=== PATIENT | male | born 1935 | race Caucasian/White ===

== ENCOUNTER 2017-03-15 20:06 | Emergency (ER) | payer BC, MEDICARE ==
[2017-03-15 20:17] VITALS: RESP 18
--- NOTE | 2017-03-15 21:07 | ED ---
General Adult HPI - General Chief complaint: Recheck/Abnormal Lab/Rx Stated complaint: High Blood Pressure Time Seen by Provider: 03/15/17 20:26 Source: patient, family, RN notes reviewed, old records reviewed Mode of arrival: wheelchair Limitations: no limitations - History of Present Illness Initial comments: Chief complaint history of present illness this is an 82-year-old male here with and son. Patient had a vasovagal episode while getting out of bed 3 days ago. 2 days ago he visited his family doctor. Suggested at that time his blood pressure was on the low side to use only half of his lisinopril which is normal at 10 mg. Today the patient reports he had a funny sensation felt dizzy his blood pressure was checked and was elevated at 190 systolic. The patient's blood pressure numbers are unavailable at this time for comparison but while in emergency room the patient's laying blood pressure was 208/102 with pulse 72 when he had up and was measured to be 163/80 with a pulse of 80 and then when he stood up and was 130/67 with a pulse of 88. No time did patient feel particularly dizzy. - Related Data Home Medications Medication Instructions Recorded Confirmed Lisinopril [Zestril] 10 mg PO DAILY 03/15/17 03/15/17 Allergies Allergy/AdvReac Type Severity Reaction Status Date / Time No Known Allergies Allergy Verified 03/15/17 20:17 Review of Systems ROS Statement: Those systems with pertinent positive or pertinent negative responses have been documented in the HPI. You have systems no headache or visual acuity changes he does have macular degeneration and is receiving shots for this. Denying chest pain palpitations shortness of breath no GI/ problems. Has not noticed any change in color of his stool or urine. All systems are reviewed. Past medical problems significant for high blood pressure. His surgeries include: Cancer surgery twice as well as splenectomy. Family history father had an WI at age 62. Patient denies ALLERGIES. He never smoked. Drink alcohol rarely socially. ROS Other: All systems not noted in ROS Statement are negative. Past Medical History Past Medical History: Hypertension History of Any Multi-Drug Resistant Organisms: None Reported Additional Past Surgical History / Comment(s): colon Past Psychological History: No Psychological Hx Reported Smoking Status: Never smoker Past Alcohol Use History: None Reported Past Drug Use History: None Reported General Exam - General Exam Comments Initial Comments: General: The patient is awake and alert, in no distress, and does not appear acutely ill. Blood pressure vital signs showed temperature 96.9 pulse 77 respiratory rate 18 pulse ox 90% room air blood pressure 174/82 Eye: Pupils are equal, round and reactive to light, extra-ocular movements are intact ; there is normal conjunctiva bilaterally. No signs of icterus. Ears, nose, mouth and throat: There are moist mucous membranes . Neck: The neck is supple, there is no tenderness . Cardiovascular: There is a regular rate and rhythm. No murmur, rub or gallop is appreciated. Respiratory: Lungs are clear to auscultation, respirations are non-labored, breath sounds are equal. No wheezes, stridor, rales, or rhonchi. Gastrointestinal: Soft, non-distended, non-tender abdomen without masses or organomegaly noted. There is no rebound or guarding present. No CVA tenderness. Bowel sounds are unremarkable. Back: There is no tenderness to palpation in the midline. There is no obvious deformity. No rashes noted. Musculoskeletal: Normal ROM, no tenderness, There is no pedal edema. There is no calf tenderness or swelling. Sensation intact. Pulses equal bilaterally 2+. Neurological: CN II-XII intact, There are no obvious motor or sensory deficits. Coordination appears grossly intact. Speech is normal. No focal or lateralizing findings. Skin: Skin is warm and dry and no rashes or lesions are noted. Limitations: no limitations Course Vital Signs 03/15/17 03/15/17 20:13 20:37 Temperature 96.9 F L Pulse Rate 77 Respiratory 18 Rate Blood Pressure 174/82 Blood Pressure 163/80 [Left Arm Sitting] Blood Pressure 138/67 [Left Arm Standing] Blood Pressure 208/102 [Left Arm Supine] O2 Sat by Pulse 98 Oximetry EKG Findings - EKG Comments: EKG Findings:: EKG was done at 2023 showing sinus rhythm first-degree AV block with left axis deviation and a right bundle branch block age undetermined inferior infarct. No acute ST elevation no ectopy no ischemic changes. Rate 73 , nose to 98 QRS 132 QT 398 QTc 4:30. Dr. Mendoza Medical Decision Making - Medical Decision Making Medical decision-making. The patient's EKG was found to be sinus rhythm first- degree AV block no acute changes. We did discuss his near syncopal episode 3 nights ago when he stood up to go to the washroom and middle the night his reports he just went down to the floor without losing consciousness. He states he felt dizzy and things went dark. No neuro deficits no seizure activity. He then managed to go to the washroom without difficulty. I did discuss at length vasovagal syncope and at times when he will be at most risk such as getting out of warm bed or going to the bathroom. He decided to stop his blood pressure pills because of one lower reading at the doctor's office and today his blood pressure was significantly elevated. The patient be given a 5 mg lisinopril this evening from his own medication container. Advised to have his blood pressure rechecked again with a blood pressure machine at home. And several times tomorrow when he stood should restart his lisinopril 10 mg. Advised to stay properly hydrated. Change positions slowly. Realizing when he feels the least bit dizzy when he stands up to sit down immediately to his fall and hurt himself. Patient and family voiced understanding with these cautions. Disposition Clinical Impression: Vasovagal near syncope Disposition: HOME SELF-CARE Condition: Fair Instructions: Syncope (ED) Additional Instructions: Change positions slowly, stay hydrated. Stand up against and by the side of the bed or the toilet before you step away to make sure you don't fall. Follow- up with family physician. Taking lisinopril in the morning. Referrals: Carlos Silva DO [Primary Care Provider] - 1-2 days Time of Disposition: 21:07
[2017-03-15 21:34] VITALS: BP 165/86; PULSE 69; TEMP 98.2
== END 2017-03-15 21:30 | disposition home or self-care (01) ==
LOC: EC 20:06
DX: R55 Syncope and collapse (principal); I10 Essential (primary) hypertension; Z79.899 Other long term (current) drug therapy
CPT/HCPCS: 93005; 99284

== ENCOUNTER → 2017-12-19 | Outpatient (CLI) | payer MEDICARE ==
--- NOTE | 2017-12-19 14:30 | US ---
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 GLAND SIZE: Right Lobe: 4.5 x 2.3 x 1.9 cm Overall Parenchyma: homogenous Left Lobe: 2.7 x 1.4 x 1.5 cm Overall Parenchyma: homogeneous Isthmus Thickness: 0.3 cm NODULES RIGHT: # of nodules measured on right: 3 1. 0.7 X 0.5 x 0.7 cm hypoechoic cystic nodule at the upper pole with well-defined margins; . This nodule is wider than tall and shows no intranodular vascularity. Prior size: 0.7 x 0.6 x 0.3 cm 2. 0.8 X 0.7 x 0.9 cm hypoechoic cystic nodule at the lower pole with well-defined margins; . This nodule is wider than tall and shows no intranodular vascularity. Prior size: 0.9 x 0.6 x 1.0 cm 3. 0.4 X 0.3 x 0.4 cm hypoechoic cystic nodule at the lower pole with well-defined margins; . This nodule is wider than tall and shows no intranodular vascularity. Prior size: 0.7 x 0.5 x 0.5 cm LEFT: # of nodules measured on left: 2 1. 0.6 X 0.5 x 0.7 cm hypoechoic cystic nodule at the upper pole with well-defined margins; . This nodule is wider than tall and shows no intranodular vascularity. Prior size: 0.5 x 0.5 x 0.4 cm 2. 1.2 X 0.7 x 0.9 cm hypoechoic solid nodule at the mid pole with well-defined margins; . This nod ule is wider than tall and shows intranodular vascularity. Prior size: 0.9 x 0.9 x 0.6 cm ISTHMUS: # of nodules measured in the isthmus: 0 Bilateral neck scanned, no evidence of lymphadenopathy. IMPRESSION: Nodules as described, not as many cysts seen right lobe as seen on prior.
== END | disposition home or self-care (01) ==
LOC: RADUSWWP 12:06
PROVIDERS: ATTEND Family Medicine
DX: E04.2 Nontoxic multinodular goiter (principal)
CPT/HCPCS: 76536

== ENCOUNTER 2018-01-13 11:48 | Day surgery (SDC) | payer MEDICARE ==
[2018-01-13 12:59] VITALS: RESP 16; TEMP 97.6
--- NOTE | 2018-01-13 13:17 | US ---
ULTRASOUND GUIDED FNA THYROID BIOPSY: CLINICAL HISTORY: Left thyroid nodule FINDINGS: The procedure was explained to the patient. The risks, complications, benefits and alternatives were discussed and any questions were answered. Informed consent was obtained. Patient was placed supin e on the ultrasound table and prepped and draped in the usual sterile fashion. Utilizing a 25 gauge needle, five passes were made into the requested left thyroid nodule. Patient was stable throughout the procedure. Pathology is pending. All elements of maximal barrier technique were utilized. IMPRESSION: 1. Successful ultrasound guided FNA thyroid biopsy.
[2018-01-13 14:17] VITALS: BP 158/73; PULSE 66
== END 2018-01-13 13:35 | disposition home or self-care (01) ==
LOC: RADPROMAIN 11:48
PROVIDERS: ATTEND Family Medicine
DX: E04.1 Nontoxic single thyroid nodule (principal)
CPT/HCPCS: 10022; 76942; 88173; 88305

== ENCOUNTER 2018-07-08 19:27 | Emergency (ER) | payer MEDICARE ==
[2018-07-08] MEDS ORDERED: SODIUM CHLORIDE 0.9% 1,000 ML IV STA ×2 (19:35)
--- NOTE | 2018-07-08 19:36 | ED ---
Weakness HPI - General Chief complaint: Weakness Stated complaint: Weakness Time Seen by Provider: 07/08/18 19:35 Source: patient, family, RN notes reviewed, old records reviewed Mode of arrival: ambulatory Limitations: no limitations - History of Present Illness Initial comments: This is an 83-year-old male the ER for eversion of weakness dehydration, not acting appropriately not feeling well family states she's had fevers and chills. Patient states he feels better upon arrival to ER. No known travel history no sick contacts. No recent medication changes. Patient denying any chest pain or shortness of breath MD Complaint: generalized weakness, lack of energy -: days(s) Location: generalized Severity: moderate Severity scale (1-10): 1 Consistency: other (Patient states he does feel better but he still feels weak) Improves with: rest Worsens with: movement Context: new medication (They do think he may be medication reaction) Associated Symptoms: denies other symptoms - Related Data Home Medications Medication Instructions Recorded Confirmed Vit C/E/Zn/Coppr/Lutein/Zeaxan 1 cap PO DAILY 01/01/18 07/08/18 [Preservision Areds 2 Softgel] Methimazole 10 mg PO AC-BID 07/08/18 07/08/18 Multivitamins, Thera [Multivitamin 1 tab PO DAILY 07/08/18 07/08/18 (formulary)] Propranolol LA [Inderal LA] 60 mg PO DAILY 07/08/18 07/08/18 Allergies Allergy/AdvReac Type Severity Reaction Status Date / Time No Known Allergies Allergy Verified 07/08/18 20:13 Review of Systems ROS Statement: Those systems with pertinent positive or pertinent negative responses have been documented in the HPI. ROS Other: All systems not noted in ROS Statement are negative. Past Medical History Past Medical History: Cancer, Hypertension Additional Past Medical History / Comment(s): macular degeneration, colon ca - bowel resection and chemo both times History of Any Multi-Drug Resistant Organisms: None Reported Additional Past Surgical History / Comment(s): colon resection - one at age 54, a second at age 69 Past Anesthesia/Blood Transfusion Reactions: No Reported Reaction Past Psychological History: No Psychological Hx Reported Smoking Status: Never smoker Past Alcohol Use History: None Reported Past Drug Use History: None Reported General Exam Limitations: no limitations General appearance: alert, in no apparent distress Head exam: Present: atraumatic, normocephalic, normal inspection Eye exam: Present: normal appearance, PERRL, EOMI. Absent: scleral icterus, conjunctival injection, periorbital swelling ENT exam: Present: normal exam, mucous membranes moist Neck exam: Present: normal inspection. Absent: tenderness, meningismus, lymphadenopathy Respiratory exam: Present: normal lung sounds bilaterally. Absent: respiratory distress, wheezes, rales, rhonchi, stridor Cardiovascular Exam: Present: regular rate, normal rhythm, normal heart sounds. Absent: systolic murmur, diastolic murmur, rubs, gallop, clicks GI/Abdominal exam: Present: soft, normal bowel sounds. Absent: distended, tenderness, guarding, rebound, rigid Extremities exam: Present: normal inspection, full ROM, normal capillary refill. Absent: tenderness, pedal edema, joint swelling, calf tenderness Back exam: Present: normal inspection Neurological exam: Present: alert, oriented X3, CN II-XII intact Psychiatric exam: Present: normal affect, normal mood Skin exam: Present: warm, dry, intact, normal color. Absent: rash Course Vital Signs 07/08/18 07/08/18 07/08/18 19:30 19:56 20:30 Temperature 101.4 F H Pulse Rate 78 77 82 Respiratory 18 34 H 18 Rate Blood Pressure 144/78 168/74 O2 Sat by Pulse 97 96 99 Oximetry 07/08/18 07/08/18 07/08/18 21:23 22:00 23:00 Temperature 99.0 F Pulse Rate 74 74 67 Respiratory 18 22 22 Rate Blood Pressure 158/74 152/77 142/74 O2 Sat by Pulse 98 96 96 Oximetry 07/09/18 00:10 Temperature 98.3 F Pulse Rate 82 Respiratory 18 Rate Blood Pressure 159/79 O2 Sat by Pulse 96 Oximetry - Reevaluation(s) Reevaluation #1: medical record is reviewed spoke with family patient is at baseline and ok for discharge home. EKG Findings - EKG Comments: EKG Findings:: EKG shows sinus rhythm rate of 77, SC 270, QRS 144, QTc 457 Medical Decision Making - Medical Decision Making 83 male brought in by family for weakness and fever at home. Patient given hydration here in ER fever control, no acute cause infection is found. Patient states he feels improved and will be discharged - Lab Data Result diagrams: 07/08/18 19:54 07/08/18 19:54 Lab Results 07/08/18 07/08/18 07/08/18 Range/Units 19:54 19:54 19:54 WBC 10.4 (3.8-10.6) k/uL RBC 3.72 L (4.30-5.90) m/uL Hgb 11.4 L (13.0-17.5) gm/dL Hct 34.6 L (39.0-53.0) % MCV 93.2 (80.0-100.0) fL MCH 30.7 (25.0-35.0) pg MCHC 33.0 (31.0-37.0) g/dL RDW 12.4 (11.5-15.5) % Plt Count 282 (150-450) k/uL Neutrophils % 80 % Lymphocytes % 11 % Monocytes % 6 % Eosinophils % 2 % Basophils % 0 % Neutrophils # 8.3 H (1.3-7.7) k/uL Lymphocytes # 1.2 (1.0-4.8) k/uL Monocytes # 0.6 (0-1.0) k/uL Eosinophils # 0.2 (0-0.7) k/uL Basophils # 0.0 (0-0.2) k/uL PT (9.0-12.0) sec INR (<1.2) APTT (22.0-30.0) sec Sodium 136 L (137-145) mmol/L Potassium 4.6 (3.5-5.1) mmol/L Chloride 101 (98-107) mmol/L Carbon Dioxide 25 (22-30) mmol/L Anion Gap 10 mmol/L BUN 19 (9-20) mg/dL Creatinine 1.52 H (0.66-1.25) mg/dL Est GFR (CKD-EPI)AfAm 48 (>60 ml/min/1.73 sqM) Est GFR (CKD-EPI)NonAf 42 (>60 ml/min/1.73 sqM) Glucose 138 H (74-99) mg/dL Plasma Lactic Acid Pedro (0.7-2.0) mmol/L Calcium 9.1 (8.4-10.2) mg/dL Phosphorus 3.3 (2.5-4.5) mg/dL Magnesium 1.7 (1.6-2.3) mg/dL Total Bilirubin 0.5 (0.2-1.3) mg/dL AST 36 (17-59) U/L ALT 23 (21-72) U/L Alkaline Phosphatase 87 (38-126) U/L Total Creatine Kinase 64 (55-170) U/L CK-MB (CK-2) 0.5 (0.0-2.4) ng/mL CK-MB (CK-2) Rel Index 0.8 Troponin I 0.041 H* (0.000-0.034) ng/mL Total Protein 6.6 (6.3-8.2) g/dL Albumin 3.7 (3.5-5.0) g/dL Urine Color Urine Appearance (Clear) Urine pH (5.0-8.0) Ur Specific [place] (1.001-1.035) Urine Protein (Negative) Urine Glucose (UA) (Negative) Urine Ketones (Negative) Urine Blood (Negative) Urine Nitrite (Negative) Urine Bilirubin (Negative) Urine Urobilinogen (<2.0) mg/dL Ur Leukocyte Esterase (Negative) Urine RBC (0-5) /hpf Urine WBC (0-5) /hpf Urine Mucus (None) /hpf Influenza Type A RNA (Not Detectd) Influenza Type B (PCR) (Not Detectd) 07/08/18 07/08/18 07/08/18 Range/Units 19:54 19:54 20:30 WBC (3.8-10.6) k/uL RBC (4.30-5.90) m/uL Hgb (13.0-17.5) gm/dL Hct (39.0-53.0) % MCV (80.0-100.0) fL MCH (25.0-35.0) pg MCHC (31.0-37.0) g/dL RDW (11.5-15.5) % Plt Count (150-450) k/uL Neutrophils % % Lymphocytes % % Monocytes % % Eosinophils % % Basophils % % Neutrophils # (1.3-7.7) k/uL Lymphocytes # (1.0-4.8) k/uL Monocytes # (0-1.0) k/uL Eosinophils # (0-0.7) k/uL Basophils # (0-0.2) k/uL PT 10.4 (9.0-12.0) sec INR 1.1 (<1.2) APTT 27.9 (22.0-30.0) sec Sodium (137-145) mmol/L Potassium (3.5-5.1) mmol/L Chloride (98-107) mmol/L Carbon Dioxide (22-30) mmol/L Anion Gap mmol/L BUN (9-20) mg/dL Creatinine (0.66-1.25) mg/dL Est GFR (CKD-EPI)AfAm (>60 ml/min/1.73 sqM) Est GFR (CKD-EPI)NonAf (>60 ml/min/1.73 sqM) Glucose (74-99) mg/dL Plasma Lactic Acid Pedro 1.3 (0.7-2.0) mmol/L Calcium (8.4-10.2) mg/dL Phosphorus (2.5-4.5) mg/dL Magnesium (1.6-2.3) mg/dL Total Bilirubin (0.2-1.3) mg/dL AST (17-59) U/L ALT (21-72) U/L Alkaline Phosphatase (38-126) U/L Total Creatine Kinase (55-170) U/L CK-MB (CK-2) (0.0-2.4) ng/mL CK-MB (CK-2) Rel Index Troponin I (0.000-0.034) ng/mL Total Protein (6.3-8.2) g/dL Albumin (3.5-5.0) g/dL Urine Color Urine Appearance (Clear) Urine pH (5.0-8.0) Ur Specific [place] (1.001-1.035) Urine Protein (Negative) Urine Glucose (UA) (Negative) Urine Ketones (Negative) Urine Blood (Negative) Urine Nitrite (Negative) Urine Bilirubin (Negative) Urine Urobilinogen (<2.0) mg/dL Ur Leukocyte Esterase (Negative) Urine RBC (0-5) /hpf Urine WBC (0-5) /hpf Urine Mucus (None) /hpf Influenza Type A RNA Not Detected (Not Detectd) Influenza Type B (PCR) Not Detected (Not Detectd) 07/08/18 Range/Units Unknown WBC (3.8-10.6) k/uL RBC (4.30-5.90) m/uL Hgb (13.0-17.5) gm/dL Hct (39.0-53.0) % MCV (80.0-100.0) fL MCH (25.0-35.0) pg MCHC (31.0-37.0) g/dL RDW (11.5-15.5) % Plt Count (150-450) k/uL Neutrophils % % Lymphocytes % % Monocytes % % Eosinophils % % Basophils % % Neutrophils # (1.3-7.7) k/uL Lymphocytes # (1.0-4.8) k/uL Monocytes # (0-1.0) k/uL Eosinophils # (0-0.7) k/uL Basophils # (0-0.2) k/uL PT (9.0-12.0) sec INR (<1.2) APTT (22.0-30.0) sec Sodium (137-145) mmol/L Potassium (3.5-5.1) mmol/L Chloride (98-107) mmol/L Carbon Dioxide (22-30) mmol/L Anion Gap mmol/L BUN (9-20) mg/dL Creatinine (0.66-1.25) mg/dL Est GFR (CKD-EPI)AfAm (>60 ml/min/1.73 sqM) Est GFR (CKD-EPI)NonAf (>60 ml/min/1.73 sqM) Glucose (74-99) mg/dL Plasma Lactic Acid Pedro (0.7-2.0) mmol/L Calcium (8.4-10.2) mg/dL Phosphorus (2.5-4.5) mg/dL Magnesium (1.6-2.3) mg/dL Total Bilirubin (0.2-1.3) mg/dL AST (17-59) U/L ALT (21-72) U/L Alkaline Phosphatase (38-126) U/L Total Creatine Kinase (55-170) U/L CK-MB (CK-2) (0.0-2.4) ng/mL CK-MB (CK-2) Rel Index Troponin I (0.000-0.034) ng/mL Total Protein (6.3-8.2) g/dL Albumin (3.5-5.0) g/dL Urine Color Yellow Urine Appearance Clear (Clear) Urine pH 7.0 (5.0-8.0) Ur Specific [place] 1.010 (1.001-1.035) Urine Protein Trace H (Negative) Urine Glucose (UA) Negative (Negative) Urine Ketones Negative (Negative) Urine Blood Trace H (Negative) Urine Nitrite Negative (Negative) Urine Bilirubin Negative (Negative) Urine Urobilinogen <2.0 (<2.0) mg/dL Ur Leukocyte Esterase Negative (Negative) Urine RBC 9 H (0-5) /hpf Urine WBC 1 (0-5) /hpf Urine Mucus Rare H (None) /hpf Influenza Type A RNA (Not Detectd) Influenza Type B (PCR) (Not Detectd) - Radiology Data Radiology results: report reviewed (Chest x-rays negative for acute disease), image reviewed Disposition Clinical Impression: Weakness, Fever Disposition: HOME SELF-CARE Condition: Good Instructions: Fever in Adults (ED), Weakness (ED) Is patient prescribed a controlled substance at d/c from ED?: No Referrals: Carlos Silva DO [Primary Care Provider] - 1-2 days
[2018-07-08] MEDS ORDERED: ACETAMINOPHEN TAB 500 MG TAB PO STA (19:38)
[2018-07-08] MEDS ORDERED: IBUPROFEN 800 MG TAB PO STA (19:38)
[2018-07-08 20:25] LABS: Basophils % (A) 0 %; Eosinophils # (A) 0.2 k/uL (0-0.7); Eosinophils % (A) 2 %; HCT 34.6 % (39.0-53.0); HGB 11.4 gm/dL (13.0-17.5); Lymphocytes # (A) 1.2 k/uL (1.0-4.8); Lymphocytes % (A) 11 %; MCH 30.7 pg (25.0-35.0); MCV 93.2 fL (80.0-100.0); Mean Platelet Volume 7.2; Monocytes # (A) 0.6 k/uL (0-1.0); Monocytes % (A) 6 %; Neutrophils # (A) 8.3 k/uL (1.3-7.7); Neutrophils % (A) 80 %; Platelet Count 282 k/uL (150-450); RBC 3.72 m/uL (4.30-5.90); RDW 12.4 % (11.5-15.5); WBC 10.4 k/uL (3.8-10.6)
[2018-07-08 20:34] LABS: Albumin 3.7 g/dL (3.5-5.0); Calcium 9.1 mg/dL (8.4-10.2); Magnesium 1.7 mg/dL (1.6-2.3); Phosphorus 3.3 mg/dL (2.5-4.5); Potassium 4.6 mmol/L (3.5-5.1); Total Bilirubin 0.5 mg/dL (0.2-1.3); Total Protein 6.6 g/dL (6.3-8.2)
[2018-07-08 20:41] LABS: INR 1.1 (<1.2); Partial Thromboplastin Time 27.9 sec (22.0-30.0); Prothrombin Time 10.4 sec (9.0-12.0)
[2018-07-08 20:52] LABS: Creatine Kinase MB 0.5 ng/mL (0.0-2.4)
[2018-07-08 21:00] LABS: Troponin I 0.041 ng/mL (0.000-0.034)
--- NOTE | 2018-07-08 21:12 | XR ---
EXAMINATION TYPE: XR chest 2V DATE OF EXAM: 07/08/2018 COMPARISON: NONE HISTORY: Weakness TECHNIQUE: Frontal and lateral views of the chest are obtained. FINDINGS: There is no heart failure nor confluent pneumonic infiltrate. Heart appears enlarged. Thor acic aorta is atheromatous. There is no sign of pleural effusion. There are chest leads. IMPRESSION: No active cardiopulmonary disease. Cardiomegaly.
[2018-07-08 23:33] LABS: Appearance,Urine Clear (Clear); Bilirubin,Urine Negative (Negative); Blood,Urine Trace (Negative); Color,Urine Yellow; Glucose,Urine (UA) Negative (Negative); Ketones,Urine Negative (Negative); Leukocyte Esterase,Urine Negative (Negative); Mucus,Urine Rare /hpf; Nitrite,Urine Negative (Negative); Protein,Urine Trace (Negative); RBC,Urine 9 /hpf (0-5); Urobilinogen,Urine <2.0 mg/dL (<2.0); WBC,Urine 1 /hpf (0-5)
[2018-07-09 00:34] VITALS: BP 159/79; PULSE 82; RESP 18; TEMP 98.3
== END 2018-07-09 00:10 | disposition home or self-care (01) ==
LOC: EC 19:27
DX: R53.1 Weakness (principal); R50.9 Fever, unspecified; I10 Essential (primary) hypertension; Z85.038 Personal history of other malignant neoplasm of large intestine; Z79.899 Other long term (current) drug therapy; Z90.49 Acquired absence of other specified parts of digestive tract
CPT/HCPCS: 36415; 71046; 80053; 81001; 82550; 82553; 83605; 83735; 84100; 84484; 85025; 85610; 85730; 87040; 87086; 87502; 93005; 96360; 96361; 99285

== ENCOUNTER 2020-08-07 02:10 | Inpatient (IN) | payer MEDICARE ==
[2020-08-07 02:35] LABS: Basophils % (A) 0 %; Eosinophils # (A) 0.1 k/uL (0-0.7); Eosinophils % (A) 1 %; HCT 32.6 % (39.0-53.0); HGB 10.9 gm/dL (13.0-17.5); Lymphocytes # (A) 1.4 k/uL (1.0-4.8); Lymphocytes % (A) 12 %; MCH 32.6 pg (25.0-35.0); MCHC 33.5 g/dL (31.0-37.0); MCV 97.3 fL (80.0-100.0); Mean Platelet Volume 7.3; Monocytes % (A) 8 %; Neutrophils # (A) 8.9 k/uL (1.3-7.7); Neutrophils % (A) 77 %; Platelet Count 204 k/uL (150-450); RBC 3.35 m/uL (4.30-5.90); RDW 12.8 % (11.5-15.5); WBC 11.6 k/uL (3.8-10.6)
--- NOTE | 2020-08-07 02:39 | ED ---
Chest Pain HPI - General Chief Complaint: Chest Pain Stated Complaint: Chest Pain Time Seen by Provider: 08/07/20 02:19 Source: patient, EMS Mode of arrival: EMS Limitations: no limitations - History of Present Illness Initial Comments: This patient is a 85-year-old man who presents to be evaluated for generalized weakness and for bilateral pleuritic chest pain. The patient states that he was in his usual state of health until about 3 days ago. On that day he was having generalized weakness and his gave him some Pedialyte which seemed to impr ove his energy level for couple of days. Starting in the morning today, patient was feeling generalized weakness and he noted some pain ACROSS his chest take a deep breath in. He denies other chest related symptoms, including no shortness of breath, orthopnea, cough. Denies change in urination or bowel movements. No leg pain or swelling. MD Complaint: chest pain Onset/Timin -: days(s) Onset: during rest Pain Location: substernal, left chest, right chest Pain Radiation: none Severity: mild Quality: dull Improves With: nothing Worsens With: inspiration Treatments Prior to Arrival: none - Related Data Home Medications Medication Instructions Recorded Confirmed Vit C/E/Zn/Coppr/Lutein/Zeaxan 1 cap PO DAILY 01/01/18 08/07/20 [Preservision Areds 2 Softgel] Multivitamins, Thera [Multivitamin 1 tab PO DAILY 07/08/18 08/07/20 (formulary)] Brimonidine Tartrate [Alphagan P 1 drop BOTH EYES BID 08/07/20 08/07/20 0.2% Ophth Soln] Levothyroxine Sodium [Synthroid] 25 mcg PO MOTUWETHFRSA 08/07/20 08/07/20 Tamsulosin [Flomax] 0.4 mg PO BID 08/07/20 08/07/20 Previous Rx's Medication Instructions Recorded Aspirin 81 mg PO DAILY #30 chew 08/10/20 Metoprolol Tartrate [Lopressor] 25 mg PO TID #90 tab 08/10/20 Allergies Allergy/AdvReac Type Severity Reaction Status Date / Time No Known Allergies Allergy Verified 08/07/20 06:29 Review of Systems ROS Statement: Those systems with pertinent positive or pertinent negative responses have been documented in the HPI. ROS Other: All systems not noted in ROS Statement are negative. Constitutional: Reports: weakness. Denies: fever, chills Respiratory: Denies: cough, dyspnea, wheezes Cardiovascular: Reports: as per HPI, chest pain. Denies: palpitations, orthopnea, edema, syncope Gastrointestinal: Denies: abdominal pain, nausea, vomiting, diarrhea, constipation, melena, hematochezia Genitourinary: Denies: dysuria, hematuria Musculoskeletal: Denies: back pain Skin: Denies: rash Neurological: Denies: headache, weakness, numbness, paresthesias EKG Findings - EKG Comments: EKG Findings:: Possible old inferior infarct. Short MI interval - EKG Results: EKG: interpreted by ERMD, sinus rhythm EKG shows: tachycardia (Rate 135 bpm) - Blocks, [place], Hypertrophy, ST Abn: AV and intraventricular conduction: right bundle branch block (fixed/intermittent, complete/incomplete), left anterior fascicular block Past Medical History Past Medical History: Cancer, Hypertension, Renal Disease Additional Past Medical History / Comment(s): macular degeneration, colon ca - bowel resection and chemo both times, stage 3 renal failure History of Any Multi-Drug Resistant Organisms: None Reported Additional Past Surgical History / Comment(s): colon resection - one at age 54, a second at age 69 Past Anesthesia/Blood Transfusion Reactions: No Reported Reaction Past Psychological History: No Psychological Hx Reported Smoking Status: Never smoker Past Alcohol Use History: Occasional Past Drug Use History: None Reported - Past Family History Father Family Medical History: Myocardial Infarction ([place]) Mother Family Medical History: CVA/TIA General Exam Limitations: no limitations General appearance: alert, in no apparent distress Head exam: Present: atraumatic, normocephalic Eye exam: Present: normal appearance. Absent: scleral icterus, conjunctival injection ENT exam: Present: mucous membranes dry Neck exam: Present: normal inspection Respiratory exam: Present: rales (Bilateral bases). Absent: respiratory distress, wheezes, rhonchi, stridor, chest wall tenderness, accessory muscle use, decreased breath sounds Cardiovascular Exam: Present: normal rhythm, tachycardia, normal heart sounds. Absent: systolic murmur, diastolic murmur, rubs, gallop GI/Abdominal exam: Present: soft. Absent: distended, tenderness, guarding, rebound, rigid, mass Extremities exam: Present: normal inspection, normal capillary refill. Absent: pedal edema, calf tenderness Back exam: Present: normal inspection. Absent: CVA tenderness (R), CVA tenderness (L) Neurological exam: Present: alert, oriented X3. Absent: motor sensory deficit Skin exam: Present: warm, dry, intact, normal color. Absent: rash Course Vital Signs 08/07/20 08/07/20 08/07/20 02:10 03:20 04:00 Temperature 98.7 F Pulse Rate 135 H 130 H 133 H Respiratory 20 18 18 Rate Blood Pressure 144/95 153/110 149/98 O2 Sat by Pulse 96 100 100 Oximetry 08/07/20 08/07/20 08/07/20 04:05 04:10 04:13 Temperature Pulse Rate 131 H 134 H 134 H Respiratory 18 18 18 Rate Blood Pressure 142/94 141/92 143/100 O2 Sat by Pulse 99 100 100 Oximetry 08/07/20 08/07/20 08/07/20 04:20 04:29 04:34 Temperature Pulse Rate 133 H 134 H 134 H Respiratory 16 18 18 Rate Blood Pressure 145/103 130/93 130/93 O2 Sat by Pulse 100 100 98 Oximetry 08/07/20 08/07/20 08/07/20 04:40 04:45 04:50 Temperature Pulse Rate 137 H 135 H 135 H Respiratory 18 18 18 Rate Blood Pressure 117/57 124/75 115/68 O2 Sat by Pulse 97 98 98 Oximetry 08/07/20 08/07/20 08/07/20 04:55 05:00 05:05 Temperature Pulse Rate 128 H 137 H 137 H Respiratory 18 18 18 Rate Blood Pressure 108/68 101/66 103/63 O2 Sat by Pulse 98 97 97 Oximetry 08/07/20 08/07/20 08/07/20 05:10 05:15 05:20 Temperature Pulse Rate 137 H 137 H 135 H Respiratory 18 18 18 Rate Blood Pressure 102/58 108/60 101/61 O2 Sat by Pulse 97 98 98 Oximetry 08/07/20 08/07/20 08/07/20 05:25 05:30 05:35 Temperature Pulse Rate 134 H 135 H 135 H Respiratory 18 18 18 Rate Blood Pressure 140/90 134/88 130/76 O2 Sat by Pulse 98 99 99 Oximetry 08/07/20 08/07/20 08/07/20 05:40 05:45 05:50 Temperature Pulse Rate 138 H 125 H 102 H Respiratory 18 18 20 Rate Blood Pressure 125/80 127/87 112/95 O2 Sat by Pulse 99 99 99 Oximetry 08/07/20 08/07/20 08/07/20 05:55 06:00 06:10 Temperature 98.8 F Pulse Rate 106 H 118 H 112 H Respiratory 20 16 18 Rate Blood Pressure 114/78 125/79 131/87 O2 Sat by Pulse 99 99 100 Oximetry 08/07/20 06:20 Temperature Pulse Rate 105 H Respiratory 18 Rate Blood Pressure 127/86 O2 Sat by Pulse 98 Oximetry Chest Pain [facility] Patient is a 5-year-old man presenting with weakness and some substernal chest pain. As there is suspicion from the ECG that he has atrial flutter which is being covered by the ST segments of his ECG due to the rate. I did give a small dose of oral beta kendra and it did appear to reveal underlying sawtooth pattern to the P waves when the rate was slowing. We will leave further rhythm control for cardiology. Disposition Clinical Impression: Chest pain, Atrial tachycardia Narrative: Suspect atrial flutter. Disposition: ADMITTED IP TO THIS HOSP Condition: Fair
[2020-08-07 02:49] LABS: Albumin 3.8 g/dL (3.5-5.0); Calcium 9.2 mg/dL (8.4-10.2); Potassium 4.2 mmol/L (3.5-5.1); Total Protein 6.5 g/dL (6.3-8.2)
--- NOTE | 2020-08-07 02:51 | CT ---
EXAM: CT Head Without Intravenous Contrast CLINICAL HISTORY: weakness TECHNIQUE: Axial computed tomography images of the head/brain without intravenous contrast. CTDI is 49.27 mGy and DLP is 1158.4 mGy-cm. This CT exam was performed using one or more of the following dose reduction techniques: automated exposure control, adjustment of the mA and/or kV according to patient size, and/or use of iterative reconstruction technique. COMPARISON: No relevant prior studies available. FINDINGS: Brain: Prominence of the cerebral sulci and sylvian fissures are noted. No acute intracranial hemorrhage or significant mass-effect. Extensive subcortical and periventricular deep white matter hypodense changes identified. No definite evidence for cortical infarct. Ventricles: Unremarkable. No ventriculomegaly. Bones/joints: Unremarkable. No acute fracture. Soft tissues: Unremarkable. Sinuses: Mucosal thickening involving the sphenoid sinus. The remaining paranasal sinuses are well-aerated without air-fluid levels. Mastoid air cells: Unremarkable as visualized. No mastoid effusion. IMPRESSION: No acute intracranial process identified. Incidental age-related changes, as noted above.
[2020-08-07 02:56] LABS: Partial Thromboplastin Time 26.1 sec (22.0-30.0); Prothrombin Time 10.4 sec (9.0-12.0)
--- NOTE | 2020-08-07 02:59 | XR ---
EXAM: XR Chest, 2 Views CLINICAL HISTORY: Weakness TECHNIQUE: Frontal and lateral views of the chest. COMPARISON: 07/08/2018 FINDINGS: Lungs: Chronic senescent interstitial changes remaining. The pleuritic vasculature demonstrates no radiographic evidence for florid CHF. No focal consolidation. Pleural space: Unremarkable. No pneumothorax. No large pleural effusion. Heart: The cardiac silhouette appears less prominent when compared to the previous examination. Mediastinum: Stable. The trachea is midline. Unfolding and tortuosity of the descending aorta without significant enlargement. Bones/joints: Unremarkable. IMPRESSION: No focal consolidation or acute cardiopulmonary process identified. The cardiac silhouette appears to be improved from the previous exam.
[2020-08-07] MEDS ORDERED: SODIUM CHLORIDE 0.9% 500 ML 500 ML IV STA (03:15)
[2020-08-07] MEDS ORDERED: NITROGLYCERIN-D5W PMX 50 MG in DEXTROSE/WATER 1 250ML.BAG IV ONE (03:28)
[2020-08-07 03:40] LABS: Appearance,Urine Clear (Clear); Bilirubin,Urine Negative (Negative); Blood,Urine Negative (Negative); Color,Urine Dark Yellow; Glucose,Urine (UA) Negative (Negative); Ketones,Urine Negative (Negative); Leukocyte Esterase,Urine Negative (Negative); Nitrite,Urine Negative (Negative); Protein,Urine Negative (Negative); Specific Gravity,Urine 1.007 (1.001-1.035); Urobilinogen,Urine <2.0 mg/dL (<2.0)
[2020-08-07] MEDS ORDERED: METOPROLOL TARTRATE 12.5 MG TAB PO ONE (05:00)
[2020-08-07] MEDS: FUROSEMIDE 10 MG/ML 4 ML VIAL IV SCH ×2 (05:50→17:07)
[2020-08-07] MEDS ORDERED: ENOXAPARIN 80 MG/0.8 ML SYRINGE SQ STA (05:53)
[2020-08-07 10:46] VITALS: BMI 24.4
[2020-08-07] MEDS: LEVOTHYROXINE 25 MCG TAB PO SCH (12:05)
[2020-08-07] MEDS ORDERED: HEPARIN SODIUM,PORCINE 5,000 UNIT/ML 1 ML VIAL IV ONE (12:14)
[2020-08-07] MEDS ORDERED: HEPARIN SODIUM,PORCINE 5,000 UNIT/ML 1 ML VIAL IV PRN (12:14)
--- NOTE | 2020-08-07 12:29 | P.CRDCN ---
History of Present Illness Consult date: 08/07/20 Chief complaint: Chest pain History of present illness: This is a pleasant 85-year-old gentleman who was admitted to the hospital with generalized weakness and a chest pain. The patient somewhat is a poor historian. He described chest discomfort in the mid of the chest worse with deep breath.It his symptoms of sweating or dizziness or lightheadedness or syncope. Also he described generalized weakness and fatigue. The EKG showed what it seems to be atrial fibrillation/atrial flutter which is known to the patient. The patient does not have any history of coronary artery disease or congestive heart failure or cardiac arrhythmia. Also the d-dimer came in to be abnormal. No computed tomography scan or VQ scan ordered. When the patient was seen and examined this morning he is tachycardic. At this point I'm going to start the patient on Cardizem drip as well as heparin drip. I am going to obtain a CTA of the chest to rule out PE. Also an echocardiogram is in process to be done. Past Medical History Past Medical History: Cancer, Hypertension, Renal Disease Additional Past Medical History / Comment(s): macular degeneration, colon ca - bowel resection and chemo both times, stage 3 renal failure History of Any Multi-Drug Resistant Organisms: None Reported Additional Past Surgical History / Comment(s): colon resection - one at age 54, a second at age 69 Past Anesthesia/Blood Transfusion Reactions: No Reported Reaction Past Psychological History: No Psychological Hx Reported Smoking Status: Never smoker Past Alcohol Use History: Occasional Past Drug Use History: None Reported - Past Family History Father Family Medical History: Myocardial Infarction ([place]) Mother Family Medical History: CVA/TIA Medications and Allergies Home Medications Medication Instructions Recorded Confirmed Type Vit C/E/Zn/Coppr/Lutein/Zeaxan 1 cap PO DAILY 01/01/18 08/07/20 History [Preservision Areds 2 Softgel] Multivitamins, Thera [Multivitamin 1 tab PO DAILY 07/08/18 08/07/20 History (formulary)] Brimonidine Tartrate [Alphagan P 1 drop BOTH EYES BID 08/07/20 08/07/20 History 0.2% Ophth Soln] Levothyroxine Sodium [Synthroid] 25 mcg PO MOTUWETHFRSA 12/28/20 12/28/20 History Tamsulosin [Flomax] 0.4 mg PO BID 08/07/20 08/07/20 History Allergies Allergy/AdvReac Type Severity Reaction Status Date / Time No Known Allergies Allergy Verified 08/07/20 06:29 Physical Exam Vitals: Vital Signs Temp Pulse Pulse Resp BP BP Pulse Ox 08/07/20 11:54 98.5 F 91 18 151/81 96 08/07/20 08:39 98.2 F 109 H 18 114/73 98 08/07/20 08:00 109 H 18 08/07/20 07:08 101 H 18 149/92 94 L 08/07/20 06:20 105 H 18 127/86 98 08/07/20 06:10 112 H 18 131/87 100 08/07/20 06:00 98.8 F 118 H 16 125/79 99 08/07/20 05:55 106 H 20 114/78 99 08/07/20 05:50 102 H 20 112/95 99 08/07/20 05:45 125 H 18 127/87 99 08/07/20 05:40 138 H 18 125/80 99 08/07/20 05:35 135 H 18 130/76 99 08/07/20 05:30 135 H 18 134/88 99 08/07/20 05:25 134 H 18 140/90 98 08/07/20 05:20 135 H 18 101/61 98 08/07/20 05:15 137 H 18 108/60 98 08/07/20 05:10 137 H 18 102/58 97 08/07/20 05:05 137 H 18 103/63 97 08/07/20 05:00 137 H 18 101/66 97 08/07/20 04:55 128 H 18 108/68 98 08/07/20 04:50 135 H 18 115/68 98 08/07/20 04:45 135 H 18 124/75 98 08/07/20 04:40 137 H 18 117/57 97 08/07/20 04:34 134 H 18 130/93 98 08/07/20 04:29 134 H 18 130/93 100 08/07/20 04:20 133 H 16 145/103 100 08/07/20 04:13 134 H 18 143/100 100 08/07/20 04:10 134 H 18 141/92 100 08/07/20 04:05 131 H 18 142/94 99 08/07/20 04:00 133 H 18 149/98 100 08/07/20 03:20 130 H 18 153/110 100 08/07/20 02:10 98.7 F 135 H 20 144/95 96 Intake and Output 08/06/20 08/07/20 08/07/20 22:59 06:59 14:59 Intake Total 10.10 180 Balance 10.10 180 Intake: Intake, IV Titration 10.10 Amount Nitroglycerin-D5w Pmx 50 10.10 mg In Dextrose/Water 1 250ml.bag @ 10 MCG/MIN 3 mls/hr IV .Q24H ONE Rx#: [id number] Oral 180 Other: Voiding Method Toilet # Voids 2 Weight 79.379 kg 79.379 kg - Constitutional General appearance: no acute distress - Respiratory Respiratory: bilateral: diminished - Cardiovascular Rhythm: regular Heart sounds: normal: S1, S2 Results 08/07/20 02:25 08/07/20 02:25 Cardiac Enzymes 08/07/20 08/07/20 08/07/20 Range/Units 02:25 02:25 05:38 AST 34 (17-59) U/L Troponin I 0.018 0.019 (0.000-0.034) ng/mL 08/07/20 Range/Units 08:32 AST (17-59) U/L Troponin I 0.027 (0.000-0.034) ng/mL Coagulation 08/07/20 Range/Units 02:25 PT 10.4 (9.0-12.0) sec APTT 26.1 (22.0-30.0) sec CBC 08/07/20 Range/Units 02:25 WBC 11.6 H (3.8-10.6) k/uL RBC 3.35 L (4.30-5.90) m/uL Hgb 10.9 L (13.0-17.5) gm/dL Hct 32.6 L (39.0-53.0) % Plt Count 204 (150-450) k/uL Comprehensive Metabolic Panel 08/07/20 Range/Units 02:25 Sodium 139 (137-145) mmol/L Potassium 4.2 (3.5-5.1) mmol/L Chloride 109 H (98-107) mmol/L Carbon Dioxide 23 (22-30) mmol/L BUN 22 H (9-20) mg/dL Creatinine 1.22 (0.66-1.25) mg/dL Glucose 137 H (74-99) mg/dL Calcium 9.2 (8.4-10.2) mg/dL AST 34 (17-59) U/L ALT 11 (4-49) U/L Alkaline Phosphatase 81 (38-126) U/L Total Protein 6.5 (6.3-8.2) g/dL Albumin 3.8 (3.5-5.0) g/dL Current Medications Generic Name Dose Route Start Last Admin Trade Name Freq PRN Reason Stop Dose Admin Brimonidine Tartrate 1 drops 08/07/20 21:00 Brimonidine Tartrate 0.2% Drops 5 Ml Btl BOTH EYES BID [facility] Diltiazem HCl 5 mg 08/07/20 12:30 Diltiazem Drip Bolus From Bag 1 Mg Soln IV 08/07/20 12:31 ONCE ONE Furosemide 40 mg 08/07/20 05:15 08/07/20 05:50 Furosemide 10 Mg/Ml 4 Ml Vial IV 40 mg Q12H ZAFAR Administration Heparin Sodium (Porcine) 0 unit 08/07/20 12:14 Heparin Sodium,Porcine 5,000 Unit/Ml 1 Ml Vial IV PER PROTOCOL PRN Low PTT Protocol Diltiazem HCl 125 mg/ Sodium 125 mls @ 5 mls/hr 08/07/20 12:30 Chloride IV .Q24H ZAFAR 5 MG/HR Heparin Sodium/Sodium Chloride 250 mls @ 9.525 mls/hr 08/07/20 12:15 25,000 unit/ Sodium Chloride IV .Q24H ZAFAR Protocol 12 UNITS/KG/HR Levothyroxine Sodium 25 mcg 08/07/20 10:30 08/07/20 12:05 Levothyroxine 25 Mcg Tab PO 25 mcg [id number] [facility] Administration Multivitamins 1 each 08/08/20 09:00 Multivitamins, Thera 1 Each Tab PO DAILY [facility] Multivitamins/Minerals 1 each 08/08/20 09:00 Vit A,C & C-[id number] 1 Each Tab PO DAILY [facility] Sodium Chloride 10 ml 08/07/20 09:00 08/07/20 12:06 Sodium Chloride 0.9% Flush 10 Ml Syringe IV 10 ml BID ZAFAR Administration Tamsulosin HCl 0.4 mg 08/07/20 21:00 Tamsulosin 0.4 Mg Cap.Er.24h PO BID ZAFAR Intake and Output 08/06/20 08/07/20 08/07/20 22:59 06:59 14:59 Intake Total 10.10 180 Balance 10.10 180 Intake: Intake, IV Titration 10.10 Amount Nitroglycerin-D5w Pmx 50 10.10 mg In Dextrose/Water 1 250ml.bag @ 10 MCG/MIN 3 mls/hr IV .Q24H ONE Rx#: [id number] Oral 180 Other: Voiding Method Toilet # Voids 2 Weight 79.379 kg 79.379 kg Patient Weight 08/08/20 06:59 Weight 79.379 kg 08/07/20 02:25 08/07/20 02:25 Assessment and Plan Assessment: Assessment #1 atypical/pleuritic chest pain #2 atrial fibrillation/atrial flutter, paroxysmal, new to the patient #3 multiple comorbid conditions Plan #1 continue the current medical regimen #2 start the patient heparin IV #3 start the patient on Cardizem IV #4 obtain an echocardiogram #5 obtain a CTA to rule out PE #6 follow-up with the patient
[2020-08-07] MEDS ORDERED: DILTIAZEM DRIP BOLUS FROM BAG 1 MG SOLN IV ONE (12:30)
[2020-08-07] MEDS: HEPARIN SOD,PORK IN 0.45% NACL 25,000 UNIT in 0.45% NACL 1 250ML.BAG IV SCH (12:34)
[2020-08-07 12:48] LABS: Basophils # (A) 0.1 k/uL (0-0.2); Basophils % (A) 0 %; Eosinophils % (A) 0 %; HCT 31.5 % (39.0-53.0); HGB 10.8 gm/dL (13.0-17.5); Lymphocytes % (A) 16 %; MCH 33.5 pg (25.0-35.0); MCHC 34.5 g/dL (31.0-37.0); MCV 97.3 fL (80.0-100.0); Mean Platelet Volume 7.6; Monocytes % (A) 8 %; Neutrophils % (A) 73 %; Platelet Count 182 k/uL (150-450); RBC 3.23 m/uL (4.30-5.90); RDW 12.4 % (11.5-15.5); WBC 12.3 k/uL (3.8-10.6)
[2020-08-07 12:56] LABS: INR 1.1 (<1.2); Partial Thromboplastin Time 37.9 sec (22.0-30.0)
[2020-08-07] MEDS: DILTIAZEM 125 MG in SODIUM CHLORIDE 0.9% 100 ML IV SCH (13:21)
--- NOTE | 2020-08-07 13:56 | CT ---
EXAMINATION TYPE: CT angio chest DATE OF EXAM: 08/07/2020 COMPARISON: HISTORY: difficulty breathing CT DLP: 309 mGycm Automated exposure control for dose reduction was used. CONTRAST: CTA scan of the thorax is performed with IV Contrast, patient injected with 100 mL of Isovue 370, pul monary embolism protocol. MIP images are created and reviewed. 3D reconstructed images are created on an independent workstation and reviewed. FINDINGS: LUNGS: The lungs are remarkable for basilar atelectatic changes, intimal pleural effusions, there is no concerning parenchymal mass or nodule identified. There is no pneumothorax seen. The tracheobro nchial tree is patent. AORTA: Root of aorta measures 4 cm MEDIASTINUM: There is satisfactory enhancement of the pulmonary artery and its branches, there is no CT evidence for pulmonary embolism. Retrocaval pretracheal node is enlarged, there are nodes in the a orticopulmonary window No pericardial effusion is seen. OTHER: Retrocrural node is present, axial image 1:15 which is enlarged. Hypodensity within the right lobe liver on axial image 113 measures 1 cm and is indeterminate. There is thoracic spondylosis. IMPRESSION: MEDIASTINAL ADENOPATHY. NO EVIDENT PULMONARY EMBOLISM. AORTIC ANEURYSM. SMALL PLEURAL EFFUSIONS. BASI LAR ATELECTASIS.
--- NOTE | 2020-08-07 19:08 | P.HPIM ---
History of Present Illness H&P Date: 08/07/20 Chief Complaint: Generalized weakness and pleuritic chest pain This is a 85-year-old male who admitted from the emergency department with symptoms of ongoing pleuritic chest pain and shortness of breath, he also has generalized weakness, symptoms started about 3 days ago, due to persistent weakness and pain across the chest came into the hospital for further evaluation, denies any cough or sputum production denies any swelling in the legs, patient has significant history of the hypothyroidism, also history of hypertension and hypertensive cardiovascular disease macular region degeneration, patient had a history of colon cancer status post resection followed by chemotherapy chronic kidney disease stage III, he is a nonsmoker, on arrival he was noted to be tachypneic slightly hypertensive with the tachycardia heart rate ranging from 1:30 to 140, ECG positive for atrial flutter, patient has been admitted into the hospital with cardiology on consultation, he has mi ldly elevated troponin level, his covert 19 testing is negative, CT of the head no acute changes identified chest x-ray is unremarkable and computed tomography scan of the chest revealed mediastinal adenopathy no pulmonary embolism, small aortic aneurysm and small bilateral pleural effusion along with atelectasis noted Review of Systems All systems: negative Past Medical History Past Medical History: Cancer, Hypertension, Renal Disease Additional Past Medical History / Comment(s): macular degeneration, colon ca - bowel resection and chemo both times, stage 3 renal failure History of Any Multi-Drug Resistant Organisms: None Reported Additional Past Surgical History / Comment(s): colon resection - one at age 54, a second at age 69 Past Anesthesia/Blood Transfusion Reactions: No Reported Reaction Past Psychological History: No Psychological Hx Reported Smoking Status: Never smoker Past Alcohol Use History: Occasional Past Drug Use History: None Reported - Past Family History Father Family Medical History: Myocardial Infarction ([place]) Mother Family Medical History: CVA/TIA Medications and Allergies Home Medications Medication Instructions Recorded Confirmed Type Vit C/E/Zn/Coppr/Lutein/Zeaxan 1 cap PO DAILY 01/01/18 08/07/20 History [Preservision Areds 2 Softgel] Multivitamins, Thera [Multivitamin 1 tab PO DAILY 07/08/18 08/07/20 History (formulary)] Brimonidine Tartrate [Alphagan P 1 drop BOTH EYES BID 12/28/20 12/28/20 History 0.2% Ophth Soln] Levothyroxine Sodium [Synthroid] 25 mcg PO [id number] 08/07/20 08/07/20 History Tamsulosin [Flomax] 0.4 mg PO BID 08/07/20 08/07/20 History Allergies Allergy/AdvReac Type Severity Reaction Status Date / Time No Known Allergies Allergy Verified 08/07/20 06:29 Physical Exam Vitals: Vital Signs Temp Pulse Pulse Resp BP BP Pulse Ox 08/07/20 15:38 97.6 F 109 H 18 140/68 97 08/07/20 14:00 91 18 08/07/20 11:54 98.5 F 91 18 151/81 96 08/07/20 08:39 98.2 F 109 H 18 114/73 98 08/07/20 08:00 109 H 18 08/07/20 07:08 101 H 18 149/92 94 L 08/07/20 06:20 105 H 18 127/86 98 08/07/20 06:10 112 H 18 131/87 100 08/07/20 06:00 98.8 F 118 H 16 125/79 99 08/07/20 05:55 106 H 20 114/78 99 08/07/20 05:50 102 H 20 112/95 99 08/07/20 05:45 125 H 18 127/87 99 08/07/20 05:40 138 H 18 125/80 99 08/07/20 05:35 135 H 18 130/76 99 08/07/20 05:30 135 H 18 134/88 99 08/07/20 05:25 134 H 18 140/90 98 08/07/20 05:20 135 H 18 101/61 98 08/07/20 05:15 137 H 18 108/60 98 08/07/20 05:10 137 H 18 102/58 97 08/07/20 05:05 137 H 18 103/63 97 08/07/20 05:00 137 H 18 101/66 97 08/07/20 04:55 128 H 18 108/68 98 08/07/20 04:50 135 H 18 115/68 98 08/07/20 04:45 135 H 18 124/75 98 08/07/20 04:40 137 H 18 117/57 97 08/07/20 04:34 134 H 18 130/93 98 08/07/20 04:29 134 H 18 130/93 100 08/07/20 04:20 133 H 16 145/103 100 08/07/20 04:13 134 H 18 143/100 100 08/07/20 04:10 134 H 18 141/92 100 08/07/20 04:05 131 H 18 142/94 99 08/07/20 04:00 133 H 18 149/98 100 08/07/20 03:20 130 H 18 153/110 100 08/07/20 02:10 98.7 F 135 H 20 144/95 96 Intake and Output 08/07/20 08/07/20 08/07/20 06:59 14:59 22:59 Intake Total 10.10 180 Balance 10.10 180 Intake: Intake, IV Titration 10.10 Amount Nitroglycerin-D5w Pmx 50 10.10 mg In Dextrose/Water 1 250ml.bag @ 10 MCG/MIN 3 mls/hr IV .Q24H [facility] Rx#: [id number] Oral 180 Other: Voiding Method Toilet # Voids 4 Weight 79.379 kg 79.379 kg - Constitutional General appearance: average body habitus, cooperative, disheveled - EENT Eyes: EOMI, PERRLA Ears: bilateral: normal - Neck Neck: normal ROM Carotids: bilateral: upstroke normal Thyroid: bilateral: normal size - Respiratory Respiratory: bilateral: CTA - Cardiovascular Rhythm: regular Heart sounds: normal: S1, S2 - Integumentary Integumentary: normal - Neurologic Neurologic: CNII-XII intact - Musculoskeletal Musculoskeletal: gait normal, generalized weakness, strength equal bilaterally - Psychiatric Psychiatric: A&O x's 3, appropriate affect, intact judgment & insight Results CBC & Chem 7: 08/07/20 12:29 08/07/20 02:25 Labs: Abnormal Lab Results - Last 24 Hours (Table) 08/07/20 08/07/20 08/07/20 Range/Units 02:25 02:25 02:25 WBC 11.6 H (3.8-10.6) k/uL RBC 3.35 L (4.30-5.90) m/uL Hgb 10.9 L (13.0-17.5) gm/dL Hct 32.6 L (39.0-53.0) % Neutrophils # 8.9 H (1.3-7.7) k/uL APTT (22.0-30.0) sec D-Dimer 0.88 H (<0.60) mg/L FEU Chloride 109 H (98-107) mmol/L BUN 22 H (9-20) mg/dL Glucose 137 H (74-99) mg/dL Troponin I (0.000-0.034) ng/mL 08/07/20 08/07/20 08/07/20 Range/Units 12:29 12:29 15:04 WBC 12.3 H (3.8-10.6) k/uL RBC 3.23 L (4.30-5.90) m/uL Hgb 10.8 L (13.0-17.5) gm/dL Hct 31.5 L (39.0-53.0) % Neutrophils # 9.0 H (1.3-7.7) k/uL APTT 37.9 H (22.0-30.0) sec D-Dimer (<0.60) mg/L FEU Chloride (98-107) mmol/L BUN (9-20) mg/dL Glucose (74-99) mg/dL Troponin I 0.039 H* (0.000-0.034) ng/mL Chest x-ray: report reviewed, image reviewed Thrombosis Risk Factor Assmnt - Choose All That Apply Any of the Below Risk Factors Present?: No Other Risk Factors: No Other congenital or acquired thrombophilia - If yes, enter type in comment: No Thrombosis Risk Factor Assessment Level: Very Low Risk Assessment and Plan Assessment: Atypical chest pain Atrial tachycardia/atrial flutter Mediastinal lymphadenopathy Generalized weakness Mildly elevated tropes Plan: patient is being treated with IV heparin, cardiovascular services have evaluated patient, echocardiogram is pending, will continue current plan of care further recommendations pending
[2020-08-07] MEDS: BRIMONIDINE TARTRATE 0.2% DROPS 5 ML BTL BOTH EYES SCH (21:03)
[2020-08-07] MEDS: TAMSULOSIN 0.4 MG CAP.ER.24H PO SCH (21:03)
[2020-08-08 03:31] LABS: Basophils % (A) 0 %; Eosinophils # (A) 0.1 k/uL (0-0.7); Eosinophils % (A) 1 %; HCT 30.5 % (39.0-53.0); HGB 10.4 gm/dL (13.0-17.5); Lymphocytes # (A) 2.1 k/uL (1.0-4.8); Lymphocytes % (A) 21 %; MCH 33.7 pg (25.0-35.0); MCHC 34.2 g/dL (31.0-37.0); MCV 98.7 fL (80.0-100.0); Mean Platelet Volume 7.9; Monocytes # (A) 0.8 k/uL (0-1.0); Monocytes % (A) 8 %; Neutrophils # (A) 6.9 k/uL (1.3-7.7); Neutrophils % (A) 67 %; Platelet Count 170 k/uL (150-450); RDW 12.4 % (11.5-15.5); WBC 10.2 k/uL (3.8-10.6)
[2020-08-08] MEDS: LEVOTHYROXINE 25 MCG TAB PO SCH (06:53)
[2020-08-08] MEDS: FUROSEMIDE 10 MG/ML 4 ML VIAL IV SCH ×2 (06:53→16:18)
[2020-08-08] MEDS: BRIMONIDINE TARTRATE 0.2% DROPS 5 ML BTL BOTH EYES SCH ×2 (07:59→20:03)
[2020-08-08] MEDS: VIT A,C & E-LUTEIN-MINERALS 1 EACH TAB PO SCH (08:00)
[2020-08-08] MEDS: TAMSULOSIN 0.4 MG CAP.ER.24H PO SCH ×2 (08:00→20:03)
[2020-08-08] MEDS: MULTIVITAMINS, THERA 1 EACH TAB PO SCH (08:00)
--- NOTE | 2020-08-08 09:39 | P.PN ---
Subjective Progress Note Date: 08/08/20 Principal diagnosis: Atrial flutter This is a pleasant 85-year-old gentleman who was admitted to the hospital with generalized weakness and a chest pain. The patient somewhat is a poor historian. He described chest discomfort in the mid of the chest worse with deep breath.It his symptoms of sweating or dizziness or lightheadedness or syncope. Also he described generalized weakness and fatigue. The EKG showed what it seems to be atrial fibrillation/atrial flutter which is known to the patient. The patient does not have any history of coronary artery disease or congestive heart failure or cardiac arrhythmia. Also the d-dimer came in to be abnormal. The patient was seen this morning. He states that he is feeling overall better. He continues to be on Cardizem drip and the heart rate seems to be improved. He continues to be on heparin IV as well. He underwent a computed tomography scan of the chest and that came in to be unremarkable for PE. The echo still pending. Objective - Vital Signs Vital signs: Vital Signs Temp 97.6 F 08/08/20 07:58 Pulse 131 H 08/08/20 08:00 Resp 18 08/08/20 08:00 BP 124/63 08/08/20 07:58 Pulse Ox 98 08/08/20 07:58 Intake & Output 08/07/20 08/08/20 08/08/20 18:59 06:59 18:59 Intake Total 180 70.802 125 Output Total 1140 Balance 180 -1069.198 125 Weight 79.379 kg 81.5 kg Intake: Intake, IV Titration 70.802 Amount Heparin Sod,Pork in 0.45% 70.802 NaCl 25,000 unit In 0.45 % NaCl 1 250ml.bag @ 12 UNITS/KG/HR 9.525 mls/hr IV .Q24H [facility] Rx#: [id number] Oral 180 125 Output: Urine 1140 Other: Voiding Method Toilet Urinal Urinal # Voids 4 1 - Constitutional General appearance: Present: no acute distress - Respiratory Respiratory: bilateral: diminished - Cardiovascular Rhythm: irregularly irregular Heart sounds: normal: S1, S2 - Labs CBC & Chem 7: 08/08/20 02:37 08/07/20 02:25 Labs: Abnormal Lab Results - Last 24 Hours (Table) 08/07/20 08/07/2020 Range/Units 12: 12:29 15:04 WBC 12.3 H (3.8-10.6) k/uL RBC 3.23 L (4.30-5.90) m/uL Hgb 10.8 L (13.0-17.5) gm/dL Hct 31.5 L (39.0-53.0) % Neutrophils # 9.0 H (1.3-7.7) k/uL APTT 37.9 H (22.0-30.0) sec Troponin I 0.039 H* (0.000-0.034) ng/mL 08/07/20 08/07/20 08/08/20 Range/Units 18:43 18:43 02:37 WBC (3.8-10.6) k/uL RBC 3.10 L (4.30-5.90) m/uL Hgb 10.4 L (13.0-17.5) gm/dL Hct 30.5 L (39.0-53.0) % Neutrophils # (1.3-7.7) k/uL APTT 117.7 H* (22.0-30.0) sec Troponin I 0.046 H* (0.000-0.034) ng/mL 08/08/20 Range/Units 02:37 WBC (3.8-10.6) k/uL RBC (4.30-5.90) m/uL Hgb (13.0-17.5) gm/dL Hct (39.0-53.0) % Neutrophils # (1.3-7.7) k/uL APTT 60.4 H (22.0-30.0) sec Troponin I (0.000-0.034) ng/mL Microbiology - Last 24 Hours (Table) 08/07/20 02:30 Blood Culture - Preliminary Blood No Growth after 24 hours Assessment and Plan Assessment: Assessment #1 atypical/pleuritic chest pain #2 atrial fibrillation/atrial flutter, paroxysmal, new to the patient #3 multiple comorbid conditions Plan #1 continue heparin IV and consider oral anticoagulation down the line #2 continue Cardizem IV and consider oral AV karen kendra agents #3 follow-up on the echocardiogram
--- NOTE | 2020-08-08 10:06 | ECHOF ---
Referral Reason:Heart Failure MEASUREMENTS -------- HEIGHT: 180.3 cm WEIGHT: 79.4 kg BP: 149/92 RVIDd: 3.4 cm (< 3.3) IVSd: 1.4 cm (0.6 - 1.1) LVIDd: 4.6 cm (3.9 - 5.3) LVPWd: 1.5 cm (0.6 - 1.1) IVSs: 1.9 cm LVIDs: 3.5 cm LVPWs: 2.1 cm LA Diam: 3.7 cm (2.7 - 3.8) LAESV Index (A-L): 24.90 ml/m Ao Diam: 3.9 cm (2.0 - 3.7) AV Cusp: 2.5 cm (1.5 - 2.6) MV EXCURSION: 17.701 mm (> 18.000) MV EF SLOPE: 77 mm/s (70 - 150) EPSS: 1.0 cm RAP: 5.00 mmHg RVSP: 34.51 mmHg FINDINGS -------- Atrial fibrillation. This was a technically difficult study with suboptimal views. The left ventricular size is normal. There is moderate concentric left ventricular hypertrophy. O verall left ventricular systolic function is mildly impaired with, an EF between 45 - 50 %. The right ventricle is mildly enlarged. Normal LA size by volume 22+/-6 ml/m2. The right atrium is normal in size. There is mild aortic valve sclerosis. There is mild aortic regurgitation. The mitral valve leaflets are mildly thickened. Mild mitral annular calcification present. There is trace to mild mitral regurgitation. Mild tricuspid regurgitation present. There is mild pulmonary hypertension. The right ventricular systolic pressure, as measured by Doppler, is 34.51mmHg. Trace/mild (physiologic) pulmonic regurgitation. The aortic root is dilated measuring 3.9cm. IVC Not well visulized. There is no pericardial effusion. CONCLUSIONS -------- 1. The left ventricular size is normal. 2. There is moderate concentric left ventricular hypertrophy. 3. Overall left ventricular systolic function is mildly impaired with, an EF between 45 - 50 %. 4. The right ventricle is mildly enlarged. 5. There is mild aortic valve sclerosis. 6. There is mild aortic regurgitation. 7. The mitral valve leaflets are mildly thickened. 8. Mild mitral annular calcification present. 9. There is trace to mild mitral regurgitation. 10. Mild tricuspid regurgitation present. 11. There is mild pulmonary hypertension. 12. The right ventricular systolic pressure, as measured by Doppler, is 34.51mmHg. 13. Trace/mild (physiologic) pulmonic regurgitation. 14. The aortic root is dilated measuring 3.9cm. 15. There is no pericardial effusion. RFID STRATEGIST: Veronika Viveros RDCS
[2020-08-08] MEDS: METOPROLOL TARTRATE 25 MG TAB PO SCH ×2 (10:12→20:02)
--- NOTE | 2020-08-08 14:01 | P.PN ---
Subjective Progress Note Date: 08/08/20 Principal diagnosis: Atypical chest pain Atrial tachycardia/atrial flutter Mediastinal lymphadenopathy Generalized weakness Mildly elevated tropes 08/08/2020, patient sitting upright in the chair eating supper shortness of breath continued to improve, denies any chest pain cardiovascular services evaluated the patient and recommendation noted, This is a 85-year-old male who admitted from the emergency department with symptoms of ongoing pleuritic chest pain and shortness of breath, he also has generalized weakness, symptoms started about 3 days ago, due to persistent weakness and pain across the chest came into the hospital for further evaluation, denies any cough or sputum production denies any swelling in the legs, patient has significant history of the hypothyroidism, also history of hypertension and hypertensive cardiovascular disease macular region degener ation, patient had a history of colon cancer status post resection followed by chemotherapy chronic kidney disease stage III, he is a nonsmoker, on arrival he was noted to be tachypneic slightly hypertensive with the tachycardia heart rate ranging from 1:30 to 140, ECG positive for atrial flutter, patient has been admitted into the hospital with cardiology on consultation, he has mildly elevated troponin level, his covert 19 testing is negative, CT of the head no acute changes identified chest x-ray is unremarkable and computed tomography scan of the chest revealed mediastinal adenopathy no pulmonary embolism, small aortic aneurysm and small bilateral pleural effusion along with atelectasis noted Objective - Vital Signs Vital signs: Vital Signs Temp 97.6 F 08/08/20 12:00 Pulse 72 08/08/20 13:26 Resp 18 08/08/20 13:26 BP 116/77 08/08/20 12:00 Pulse Ox 99 08/08/20 12:00 Intake & Output 08/07/20 08/08/20 08/08/20 18:59 06:59 18:59 Intake Total 180 70.802 125 Output Total 1140 Balance 180 -1069.198 125 Weight 79.379 kg 81.5 kg Intake: Intake, IV Titration 70.802 Amount Heparin Sod,Pork in 0.45% 70.802 NaCl 25,000 unit In 0.45 % NaCl 1 250ml.bag @ 12 UNITS/KG/HR 9.525 mls/hr IV .Q24H [facility] Rx#: [id number] Oral 180 125 Output: Urine 1140 Other: Voiding Method Toilet Urinal Urinal # Voids 4 1 1 - Exam - Constitutional General appearance: average body habitus, cooperative, disheveled - EENT Eyes: EOMI, PERRLA Ears: bilateral: normal - Neck Neck: normal ROM Carotids: bilateral: upstroke normal Thyroid: bilateral: normal size - Respiratory Respiratory: bilateral: CTA - Cardiovascular Rhythm: regular Heart sounds: normal: S1, S2 - Integumentary Integumentary: normal - Neurologic Neurologic: CNII-XII intact - Musculoskeletal Musculoskeletal: gait normal, generalized weakness, strength equal bilaterally - Psychiatric Psychiatric: A&O x's 3, appropriate affect, intact judgment & insight - Labs CBC & Chem 7: 08/08/20 02:37 08/07/20 02:25 Labs: Abnormal Lab Results - Last 24 Hours (Table) 08/07/20 08/07/20 08/07/20 Range/Units 15:04 18:43 18:43 RBC (4.30-5.90) m/uL Hgb (13.0-17.5) gm/dL Hct (39.0-53.0) % APTT 117.7 H* (22.0-30.0) sec Troponin I 0.039 H* 0.046 H* (0.000-0.034) ng/mL 08/08/20 08/08/20 Range/Units 02:37 02:37 RBC 3.10 L (4.30-5.90) m/uL Hgb 10.4 L (13.0-17.5) gm/dL Hct 30.5 L (39.0-53.0) % APTT 60.4 H (22.0-30.0) sec Troponin I (0.000-0.034) ng/mL Microbiology - Last 24 Hours (Table) 08/07/20 02:30 Blood Culture - Preliminary Blood No Growth after 24 hours Assessment and Plan Assessment: Atypical chest pain Atrial tachycardia/atrial flutter Mediastinal lymphadenopathy Generalized weakness Mildly elevated tropes Plan: patient is being treated with IV heparin, cardiovascular services have evaluated patient, echocardiogram is pending, will continue current plan of care further recommendations pending Time with Patient: Greater than 30
[2020-08-08] MEDS: HEPARIN SOD,PORK IN 0.45% NACL 25,000 UNIT in 0.45% NACL 1 250ML.BAG IV SCH (14:55)
[2020-08-08] MEDS: DILTIAZEM 125 MG in SODIUM CHLORIDE 0.9% 100 ML IV SCH (14:56)
[2020-08-09] MEDS: FUROSEMIDE 10 MG/ML 4 ML VIAL IV SCH ×2 (05:41→15:34)
[2020-08-09] MEDS: LEVOTHYROXINE 25 MCG TAB PO SCH (05:41)
[2020-08-09 07:43] LABS: Basophils % (A) 0 %; Eosinophils # (A) 0.1 k/uL (0-0.7); Eosinophils % (A) 1 %; HCT 31.8 % (39.0-53.0); HGB 10.9 gm/dL (13.0-17.5); Lymphocytes # (A) 1.9 k/uL (1.0-4.8); Lymphocytes % (A) 15 %; MCH 33.3 pg (25.0-35.0); MCHC 34.2 g/dL (31.0-37.0); MCV 97.4 fL (80.0-100.0); Mean Platelet Volume 8.3; Monocytes # (A) 0.7 k/uL (0-1.0); Monocytes % (A) 6 %; Neutrophils # (A) 10.1 k/uL (1.3-7.7); Neutrophils % (A) 77 %; Platelet Count 194 k/uL (150-450); RBC 3.27 m/uL (4.30-5.90); RDW 12.3 % (11.5-15.5); WBC 13.2 k/uL (3.8-10.6)
[2020-08-09] MEDS: MULTIVITAMINS, THERA 1 EACH TAB PO SCH (08:34)
[2020-08-09] MEDS: METOPROLOL TARTRATE 25 MG TAB PO SCH ×3 (08:34→22:22)
[2020-08-09] MEDS: TAMSULOSIN 0.4 MG CAP.ER.24H PO SCH ×2 (08:34→22:22)
[2020-08-09] MEDS: VIT A,C & E-LUTEIN-MINERALS 1 EACH TAB PO SCH (08:36)
--- NOTE | 2020-08-09 10:05 | P.PN ---
Subjective Progress Note Date: 08/09/20 Principal diagnosis: Atrial flutter This is a pleasant 85-year-old gentleman who was admitted to the hospital with generalized weakness and a chest pain. The patient somewhat is a poor historian. He described chest discomfort in the mid of the chest worse with deep breath.It his symptoms of sweating or dizziness or lightheadedness or syncope. Also he described generalized weakness and fatigue. The EKG showed what it seems to be atrial fibrillation/atrial flutter which is known to the patient. The patient does not have any history of coronary artery disease or congestive heart failure or cardiac arrhythmia. Also the d-dimer came in to be abnormal. The patient was seen this morning. He states that he is feeling overall better. He continues to be on Cardizem drip which I'm going to stop and increase the dose of metoprolol to 25 mg by mouth 3 times a day. The patient is not a candidate for oral anticoagulation because of risk of falling and bleeding. Objective - Vital Signs Vital signs: Vital Signs Temp 97.3 F L 08/09/20 08:00 Pulse 55 L 08/09/20 09:56 Resp 17 08/09/20 08:00 BP 85/41 08/09/20 09:56 Pulse Ox 97 08/09/20 08:00 Intake & Output 08/08/20 08/09/20 08/09/20 18:59 06:59 18:59 Intake Total 859.403 Output Total 900 300 Balance 859.403 -900 -300 Weight 75.1 kg Intake: Intake, IV Titration 262.403 Amount Diltiazem 125 mg In 125 Sodium Chloride 0.9% 100 ml @ 5 MG/HR 5 mls/hr IV .Q24H [facility] Rx#:[id number] Heparin Sod,Pork in 0.45% 137.403 NaCl 25,000 unit In 0.45 % NaCl 1 250ml.bag @ 12 UNITS/KG/HR 9.525 mls/hr IV .Q24H [facility] Rx#: [id number] Oral 597 Output: Urine 900 300 Other: Voiding Method Urinal Urinal # Voids 1 - Constitutional General appearance: Present: no acute distress - Respiratory Respiratory: bilateral: CTA - Cardiovascular Rhythm: irregularly irregular Heart sounds: normal: S1, S2 - Labs CBC & Chem 7: 08/09/20 07:01 08/07/20 02:25 Labs: Abnormal Lab Results - Last 24 Hours (Table) 08/08/20 08/08/20 08/09/20 Range/Units 15:16 21:31 07:01 WBC 13.2 H (3.8-10.6) k/uL RBC 3.27 L (4.30-5.90) m/uL Hgb 10.9 L (13.0-17.5) gm/dL Hct 31.8 L (39.0-53.0) % Neutrophils # 10.1 H (1.3-7.7) k/uL APTT 41.5 H 46.9 H (22.0-30.0) sec 08/09/20 Range/Units 07:01 WBC (3.8-10.6) k/uL RBC (4.30-5.90) m/uL Hgb (13.0-17.5) gm/dL Hct (39.0-53.0) % Neutrophils # (1.3-7.7) k/uL APTT 44.7 H (22.0-30.0) sec Microbiology - Last 24 Hours (Table) 08/07/20 02:30 Blood Culture - Preliminary Blood No Growth after 48 hours Assessment and Plan Assessment: Assessment #1 atypical/pleuritic chest pain #2 atrial fibrillation/atrial flutter, paroxysmal, new to the patient #3 multiple comorbid conditions Plan #1 DC heparin #2 increase the dose of metoprolol #3 monitor the patient for additional 24 hours
[2020-08-09] MEDS: BRIMONIDINE TARTRATE 0.2% DROPS 5 ML BTL BOTH EYES SCH ×2 (11:04→22:23)
--- NOTE | 2020-08-09 14:03 | CDI ---
Documentation Clarification Form Date: 08/09/2020 01:54:57 PM From: Charlotte Chaudhry CCS, CCDS Admit Date: 08/07/2020 05:17:00 AM Patient Name: Manuel Duron Visit Number: [id number] Discharge Date: ATTENTION: The Clinical Documentation Specialists (CDI) and [facility] Coding Staff appreciate your assistance in clarifying documentation. Please respond to the clarification below the line at the bottom and electronically sign. The CDI & [facility] Coding staff will review the response and follow-up if needed. Please note: Queries are made part of the Legal Health Record. If you have any questions, please contact the author of this message via ITS. Dr. Rojas Mary: Atrial Fibrillation is documented in the 08/07 Cardiology Consult: "Atrial fibrillation/atrial flutter, paroxysmal, new to the patient." and also in the 08/08 subsequent Progress Note. History/Risk Factors: Hypertension and Hypertensive Cardiovascular Disease, Macular Degeneration, Colon Cancer status post resection & chemotherapy, CKD III, Non smoker. Clinical Indicators: Presented to the ED on 08/07 via EMS with pleuritic chest pain and generalized weakness. EKG 08/07 #1: R 135 Sinus tachycardia w/short [place] with PVCs or fusion complexes, RBBB, Left anterior fascicular block, Bifascicular block, Inferior infarct age undetermined. EKG 08/07 #2: R 138 Wide QRS tachycardia, RBBB, Left anterior fascicular block, Bifascicular block & inferior infarct age undetermined. EKG 08/07 #3: R 96 Atrial fibrillation with PVCs, RBBB, Left anterior fascicular block, Bifascicular block and inferior infarct, age undetermined. Treatment: IV Nitro, po Lopressor, IV Lasix, Lovenox sq, IV Heparin, IV Cardizem, IV Cardizem Drip Bolus In your professional opinion, can you please clarify the type of Atrial Fibrillation, if known? Chronic/Permanent Paroxysmal Persistent Other, please specify Unable to determine (Last Revision: November 2017) MTDD
--- NOTE | 2020-08-09 14:09 | CDI ---
Documentation Clarification Form Date: 08/09/2020 02:03:00 PM From: Charlotte Chaudhry CCS, CCDS Admit Date: 08/07/2020 05:17:00 AM Patient Name: Manuel Duron Visit Number: [id number] Discharge Date: ATTENTION: The Clinical Documentation Specialists (CDI) and [facility] Coding Staff appreciate your assistance in clarifying documentation. Please respond to the clarification below the line at the bottom and electronically sign. The CDI & [facility] Coding staff will review the response and follow-up if needed. Please note: Queries are made part of the Legal Health Record. If you have any questions, please contact the author of this message via ITS. Dr. Rojas Mary: Atrial Flutter is documented in the following documents without further specificity: 08/07 ED Note: "Suspect atrial flutter." 08/07 Cardiology Consult: "Atrial fibrillation/Atrial flutter, paroxysmal, new to the patient." and also in the subsequent 08/08 Progress Note. 08/07 History & Physical: "ECG positive for atrial flutter" "Atrial tachycardia/atrial flutter." History/Risk factors: Hypertension & Hypertensive cardiovascular disease, Macular Degeneration, Colon Cancer status post resection & Chemotherapy, CKD III and non smoker. Clinical Indicators: Presented to the ED via EMS on 08/07 with generalized weakness & pleuritic chest pain. EKG 08/07 #1: R 135 Sinus tachycardia w/short [place] with PVCs or fusion complexes, RBBB, Left anterior fascicular block, Bifascicular block, Inferior infarct age undetermined. EKG 08/07 #2: R 138 Wide QRS tachycardia, RBBB, Left anterior fascicular block, Bifascicular block & inferior infarct age undetermined. EKG 08/07 #3: R 96 Atrial fibrillation with PVCs, RBBB, Left anterior fascicular block, Bifascicular block and inferior infarct, age undetermined. Treatment: IV Nitro, po Lopressor, IV Lasix, Lovenox sq, IV Heparin, IV Cardizem, IV Cardizem Drip Bolus In your professional opinion, in order to capture the severity of condition; can you please clarify the type of Atrial Flutter if known? Typical/Type I Atypical/Type II Other, please specify Unable to determine (Last Revision: November 2017) No response from physician: CDS, SEPIDEH NASCIMENTO
--- NOTE | 2020-08-09 15:14 | P.PN ---
Subjective Progress Note Date: 08/09/20 Principal diagnosis: Atypical chest pain Atrial tachycardia/atrial flutter Mediastinal lymphadenopathy Generalized weakness Mildly elevated tropes 08/09/2020, patient is awake and alert or awake sitting upright on the chair, patient has problem associated with the orthostatic hypotension. This morning, just has been taken off of heparin and Cardizem drip, 08/08/2020, patient sitting upright in the chair eating supper shortness of breath continued to improve, denies any chest pain cardiovascular services evaluated the patient and recommendation noted, This is a 85-year-old male who admitted from the emergency department with symptoms of ongoing pleuritic chest pain and shortness of breath, he also has generalized weakness, symptoms started about 3 days ago, due to persistent weakness and pain across the chest came into the hospital for further evaluation, denies any cough or sputum production denies any swelling in the legs, patient has significant history of the hypothyroidism, also history of hypertension and hypertensive cardiovascular disease macular region degeneration, patient had a history of colon cancer status post resection followed by chemotherapy chronic kidney disease stage III, he is a nonsmoker, on arrival he was noted to be tachypneic slightly hypertensive with the tachycardia heart rate ranging from 1:30 to 140, ECG positive for atrial flutter, patient has been admitted into the hospital with cardiology on consultation, he has mildly elevated troponin level, his covert 19 testing is negative, CT of the head no acute changes identified chest x-ray is unremarkable and computed tomography scan of the chest revealed mediastinal adenopathy no pulmonary embolism, small aortic aneurysm and small bilateral pleural effusion along with atelectasis noted Objective - Vital Signs Vital signs: Vital Signs Temp 96.9 F L 08/09/20 11:00 Pulse 78 08/09/20 11:00 Resp 16 08/09/20 11:00 BP 128/73 08/09/20 11:00 Pulse Ox 97 08/09/20 08:00 Intake & Output 08/08/20 08/09/20 08/09/20 18:59 06:59 18:59 Intake Total 859.403 Output Total 900 950 Balance 859.403 -900 -950 Weight 75.1 kg Intake: Intake, IV Titration 262.403 Amount Diltiazem 125 mg In 125 Sodium Chloride 0.9% 100 ml @ 5 MG/HR 5 mls/hr IV .Q24H [facility] Rx#:[id number] Heparin Sod,Pork in 0.45% 137.403 NaCl 25,000 unit In 0.45 % NaCl 1 250ml.bag @ 12 UNITS/KG/HR 9.525 mls/hr IV .Q24H [facility] Rx#: [id number] Oral 597 Output: Urine 900 950 Other: Voiding Method Urinal Urinal # Voids 1 - Exam - Constitutional General appearance: average body habitus, cooperative, disheveled - EENT Eyes: EOMI, PERRLA Ears: bilateral: normal - Neck Neck: normal ROM Carotids: bilateral: upstroke normal Thyroid: bilateral: normal size - Respiratory Respiratory: bilateral: CTA - Cardiovascular Rhythm: regular Heart sounds: normal: S1, S2 - Integumentary Integumentary: normal - Neurologic Neurologic: CNII-XII intact - Musculoskeletal Musculoskeletal: gait normal, generalized weakness, strength equal bilaterally - Psychiatric Psychiatric: A&O x's 3, appropriate affect, intact judgment & insight - Labs CBC & Chem 7: 08/09/20 07:01 08/07/20 02:25 Labs: Abnormal Lab Results - Last 24 Hours (Table) 08/08/20 08/08/20 08/09/20 Range/Units 15:16 21:31 07:01 WBC 13.2 H (3.8-10.6) k/uL RBC 3.27 L (4.30-5.90) m/uL Hgb 10.9 L (13.0-17.5) gm/dL Hct 31.8 L (39.0-53.0) % Neutrophils # 10.1 H (1.3-7.7) k/uL APTT 41.5 H 46.9 H (22.0-30.0) sec 08/09/20 Range/Units 07:01 WBC (3.8-10.6) k/uL RBC (4.30-5.90) m/uL Hgb (13.0-17.5) gm/dL Hct (39.0-53.0) % Neutrophils # (1.3-7.7) k/uL APTT 44.7 H (22.0-30.0) sec Microbiology - Last 24 Hours (Table) 08/07/20 02:30 Blood Culture - Preliminary Blood No Growth after 48 hours Assessment and Plan Assessment: Atypical chest pain Orthostatic hypotension Atrial tachycardia/atrial flutter Mediastinal lymphadenopathy Generalized weakness Mildly elevated tropes Plan: Continue supportive care Continue gentle diuresis Fall he cautions and off of heparin and Cardizem drip Time with Patient: Greater than 30
[2020-08-09 20:00] VITALS: RESP 18
[2020-08-09 20:31] LABS: Calcium 8.8 mg/dL (8.4-10.2); Potassium 3.5 mmol/L (3.5-5.1)
[2020-08-09] MEDS ORDERED: Potassium Replacement Protocol 1 EACH MISC MISCELLANE PRN (21:39)
[2020-08-09] MEDS: POTASSIUM CHLORIDE ER 20 MEQ TAB.ER PO SCH (22:22)
[2020-08-10] MEDS: POTASSIUM CHLORIDE ER 20 MEQ TAB.ER PO SCH (00:02)
[2020-08-10] MEDS: LEVOTHYROXINE 25 MCG TAB PO SCH (05:43)
[2020-08-10] MEDS: FUROSEMIDE 10 MG/ML 4 ML VIAL IV SCH (05:43)
[2020-08-10] MEDS: VIT A,C & E-LUTEIN-MINERALS 1 EACH TAB PO SCH (07:58)
[2020-08-10] MEDS: METOPROLOL TARTRATE 25 MG TAB PO SCH ×2 (07:58→16:07)
[2020-08-10] MEDS: MULTIVITAMINS, THERA 1 EACH TAB PO SCH (07:58)
[2020-08-10] MEDS: TAMSULOSIN 0.4 MG CAP.ER.24H PO SCH (07:59)
[2020-08-10] MEDS: BRIMONIDINE TARTRATE 0.2% DROPS 5 ML BTL BOTH EYES SCH (07:59)
[2020-08-10 08:02] LABS: Basophils % (A) 0 %; Eosinophils # (A) 0.2 k/uL (0-0.7); Eosinophils % (A) 3 %; HCT 32.8 % (39.0-53.0); Lymphocytes # (A) 1.8 k/uL (1.0-4.8); Lymphocytes % (A) 20 %; MCH 32.6 pg (25.0-35.0); MCHC 33.6 g/dL (31.0-37.0); Mean Platelet Volume 8.2; Monocytes # (A) 0.7 k/uL (0-1.0); Monocytes % (A) 8 %; Neutrophils % (A) 68 %; Platelet Count 221 k/uL (150-450); RBC 3.38 m/uL (4.30-5.90); WBC 8.9 k/uL (3.8-10.6)
[2020-08-10 08:18] LABS: Potassium 4.2 mmol/L (3.5-5.1)
[2020-08-10] MEDS ORDERED: ASPIRIN 81 MG PO SCH (09:00)
--- NOTE | 2020-08-10 09:47 | P.PN ---
Subjective Progress Note Date: 08/10/20 Principal diagnosis: Atrial flutter This is a pleasant 85-year-old gentleman who was admitted to the hospital with generalized weakness and a chest pain. The patient somewhat is a poor historian. He described chest discomfort in the mid of the chest worse with deep breath.It his symptoms of sweating or dizziness or lightheadedness or syncope. Also he described generalized weakness and fatigue. The EKG showed what it seems to be atrial fibrillation/atrial flutter which is known to the patient. The patient does not have any history of coronary artery disease or congestive heart failure or cardiac arrhythmia. Also the d-dimer came in to be abnormal. The patient was seen today August [id number]. Clinically he is stable. From the cardiac vascular standpoint of view, the patient can be discharged home. Objective - Vital Signs Vital signs: Vital Signs Temp 98.1 F 08/10/20 07:56 Pulse 89 08/10/20 08:00 Resp 18 08/10/20 07:56 BP 109/79 08/10/20 07:56 Pulse Ox 97 08/10/20 07:56 Intake & Output 08/09/20 08/10/20 08/10/20 18:59 06:59 18:59 Intake Total 60 200 Output Total 1750 635 Balance -1690 -635 200 Weight 74.7 kg Intake: IV 60 0.9 60 Oral 200 Output: Urine 1750 635 Other: Voiding Method Urinal # Voids 2 - Constitutional General appearance: Present: no acute distress - Respiratory Respiratory: bilateral: diminished - Cardiovascular Heart sounds: normal: S1, S2 - Labs CBC & Chem 7: 08/10/20 07:11 08/10/20 07:11 Labs: Abnormal Lab Results - Last 24 Hours (Table) 08/09/20 08/10/20 08/10/20 Range/Units 07:01 07:11 07:11 RBC 3.38 L (4.30-5.90) m/uL Hgb 11.0 L (13.0-17.5) gm/dL Hct 32.8 L (39.0-53.0) % BUN 35 H 39 H (9-20) mg/dL Creatinine 1.73 H 1.85 H (0.66-1.25) mg/dL Glucose 117 H 113 H (74-99) mg/dL Microbiology - Last 24 Hours (Table) 08/07/20 02:30 Blood Culture - Preliminary Blood No Growth after 72 hours Assessment and Plan Assessment: Assessment #1 atypical/pleuritic chest pain #2 atrial fibrillation/atrial flutter, paroxysmal, new to the patient #3 multiple comorbid conditions Plan #1 Continue the current medical regimen #2 the patient can be discharged home
[2020-08-10 12:20] VITALS: BP 113/62; PULSE 82; TEMP 98
--- NOTE | 2020-08-10 15:16 | P.DS ---
Providers Date of admission: 08/07/20 05:17 Expected date of discharge: 08/10/20 Attending physician: Yann Sainz Consults: 08/07/20 05:14 Consult Physician Routine Consulting Provider: Rojas Mary Consult Reason/Comments: CHF exacerbation Do you want consulting provider notified?: Yes Primary care physician: [facility] Course: 08/10/2020, patient is sitting upright on the chair breathing comfortably no obvious distress present patient the doing well denies any chest pain no more orthostasis has been seen, cardiovascular have recommended to discharge patient to follow-up as outpatient 08/09/2020, patient is awake and alert or awake sitting upright on the chair, patient has problem associated with the orthostatic hypotension. This morning, just has been taken off of heparin and Cardizem drip, 08/08/2020, patient sitting upright in the chair eating supper shortness of breath continued to improve, denies any chest pain cardiovascular services evaluated the patient and recommendation noted, This is a 85-year-old male who admitted from the emergency department with symptoms of ongoing pleuritic chest pain and shortness of breath, he also has generalized weakness, symptoms started about 3 days ago, due to persistent weakness and pain across the chest came into the hospital for further evaluation, denies any cough or sputum production denies any swelling in the legs, patient has significant history of the hypothyroidism, also history of hypertension and hypertensive cardiovascular disease macular region degeneration, patient had a history of colon cancer status post resection followed by chemotherapy chronic kidney disease stage III, he is a nonsmoker, on arrival he was noted to be tachypneic slightly hypertensive with the tachycardia heart rate ranging from 1:30 to 140, ECG positive for atrial flutter, patient has been admitted into the hospital with cardiology on consultation, he has mildly elevated troponin level, his covert 19 testing is negative, CT of the head no acute changes identified chest x-ray is unremarkable and computed tomography scan of the chest revealed mediastinal adenopathy no pulmonary embolism, small aortic aneurysm and small bilateral pleural effusion along with atelectasis noted Assessment: Atypical chest pain Orthostatic hypotension Atrial tachycardia/atrial flutter Mediastinal lymphadenopathy Generalized weakness Mildly elevated tropes Patient Condition at Discharge: Fair Plan - Discharge Summary Discharge Rx Participant: No New Discharge Prescriptions: New Aspirin 81 mg PO DAILY #30 chew Metoprolol Tartrate [Lopressor] 25 mg PO TID #90 tab Continue Vit C/E/Zn/Coppr/Lutein/Zeaxan [Preservision Areds 2 Softgel] 1 cap PO DAILY Multivitamins, Thera [Multivitamin (formulary)] 1 tab PO DAILY Brimonidine Tartrate [Alphagan P 0.2% Ophth Soln] 1 drop BOTH EYES BID Tamsulosin [Flomax] 0.4 mg PO BID Levothyroxine Sodium [Synthroid] 25 mcg PO MOTUWETHFRSA Discharge Medication List Vit C/E/Zn/Coppr/Lutein/Zeaxan [Preservision Areds 2 Softgel] 1 cap PO DAILY 01/01/18 [History] Multivitamins, Thera [Multivitamin (formulary)] 1 tab PO DAILY 07/08/18 [History] Brimonidine Tartrate [Alphagan P 0.2% Ophth Soln] 1 drop BOTH EYES BID 08/07/20 [History] Levothyroxine Sodium [Synthroid] 25 mcg PO MOTUWETHFRSA 08/07/20 [History] Tamsulosin [Flomax] 0.4 mg PO BID 08/07/20 [History] Aspirin 81 mg PO DAILY #30 chew 08/10/20 [Rx] Metoprolol Tartrate [Lopressor] 25 mg PO TID #90 tab 08/10/20 [Rx] Follow up Appointment(s)/Referral(s): Carlos Silva DO [Primary Care Provider] - 1-2 days Discharge Disposition: HOME SELF-CARE
== END 2020-08-10 16:52 | disposition home or self-care (01) | DRG 313 ==
LOC: EC 02:10 → 3SCARD 05:17
PROVIDERS: ADMIT Internal Medicine Sleep Medicine; ATTEND Internal Medicine Sleep Medicine
DX: R07.89 Other chest pain (principal); I48.92 Unspecified atrial flutter; I95.1 Orthostatic hypotension; N18.30 Chronic kidney disease, stage 3 unspecified; R59.0 Localized enlarged lymph nodes; Z20.828 Contact with and (suspected) exposure to other viral communicable diseases; I48.0 Paroxysmal atrial fibrillation; I12.9 Hypertensive chronic kidney disease with stage 1 through stage 4 chronic kidney disease, or unspecified chronic kidney disease; Z79.890 Hormone replacement therapy; Z79.899 Other long term (current) drug therapy; Z85.038 Personal history of other malignant neoplasm of large intestine; Z90.49 Acquired absence of other specified parts of digestive tract; Z79.82 Long term (current) use of aspirin; Z98.890 Other specified postprocedural states; Z82.49 Family history of ischemic heart disease and other diseases of the circulatory system; Z82.3 Family history of stroke
CPT/HCPCS: 36415; 70450; 71046; 71275; 80048; 80053; 81003; 82272; 83605; 83735; 83880; 84443; 84484; 85025; 85379; 85610; 85730; 87040; 87635; 93005; 93306; 96365; 96366; 96372; 99285

== ENCOUNTER 2020-08-29 07:53 | Emergency (ER) | payer MEDICARE ==
[2020-08-29 08:01] VITALS: TEMP 98.3
--- NOTE | 2020-08-29 08:12 | ED ---
General Adult HPI - General Chief complaint: Urogenital Stated complaint: AFib & trouble urinating Time Seen by Provider: 08/29/20 07:57 Source: patient, family Mode of arrival: wheelchair Limitations: no limitations - History of Present Illness Initial comments: Dictation was produced using [employer] dictation software. please excuse any grammatical, word or spelling errors. This patient was cared for during a federal and state declared state of emergency secondary to Covid 19 Chief Complaint: 85-year-old male with past medical history of prostate disease and hypertension presents with urinary retention History of Present Illness: 85-year-old male. He states he last urinated yesterday at around 11 PM. Patient states that he woke up around 3 AM to try and use the restroom to have a urinary movement. He states he was unable to. Site of the emergency department today. She has history of prostate disease. He has seen a urologist in the past. Patient reports some dysuria and urinary retention symptoms for the last 2-3 days. Patient states he has suprapubic discomfort and fullness along with lower back pain that started around the same time as his urinary symptoms. Patient made multiple attempts to try to urinate however with no success. The ROS documented in this emergency department record has been reviewed and confirmed by me. Those systems with pertinent positive or negative responses have been documented in the HPI. All other systems are other negative and/or noncontributory. PHYSICAL EXAM: General Impression: Alert and oriented x3, not in acute distress HEENT: Normocephalic atraumatic, extra-ocular movements intact, pupils equal and reactive to light bilaterally, mucous membranes moist. Cardiovascular: Heart regular rate and rhythm Chest: Able to complete full sentences, no retractions, no tachypnea Abdomen: abdomen soft, suprapubic fullness with slight discomfort with palpation, non-distended, no organomegaly Musculoskeletal: Pulses present and equal in all extremities, no peripheral devi ma Motor: no focal deficits noted Neurological: CN II-XII grossly intact, no focal motor or sensory deficits noted Skin: Intact with no visualized rashes Psych: Normal affect and mood : No urethral discharge, no tenderness to palpation of the penile shaft, no rashes, bilateral testicles are nontender to palpation ED course: 85 yo male presents with urinary retention. Vital signs upon arrival are within acceptable limits. Bladder scan shows greater than 999 mL. a Fuentes catheter was placed. Approximately 1 L of urine was drained. Laboratory evaluation obtained. CBC is unremarkable. Creatinine is stable. Renal markers are unremarkable. Urinalysis is negative. Patient reevaluated at bedside at 9:20 AM in stable medical condition. He feels much improved with Fuentes catheter insertion. She will be discharged with instructions to follow-up with his urologist Dr. Weiner. - Related Data Home Medications Medication Instructions Recorded Confirmed Vit C/E/Zn/Coppr/Lutein/Zeaxan 1 cap PO DAILY 01/01/18 08/29/20 [Preservision Areds 2 Softgel] Multivitamins, Thera [Multivitamin 1 tab PO DAILY 07/08/18 08/29/20 (formulary)] Brimonidine Tartrate [Alphagan P 1 drop BOTH EYES BID 08/07/20 08/29/20 0.2% Ophth Soln] Levothyroxine Sodium [Synthroid] 25 mcg PO MOTUWETHFRSA 08/07/20 08/29/20 Tamsulosin [Flomax] 0.4 mg PO BID 08/07/20 08/29/20 Previous Rx's Medication Instructions Recorded Aspirin 81 mg PO DAILY #30 chew 08/10/20 Metoprolol Tartrate [Lopressor] 25 mg PO TID #90 tab 08/10/20 Allergies Allergy/AdvReac Type Severity Reaction Status Date / Time No Known Allergies Allergy Verified 08/29/20 08:37 Review of Systems ROS Statement: Those systems with pertinent positive or pertinent negative responses have been documented in the HPI. ROS Other: All systems not noted in ROS Statement are negative. Past Medical History Past Medical History: Atrial Fibrillation, Cancer, Hypertension, Renal Disease Additional Past Medical History / Comment(s): macular degeneration, colon ca - bowel resection and chemo both times, stage 3 renal failure History of Any Multi-Drug Resistant Organisms: None Reported Additional Past Surgical History / Comment(s): colon resection - one at age 54, a second at age 69 Past Anesthesia/Blood Transfusion Reactions: No Reported Reaction Past Psychological History: No Psychological Hx Reported Smoking Status: Never smoker Past Alcohol Use History: Occasional Past Drug Use History: None Reported - Past Family History Father Family Medical History: Myocardial Infarction ([place]) Mother Family Medical History: CVA/TIA General Exam Limitations: no limitations Course Vital Signs 08/29/20 08/29/20 07:55 09:11 Temperature 98.3 F Pulse Rate 68 71 Respiratory 18 16 Rate Blood Pressure 129/77 137/86 O2 Sat by Pulse 97 99 Oximetry Medical Decision Making - Lab Data Result diagrams: 08/29/20 08:21 08/29/20 08:21 Lab Results 08/29/20 08/29/20 08/29/20 Range/Units 08:21 08:21 08:21 WBC 9.9 (3.8-10.6) k/uL RBC 3.51 L (4.30-5.90) m/uL Hgb 11.7 L (13.0-17.5) gm/dL Hct 33.9 L (39.0-53.0) % MCV 96.5 (80.0-100.0) fL MCH 33.4 (25.0-35.0) pg MCHC 34.6 (31.0-37.0) g/dL RDW 12.3 (11.5-15.5) % Plt Count 210 (150-450) k/uL MPV 7.6 Neutrophils % 69 % Lymphocytes % 20 % Monocytes % 5 % Eosinophils % 3 % Basophils % 1 % Neutrophils # 6.9 (1.3-7.7) k/uL Lymphocytes # 2.0 (1.0-4.8) k/uL Monocytes # 0.5 (0-1.0) k/uL Eosinophils # 0.3 (0-0.7) k/uL Basophils # 0.1 (0-0.2) k/uL Sodium 136 L (137-145) mmol/L Potassium 4.8 (3.5-5.1) mmol/L Chloride 107 (98-107) mmol/L Carbon Dioxide 22 (22-30) mmol/L Anion Gap 7 mmol/L BUN 29 H (9-20) mg/dL Creatinine 1.35 H (0.66-1.25) mg/dL Est GFR (CKD-EPI)AfAm 55 (>60 ml/min/1.73 sqM) Est GFR (CKD-EPI)NonAf 47 (>60 ml/min/1.73 sqM) Glucose 123 H (74-99) mg/dL Calcium 9.0 (8.4-10.2) mg/dL Urine Color Light Yellow Urine Appearance Clear (Clear) Urine pH 6.5 (5.0-8.0) Ur Specific [place] 1.008 (1.001-1.035) Urine Protein Negative (Negative) Urine Glucose (UA) Negative (Negative) Urine Ketones Negative (Negative) Urine Blood Negative (Negative) Urine Nitrite Negative (Negative) Urine Bilirubin Negative (Negative) Urine Urobilinogen <2.0 (<2.0) mg/dL Ur Leukocyte Esterase Negative (Negative) Disposition Clinical Impression: Urinary retention Disposition: HOME SELF-CARE Condition: Good Instructions (If sedation given, give patient instructions): Urinary Retention in Men (ED) Is patient prescribed a controlled substance at d/c from ED?: No Referrals: Emeka Soliz MD [STAFF PHYSICIAN] - 1-2 days Time of Disposition: 09:21
[2020-08-29 08:43] LABS: Basophils # (A) 0.1 k/uL (0-0.2); Basophils % (A) 1 %; Eosinophils # (A) 0.3 k/uL (0-0.7); Eosinophils % (A) 3 %; HCT 33.9 % (39.0-53.0); HGB 11.7 gm/dL (13.0-17.5); Lymphocytes % (A) 20 %; MCH 33.4 pg (25.0-35.0); MCHC 34.6 g/dL (31.0-37.0); MCV 96.5 fL (80.0-100.0); Mean Platelet Volume 7.6; Monocytes # (A) 0.5 k/uL (0-1.0); Monocytes % (A) 5 %; Neutrophils # (A) 6.9 k/uL (1.3-7.7); Neutrophils % (A) 69 %; Platelet Count 210 k/uL (150-450); RBC 3.51 m/uL (4.30-5.90); RDW 12.3 % (11.5-15.5); WBC 9.9 k/uL (3.8-10.6)
[2020-08-29 08:44] LABS: Appearance,Urine Clear (Clear); Bilirubin,Urine Negative (Negative); Blood,Urine Negative (Negative); Color,Urine Light Yellow; Glucose,Urine (UA) Negative (Negative); Ketones,Urine Negative (Negative); Leukocyte Esterase,Urine Negative (Negative); Nitrite,Urine Negative (Negative); PH, Urine 6.5 (5.0-8.0); Protein,Urine Negative (Negative); Specific Gravity,Urine 1.008 (1.001-1.035); Urobilinogen,Urine <2.0 mg/dL (<2.0)
[2020-08-29 09:02] LABS: Potassium 4.8 mmol/L (3.5-5.1)
[2020-08-29 09:11] VITALS: RESP 16
[2020-08-29 09:36] VITALS: BP 136/79; PULSE 68
== END 2020-08-29 09:34 | disposition home or self-care (01) ==
LOC: EC 07:53
DX: R33.9 Retention of urine, unspecified (principal); R30.0 Dysuria; Z85.038 Personal history of other malignant neoplasm of large intestine; Z92.21 Personal history of antineoplastic chemotherapy
CPT/HCPCS: 36415; 51702; 51798; 80048; 81003; 85025; 99284

== ENCOUNTER → 2021-01-11 | Outpatient (CLI) | payer MEDICARE ==
[2021-01-11 14:55] LABS: T4, Free (Free Thyroxine) 1.18 ng/dL (0.78-2.19)
--- NOTE | 2021-01-11 16:46 | US ---
EXAMINATION TYPE: US thyroid st tissue head/neck DATE OF EXAM: 01/11/2021 COMPARISON: 01/13/2018 CLINICAL HISTORY: E04.2 Nontoxic multinodular goiterElderly patient who cannot lay flat and extend ne ck has h/o FNA in 2018 (unknown pathology), f/u exam from 2018, has been on thyroid meds, no issues p er patient. GLAND SIZE: Right Lobe: 3.5 x 0.9 x 1.6 cm Overall Parenchyma: heterogenous Left Lobe: not tissue seen Isthmus Thickness: no tissue seen NODULES RIGHT: # of nodules measured on right: 1 1. 0.9 X 0.6 x 0.6 cm, mid, cystic or almost completely cystic, anechoic nodule, which is wider janice n tall, with smooth margins, without echogenic foci. Prior size: 0.9 x 0.6 x 0.8 cm LEFT: Unable to discern any thyroid tissue on the left, patient denies surgery ISTHMUS: Unable to discern any isthmus tissue, patient denies surgery Bilateral neck scanned, no evidence of lymphadenopathy. IMPRESSION: 1. Cystic nodule in the right lobe of the thyroid gland measuring 9 mm is stable in size. 2. The left thyroid gland and isthmus are not visualized as the patient denies surgery. Clinical gabrielle elation is recommended.
== END | disposition home or self-care (01) ==
LOC: RADUSWWP 13:28
PROVIDERS: ATTEND Family Medicine
DX: E04.2 Nontoxic multinodular goiter (principal); E55.9 Vitamin D deficiency, unspecified
CPT/HCPCS: 76536; 82306; 84439; 84443

== ENCOUNTER 2021-02-22 15:09 | Inpatient (IN) | payer MEDICARE ==
[2021-02-22] MEDS ORDERED: SODIUM CHLORIDE 0.9% 1,000 ML IV ONE ×2 (16:19→19:33)
--- NOTE | 2021-02-22 16:26 | ED ---
General Adult HPI - General Chief complaint: Fall Stated complaint: Weakness Time Seen by Provider: 02/22/21 16:00 Source: patient, EMS, RN notes reviewed, old records reviewed Mode of arrival: EMS Limitations: physical limitation - History of Present Illness Initial comments: Patient is an 86-year-old male with past medical history remarkable for hyper tension, renal disease, A. fib, cancer presents emergency department after being brought in by family members for concern for generalized weakness as well as following. The weakness has been progressively worsening more so over the last week or so. Patient does do most of his daily activities of living on his own. He has been denying any chest pain or shortness breath but does feel fatigued. Patient is straight cath dependent and states he does not miss any catheterizations. Denies any dysuria. Denies any fevers or chills. He did fall yesterday and has an abrasion over his elbow. He is up-to-date on his tetanus vaccine. He denies any headaches, weakness, numbness. Family members are concerned that he has been slightly altered and may have passed out while sitting the other day. He endorses no acute complaints at this time. No fevers or chills or sick contacts. Patient presents for altered mental status as well as fatigue. - Related Data Home Medications Medication Instructions Recorded Confirmed Vit C/E/Zn/Coppr/Lutein/Zeaxan 1 cap PO DAILY 01/01/18 02/22/21 [Preservision Areds 2 Softgel] Brimonidine Tartrate [Alphagan P 1 drop BOTH EYES BID 08/07/20 02/22/21 0.2% Ophth Soln] Tamsulosin [Flomax] 0.4 mg PO HS 08/07/20 02/22/21 Metoprolol Tartrate [Lopressor] 25 mg PO BID 02/22/21 02/22/21 Previous Rx's Medication Instructions Recorded Aspirin 81 mg PO DAILY #30 chew 08/10/20 Allergies Allergy/AdvReac Type Severity Reaction Status Date / Time No Known Allergies Allergy Verified 02/22/21 16:40 Review of Systems ROS Statement: Those systems with pertinent positive or pertinent negative responses have been documented in the HPI. Review of Systems: CONST: Endorses fatigue EYES: Denies blurry vision ENT: Denies nasal congestion C/V: Denies Chest pain RESP: Denies shortness of breath GI: Denies abdominal pain : Denies dysuria SKIN: Denies rash. MSK: Denies joint pain. NEURO: Denies headache ROS Other: All systems not noted in ROS Statement are negative. Past Medical History Past Medical History: Atrial Fibrillation, Cancer, Hypertension, Renal Disease Additional Past Medical History / Comment(s): macular degeneration, colon ca - bowel resection and chemo both times, stage 3 renal failure History of Any Multi-Drug Resistant Organisms: None Reported Additional Past Surgical History / Comment(s): colon resection - one at age 54, a second at age 69 Past Anesthesia/Blood Transfusion Reactions: No Reported Reaction Past Psychological History: No Psychological Hx Reported Smoking Status: Never smoker Past Alcohol Use History: Occasional Past Drug Use History: None Reported - Past Family History Father Family Medical History: Myocardial Infarction ([place]) Mother Family Medical History: CVA/TIA General Exam - General Exam Comments Initial Comments: General: Patient is an elderly gentleman sitting in bed without any difficulty. HEAD: Normal with no signs of head trauma. EYES: PERRLA, EOMI, conjunctiva normal, no discharge. Pupils are 3 mm and reactive bilaterally. ENT: Hearing grossly intact, normal oropharynx. RESPIRATORY: Clear breath sounds bilaterally. No wheezes, rales, or rhonchi. C/V: Regular rate and rhythm. S1 and S2 auscultated, no edema, peripheral pulses 2+ and intact throughout ABD: Abd is soft, nontender, nondistended EXT: Normal range of motion, no obvious deformity SKIN: Has an abrasion located over his left elbow. NEURO: Alert and oriented x 4. Cranial nerves II-XII intact. No focal sensory or strength deficits. Cerebellar function is intact has evidently normal finger-nose testing. Limitations: physical limitation Course Vital Signs 02/22/21 02/22/21 15:31 17:40 Temperature 97.9 F Pulse Rate 75 107 H Respiratory 20 20 Rate Blood Pressure 142/82 147/96 O2 Sat by Pulse 98 98 Oximetry Medical Decision Making - Medical Decision Making Based on the patient's presentation and physical exam, we will obtain altered mental status labs including blood cultures, electrolytes, troponin, EKG, chest x-ray. We will obtain a CT head as well as well as a urinalysis. He'll be connected to continuous cardiac monitoring. He will be given 1 L fluid bolus. Patient and his family members were in agreement with this plan. Patient's EKG shows no acute changes, as he is in A. fib which is known, not in RVR. PVCs are present. Chest x-ray shows no acute cardiopulmonary process. CT head revealed no acute intracranial abnormality. 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 Patient has multiple electrolyte abnormalities including hypokalemia at 2.9, hypocalcemia at 4.9, as well as hypomagnesemia at 1.1, all of which were replenished. Repeats were ordered for the morning. Patient's troponin is negative. Urinalysis is consistent with a urinary tract infection. Patient therefore started on Rocephin. He received an additional fluid bolus and heart rate has improved. I did explain findings with family as well as the patient was admitted with the treatment until hospital with his lichenoid abnormalities as well as for his UTI. They went agreement this plan. I spoke with the admitting physician, Dr. Baca, who accepted the patient. Patient was therefore admitted to a monitored bed in serious condition. - Lab Data Result diagrams: 02/22/21 16:06 02/22/21 16:06 Lab Results 02/22/21 02/22/21 02/22/21 Range/Units 16:06 16:06 16:06 WBC 9.7 (3.8-10.6) k/uL RBC 3.37 L (4.30-5.90) m/uL Hgb 10.7 L (13.0-17.5) gm/dL Hct 32.1 L (39.0-53.0) % MCV 95.2 (80.0-100.0) fL MCH 31.6 (25.0-35.0) pg MCHC 33.2 (31.0-37.0) g/dL RDW 13.6 (11.5-15.5) % Plt Count 156 (150-450) k/uL MPV 8.2 Neutrophils % 77 % Lymphocytes % 13 % Monocytes % 6 % Eosinophils % 3 % Basophils % 0 % Neutrophils # 7.5 (1.3-7.7) k/uL Lymphocytes # 1.2 (1.0-4.8) k/uL Monocytes # 0.5 (0-1.0) k/uL Eosinophils # 0.3 (0-0.7) k/uL Basophils # 0.0 (0-0.2) k/uL PT 11.6 (9.0-12.0) sec INR 1.1 (<1.2) APTT 25.3 (22.0-30.0) sec Sodium (137-145) mmol/L Potassium (3.5-5.1) mmol/L Chloride (98-107) mmol/L Carbon Dioxide (22-30) mmol/L Anion Gap mmol/L BUN (9-20) mg/dL Creatinine (0.66-1.25) mg/dL Est GFR (CKD-EPI)AfAm (>60 ml/min/1.73 sqM) Est GFR (CKD-EPI)NonAf (>60 ml/min/1.73 sqM) Glucose (74-99) mg/dL Calcium (8.4-10.2) mg/dL Magnesium (1.6-2.3) mg/dL Total Bilirubin (0.2-1.3) mg/dL AST (17-59) U/L ALT (4-49) U/L Alkaline Phosphatase (38-126) U/L Creatine Kinase (55-170) U/L Troponin I (0.000-0.034) ng/mL Total Protein (6.3-8.2) g/dL Albumin (3.5-5.0) g/dL Urine Color Yellow Urine Appearance Cloudy (Clear) Urine pH 6.0 (5.0-8.0) Ur Specific [place] 1.012 (1.001-1.035) Urine Protein Trace H (Negative) Urine Glucose (UA) Negative (Negative) Urine Ketones Negative (Negative) Urine Blood Small H (Negative) Urine Nitrite Positive (Negative) Urine Bilirubin Negative (Negative) Urine Urobilinogen <2.0 (<2.0) mg/dL Ur Leukocyte Esterase Large H (Negative) Urine RBC 6 H (0-5) /hpf Urine WBC 61 H (0-5) /hpf Urine WBC Clumps Many H (None) /hpf Ur Squamous Epith Cells <1 (0-4) /hpf Urine Bacteria Many H (None) /hpf Urine Mucus Rare H (None) /hpf Urine Yeast (Budding) Few H (None) /hpf 02/22/21 02/22/21 Range/Units 16:06 16:06 WBC (3.8-10.6) k/uL RBC (4.30-5.90) m/uL Hgb (13.0-17.5) gm/dL Hct (39.0-53.0) % MCV (80.0-100.0) fL MCH (25.0-35.0) pg MCHC (31.0-37.0) g/dL RDW (11.5-15.5) % Plt Count (150-450) k/uL MPV Neutrophils % % Lymphocytes % % Monocytes % % Eosinophils % % Basophils % % Neutrophils # (1.3-7.7) k/uL Lymphocytes # (1.0-4.8) k/uL Monocytes # (0-1.0) k/uL Eosinophils # (0-0.7) k/uL Basophils # (0-0.2) k/uL PT (9.0-12.0) sec INR (<1.2) APTT (22.0-30.0) sec Sodium 144 (137-145) mmol/L Potassium 2.9 L (3.5-5.1) mmol/L Chloride 125 H (98-107) mmol/L Carbon Dioxide 14 L (22-30) mmol/L Anion Gap 5 mmol/L BUN 15 (9-20) mg/dL Creatinine 0.67 (0.66-1.25) mg/dL Est GFR (CKD-EPI)AfAm >90 (>60 ml/min/1.73 sqM) Est GFR (CKD-EPI)NonAf 87 (>60 ml/min/1.73 sqM) Glucose 86 (74-99) mg/dL Calcium 4.9 L* (8.4-10.2) mg/dL Magnesium 1.1 L (1.6-2.3) mg/dL Total Bilirubin 0.4 (0.2-1.3) mg/dL AST 25 (17-59) U/L ALT <6 (4-49) U/L Alkaline Phosphatase 43 (38-126) U/L Creatine Kinase 27 L (55-170) U/L Troponin I <0.012 (0.000-0.034) ng/mL Total Protein 3.5 L (6.3-8.2) g/dL Albumin 1.6 L (3.5-5.0) g/dL Urine Color Urine Appearance (Clear) Urine pH (5.0-8.0) Ur Specific [place] (1.001-1.035) Urine Protein (Negative) Urine Glucose (UA) (Negative) Urine Ketones (Negative) Urine Blood (Negative) Urine Nitrite (Negative) Urine Bilirubin (Negative) Urine Urobilinogen (<2.0) mg/dL Ur Leukocyte Esterase (Negative) Urine RBC (0-5) /hpf Urine WBC (0-5) /hpf Urine WBC Clumps (None) /hpf Ur Squamous Epith Cells (0-4) /hpf Urine Bacteria (None) /hpf Urine Mucus (None) /hpf Urine Yeast (Budding) (None) /hpf - EKG Data -: EKG Interpreted by Me EKG Comments: 12-lead Electrocardiogram Interpretation Note EKG was reviewed and interpreted by myself. 12-lead ECG performed at 1525 is interpreted by me as revealing a A. fib at a rate of 109 beats per minute. Left axis deviation. QRS duration is 152 ms, QTC is 530 ms.. There were no ST or T wave abnormalities to suggest myocardial ischemia or injury. R-wave progression across precordium is delayed. By my interpretation this EKG is non- diagnostic for acute ischemia. Patient does have frequent PVCs. When compared to prior EKGs, this is consistent with history of A. fib. He is not in RVR. PVCs are seen frequently in prior EKGs. Patient also has a right bundle block. Disposition Clinical Impression: Atrial fibrillation, Hypocalcemia, Hypokalemia, Hypomagnesemia, UTI (urinary tract infection), History of urinary retention Disposition: ADMITTED IP TO THIS HOSP Condition: Stable
[2021-02-22 16:33] LABS: Basophils % (A) 0 %; Eosinophils # (A) 0.3 k/uL (0-0.7); Eosinophils % (A) 3 %; HCT 32.1 % (39.0-53.0); HGB 10.7 gm/dL (13.0-17.5); Lymphocytes # (A) 1.2 k/uL (1.0-4.8); Lymphocytes % (A) 13 %; MCH 31.6 pg (25.0-35.0); MCHC 33.2 g/dL (31.0-37.0); MCV 95.2 fL (80.0-100.0); Mean Platelet Volume 8.2; Monocytes # (A) 0.5 k/uL (0-1.0); Monocytes % (A) 6 %; Neutrophils # (A) 7.5 k/uL (1.3-7.7); Neutrophils % (A) 77 %; Platelet Count 156 k/uL (150-450); RBC 3.37 m/uL (4.30-5.90); RDW 13.6 % (11.5-15.5); WBC 9.7 k/uL (3.8-10.6)
[2021-02-22 16:42] LABS: INR 1.1 (<1.2); Partial Thromboplastin Time 25.3 sec (22.0-30.0); Prothrombin Time 11.6 sec (9.0-12.0)
--- NOTE | 2021-02-22 16:42 | XR ---
EXAMINATION TYPE: XR chest 1V portable DATE OF EXAM: 02/22/2021 COMPARISON: 08/07/2020 INDICATION: Weakness TECHNIQUE: Single frontal view of the chest is obtained. FINDINGS: The heart size is mildly prominent. The pulmonary vasculature is normal. The lungs are clear. IMPRESSION: 1. No acute pulmonary process. 2. There may be some borderline cardiomegaly
[2021-02-22 16:49] LABS: ALT <6 U/L (4-49); AST 25 U/L (17-59); African American GFR (CKD) >90 (>60 ml/min/1.73 sqM); Albumin 1.6 g/dL (3.5-5.0); Alkaline Phosphatase 43 U/L (38-126); Anion Gap 5 mmol/L; Blood Urea Nitrogen 15 mg/dL (9-20); Carbon Dioxide 14 mmol/L (22-30); Chloride 125 mmol/L (98-107); Creatine Kinase 27 U/L (55-170); Glucose 86 mg/dL (74-99); Magnesium 1.1 mg/dL (1.6-2.3); Non-African American GFR(CKD) 87 (>60 ml/min/1.73 sqM); Sodium 144 mmol/L (137-145); Total Bilirubin 0.4 mg/dL (0.2-1.3); Total Protein 3.5 g/dL (6.3-8.2)
[2021-02-22 17:00] LABS: Calcium 4.9 mg/dL (8.4-10.2)
[2021-02-22 17:01] LABS: Potassium 2.9 mmol/L (3.5-5.1)
[2021-02-22] MEDS ORDERED: CALCIUM GLUCONATE 1 GM in SODIUM CHLORIDE 0.9% 100 ML IVPB ONE (17:24)
[2021-02-22] MEDS ORDERED: POTASSIUM BICARBONATE/CIT AC 20 MEQ TABLET.EFF PO ONE (17:25)
--- NOTE | 2021-02-22 17:26 | CT ---
EXAMINATION TYPE: CT brain wo con DATE OF EXAM: 02/22/2021 COMPARISON: 08/07/2020 HISTORY: Fall, altered mental status. CT DLP: 1115.4 mGycm Automated exposure control for dose reduction was used. There is diffuse cerebral atrophy. There is hypodensity in the periventricular white matter. There is no mass effect nor midline shift. There is no sign of intracranial hemorrhage. Calvarium is intact. Skull base is intact. IMPRESSION: Cerebral atrophy and chronic small vessel ischemia. No acute intracranial abnormality. No change.
[2021-02-22] MEDS: MAGNESIUM SULFATE-D5W PMX 1 GM in DEXTROSE/WATER 1 100ML.BAG IVPB SCH ×2 (17:39→22:22)
[2021-02-22 18:22] LABS: Appearance,Urine Cloudy (Clear); Bacteria,Urine Many /hpf; Bilirubin,Urine Negative (Negative); Blood,Urine Small (Negative); Budding Yeast,Urine Few /hpf; Color,Urine Yellow; Glucose,Urine (UA) Negative (Negative); Ketones,Urine Negative (Negative); Leukocyte Esterase,Urine Large (Negative); Mucus,Urine Rare /hpf; Nitrite,Urine Positive (Negative); Protein,Urine Trace (Negative); RBC,Urine 6 /hpf (0-5); Specific Gravity,Urine 1.012 (1.001-1.035); Squamous Epithelial Cell,Urine <1 /hpf (0-4); Urobilinogen,Urine <2.0 mg/dL (<2.0); WBC,Urine 61 /hpf (0-5)
[2021-02-22] MEDS ORDERED: ACETAMINOPHEN TAB 325 MG TAB PO PRN (19:33)
[2021-02-22] MEDS ORDERED: LACTULOSE 20 GM/30 ML CUP PO PRN (21:15)
[2021-02-22] MEDS ORDERED: ALPRAZolam 0.25 MG TAB PO PRN (21:15)
[2021-02-22] MEDS ORDERED: CALCIUM CARBONATE 500 MG CHEWABLE PO PRN (21:15)
[2021-02-22] MEDS ORDERED: MAG HYDROX/AL HYDROX/SIMETH 30 ML CUP PO PRN (21:15)
[2021-02-22] MEDS ORDERED: ONDANSETRON 4 MG/2 ML VIAL IVP PRN (21:15)
[2021-02-22] MEDS ORDERED: NALOXONE 0.4 MG/ML 1 ML VIAL IV PRN (21:15)
[2021-02-22] MEDS ORDERED: MAGNESIUM HYDROXIDE 2,400 MG/10 ML CUP PO PRN (21:15)
[2021-02-22] MEDS ORDERED: MELATONIN 3 MG TABLET PO PRN (21:15)
[2021-02-22] MEDS: METOPROLOL TARTRATE 25 MG TAB PO SCH (22:23)
[2021-02-22] MEDS: BRIMONIDINE TARTRATE 0.2% DROPS 5 ML BTL BOTH EYES SCH (22:23)
[2021-02-22] MEDS: TAMSULOSIN 0.4 MG CAP.ER.24H PO SCH (22:23)
[2021-02-23] MEDS: METOPROLOL TARTRATE 25 MG TAB PO SCH ×2 (08:48→20:13)
[2021-02-23] MEDS: ASPIRIN 81 MG PO SCH (08:48)
[2021-02-23] MEDS: BRIMONIDINE TARTRATE 0.2% DROPS 5 ML BTL BOTH EYES SCH ×2 (08:50→20:13)
[2021-02-23 11:25] LABS: Basophils # (A) 0.06 X 10*3/uL (0.00-0.10); Basophils % (A) 0.5 %; Eosinophils # (A) 0.34 X 10*3/uL (0.04-0.35); HCT 34.8 % (39.6-50.0); HGB 11.2 g/dL (13.0-17.0); Lymphocytes % (A) 16.8 %; MCH 31.4 pg (27.0-32.0); MCHC 32.2 g/dL (32.0-37.0); MCV 97.5 fL (80.0-97.0); Mean Platelet Volume 12.2 fL (9.5-12.2); Monocytes # (A) 0.84 X 10*3/uL (0.20-1.00); Monocytes % (A) 7.4 %; Neutrophils # (A) 8.14 X 10*3/uL (1.80-7.70); Neutrophils % (A) 71.9 %; Platelet Count 176 X 10*3/uL (140-440); RBC 3.57 X 10*6/uL (4.40-5.60); RDW 13.9 % (11.5-14.5); WBC 11.32 X 10*3/uL (4.50-10.00)
[2021-02-23] MEDS ORDERED: POTASSIUM CHLORIDE ER 20 MEQ TAB.ER PO STA (12:28)
[2021-02-23] MEDS: MAGNESIUM OXIDE 400 MG TAB PO SCH ×3 (13:03→20:13)
[2021-02-23 14:06] LABS: African American GFR (CKD) 62.6 (60.0-200.0); Albumin 3.7 g/dL (3.80-4.90); Albumin/Globulin Ratio 1.54 (1.60-3.17); Anion Gap 15.5 mmol/L (4.00-12.00); BUN/Creat Ratio 18.33 Ratio (12.00-20.00); Calcium 8.8 mg/dL (8.7-10.3); Carbon Dioxide 20.5 mmol/L (21.6-31.8); Globulin 2.4 g/dL (1.6-3.3); Magnesium 2.1 mg/dL (1.5-2.4); Phosphorus 3.1 mg/dL (2.4-5.1); Potassium 4.4 mmol/L (3.5-5.5); Total Bilirubin 0.9 mg/dL (0.2-1.2); Total Protein 6.1 g/dL (6.2-8.2)
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
[2021-02-23] MEDS: TAMSULOSIN 0.4 MG CAP.ER.24H PO SCH (20:13)
--- NOTE | 2021-02-23 20:59 | P.HPIM ---
History of Present Illness H&P Date: 02/23/21 Chief Complaint: Progressively weaker History of presenting complaint: This is a pleasant 86-year-old patient who follows with Dr. Silva. Patient is accompanied by his . Chronic stable medical conditions include atrial fibrillation, hypertension, history of colon cancer with bowel resection and chemotherapy, chronic kidney disease. Patient presents with small digital symptoms. For last 3 years patient has been becoming progressively weaker. Does use a cane. Patient had been hypothyroid getting levothyroxine. Had been following with cafe attendant. Not too long ago patient was taken off his levothyroxine by his cafe attendant Dr. Valentino. Patient does notice that sometimes after talking for some time his speech because of bit slurred. Some type after eating also he may have discomfort in his jaws. Patient appetite has been okay. No change in bowel pattern. Denies any obvious loss of weight. Does feel generalized weakness. No fever no chills. Upon presentation patient did have a low potassium of 2.9 and low magnesium. This was replaced. Also found to have infected urine. Patient does straight catheterization twice daily. Review of systems: GEN.: Tired EYES: None HEENT: None NECK: None RESPIRATORY: None CARDIOVASCULAR: None GASTROINTESTINAL: None GENITOURINARY: [As above MUSCULOSKELETAL: Muscle achiness and joint pains LYMPHATICS: None HEMATOLOGICAL: None PSYCHIATRY: Slightly forgetful NEUROLOGICAL: [Does use a cane Past medical history to include: Atrial fibrillation, hypertension, chronic kidney disease, colon cancer with over afford remove it and given chemotherapy, macular degeneration Social history: . Nonsmoker. Alcohol occasionally. Retired. Family history: Myocardial infarction Physical examination: VITAL SIGNS: 97.9, 103, 16, 156.94, 99% room air. GENERAL: BMI 23.7, sitting up in a chair, tired. EYES: Pupils equal. Conjunctiva normal. HEENT: External appearance of nose and ears normal, oral cavity grossly normal. NECK: JVD not raised; masses not palpable. HEART: First and second heart sounds are normal; no edema. LUNGS: Respiratory rate normal; clear to auscultation. ABDOMEN: Soft, nontender, liver spleen not palpable, no masses palpable. PSYCH: Alert and oriented x3; mood and affect normal. MUSCULOSKELETAL: Evidence of OA NEUROLOGICAL: Cranial nerves grossly intact; no facial asymmetry, power and sensation grossly intact. LYMPHATICS: No lymph nodes palpable in the axilla and neck INVESTIGATIONS, reviewed in the clinical context: WBC 11.3 hemoglobin 11.2 platelets 176 potassium 4.4 bicarb 20 BUN 22 creatinine 1.2 Admission labs: Potassium 2.9 by, 14 magnesia 1.1 UA positive for leukoesterase, WBC EKG tracing personally reviewed by me-atrial flutter fibrillation with a right bundle-branch block pattern. Rate of 109 Chest x-ray film personally reviewed by me-mari cummings. No obvious infiltrates Computed tomography scan of the brain without contrast: Cerebral atrophy. Chronic small vessel ischemia. Assessment plan: -Acute myelopathy due to electrolyte abnormalities including hypokalemia and hypomagnesemia. -Acute UTI with cystitis secondary to self-catheterization Urine culture pending. IV ceftriaxone -Patient has been progressively getting weak for last 3 years. Does use a cane sometimes. After eating his jaw may hurt a bit. And speech becomes off or talking. Sometimes slurring. Muscle weakness. Patient may have underlying myasthenia gravis. Neurology consulted. -Persistent atrial flutter fibrillation. Rate controlled Lopressor. -BPH, with bladder outflow obstruction Patient does straight catheterization twice daily. Flomax -Hypokalemia Replace -Hypomagnesemia Replace Home medications resumed. IV ceftriaxone. Consultation to neurology. Relevant lites were supplemented. Repeat labs in the morning. Care was discussed with the patient and at the bedside. Questions were answered. Given patient's comorbidities, UTI. Await cultures. Given the complexity and severity of patient's condition expect the patient to be in the hospital at least for 2 overnights Past Medical History Past Medical History: Atrial Fibrillation, Cancer, Hypertension, Renal Disease Additional Past Medical History / Comment(s): macular degeneration, colon ca - bowel resection and chemo both times, stage 3 renal failure History of Any Multi-Drug Resistant Organisms: None Reported Additional Past Surgical History / Comment(s): colon resection - one at age 54, a second at age 69 Past Anesthesia/Blood Transfusion Reactions: No Reported Reaction Past Psychological History: No Psychological Hx Reported Smoking Status: Never smoker Past Alcohol Use History: Occasional Past Drug Use History: None Reported - Past Family History Father Family Medical History: Myocardial Infarction ([place]) Mother Family Medical History: CVA/TIA Medications and Allergies Home Medications Medication Instructions Recorded Confirmed Type Vit C/E/Zn/Coppr/Lutein/Zeaxan 1 cap PO DAILY 01/01/18 02/22/21 History [Preservision Areds 2 Softgel] Brimonidine Tartrate [Alphagan P 1 drop BOTH EYES BID 08/07/20 02/22/21 History 0.2% Ophth Soln] Tamsulosin [Flomax] 0.4 mg PO HS 08/07/20 02/22/21 History Aspirin 81 mg PO DAILY #30 chew 08/10/20 02/22/21 Rx Metoprolol Tartrate [Lopressor] 25 mg PO BID 02/22/21 02/22/21 History Allergies Allergy/AdvReac Type Severity Reaction Status Date / Time No Known Allergies Allergy Verified 02/22/21 16:40 Physical Exam Vitals: Vital Signs Temp Pulse Pulse Resp BP BP Pulse Ox 02/23/21 08:00 97.9 F 103 H 16 156/94 99 02/23/21 02:19 97.8 F 88 18 137/80 95 02/22/21 21:30 98.2 F 110 H 16 151/92 96 02/22/21 17:40 107 H 20 147/96 98 02/22/21 15:31 97.9 F 75 20 142/82 98 Intake and Output 02/22/21 02/23/21 02/23/21 22:59 06:59 14:59 Intake Total 1000 Output Total 175 Balance 825 Intake: Intake, IV Titration 1000 Amount Magnesium Sulfate-D5w Pmx 100 1 gm In Dextrose/Water 1 100ml.bag @ 100 mls/hr IVPB Q1H ZAFAR Rx#: [id number] Sodium Chloride 0.9% 1, 900 000 ml @ 100 mls/hr IV . Q10H ONE Rx#:[id number] Output: Urine 175 Other: # Voids 2 Weight 77.111 kg Results CBC & Chem 7: 02/23/21 07:11 02/23/21 07:11 Labs: Abnormal Lab Results - Last 24 Hours (Table) 02/22/21 02/22/21 02/22/21 Range/Units 16:06 16:06 16:06 RBC 3.37 L (4.30-5.90) m/uL Hgb 10.7 L (13.0-17.5) gm/dL Hct 32.1 L (39.0-53.0) % Potassium 2.9 L (3.5-5.1) mmol/L Chloride 125 H (98-107) mmol/L Carbon Dioxide 14 L (22-30) mmol/L Calcium 4.9 L* (8.4-10.2) mg/dL Magnesium 1.1 L (1.6-2.3) mg/dL Creatine Kinase 27 L (55-170) U/L Total Protein 3.5 L (6.3-8.2) g/dL Albumin 1.6 L (3.5-5.0) g/dL Urine Protein Trace H (Negative) Urine Blood Small H (Negative) Ur Leukocyte Esterase Large H (Negative) Urine RBC 6 H (0-5) /hpf Urine WBC 61 H (0-5) /hpf Urine WBC Clumps Many H (None) /hpf Urine Bacteria Many H (None) /hpf Urine Mucus Rare H (None) /hpf Urine Yeast (Budding) Few H (None) /hpf Microbiology - Last 24 Hours (Table) 02/22/21 17:22 Blood Culture - Final Blood 02/22/21 16:06 Urine Culture - Preliminary Urine,Clean Catch Thrombosis Risk Factor Assmnt - Choose All That Apply Any of the Below Risk Factors Present?: No Other Risk Factors: No Other congenital or acquired thrombophilia - If yes, enter type in comment: No Thrombosis Risk Factor Assessment Level: Very Low Risk
[2021-02-24] MEDS: BRIMONIDINE TARTRATE 0.2% DROPS 5 ML BTL BOTH EYES SCH ×2 (07:50→21:16)
[2021-02-24] MEDS: MAGNESIUM OXIDE 400 MG TAB PO SCH (07:50)
[2021-02-24] MEDS: ASPIRIN 81 MG PO SCH (07:50)
[2021-02-24] MEDS: METOPROLOL TARTRATE 25 MG TAB PO SCH ×2 (07:50→21:16)
[2021-02-24 08:05] LABS: African American GFR (CKD) 66 (>60 ml/min/1.73 sqM); Anion Gap 6 mmol/L; Blood Urea Nitrogen 21 mg/dL (9-20); Calcium 9.1 mg/dL (8.4-10.2); Carbon Dioxide 25 mmol/L (22-30); Chloride 109 mmol/L (98-107); Glucose 99 mg/dL (74-99); Non-African American GFR(CKD) 57 (>60 ml/min/1.73 sqM); Potassium 4.8 mmol/L (3.5-5.1); Sodium 140 mmol/L (137-145)
[2021-02-24 11:43] LABS: Folate, Serum 19.4 ng/mL
--- NOTE | 2021-02-24 15:30 | P.PN ---
Progress Note - Text Progress Note Date: 02/24/21 Chief Complaint: Progressively weaker History of presenting complaint: This is a pleasant 86-year-old patient who follows with Dr. Silva. Patient is accompanied by his . Chronic stable medical conditions include atrial fibrillation, hypertension, history of colon cancer with bowel resection and chemotherapy, chronic kidney disease. Patient presents with small digital symptoms. For last 3 years patient has been becoming progressively weaker. Does use a cane. Patient had been hypothyroid getting levothyroxine. Had been following with separator operator [employer]. Not too long ago patient was taken off his levothyroxine by his separator operator [employer] Dr. Valentino. Patient does notice that sometimes after talking for some time his speech because of bit slurred. Some type after eating also he may have discomfort in his jaws. Patient appetite has been okay. No change in bowel pattern. Denies any obvious loss of weight. Does feel generalized weakness. No fever no chills. Upon presentation patient did have a low potassium of 2.9 and low magnesium. This was replaced. Also found to have infected urine. Patient does straight catheterization twice daily. Admitted with myelopathy felt to be from hypokalemia and hypomagnesemia. Corrected. Also UTI secondary to self-catheterization. On IV ceftriaxone. Patient also being seen by neurology for chronic neurological disorder. Differential includes multiple system atrophy, myasthenia gravis. For further workup as an outpatient. Blood cultures coming back positive for gram-positive cocci. February 24: Oral intake fair. Tired. Electrolytes corrected. On IV ceftriaxone. ID consulted for positive blood culture. Computed tomography scan of the abdomen pelvis order to look for a source. Review of systems: Was done for constitutional, cardiovascular, GI, pulmonary. relevant finding as above Active Medications Acetaminophen (Acetaminophen Tab 325 Mg Tab) 650 mg PO Q6HR PRN PRN Reason: Mild Pain or Fever > 100.5 Al Hydroxide/Mg Hydroxide (Mag Hydrox/Al Hydrox/Simeth 30 Ml Cup) 15 ml PO Q6HR PRN PRN Reason: Indigestion Alprazolam (Alprazolam 0.25 Mg Tab) 0.25 mg PO Q6HR PRN PRN Reason: Anxiety Aspirin (Aspirin 81 Mg) 81 mg PO DAILY ZAFAR Last Admin: 02/24/21 07:50 Dose: 81 mg Documented by: Brimonidine Tartrate (Brimonidine Tartrate 0.2% Drops 5 Ml Btl) 1 drops BOTH EYES BID [facility] Last Admin: 02/24/21 07:50 Dose: 1 drops Documented by: Calcium Carbonate/Glycine (Calcium Carbonate 500 Mg Chewable) 1,000 mg PO Q4HR PRN PRN Reason: Dyspepsia Ceftriaxone Sodium 1 gm/ (Sodium Chloride) 50 mls @ 100 mls/hr IVPB DAILY [facility] Last Admin: 02/24/21 07:50 Dose: 100 mls/hr Documented by: Iopamidol (Iopamidol Contrast (Oral Use) Vial) 30 ml PO Q60M PRN PRN Reason: CT Scan Stop: 02/25/21 15:22 Lactulose (Lactulose 20 Gm/30 Ml Cup) 20 gm PO DAILY PRN PRN Reason: Constipation Magnesium Hydroxide (Magnesium Hydroxide 2,400 Mg/10 Ml Cup) 2,400 mg PO DAILY PRN PRN Reason: Constipation Magnesium Oxide (Magnesium Oxide 400 Mg Tab) 400 mg PO DAILY [facility] Last Admin: 02/24/21 07:50 Dose: 400 mg Documented by: Melatonin (Melatonin 3 Mg Tablet) 3 mg PO HS PRN PRN Reason: Insomnia Metoprolol Tartrate (Metoprolol Tartrate 25 Mg Tab) 25 mg PO BID [facility] Last Admin: 02/24/21 07:50 Dose: 25 mg Documented by: Naloxone HCl (Naloxone 0.4 Mg/Ml 1 Ml Vial) 0.2 mg IV Q2M PRN PRN Reason: Opioid Reversal Ondansetron HCl (Ondansetron 4 Mg/2 Ml Vial) 4 mg IVP Q8HR PRN PRN Reason: Nausea And Vomiting Tamsulosin HCl (Tamsulosin 0.4 Mg Cap.Er.24h) 0.4 mg PO HS [facility] Last Admin: 02/23/21 20:13 Dose: 0.4 mg Documented by: Past medical history to include: Atrial fibrillation, hypertension, chronic kidney disease, colon cancer with about 1 foot removed, and given chemotherapy, macular degeneration Social history: . Nonsmoker. Alcohol occasionally. Retired. Family history: Myocardial infarction Physical examination: VITAL SIGNS: 98.2, 68, 17, 122/79, 99% room air GENERAL: BMI 23.7, sitting up in a chair, tired. EYES: Pupils equal. Conjunctiva normal. HEENT: External appearance of nose and ears normal, oral cavity grossly normal. NECK: JVD not raised; masses not palpable. HEART: First and second heart sounds are normal; no edema. LUNGS: Respiratory rate normal; clear to auscultation. ABDOMEN: Soft, nontender, liver spleen not palpable, no masses palpable. PSYCH: Alert and oriented x3; mood and affect normal. MUSCULOSKELETAL: Evidence of OA . Muscle weakness NEUROLOGICAL: Cranial nerves grossly intact; no facial asymmetry, power and sensation grossly intact. INVESTIGATIONS, reviewed in the clinical context: February 24: Potassium 4.8 creatinine 1.16 Blood cultures positive for micrococcus. Gram-positive cocci Y vitamin B12 361. Folate 19 WBC 11.3 hemoglobin 11.2 platelets 176 potassium 4.4 bicarb 20 BUN 22 creatinine 1.2 Admission labs: Potassium 2.9 by, 14 magnesia 1.1 UA positive for leukoesterase, WBC EKG tracing personally reviewed by me-atrial flutter fibrillation with a right bundle-branch block pattern. Rate of 109 Chest x-ray film personally reviewed by pa-mari cummings. No obvious infiltrates Computed tomography scan of the brain without contrast: Cerebral atrophy. Chronic small vessel ischemia. Assessment plan: -Acute myelopathy due to electrolyte abnormalities including hypokalemia and hypomagnesemia. -Acute UTI with cystitis secondary to self-catheterization. Gram-negative b acilli Urine culture pending. IV ceftriaxone -Blood cultures positive for gram-positive cocci/micrococcus Computed tomography scan of the abdomen and pelvis to look for source. Consult ID -Patient has been progressively getting weak for last 3 years. Does use a cane sometimes. After eating his jaw may hurt a bit. And speech becomes off or talking. Sometimes slurring. Muscle weakness. Patient may have underlying myasthenia gravis./Multisystem atrophy per neurology patient to follow with neurology as outpatient -Persistent atrial flutter fibrillation. Rate controlled Lopressor. -BPH, with bladder outflow obstruction Patient does straight catheterization twice daily. Flomax -Hypokalemia Replace -Hypomagnesemia Replace Continue IV ceftriaxone. Consult ID. Computed tomography scan of the abdomen and pelvis to look for source of positive blood cultures. Repeat labs.
[2021-02-24] MEDS: IOPAMIDOL CONTRAST (ORAL USE) VIAL PO PRN ×2 (16:30→16:59)
--- NOTE | 2021-02-24 18:16 | CT ---
EXAMINATION TYPE: CT abdomen pelvis w con DATE OF EXAM: 02/24/2021 COMPARISON: None HISTORY: INFECTION CT DLP: 860.2 mGycm Automated exposure control for dose reduction was used. CONTRAST: Performed with IV Contrast, patient injected with 100 mL of Isovue 300. Images obtained from the diaphragm to the floor the pelvis with oral and IV contrast. There are small bilateral pleural effusions. Heart is enlarged. There is no pericardial effusion. The re is some infiltrate and atelectasis at the lung bases. There is 1 cm hypodensity in the lateral right lobe of the liver. The spleen is absent. There is no e vidence of pancreatic mass. There is no adrenal mass. Kidneys show satisfactory contrast opacification. There is no hydronephrosi s. Ureters do not appear dilated. There are left renal cortical cysts that measure up to 4.5 cm. There is no retroperitoneal adenopathy. There is Fuentes catheter in the urinary bladder. Bladder is em pty. There is no inguinal hernia. There is no free fluid in the pelvis. There is minimal perirectal f at stranding. There is mild wall thickening of the sigmoid colon. There are some dilated fluid-filled small bowel loops in the mid abdomen. Ileum measures up to 4 cm in diameter. There is gas and fecal material down to the rectum. There are spondylotic changes in the lumbar spine. There is no compression fracture. There is degener ative spurring. The bony pelvis is intact. The hip joints are intact. There is no hip dysplasia. IMPRESSION: Dilated small bowel suggestive of ileus or partial mechanical small bowel obstruction. Sigmoid colon wall thickening consistent with a nonspecific colitis. No free air. Cardiomegaly with pleural effusions suggestive of congestive heart failure.
[2021-02-24] MEDS: TAMSULOSIN 0.4 MG CAP.ER.24H PO SCH (21:16)
--- NOTE | 2021-02-25 00:38 | P.CONS ---
History of Present Illness - Reason for Consult Consult date: 02/24/21 Positive blood culture Requesting physician: Reagan Baca - Chief Complaint Generalized weakness times few days - History of Present Illness Patient is 86-year-old male who has been brought into the ER at [facility] 2 days ago after the patient was brought into the hospital by family member with concern for generalized weakness as well as falls patient has been progressively getting worse over the last week or so and the patient not been able to do her activities of daily living patient did have a urine retention and has been doing straight cath. Patient did fall the day before presentation hospital did have abrasion over his left elbow with July the patient was evaluated by ER physician on arrival to the ER patient was afebrile and no fever has been recorded subsequently did have mild tachycardia admission white count was normal subsequent white count was 11.32 yesterday not repeated on today patient had a normal creatinine potassium was low repeat is normal liver enzymes are normal patient did have positive UA with large cystitis trace 61 WBC patient urine is showing gram-negative blood cultures came back positive with gram-positive for which infection he was consulted for further management patient did have a chest x-ray which was negative for acute pulmonary process patient currently denies having any chest pain no shortness of breath no cough no nausea no vomiting no abdominal pain or diarrhea most information has been obtained from review the chart as the patient himself is not a very good historian Review of Systems Positive point has been mentioned in the HPI rest of the systems are negative Past Medical History Past Medical History: Atrial Fibrillation, Cancer, Hypertension, Renal Disease Additional Past Medical History / Comment(s): macular degeneration, colon ca - bowel resection and chemo both times, stage 3 renal failure History of Any Multi-Drug Resistant Organisms: None Reported Additional Past Surgical History / Comment(s): colon resection - one at age 54, a second at age 69 Past Anesthesia/Blood Transfusion Reactions: No Reported Reaction Past Psychological History: No Psychological Hx Reported Smoking Status: Never smoker Past Alcohol Use History: Occasional Past Drug Use History: None Reported - Past Family History Father Family Medical History: Myocardial Infarction ([place]) Mother Family Medical History: CVA/TIA Medications and Allergies Home Medications Medication Instructions Recorded Confirmed Type Vit C/E/Zn/Coppr/Lutein/Zeaxan 1 cap PO DAILY 01/01/18 02/22/21 History [Preservision Areds 2 Softgel] Brimonidine Tartrate [Alphagan P 1 drop BOTH EYES BID 08/07/20 02/22/21 History 0.2% Ophth Soln] Tamsulosin [Flomax] 0.4 mg PO HS 08/07/20 02/22/21 History Aspirin 81 mg PO DAILY #30 chew 08/10/20 02/22/21 Rx Metoprolol Tartrate [Lopressor] 25 mg PO BID 02/22/21 02/22/21 History Allergies Allergy/AdvReac Type Severity Reaction Status Date / Time No Known Allergies Allergy Verified 02/22/21 16:40 Physical Exam Vitals: Vital Signs Temp Pulse Pulse Pulse Resp BP BP 02/24/21 14:00 98.0 F 68 17 02/24/21 07:32 97.6 F 81 02/24/21 02:05 98.2 F 68 18 02/23/21 20:00 100 105 H 98 16 02/23/21 19:30 98.1 F 100 105 H 98 16 138/74 126/64 BP Pulse Ox 02/24/21 14:00 123/79 99 02/24/21 07:32 137/79 96 02/24/21 02:05 149/81 96 02/23/21 20:00 02/23/21 19:30 153/82 96 Intake and Output 02/24/21 02/24/21 02/24/21 06:59 14:59 22:59 Intake Total 240 Output Total 697 Balance -457 Intake: Oral 240 Output: Urine 697 Straight 697 Other: # Voids 3 GENERAL DESCRIPTION: Elderly male lying in bed, no distress. No tachypnea or accessory muscle of respiration use. HEENT: Shows Pallor , no scleral icterus. Oral mucous membrane is dry. No pharyngeal erythema or thrush NECK: Trachea central, no thyromegaly. LUNGS: Unlabored breathing. Decreased present at the base. No wheeze or crackle. HEART: S1, S2, regular rate and rhythm. No loud murmur ABDOMEN: Soft, no tenderness , guarding or rigidity, no organomegaly EXTREMITIES: No edema of feet. SKIN: No rash, no masses palpable. NEUROLOGICAL: The patient is awake, alert, oriented x3, mood and affect normal. Results CBC & Chem 7: 02/23/21 07:11 02/24/21 06:36 Labs: Abnormal Lab Results - Last 24 Hours (Table) 02/24/21 Range/Units 06:36 Chloride 109 H (98-107) mmol/L BUN 21 H (9-20) mg/dL Microbiology - Last 24 Hours (Table) 02/22/21 17:22 Blood Culture Gram Stain - Final Blood Blood Culture - Final Micrococcus species 02/22/21 16:06 Urine Culture - Preliminary Urine,Clean Catch Gram Neg Bacilli Assessment and Plan Assessment: 1-patient did have positive blood cultures in this patient presented to the hospital has been weakness and falls and concern for urinary tract infection however urine is showing a gram-negative patient chest x-ray reported negative and with evidence of any cellulitis question of possible skin contamination [id number] urinary tract infection risk factor being urinary retention and self-catheterization (1) Gram-positive bacteremia Current Visit: Yes Status: Acute Code(s): R78.81 - BACTEREMIA SNOMED Code(s): 199528392828 (2) UTI (urinary tract infection) Current Visit: Yes Status: Acute Code(s): N39.0 - URINARY TRACT INFECTION, SITE NOT SPECIFIED SNOMED Code(s): 79482538 Plan: 1-blood cultures will be repeated to document clearance of bacteremia 2-no need for vancomycin as possible skin contamination. 3-Rocephin 1 g daily We will follow on clinical condition and cultures to further adjust medication if needed Thank you for this consultation we will follow the patient along with you Time with Patient: Greater than 30
[2021-02-25 05:05] LABS: Basophils % (A) 0 %; Eosinophils # (A) 0.7 k/uL (0-0.7); Eosinophils % (A) 7 %; HCT 33.5 % (39.0-53.0); HGB 11.3 gm/dL (13.0-17.5); Lymphocytes # (A) 2.2 k/uL (1.0-4.8); Lymphocytes % (A) 23 %; MCH 32.2 pg (25.0-35.0); MCHC 33.6 g/dL (31.0-37.0); MCV 95.7 fL (80.0-100.0); Mean Platelet Volume 8.4; Monocytes # (A) 0.6 k/uL (0-1.0); Monocytes % (A) 6 %; Neutrophils # (A) 5.8 k/uL (1.3-7.7); Neutrophils % (A) 62 %; Platelet Count 156 k/uL (150-450); RDW 13.8 % (11.5-15.5); WBC 9.4 k/uL (3.8-10.6)
[2021-02-25 05:15] LABS: ALT 10 U/L (4-49); AST 33 U/L (17-59); African American GFR (CKD) 67 (>60 ml/min/1.73 sqM); Albumin 3.2 g/dL (3.5-5.0); Albumin/Globulin Ratio 1.2; Alkaline Phosphatase 89 U/L (38-126); Anion Gap 5 mmol/L; Blood Urea Nitrogen 20 mg/dL (9-20); Calcium 8.7 mg/dL (8.4-10.2); Carbon Dioxide 22 mmol/L (22-30); Chloride 111 mmol/L (98-107); Globulin 2.6 g/dL; Glucose 105 mg/dL (74-99); Non-African American GFR(CKD) 58 (>60 ml/min/1.73 sqM); Potassium 4.5 mmol/L (3.5-5.1); Sodium 138 mmol/L (137-145); Total Bilirubin 0.4 mg/dL (0.2-1.3); Total Protein 5.8 g/dL (6.3-8.2)
[2021-02-25] MEDS: ASPIRIN 81 MG PO SCH (08:39)
[2021-02-25] MEDS: MAGNESIUM OXIDE 400 MG TAB PO SCH (08:40)
[2021-02-25] MEDS: METOPROLOL TARTRATE 25 MG TAB PO SCH ×2 (08:40→20:31)
[2021-02-25] MEDS: BRIMONIDINE TARTRATE 0.2% DROPS 5 ML BTL BOTH EYES SCH ×2 (08:45→20:31)
--- NOTE | 2021-02-25 09:48 | P.CRDCN ---
History of Present Illness Consult date: 02/25/21 Chief complaint: Generalized weakness History of present illness: This is a very pleasant 86-year-old gentleman who requested to see here on the fourth floor for further evaluation of cardiac arrhythmia. The patient does have underlying history of permanent atrial fibrillation as well as hypertension and dyslipidemia and chronic kidney disease. He was admitted to the hospital with generalized weakness and fatigue and he was diagnosed with acute UTI with cystitis. The reason we involved in the care of the patient for further evaluation of cardiac arrhythmia and nonsustained ventricular tachycardia. Inside the chart there is no [facility]t documentation of nonsustained ventricular tachycardia but there is a documentation off irregular wide-complex rhythm seems to be the patient's underlying atrial fibrillation with his mildly widened QRS. More importantly the patient was completely asymptomatic without any feeling of heart racing or fluttering and without any dizziness or lightheadedness and without any presyncope or syncope. No symptoms of chest pain or chest discomfort. When he was admitted to the hospital he did have electrolytes imbalance and that was corrected. Currently the patient is on metoprolol for the atrial fibrillation. Past Medical History Past Medical History: Atrial Fibrillation, Cancer, Hypertension, Renal Disease Additional Past Medical History / Comment(s): macular degeneration, colon ca - bowel resection and chemo both times, stage 3 renal failure History of Any Multi-Drug Resistant Organisms: None Reported Additional Past Surgical History / Comment(s): colon resection - one at age 54, a second at age 69 Past Anesthesia/Blood Transfusion Reactions: No Reported Reaction Past Psychological History: No Psychological Hx Reported Smoking Status: Never smoker Past Alcohol Use History: Occasional Past Drug Use History: None Reported - Past Family History Father Family Medical History: Myocardial Infarction ([place]) Mother Family Medical History: CVA/TIA Medications and Allergies Home Medications Medication Instructions Recorded Confirmed Type Vit C/E/Zn/Coppr/Lutein/Zeaxan 1 cap PO DAILY 01/01/18 02/22/21 History [Preservision Areds 2 Softgel] Brimonidine Tartrate [Alphagan P 1 drop BOTH EYES BID 08/07/20 02/22/21 History 0.2% Ophth Soln] Tamsulosin [Flomax] 0.4 mg PO HS 08/07/20 02/22/21 History Aspirin 81 mg PO DAILY #30 chew 12/31/20 07/15/21 Rx Metoprolol Tartrate [Lopressor] 25 mg PO BID 02/22/21 02/22/21 History Allergies Allergy/AdvReac Type Severity Reaction Status Date / Time No Known Allergies Allergy Verified 02/22/21 16:40 Physical Exam Vitals: Vital Signs Temp Pulse Pulse Resp BP BP BP 02/25/21 07:08 97.7 F 87 17 145/82 02/25/21 02:03 97.9 F 67 16 128/73 02/24/21 20:11 98.3 F 105 H 105 H 17 136/88 155/92 02/24/21 14:00 98.0 F 68 17 123/79 Pulse Ox 02/25/21 07:08 96 02/25/21 02:03 97 02/24/21 20:11 97 02/24/21 14:00 99 Intake and Output 02/24/21 02/25/21 02/25/21 22:59 06:59 14:59 Output Total 680 400 Balance -680 -400 Output: Urine 680 400 Other: Voiding Method Indwelling Catheter - Constitutional General appearance: no acute distress - Respiratory Respiratory: bilateral: diminished - Cardiovascular Rhythm: irregularly irregular Heart sounds: normal: S1, S2 Results 02/25/21 04:44 02/25/21 04:44 Cardiac Enzymes 02/25/21 Range/Units 04:44 AST 33 (17-59) U/L CBC 02/25/21 Range/Units 04:44 WBC 9.4 (3.8-10.6) k/uL RBC 3.50 L (4.30-5.90) m/uL Hgb 11.3 L (13.0-17.5) gm/dL Hct 33.5 L (39.0-53.0) % Plt Count 156 (150-450) k/uL Comprehensive Metabolic Panel 02/25/21 Range/Units 04:44 Sodium 138 (137-145) mmol/L Potassium 4.5 (3.5-5.1) mmol/L Chloride 111 H (98-107) mmol/L Carbon Dioxide 22 (22-30) mmol/L BUN 20 (9-20) mg/dL Creatinine 1.14 (0.66-1.25) mg/dL Glucose 105 H (74-99) mg/dL Calcium 8.7 (8.4-10.2) mg/dL AST 33 (17-59) U/L ALT 10 (4-49) U/L Alkaline Phosphatase 89 (38-126) U/L Total Protein 5.8 L (6.3-8.2) g/dL Albumin 3.2 L (3.5-5.0) g/dL Current Medications Generic Name Dose Route Start Last Admin Trade Name Freq PRN Reason Stop Dose Admin Acetaminophen 650 mg 02/22/21 19:33 Acetaminophen Tab 325 Mg Tab PO Q6HR PRN Mild Pain or Fever > 100.5 Al Hydroxide/Mg Hydroxide 15 ml 02/22/21 21:15 Mag Hydrox/Al Hydrox/Simeth 30 Ml Cup PO Q6HR PRN Indigestion Alprazolam 0.25 mg 02/22/21 21:15 Alprazolam 0.25 Mg Tab PO Q6HR PRN Anxiety Aspirin 81 mg 02/23/21 09:00 02/25/21 08:39 Aspirin 81 Mg PO 81 mg DAILY ZAFAR Administration Brimonidine Tartrate 1 drops 02/22/21 21:15 02/25/21 08:45 Brimonidine Tartrate 0.2% Drops 5 Ml Btl BOTH EYES 1 drops BID ZAFAR Administration Calcium Carbonate/Glycine 1,000 mg 02/22/21 21:15 Calcium Carbonate 500 Mg Chewable PO Q4HR PRN Dyspepsia Ceftriaxone Sodium 1 gm/ 50 mls @ 100 mls/hr 02/23/21 09:00 02/25/21 08:40 Sodium Chloride IVPB 100 mls/hr DAILY ZAFAR Administration Lactulose 20 gm 02/22/21 21:15 Lactulose 20 Gm/30 Ml Cup PO DAILY PRN Constipation Magnesium Hydroxide 2,400 mg 02/22/21 21:15 Magnesium Hydroxide 2,400 Mg/10 Ml Cup PO DAILY PRN Constipation Magnesium Oxide 400 mg 02/24/21 09:00 02/25/21 08:40 Magnesium Oxide 400 Mg Tab PO 400 mg DAILY ZAFAR Administration Melatonin 3 mg 02/22/21 21:15 Melatonin 3 Mg Tablet PO HS PRN Insomnia Metoprolol Tartrate 25 mg 02/22/21 21:15 02/25/21 08:40 Metoprolol Tartrate 25 Mg Tab PO 25 mg BID ZAFAR Administration Naloxone HCl 0.2 mg 02/22/21 21:15 Naloxone 0.4 Mg/Ml 1 Ml Vial IV Q2M PRN Opioid Reversal Ondansetron HCl 4 mg 02/22/21 21:15 Ondansetron 4 Mg/2 Ml Vial IVP Q8HR PRN Nausea And Vomiting Tamsulosin HCl 0.4 mg 02/22/21 21:15 02/24/21 21:16 Tamsulosin 0.4 Mg Cap.Er.24h PO 0.4 mg HS ZAFAR Administration Intake and Output 02/24/21 02/25/21 02/25/21 22:59 06:59 14:59 Output Total 680 400 Balance -680 -400 Output: Urine 680 400 Other: Voiding Method Indwelling Catheter 02/25/21 04:44 02/25/21 04:44 Assessment and Plan Assessment: Assessment #1 generalized weakness and fatigue #2 permanent atrial fibrillation was controlled heart rate #3 multiple comorbid conditions Plan #1 I would advise continue the current medical regimen #2 no need for any further cardiac workup at this point #3 we'll follow-up with the patient on when necessary case
--- NOTE | 2021-02-25 16:57 | PN ---
PROGRESS NOTE DATE OF SERVICE: 02/25/2021 REASON FOR FOLLOWUP: 1. UTI. 2. Positive blood culture. INTERVAL HISTORY: Patient is afebrile. The patient is more awake, alert. He is breathing comfortably. Denies having any chest pain, shortness of breath. No abdominal pain or diarrhea. PHYSICAL EXAMINATION: Blood pressure 119/77, pulse 81, temperature is 97.6. He is 97% on room air. GENERAL DESCRIPTION: Is elderly male lying in bed in no distress. RESPIRATORY SYSTEM: Unlabored breathing, clear to auscultation anteriorly. HEART: S1, S2. Regular rate and rhythm. ABDOMEN: Soft, nontender. EXTREMITIES: No edema of the feet. LABS: Hemoglobin 11.9, white count 9.4, BUN of 10, creatinine is 1.146. Blood culture with micrococcus species. Urine showing Klebsiella. DIAGNOSTIC IMPRESSION AND PLAN: 1. Patient with Klebsiella urinary tract infection. Continue Rocephin. Finish therapy with oral antibiotics. 2. Patient with a positive culture micrococcus, likely contaminant. Repeat blood culture has been ordered, those will be followed and monitor clinical course closely. MMODL / IJN: [id number] /
--- NOTE | 2021-02-25 18:37 | P.PN ---
Progress Note - Text Progress Note Date: 02/25/21 Chief Complaint: Progressively weaker History of presenting complaint: This is a pleasant 86-year-old patient who follows with Dr. Silva. Patient is accompanied by his . Chronic stable medical conditions include atrial fibrillation, hypertension, history of colon cancer with bowel resection and chemotherapy, chronic kidney disease. Patient presents with small digital symptoms. For last 3 years patient has been becoming progressively weaker. Does use a cane. Patient had been hypothyroid getting levothyroxine. Had been following with transformer inspector. Not too long ago patient was taken off his levothyroxine by his transformer inspector Dr. Valentino. Patient does notice that sometimes after talking for some time his speech because of bit slurred. Some type after eating also he may have discomfort in his jaws. Patient appetite has been okay. No change in bowel pattern. Denies any obvious loss of weight. Does feel generalized weakness. No fever no chills. Upon presentation patient did have a low potassium of 2.9 and low magnesium. This was replaced. Also found to have infected urine. Patient does straight catheterization twice daily. Admitted with myelopathy felt to be from hypokalemia and hypomagnesemia. Corrected. Also UTI secondary to self-catheterization. On IV ceftriaxone. Patient also being seen by neurology for chronic neurological disorder. Differential includes multiple system atrophy, myasthenia gravis. For further workup as an outpatient. Blood cultures coming back positive for gram-positive cocci. February 24: Oral intake fair. Tired. Electrolytes corrected. On IV ceftriaxone. ID consulted for positive blood culture. Computed tomography scan of the abdomen pelvis order to look for a source. February 25: Feeling better. Oral intake better. Son and [id number] visiting. On IV ceftriaxone. Computed tomography scan of the abdomen nonspecific. No GI symptoms. Review of systems: Was done for constitutional, cardiovascular, GI, pulmonary. relevant finding as above Active Medications Acetaminophen (Acetaminophen Tab 325 Mg Tab) 650 mg PO Q6HR PRN PRN Reason: Mild Pain or Fever > 100.5 Al Hydroxide/Mg Hydroxide (Mag Hydrox/Al Hydrox/Simeth 30 Ml Cup) 15 ml PO Q6HR PRN PRN Reason: Indigestion Alprazolam (Alprazolam 0.25 Mg Tab) 0.25 mg PO Q6HR PRN PRN Reason: Anxiety Aspirin (Aspirin 81 Mg) 81 mg PO DAILY ZAFAR Last Admin: 02/25/21 08:39 Dose: 81 mg Documented by: Brimonidine Tartrate (Brimonidine Tartrate 0.2% Drops 5 Ml Btl) 1 drops BOTH EYES BID [facility] Last Admin: 02/25/21 08:45 Dose: 1 drops Documented by: Calcium Carbonate/Glycine (Calcium Carbonate 500 Mg Chewable) 1,000 mg PO Q4HR PRN PRN Reason: Dyspepsia Ceftriaxone Sodium 1 gm/ (Sodium Chloride) 50 mls @ 100 mls/hr IVPB DAILY [facility] Last Admin: 02/25/21 08:40 Dose: 100 mls/hr Documented by: Lactulose (Lactulose 20 Gm/30 Ml Cup) 20 gm PO DAILY PRN PRN Reason: Constipation Magnesium Hydroxide (Magnesium Hydroxide 2,400 Mg/10 Ml Cup) 2,400 mg PO DAILY PRN PRN Reason: Constipation Magnesium Oxide (Magnesium Oxide 400 Mg Tab) 400 mg PO DAILY [facility] Last Admin: 02/25/21 08:40 Dose: 400 mg Documented by: Melatonin (Melatonin 3 Mg Tablet) 3 mg PO HS PRN PRN Reason: Insomnia Metoprolol Tartrate (Metoprolol Tartrate 25 Mg Tab) 25 mg PO BID [facility] Last Admin: 02/25/21 08:40 Dose: 25 mg Documented by: Naloxone HCl (Naloxone 0.4 Mg/Ml 1 Ml Vial) 0.2 mg IV Q2M PRN PRN Reason: Opioid Reversal Ondansetron HCl (Ondansetron 4 Mg/2 Ml Vial) 4 mg IVP Q8HR PRN PRN Reason: Nausea And Vomiting Tamsulosin HCl (Tamsulosin 0.4 Mg Cap.Er.24h) 0.4 mg PO HS [facility] Last Admin: 02/24/21 21:16 Dose: 0.4 mg Documented by: Past medical history to include: Atrial fibrillation, hypertension, chronic kidney disease, colon cancer with about 1 foot removed, and given chemotherapy, macular degeneration Social history: . Nonsmoker. Alcohol occasionally. Retired. Family history: Myocardial infarction Physical examination: VITAL SIGNS: 97.6, 81, 17, 119.77, 97% room air GENERAL: Declining in bed, comfortable EYES: Pupils equal. Conjunctiva normal. HEENT: External appearance of nose and ears normal, oral cavity grossly normal. NECK: JVD not raised; masses not palpable. HEART: First and second heart sounds are normal; no edema. LUNGS: Respiratory rate normal; clear to auscultation. ABDOMEN: Soft, nontender, liver spleen not palpable, no masses palpable. PSYCH: Alert and oriented x3; mood and affect normal. MUSCULOSKELETAL: Evidence of OA . Muscle weakness INVESTIGATIONS, reviewed in the clinical context: February 25: WBC 9.4 hemoglobin 11.3 potassium 4.5 creatinine 1.14 Pro-calcitonin 0.08 Computed tomography scan of the abdomen pelvis with contrast: Nonspecific findings. February 24: Potassium 4.8 creatinine 1.16 Blood cultures positive for micrococcus. Gram-positive cocci Y vitamin B12 361. Folate 19 WBC 11.3 hemoglobin 11.2 platelets 176 potassium 4.4 bicarb 20 BUN 22 creatinine 1.2 Admission labs: Potassium 2.9 by, 14 magnesia 1.1 UA positive for leukoesterase, WBC EKG tracing personally reviewed by me-atrial flutter fibrillation with a right bundle-branch block pattern. Rate of 109 Chest x-ray film personally reviewed by wy-mari cummings. No obvious infiltrates Computed tomography scan of the brain without contrast: Cerebral atrophy. Chronic small vessel ischemia. Assessment plan: -Acute myelopathy due to electrolyte abnormalities including hypokalemia and hypomagnesemia.: Improved Electrolytes replaced -Acute UTI with cystitis secondary to self-catheterization. From Klebsiella oxytoca IV ceftriaxone -Blood cultures positive for gram-positive cocci/micrococcus. Computed tomography scan of the abdomen and pelvis nonspecific. Consult ID. Repeat cultures pending -Patient has been progressively getting weak for last 3 years. Does use a cane sometimes. After eating his jaw may hurt a bit. And speech becomes off or talking. Sometimes slurring. Muscle weakness. Patient may have underlying myasthenia gravis./Multisystem atrophy per neurology patient to follow with neurology as outpatient -Persistent atrial flutter fibrillation. Rate controlled Lopressor. -BPH, with bladder outflow obstruction Patient does straight catheterization twice daily. Flomax -Hypokalemia Replace -Hypomagnesemia Replace Continue IV ceftriaxone. Pending repeat culture results. Clinically patient doing much better. Other medications to continue
[2021-02-25] MEDS: TAMSULOSIN 0.4 MG CAP.ER.24H PO SCH (20:31)
--- NOTE | 2021-02-26 00:27 | P.PN ---
Subjective Progress Note Date: 02/25/21 Patient was seen for a follow-up by tele-neurology, today on 02/25/2021. Patient's , and son were also present today. The family states that patient's balance has been getting worse for quite a while. He gets dizzy spells when he is tense up. The family also informed that vision has been having shuffling gait for the last 2-3 years. He is bradykinetic. His speech slurred, particularly during the later part of the day. Patient denies diplopia, no ptosis. Patient's mentions that he has occasional spells of acting out at night. It mainly occurs when he has watched certain movies with violence. Objective - Vital Signs Vital signs: Vital Signs Temp 97.7 F 02/25/21 07:08 Pulse 87 02/25/21 07:08 Resp 17 02/25/21 07:08 BP 145/82 02/25/21 07:08 Pulse Ox 96 02/25/21 07:08 Intake & Output 02/24/21 02/25/21 02/25/21 18:59 06:59 18:59 Intake Total 240 Output Total 697 1080 Balance -457 -1080 Intake: Oral 240 Output: Urine 697 1080 Straight 697 Other: Voiding Method Indwelling Catheter - Exam Patient is laying comfortably in the bed. Detailed testing was deferred. Patient's gait was checked. Patient stands up, with one assist. He was able to walk with a walker, with shuffling gait. No parkinsonian tremors noted. - Labs CBC & Chem 7: 02/25/21 04:44 02/25/21 04:44 Labs: Abnormal Lab Results - Last 24 Hours (Table) 02/25/21 02/25/21 Range/Units 04:44 04:44 RBC 3.50 L (4.30-5.90) m/uL Hgb 11.3 L (13.0-17.5) gm/dL Hct 33.5 L (39.0-53.0) % Chloride 111 H (98-107) mmol/L Glucose 105 H (74-99) mg/dL Total Protein 5.8 L (6.3-8.2) g/dL Albumin 3.2 L (3.5-5.0) g/dL Microbiology - Last 24 Hours (Table) 02/22/21 16:06 Urine Culture - Final Urine,Clean Catch Klebsiella oxytoca 02/22/21 17:22 Blood Culture Gram Stain - Final Blood Blood Culture - Final Micrococcus species Assessment and Plan Assessment: * 86-year-old male with 2-3 year history of gait change, gait imbalance, developed micrographia and tendency to fall. He has some parkinsonian features, but does not appear to have idiopathic Parkinson's disease. Examination revealed bradykinesia and increased tone, hoarse voice. Patient also has developed possible nocturnal ? REM sleep behavior disorder. 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 No definitive evidence of myasthenia gravis. * UTI, with positive blood cultures. Plan: * Patient has been started on Rocephin for positive blood cultures and UTI. 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 I would suggest patient follow-up with a neurologist as an outpatient. Patient probably would need JIMMIE scan as an outpatient. At this point he does not have significant parkinsonian features, therefore would not place on Sinemet. * Patient's B12 361, folate 19.4, await acetylcholine receptor antibodies. * Recommend patient follow up with neurologist as an outpatient for further testing like JIMMIE scan. * Neurology will sign off. Please reconsult neurology if any concerns.
[2021-02-26] MEDS: MAGNESIUM OXIDE 400 MG TAB PO SCH (09:43)
[2021-02-26] MEDS: ASPIRIN 81 MG PO SCH (09:43)
[2021-02-26] MEDS: METOPROLOL TARTRATE 25 MG TAB PO SCH ×2 (09:43→20:28)
[2021-02-26] MEDS: BRIMONIDINE TARTRATE 0.2% DROPS 5 ML BTL BOTH EYES SCH ×2 (09:44→20:29)
--- NOTE | 2021-02-26 13:37 | PN ---
PROGRESS NOTE DATE OF SERVICE: 02/26/2021. REASON FOR FOLLOW UP: Urinary tract infection and positive blood cultures. INTERVAL HISTORY: The patient is afebrile. The patient is feeling better, breathing comfortably. The patient denies having any chest pain, shortness of breath, cough. No abdominal pain. No diarrhea. EXAMINATION: Blood pressure is 153/99, pulse of 79. Temperature 98.1. He is 97% on room air. General description is an elderly male up in the chair, in no distress. Respiratory system: Unlabored breathing, clear to auscultation anteriorly. Heart: S1, S2. Regular rate and rhythm. Abdomen soft, no tenderness. LABS: Hemoglobin 11.0, white count 9.4, BUN of 29, creatinine blood culture repeat has been negative so far. DIAGNOSTIC IMPRESSION AND PLAN: Patient with Klebsiella oxytoca urinary tract infection, sensitive pathogen on Rocephin to finish therapy with either oral Cipro or culture with micrococcus species likely contamination. Repeat blood culture negative. [QAMARKER . MMODL / IJN: [id number] /
--- NOTE | 2021-02-26 14:13 | P.PN ---
Progress Note - Text Progress Note Date: 02/26/21 Chief Complaint: Progressively weaker History of presenting complaint: This is a pleasant 86-year-old patient who follows with Dr. Silva. Patient is accompanied by his . Chronic stable medical conditions include atrial fibrillation, hypertension, history of colon cancer with bowel resection and chemotherapy, chronic kidney disease. Patient presents with small digital symptoms. For last 3 years patient has been becoming progressively weaker. Does use a cane. Patient had been hypothyroid getting levothyroxine. Had been following with photo tech. Not too long ago patient was taken off his levothyroxine by his photo tech Dr. Valentino. Patient does notice that sometimes after talking for some time his speech because of bit slurred. Some type after eating also he may have discomfort in his jaws. Patient appetite has been okay. No change in bowel pattern. Denies any obvious loss of weight. Does feel generalized weakness. No fever no chills. Upon presentation patient did have a low potassium of 2.9 and low magnesium. This was replaced. Also found to have infected urine. Patient does straight catheterization twice daily. Admitted with myelopathy felt to be from hypokalemia and hypomagnesemia. Corrected. Also UTI secondary to self-catheterization. On IV ceftriaxone. Patient also being seen by neurology for chronic neurological disorder. Differential includes multiple system atrophy, myasthenia gravis. For further workup as an outpatient. Blood cultures coming back positive for gram-positive cocci. February 24: Oral intake fair. Tired. Electrolytes corrected. On IV ceftriaxone. ID consulted for positive blood culture. Computed tomography scan of the abdomen pelvis order to look for a source. February 25: Feeling better. Oral intake better. Son and [id number] visiting. On IV ceftriaxone. Computed tomography scan of the abdomen nonspecific. No GI symptoms. February 26: Sitting up in a chair. Oral intake fair. Repeat blood cultures are pending. Otherwise stable. Feeling better. Review of systems: Was done for constitutional, cardiovascular, GI, pulmonary. relevant finding as above Active Medications Acetaminophen (Acetaminophen Tab 325 Mg Tab) 650 mg PO Q6HR PRN PRN Reason: Mild Pain or Fever > 100.5 Al Hydroxide/Mg Hydroxide (Mag Hydrox/Al Hydrox/Simeth 30 Ml Cup) 15 ml PO Q6HR PRN PRN Reason: Indigestion Alprazolam (Alprazolam 0.25 Mg Tab) 0.25 mg PO Q6HR PRN PRN Reason: Anxiety Aspirin (Aspirin 81 Mg) 81 mg PO DAILY [facility] Last Admin: 02/26/21 09:43 Dose: 81 mg Documented by: Brimonidine Tartrate (Brimonidine Tartrate 0.2% Drops 5 Ml Btl) 1 drops BOTH EYES BID [facility] Last Admin: 02/26/21 09:44 Dose: 1 drops Documented by: Calcium Carbonate/Glycine (Calcium Carbonate 500 Mg Chewable) 1,000 mg PO Q4HR PRN PRN Reason: Dyspepsia Ceftriaxone Sodium 1 gm/ (Sodium Chloride) 50 mls @ 100 mls/hr IVPB DAILY [facility] Last Admin: 02/26/21 09:44 Dose: 100 mls/hr Documented by: Lactulose (Lactulose 20 Gm/30 Ml Cup) 20 gm PO DAILY PRN PRN Reason: Constipation Magnesium Hydroxide (Magnesium Hydroxide 2,400 Mg/10 Ml Cup) 2,400 mg PO DAILY PRN PRN Reason: Constipation Magnesium Oxide (Magnesium Oxide 400 Mg Tab) 400 mg PO DAILY [facility] Last Admin: 02/26/21 09:43 Dose: 400 mg Documented by: Melatonin (Melatonin 3 Mg Tablet) 3 mg PO HS PRN PRN Reason: Insomnia Metoprolol Tartrate (Metoprolol Tartrate 25 Mg Tab) 25 mg PO BID [facility] Last Admin: 02/26/21 09:43 Dose: 25 mg Documented by: Naloxone HCl (Naloxone 0.4 Mg/Ml 1 Ml Vial) 0.2 mg IV Q2M PRN PRN Reason: Opioid Reversal Ondansetron HCl (Ondansetron 4 Mg/2 Ml Vial) 4 mg IVP Q8HR PRN PRN Reason: Nausea And Vomiting Tamsulosin HCl (Tamsulosin 0.4 Mg Cap.Er.24h) 0.4 mg PO HS [facility] Last Admin: 02/25/21 20:31 Dose: 0.4 mg Documented by: Past medical history to include: Atrial fibrillation, hypertension, chronic kidney disease, colon cancer with about 1 foot removed, and given chemotherapy, macular degeneration Social history: . Nonsmoker. Alcohol occasionally. Retired. Family history: Myocardial infarction Physical examination: VITAL SIGNS: 98.1, 79, 16, 153 bun 99, 97% room air GENERAL: Sitting up in a chair, comfortable EYES: Pupils equal. Conjunctiva normal. HEENT: External appearance of nose and ears normal, oral cavity grossly normal. NECK: JVD not raised; masses not palpable. HEART: First and second heart sounds are normal; no edema. LUNGS: Respiratory rate normal; clear to auscultation. ABDOMEN: Soft, nontender, liver spleen not palpable, no masses palpable. PSYCH: Alert and oriented x3; mood and affect normal. MUSCULOSKELETAL: Evidence of OA . Muscle weakness INVESTIGATIONS, reviewed in the clinical context: Repeat blood cultures from February 24, February 25: Pending February 25: WBC 9.4 hemoglobin 11.3 potassium 4.5 creatinine 1.14 Pro-calcitonin 0.08 Computed tomography scan of the abdomen pelvis with contrast: Nonspecific findings. February 24: Potassium 4.8 creatinine 1.16 Blood cultures positive for micrococcus. Gram-positive cocci Y vitamin B12 361. Folate 19 WBC 11.3 hemoglobin 11.2 platelets 176 potassium 4.4 bicarb 20 BUN 22 creatinine 1.2 Admission labs: Potassium 2.9 by, 14 magnesia 1.1 UA positive for leukoesterase, WBC EKG tracing personally reviewed by me-atrial flutter fibrillation with a right bundle-branch block pattern. Rate of 109 Chest x-ray film personally reviewed by ga-mari cummings. No obvious infil trates Computed tomography scan of the brain without contrast: Cerebral atrophy. Chronic small vessel ischemia. Assessment plan: -Acute myelopathy due to electrolyte abnormalities including hypokalemia and hypomagnesemia.: Improved Electrolytes replaced -Acute UTI with cystitis secondary to self-catheterization. From Klebsiella oxytoca IV ceftriaxone -Blood cultures positive for gram-positive cocci/micrococcus. Computed tomography scan of the abdomen and pelvis nonspecific. Consult ID. Repeat cultures pending -Patient has been progressively getting weak for last 3 years. Does use a cane sometimes. After eating his jaw may hurt a bit. And speech becomes off or talking. Sometimes slurring. Muscle weakness. Patient may have underlying myasthenia gravis./Multisystem atrophy per neurology patient to follow with neurology as outpatient -Persistent atrial flutter fibrillation. Rate controlled Lopressor. -BPH, with bladder outflow obstruction Patient does straight catheterization twice daily. Flomax -Hypokalemia Replace -Hypomagnesemia Replace Continue IV ceftriaxone. Pending repeat culture results. Discussed with the patient. Hopefully home tomorrow.
[2021-02-26] MEDS: TAMSULOSIN 0.4 MG CAP.ER.24H PO SCH (20:29)
[2021-02-27 07:52] LABS: Methylmalonic Acid 0.26 umol/L (<0.40)
[2021-02-27 08:25] VITALS: BP 142/91; PULSE 92; RESP 24; TEMP 98.4
[2021-02-27] MEDS: MAGNESIUM OXIDE 400 MG TAB PO SCH (09:30)
[2021-02-27] MEDS: ASPIRIN 81 MG PO SCH (09:30)
[2021-02-27] MEDS: BRIMONIDINE TARTRATE 0.2% DROPS 5 ML BTL BOTH EYES SCH (09:31)
[2021-02-27] MEDS: METOPROLOL TARTRATE 25 MG TAB PO SCH (09:31)
--- NOTE | 2021-02-27 11:19 | PN ---
PROGRESS NOTE DATE OF SERVICE: 03/01/2021 REASON FOR FOLLOWUP: 1. Klebsiella urinary tract infection. 2. Positive blood culture with micrococcus, likely contamination. INTERVAL HISTORY: Patient is afebrile. The patient is breathing comfortably. Patient denies having any chest pain, shortness of breath or cough. No nausea, vomiting. No abdominal pain, no diarrhea. PHYSICAL EXAMINATION: Blood pressure 140/91, pulse of 90, temperature 98.4. He is 97% on room air. GENERAL DESCRIPTION: The patient is an elderly male lying in bed in no distress. RESPIRATORY SYSTEM: Unlabored breathing, clear to auscultation anteriorly. HEART: S1, S2. Regular rate and rhythm. LABS: Hemoglobin is 11.4, white count 9.4, BUN of 20, creatinine 1.14. Blood culture repeat has been negative. DIAGNOSTIC IMPRESSION AND PLAN: 1. Patient with Klebsiella urinary tract infection, overall improvement. Plan is to finish a short course of oral Cipro. Prescription sent to pharmacy. 2. Positive blood culture with micrococcus, likely contaminant, no need for any systemic antibiotic therapy for the same thing. MMODL / IJN: [id number] /
--- NOTE | 2021-02-27 23:42 | P.DS ---
Providers Date of admission: 02/22/21 19:33 Expected date of discharge: 02/27/21 Attending physician: Reagan Baca Consults: 02/23/21 12:36 Consult Physician Routine Consulting Provider: Asmita Monson Consult Reason/Comments: poss MG Do you want consulting provider notified?: Yes 02/24/21 15:24 Consult Physician Routine Consulting Provider: Ronal Wayne Consult Reason/Comments: Positive blood cultures Do you want consulting provider notified?: Yes 02/25/21 09:03 Consult Physician Routine Consulting Provider: Rojas Mary Consult Reason/Comments: run of vtach lastnight - patient on telemetry Do you want consulting provider notified?: Yes Primary care physician: [facility] Hospital Course: Chief Complaint: Progressively weaker History of presenting complaint: This is a pleasant 86-year-old patient who follows with Dr. Silva. Patient is accompanied by his . Chronic stable medical conditions include atrial fibrillation, hypertension, history of colon cancer with bowel resection and chemotherapy, chronic kidney disease. Patient presents with small digital symptoms. For last 3 years patient has been becoming progressively weaker. Does use a cane. Patient had been hypothyroid getting levothyroxine. Had been following with global process owner. Not too long ago patient was taken off his levothyroxine by his global process owner Dr. Valentino. Patient does notice that sometimes after talking for some time his speech because of bit slurred. Some type after eating also he may have discomfort in his jaws. Patient appetite has been okay. No change in bowel pattern. Denies any obvious loss of weight. Does feel generalized weakness. No fever no chills. Upon presentation patient did have a low potassium of 2.9 and low magnesium. This was replaced. Also found to have infected urine. Patient does straight catheterization twice daily. Admitted with myelopathy felt to be from hypokalemia and hypomagnesemia. Correc lamine. Also UTI secondary to self-catheterization. On IV ceftriaxone. Patient also being seen by neurology for chronic neurological disorder. Differential includes multiple system atrophy, myasthenia gravis. For further workup as an outpatient. Blood cultures coming back positive for gram-positive cocci. February 24: Oral intake fair. Tired. Electrolytes corrected. On IV ceftriaxone. ID consulted for positive blood culture. Computed tomography scan of the abdomen pelvis order to look for a source. February 25: Feeling better. Oral intake better. Son and [id number] visiting. On IV ceftriaxone. Computed tomography scan of the abdomen nonspecific. No GI symptoms. February 26: Sitting up in a chair. Oral intake fair. Repeat blood cultures are pending. Otherwise stable. Feeling better. February 27: Repeat blood cultures negative. Discussed with the patient. He'll follow up with neurology as outpatient. Ciprofloxacin 5 mg every 12 for 7 days. Consultation: Dr. Wayne from [facility] Past medical history to include: Atrial fibrillation, hypertension, chronic kidney disease, colon cancer with about 1 foot removed, and given chemotherapy, macular degeneration Social history: . Nonsmoker. Alcohol occasionally. Retired. Family history: Myocardial infarction Physical examination: VITAL SIGNS: 98.4, 92, 24, 142/91, 97% room air GENERAL: Sitting up in a chair, comfortable EYES: Pupils equal. Conjunctiva normal. HEENT: External appearance of nose and ears normal, oral cavity grossly normal. NECK: JVD not raised; masses not palpable. HEART: First and second heart sounds are normal; no edema. LUNGS: Respiratory rate normal; clear to auscultation. ABDOMEN: Soft, nontender, liver spleen not palpable, no masses palpable. PSYCH: Alert and oriented x3; mood and affect normal. MUSCULOSKELETAL: Evidence of OA . Muscle weakness INVESTIGATIONS, reviewed in the clinical context: Repeat blood cultures from February 24, February 25: Negative February 25: WBC 9.4 hemoglobin 11.3 potassium 4.5 creatinine 1.14 Pro-calcitonin 0.08 Computed tomography scan of the abdomen pelvis with contrast: Nonspecific findings. February 24: Potassium 4.8 creatinine 1.16 Blood cultures positive for micrococcus. Gram-positive cocci Y vitamin B12 361. Folate 19 WBC 11.3 hemoglobin 11.2 platelets 176 potassium 4.4 bicarb 20 BUN 22 creatinine 1.2 Admission labs: Potassium 2.9 by, 14 magnesia 1.1 UA positive for leukoesterase, WBC EKG tracing personally reviewed by me-atrial flutter fibrillation with a right bundle-branch block pattern. Rate of 109 Chest x-ray film personally reviewed by me-mari cummings. No obvious infiltrates Computed tomography scan of the brain without contrast: Cerebral atrophy. Chronic small vessel ischemia. Assessment plan: -Acute myelopathy due to electrolyte abnormalities including hypokalemia and hypomagnesemia.: Improved Electrolytes replaced -Acute UTI with cystitis secondary to self-catheterization. From Klebsiella oxytoca IV ceftriaxone. Complete 7 more days of ciprofloxacin -Blood cultures positive for gram-positive cocci/micrococcus. Computed tomography scan of the abdomen and pelvis nonspecific. Consult ID. Repeat cultures negative -Patient has been progressively getting weak for last 3 years. Does use a cane sometimes. After eating his jaw may hurt a bit. And speech becomes off or talking. Sometimes slurring. Muscle weakness. Patient may have underlying myasthenia gravis./Multisystem atrophy per neurology patient to follow with neurology as outpatient -Persistent atrial flutter fibrillation. Rate controlled Lopressor. -BPH, with bladder outflow obstruction Patient does straight catheterization twice daily. Flomax -Hypokalemia Replace -Hypomagnesemia Replace Disposition: Home Follow up with neurology as outpatient Patient Condition at Discharge: Stable Plan - Discharge Summary Discharge Rx Participant: Yes New Discharge Prescriptions: New Ciprofloxacin HCl [Cipro] 500 mg PO Q12H 7 Days #14 tab Continue Vit C/E/Zn/Coppr/Lutein/Zeaxan [Preservision Areds 2 Softgel] 1 cap PO DAILY Brimonidine Tartrate [Alphagan P 0.2% Ophth Soln] 1 drop BOTH EYES BID Tamsulosin [Flomax] 0.4 mg PO HS Aspirin 81 mg PO DAILY #30 chew Metoprolol Tartrate [Lopressor] 25 mg PO BID Discharge Medication List Vit C/E/Zn/Coppr/Lutein/Zeaxan [Preservision Areds 2 Softgel] 1 cap PO DAILY 01/01/18 [History] Brimonidine Tartrate [Alphagan P 0.2% Ophth Soln] 1 drop BOTH EYES BID 08/07/20 [History] Tamsulosin [Flomax] 0.4 mg PO HS 08/07/20 [History] Aspirin 81 mg PO DAILY #30 chew 08/10/20 [Rx] Metoprolol Tartrate [Lopressor] 25 mg PO BID 02/22/21 [History] Ciprofloxacin HCl [Cipro] 500 mg PO Q12H 7 Days #14 tab 02/27/21 [Rx] Follow up Appointment(s)/Referral(s): Carlos Silva DO [Primary Care Provider] - 1-2 days (Office will call patient with an appointment time) Emeka Soliz MD [STAFF PHYSICIAN] - 1 Week (office will call with appointment time and date ) [facility] Visiting Nurse, [NON-STAFF] - 1-2 Days Activity/Diet/Wound Care/Special Instructions: Keep Fuentes catheter in until follow up with urology. Activity and diet as tolerated. Discharge Disposition: HOME WITH HOME HEALTH SERVICES
== END 2021-02-27 14:14 | disposition home health service (06) | DRG 690 ==
LOC: EC 15:09 → 5NMEDONC 19:33 → 4SSUR 20:12
PROVIDERS: ADMIT Hospitalist; ATTEND Hospitalist
DX: N39.0 Urinary tract infection, site not specified (principal); G95.9 Disease of spinal cord, unspecified; I48.21 Permanent atrial fibrillation; I47.2 Ventricular tachycardia; R78.81 Bacteremia; E87.6 Hypokalemia; E83.42 Hypomagnesemia; Z79.82 Long term (current) use of aspirin; H35.30 Unspecified macular degeneration; I12.9 Hypertensive chronic kidney disease with stage 1 through stage 4 chronic kidney disease, or unspecified chronic kidney disease; N18.30 Chronic kidney disease, stage 3 unspecified; Z82.49 Family history of ischemic heart disease and other diseases of the circulatory system; E83.51 Hypocalcemia; R33.9 Retention of urine, unspecified; E03.9 Hypothyroidism, unspecified; Z92.21 Personal history of antineoplastic chemotherapy; Z85.038 Personal history of other malignant neoplasm of large intestine; B96.1 Klebsiella pneumoniae [K. pneumoniae] as the cause of diseases classified elsewhere; E78.5 Hyperlipidemia, unspecified; Z79.899 Other long term (current) drug therapy; I49.3 Ventricular premature depolarization; D64.9 Anemia, unspecified; G47.52 REM sleep behavior disorder; S50.312A Abrasion of left elbow, initial encounter; W19.XXXA Unspecified fall, initial encounter
CPT/HCPCS: 36415; 70450; 71045; 74177; 80048; 80053; 81001; 82550; 82607; 82746; 83519; 83735; 83921; 84100; 84145; 84207; 84484; 85025; 85610; 85730; 87040; 87077; 87086; 87186; 93005; 96361; 96365; 96375; 99285

== ENCOUNTER 2022-05-02 08:46 | Observation (INO) | payer MEDICARE ==
[2022-05-02] MEDS ORDERED: SODIUM CHLORIDE 0.9% 500 ML 500 ML IV ONE (09:11)
[2022-05-02 09:49] LABS: Basophils # (A) 0.1 k/uL (0-0.2); Basophils % (A) 1 %; Eosinophils # (A) 0.1 k/uL (0-0.7); Eosinophils % (A) 1 %; HCT 33.8 % (39.0-53.0); Lymphocytes # (A) 1.6 k/uL (1.0-4.8); Lymphocytes % (A) 15 %; MCH 32.6 pg (25.0-35.0); MCHC 32.7 g/dL (31.0-37.0); MCV 99.8 fL (80.0-100.0); Mean Platelet Volume 8.1; Monocytes # (A) 0.7 k/uL (0-1.0); Monocytes % (A) 7 %; Neutrophils # (A) 7.7 k/uL (1.3-7.7); Neutrophils % (A) 74 %; Platelet Count 188 k/uL (150-450); RBC 3.38 m/uL (4.30-5.90); WBC 10.4 k/uL (3.8-10.6)
--- NOTE | 2022-05-02 09:58 | ED ---
URI HPI - General Chief Complaint: Upper Respiratory Infection Stated Complaint: Congested, Weakness Time Seen by Provider: 05/02/22 09:03 Source: patient, family, RN notes reviewed Mode of arrival: wheelchair Limitations: no limitations - History of Present Illness Initial Comments: This is an 87-year-old male presents emergency Department with chief complaint of cough congestion weakness. Patient states he taken sick last couple days. Patient states he has a wet sounding cough states he feels very fatigued from this. Patient does not report any fevers chills no chest pain. Patient states she has to self cath daily states she was unable to because of his weakness. Patient denies any back pain, current headache or dizziness no reported fevers contacts. - Related Data Home Medications Medication Instructions Recorded Confirmed Vit C/E/Zn/Coppr/Lutein/Zeaxan 1 cap PO PC-LUNCH 01/01/18 05/02/22 [Preservision Areds 2 Softgel] Brimonidine Tartrate [Alphagan P 1 drop BOTH EYES BID 08/07/20 05/02/22 0.2% Ophth Soln] Tamsulosin [Flomax] 0.4 mg PO HS 08/07/20 05/02/22 Metoprolol Tartrate [Lopressor] 12.5 mg PO BID 02/22/21 05/02/22 Aspirin 81 mg PO PC-LUNCH 05/02/22 05/02/22 Allergies Allergy/AdvReac Type Severity Reaction Status Date / Time No Known Allergies Allergy Verified 05/02/22 10:58 Review of Systems ROS Statement: Those systems with pertinent positive or pertinent negative responses have been documented in the HPI. ROS Other: All systems not noted in ROS Statement are negative. Past Medical History Past Medical History: Atrial Fibrillation, Cancer, Renal Disease Additional Past Medical History / Comment(s): macular degeneration, colon ca - bowel resection and chemo both times, stage 3 renal failure History of Any Multi-Drug Resistant Organisms: None Reported Additional Past Surgical History / Comment(s): colon resection - one at age 54, a second at age 69 Past Anesthesia/Blood Transfusion Reactions: No Reported Reaction Past Psychological History: No Psychological Hx Reported Smoking Status: Never smoker Past Alcohol Use History: Occasional Past Drug Use History: None Reported - Past Family History Father Family Medical History: Myocardial Infarction ([place]) Mother Family Medical History: CVA/TIA General Exam Limitations: no limitations General appearance: alert, in no apparent distress Head exam: Present: atraumatic, normocephalic, normal inspection ENT exam: Present: normal exam, mucous membranes moist Neck exam: Present: normal inspection, full ROM. Absent: tenderness, meningism us, lymphadenopathy Respiratory exam: Present: rhonchi. Absent: normal lung sounds bilaterally, respiratory distress, wheezes, rales, stridor Cardiovascular Exam: Present: regular rate, normal rhythm, normal heart sounds. Absent: systolic murmur, diastolic murmur, rubs, gallop, clicks GI/Abdominal exam: Present: soft, normal bowel sounds. Absent: distended, tenderness, guarding, rebound, rigid Neurological exam: Present: alert Skin exam: Present: warm, dry, intact, normal color. Absent: rash Course Vital Signs 05/02/22 05/02/22 05/02/22 08:56 09:00 11:00 Temperature 98.2 F Pulse Rate 73 99 Respiratory 18 20 20 Rate Blood Pressure 98/59 145/100 O2 Sat by Pulse 98 98 Oximetry 05/02/22 05/02/22 12:34 14:13 Temperature Pulse Rate 106 H 81 Respiratory 18 18 Rate Blood Pressure 132/91 145/75 O2 Sat by Pulse 98 97 Oximetry Medical Decision Making - Medical Decision Making 87-year-old presented for abdominal discomfort off condition. Patient has a wet sounding cough. Patient's found to have urinary tract infection, patient is too weak to care for himself. Patient x-ray does not show any significant pulmonary edema though patient has elevated BMP concerns for CHF. Patient is chronically in A. fib on no current anticoagulants. Patient will be admitted for further treatment and workup. - Lab Data Result diagrams: 05/02/22 09:34 05/02/22 09:34 Lab Results 05/02/22 05/02/22 05/02/22 Range/Units 09:34 09:34 09:34 WBC 10.4 (3.8-10.6) k/uL RBC 3.38 L (4.30-5.90) m/uL Hgb 11.0 L (13.0-17.5) gm/dL Hct 33.8 L (39.0-53.0) % MCV 99.8 (80.0-100.0) fL MCH 32.6 (25.0-35.0) pg MCHC 32.7 (31.0-37.0) g/dL RDW 13.0 (11.5-15.5) % Plt Count 188 (150-450) k/uL MPV 8.1 Neutrophils % 74 % Lymphocytes % 15 % Monocytes % 7 % Eosinophils % 1 % Basophils % 1 % Neutrophils # 7.7 (1.3-7.7) k/uL Lymphocytes # 1.6 (1.0-4.8) k/uL Monocytes # 0.7 (0-1.0) k/uL Eosinophils # 0.1 (0-0.7) k/uL Basophils # 0.1 (0-0.2) k/uL Sodium 138 (137-145) mmol/L Potassium 4.5 (3.5-5.1) mmol/L Chloride 104 (98-107) mmol/L Carbon Dioxide 25 (22-30) mmol/L Anion Gap 9 mmol/L BUN 23 H (9-20) mg/dL Creatinine 1.51 H (0.66-1.25) mg/dL Est GFR (CKD-EPI)AfAm 47 (>60 ml/min/1.73 sqM) Est GFR (CKD-EPI)NonAf 41 (>60 ml/min/1.73 sqM) Glucose 115 H (74-99) mg/dL Plasma Lactic Acid Pedro 1.3 (0.7-2.0) mmol/L Calcium 9.1 (8.4-10.2) mg/dL Magnesium 1.8 (1.6-2.3) mg/dL Total Bilirubin 1.3 (0.2-1.3) mg/dL AST 33 (17-59) U/L ALT 10 (4-49) U/L Alkaline Phosphatase 87 (38-126) U/L Troponin I (0.000-0.034) ng/mL NT-Pro-B Natriuret Pep pg/mL Total Protein 6.5 (6.3-8.2) g/dL Albumin 3.9 (3.5-5.0) g/dL Urine Color Urine Appearance (Clear) Urine pH (5.0-8.0) Ur Specific [place] (1.001-1.035) Urine Protein (Negative) Urine Glucose (UA) (Negative) Urine Ketones (Negative) Urine Blood (Negative) Urine Nitrite (Negative) Urine Bilirubin (Negative) Urine Urobilinogen (<2.0) mg/dL Ur Leukocyte Esterase (Negative) Urine RBC (0-5) /hpf Urine WBC (0-5) /hpf Urine WBC Clumps (None) /hpf Ur Squamous Epith Cells (0-4) /hpf Urine Bacteria (None) /hpf Urine Yeast (Budding) (None) /hpf Coronavirus (PCR) (Not Detectd) 05/02/22 05/02/22 05/02/22 Range/Units 09:34 09:34 09:38 WBC (3.8-10.6) k/uL RBC (4.30-5.90) m/uL Hgb (13.0-17.5) gm/dL Hct (39.0-53.0) % MCV (80.0-100.0) fL MCH (25.0-35.0) pg MCHC (31.0-37.0) g/dL RDW (11.5-15.5) % Plt Count (150-450) k/uL MPV Neutrophils % % Lymphocytes % % Monocytes % % Eosinophils % % Basophils % % Neutrophils # (1.3-7.7) k/uL Lymphocytes # (1.0-4.8) k/uL Monocytes # (0-1.0) k/uL Eosinophils # (0-0.7) k/uL Basophils # (0-0.2) k/uL Sodium (137-145) mmol/L Potassium (3.5-5.1) mmol/L Chloride (98-107) mmol/L Carbon Dioxide (22-30) mmol/L Anion Gap mmol/L BUN (9-20) mg/dL Creatinine (0.66-1.25) mg/dL Est GFR (CKD-EPI)AfAm (>60 ml/min/1.73 sqM) Est GFR (CKD-EPI)NonAf (>60 ml/min/1.73 sqM) Glucose (74-99) mg/dL Plasma Lactic Acid Pedro (0.7-2.0) mmol/L Calcium (8.4-10.2) mg/dL Magnesium (1.6-2.3) mg/dL Total Bilirubin (0.2-1.3) mg/dL AST (17-59) U/L ALT (4-49) U/L Alkaline Phosphatase (38-126) U/L Troponin I 0.028 (0.000-0.034) ng/mL NT-Pro-B Natriuret Pep 9920 pg/mL Total Protein (6.3-8.2) g/dL Albumin (3.5-5.0) g/dL Urine Color Urine Appearance (Clear) Urine pH (5.0-8.0) Ur Specific [place] (1.001-1.035) Urine Protein (Negative) Urine Glucose (UA) (Negative) Urine Ketones (Negative) Urine Blood (Negative) Urine Nitrite (Negative) Urine Bilirubin (Negative) Urine Urobilinogen (<2.0) mg/dL Ur Leukocyte Esterase (Negative) Urine RBC (0-5) /hpf Urine WBC (0-5) /hpf Urine WBC Clumps (None) /hpf Ur Squamous Epith Cells (0-4) /hpf Urine Bacteria (None) /hpf Urine Yeast (Budding) (None) /hpf Coronavirus (PCR) Not Detected (Not Detectd) 05/02/22 05/02/22 Range/Units 11:05 11:12 WBC (3.8-10.6) k/uL RBC (4.30-5.90) m/uL Hgb (13.0-17.5) gm/dL Hct (39.0-53.0) % MCV (80.0-100.0) fL MCH (25.0-35.0) pg MCHC (31.0-37.0) g/dL RDW (11.5-15.5) % Plt Count (150-450) k/uL MPV Neutrophils % % Lymphocytes % % Monocytes % % Eosinophils % % Basophils % % Neutrophils # (1.3-7.7) k/uL Lymphocytes # (1.0-4.8) k/uL Monocytes # (0-1.0) k/uL Eosinophils # (0-0.7) k/uL Basophils # (0-0.2) k/uL Sodium (137-145) mmol/L Potassium (3.5-5.1) mmol/L Chloride (98-107) mmol/L Carbon Dioxide (22-30) mmol/L Anion Gap mmol/L BUN (9-20) mg/dL Creatinine (0.66-1.25) mg/dL Est GFR (CKD-EPI)AfAm (>60 ml/min/1.73 sqM) Est GFR (CKD-EPI)NonAf (>60 ml/min/1.73 sqM) Glucose (74-99) mg/dL Plasma Lactic Acid Pedro (0.7-2.0) mmol/L Calcium (8.4-10.2) mg/dL Magnesium (1.6-2.3) mg/dL Total Bilirubin (0.2-1.3) mg/dL AST (17-59) U/L ALT (4-49) U/L Alkaline Phosphatase (38-126) U/L Troponin I (0.000-0.034) ng/mL NT-Pro-B Natriuret Pep pg/mL Total Protein (6.3-8.2) g/dL Albumin (3.5-5.0) g/dL Urine Color Yellow Yellow Urine Appearance Cloudy Cloudy (Clear) Urine pH 7.0 7.0 (5.0-8.0) Ur Specific [place] 1.013 1.012 (1.001-1.035) Urine Protein Trace H Trace H (Negative) Urine Glucose (UA) Negative Negative (Negative) Urine Ketones Negative Negative (Negative) Urine Blood Small H Small H (Negative) Urine Nitrite Positive Positive (Negative) Urine Bilirubin Negative Negative (Negative) Urine Urobilinogen <2.0 <2.0 (<2.0) mg/dL Ur Leukocyte Esterase Large H Large H (Negative) Urine RBC 3 8 H (0-5) /hpf Urine WBC >182 H 181 H (0-5) /hpf Urine WBC Clumps Many H Moderate H (None) /hpf Ur Squamous Epith Cells 1 (0-4) /hpf Urine Bacteria Few H Occasional H (None) /hpf Urine Yeast (Budding) Many H (None) /hpf Coronavirus (PCR) (Not Detectd) Disposition Clinical Impression: UTI (urinary tract infection), Atrial fibrillation, Weakness, CHF (congestive heart failure), Dyspnea Disposition: ADMITTED IP TO THIS HOSP Condition: Fair
[2022-05-02 10:01] LABS: Albumin 3.9 g/dL (3.5-5.0); Calcium 9.1 mg/dL (8.4-10.2); Magnesium 1.8 mg/dL (1.6-2.3); Potassium 4.5 mmol/L (3.5-5.1); Total Bilirubin 1.3 mg/dL (0.2-1.3); Total Protein 6.5 g/dL (6.3-8.2)
--- NOTE | 2022-05-02 10:28 | XR ---
EXAMINATION TYPE: XR chest 2V DATE OF EXAM: 05/02/2022 10:08 AM COMPARISON: Chest radiographs from 02/22/2021 TECHNIQUE: XR chest 2V Frontal and lateral views of the chest. CLINICAL INDICATION:Male, 87 years old with history of cough; FINDINGS: Lungs/Pleura: There is flattening of the diaphragm with increased lucency of the lungs. No evidence o f pneumothorax, pleural effusion or focal consolidation. Pulmonary vascularity: Unremarkable. Heart/mediastinum: Cardiomediastinal silhouette is enlarged and stable. Musculoskeletal: No acute osseous pathology. IMPRESSION: 1. No acute cardiopulmonary disease process. 2. COPD changes.
[2022-05-02 11:19] LABS: Appearance,Urine Cloudy (Clear); Bacteria,Urine Few /hpf; Bilirubin,Urine Negative (Negative); Blood,Urine Small (Negative); Color,Urine Yellow; Glucose,Urine (UA) Negative (Negative); Ketones,Urine Negative (Negative); Leukocyte Esterase,Urine Large (Negative); Nitrite,Urine Positive (Negative); Protein,Urine Trace (Negative); RBC,Urine 3 /hpf (0-5); Specific Gravity,Urine 1.013 (1.001-1.035); Squamous Epithelial Cell,Urine 1 /hpf (0-4); Urobilinogen,Urine <2.0 mg/dL (<2.0); WBC,Urine >182 /hpf (0-5)
[2022-05-02] MEDS ORDERED: NALOXONE 0.4 MG/ML 1 ML VIAL IV PRN (13:00)
[2022-05-02] MEDS ORDERED: ACETAMINOPHEN TAB 325 MG TAB PO PRN (13:00)
[2022-05-02 13:03] LABS: Appearance,Urine Cloudy (Clear); Bacteria,Urine Occasional /hpf; Bilirubin,Urine Negative (Negative); Blood,Urine Small (Negative); Budding Yeast,Urine Many /hpf; Color,Urine Yellow; Glucose,Urine (UA) Negative (Negative); Ketones,Urine Negative (Negative); Leukocyte Esterase,Urine Large (Negative); Nitrite,Urine Positive (Negative); Protein,Urine Trace (Negative); RBC,Urine 8 /hpf (0-5); Specific Gravity,Urine 1.012 (1.001-1.035); Urobilinogen,Urine <2.0 mg/dL (<2.0); WBC,Urine 181 /hpf (0-5)
--- NOTE | 2022-05-02 14:09 | P.HPIM ---
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 He presented to the emergency department with the chief complaint of weakness, cough, nasal congestion, watery eyes, and progressively worsening over the past couple days. Patient denies experiencing any fevers, chills, diaphoresis, chest pain, palpit ations, shortness of breath, exertional dyspnea, abdominal pain, nausea, vomiting, decreases in her changes in his appetite, or experiencing any numbness/tingling/weakness/swelling in his extremities. He reports he lives at home alone with his and ambulates with a cane. Patient underwent full evaluation in the emergency department. CBC revealed normocytic normochromic anemia with stable hemoglobin of 11.0 at baseline levels, and BUN 23, creatinine 1.51, and GFR 41 consistent with stage III chronic kidney disease. Troponin was 0.028 and BNP was 9920. ProBNP also chronically elevated. Urinalysis positive for infection. EKG completed revealing atrial fibrillation with a controlled ve ntricular rate of 88 bpm. Chest x-ray revealing COPD changes but negative for acute cardiopulmonary process showing no evidence for congestive heart failure or concerns for underlying pneumonia. Covid PCR negative. Patient has been admitted under our services at this time. Review of systems: Pertinent positives and negatives as discussed in HPI, a complete review of systems was performed and all other systems are negative. Physical exam: Vital signs reviewed and stable. General: Nontoxic, no distress and appears stated age. Patient tall and thin. Derm: Skin warm and dry, normal coloration for ethnicity. Head: Atraumatic, normocephalic and symmetric. Nasal congestion with rhinorrhea clear in color. Eyes: EOMs intact, eyes bilateral tearing, clear drainage Mouth: no lip lesions, mucus membranes moist Cardiovascular: Irregularly irregular with normal S1S2, systolic murmur, posi tive posterior tibial pulses bilaterally, and cap refill < 2 seconds. Lungs: Respirations even, regular, and unlabored on room air. Lungs CTA bilaterally, no rhonchi, no rales, no wheezing, and no accessory muscle usage. Abdominal: soft, nontender to palpation, no guarding, no appreciable organom egaly Ext: ROM intact. No gross muscle atrophy, no edema, no contractures Neuro: Speech clear, face symmetrical and CN II-XII grossly intact with no noted focal neuro deficits Psych: Alert and oriented to person, place, time, and situation. Appropriate and pleasant affect. Assessment and Plan of Care: Urinary tract infection Weakness -IV antibiotics: Rocephin -Follow up on urine cultures. -PT/OT consulted Upper respiratory tract infection -Symptomatic care. -Encourage oral fluid intake. -Covid PCR negative. Patient afebrile. Hypertension -Monitor vital signs and continue daily medication regimen with metoprolol. Persistent Atrial fibrillation -Patient not on anticoagulant. -Heparin per DVT prophylaxis. BPH with urinary complications -Continue with self catheterizations twice daily, nursing to provide assistance as needed. -Bladder management with bladder scans as needed. Stage III CKD -Stable The patient is admitted with a less than 2 midnight stay for evaluation of UTI and weakness CODE STATUS: Full code DVT prophylaxis: heparin Discussed with: patient and RN Anticipated discharge date: 1-[address]: home possibly with home care A total of 45 minutes was spent on the care of this complex patient more than 50% of the time was spent in counseling and care coordination. Past Medical History Past Medical History: Atrial Fibrillation, Cancer, Renal Disease Additional Past Medical History / Comment(s): macular degeneration, colon ca - bowel resection and chemo both times, stage 3 renal failure History of Any Multi-Drug Resistant Organisms: None Reported Additional Past Surgical History / Comment(s): colon resection - one at age 54, a second at age 69 Past Anesthesia/Blood Transfusion Reactions: No Reported Reaction Past Psychological History: No Psychological Hx Reported Smoking Status: Never smoker Past Alcohol Use History: Occasional Past Drug Use History: None Reported - Past Family History Father Family Medical History: Myocardial Infarction ([place]) Mother Family Medical History: CVA/TIA Medications and Allergies Home Medications Medication Instructions Recorded Confirmed Type Vit C/E/Zn/Coppr/Lutein/Zeaxan 1 cap PO PC-LUNCH 01/01/18 05/02/22 History [Preservision Areds 2 Softgel] Brimonidine Tartrate [Alphagan P 1 drop BOTH EYES BID 08/07/20 05/02/22 History 0.2% Ophth Soln] Tamsulosin [Flomax] 0.4 mg PO HS 08/07/20 05/02/22 History Metoprolol Tartrate [Lopressor] 12.5 mg PO BID 02/22/21 05/02/22 History Aspirin 81 mg PO PC-LUNCH 05/02/22 05/02/22 History Allergies Allergy/AdvReac Type Severity Reaction Status Date / Time No Known Allergies Allergy Verified 05/02/22 10:58 Physical Exam Vitals: Vital Signs Temp Pulse Resp BP Pulse Ox 05/02/22 12:34 106 H 18 132/91 98 05/02/22 11:00 99 20 145/100 98 05/02/22 09:00 20 05/02/22 08:56 98.2 F 73 18 98/59 98 Intake and Output 05/01/22 05/02/22 05/02/22 22:59 06:59 14:59 Output Total 900 Balance -900 Output: Urine 900 Straight 900 Other: Weight 73.936 kg Results CBC & Chem 7: 05/02/22 09:34 05/02/22 09:34 Labs: Abnormal Lab Results - Last 24 Hours (Table) 05/02/22 05/02/22 05/02/22 Range/Units 09:34 09:34 11:05 RBC 3.38 L (4.30-5.90) m/uL Hgb 11.0 L (13.0-17.5) gm/dL Hct 33.8 L (39.0-53.0) % BUN 23 H (9-20) mg/dL Creatinine 1.51 H (0.66-1.25) mg/dL Glucose 115 H (74-99) mg/dL Urine Protein Trace H (Negative) Urine Blood Small H (Negative) Ur Leukocyte Esterase Large H (Negative) Urine RBC (0-5) /hpf Urine WBC >182 H (0-5) /hpf Urine WBC Clumps Many H (None) /hpf Urine Bacteria Few H (None) /hpf Urine Yeast (Budding) (None) /hpf 05/02/22 Range/Units 11:12 RBC (4.30-5.90) m/uL Hgb (13.0-17.5) gm/dL Hct (39.0-53.0) % BUN (9-20) mg/dL Creatinine (0.66-1.25) mg/dL Glucose (74-99) mg/dL Urine Protein Trace H (Negative) Urine Blood Small H (Negative) Ur Leukocyte Esterase Large H (Negative) Urine RBC 8 H (0-5) /hpf Urine WBC 181 H (0-5) /hpf Urine WBC Clumps Moderate H (None) /hpf Urine Bacteria Occasional H (None) /hpf Urine Yeast (Budding) Many H (None) /hpf
[2022-05-02] MEDS: ASPIRIN 81 MG PO SCH (14:12)
[2022-05-02] MEDS: AZITHROMYCIN 500 MG TAB PO SCH (18:28)
[2022-05-02] MEDS: METOPROLOL TARTRATE 12.5 MG TAB PO SCH (20:37)
[2022-05-02] MEDS: HEPARIN SODIUM,PORCINE/PF 5,000 UNIT/0.5 ML SYRINGE SQ SCH (20:37)
[2022-05-02] MEDS: TAMSULOSIN 0.4 MG CAP.ER.24H PO SCH (20:37)
[2022-05-02] MEDS: BRIMONIDINE TARTRATE 0.2% DROPS 5 ML BTL BOTH EYES SCH (20:37)
[2022-05-03] MEDS: METOPROLOL TARTRATE 12.5 MG TAB PO SCH ×2 (09:02→20:40)
[2022-05-03] MEDS: BRIMONIDINE TARTRATE 0.2% DROPS 5 ML BTL BOTH EYES SCH ×2 (09:02→20:40)
[2022-05-03] MEDS: HEPARIN SODIUM,PORCINE/PF 5,000 UNIT/0.5 ML SYRINGE SQ SCH ×3 (09:03→23:17)
[2022-05-03 10:54] LABS: HCT 31.1 % (39.6-50.0); HGB 10.4 g/dL (13.0-17.0); MCH 33.1 pg (27.0-32.0); MCHC 33.4 g/dL (32.0-37.0); Mean Platelet Volume 11.6 fL (9.5-12.2); NRBC Per 100 WBC 0 /100 WBCS (0.0-0.0); Platelet Count 178 X 10*3/uL (140-440); RBC 3.14 X 10*6/uL (4.40-5.60); RDW 13.5 % (11.5-14.5); WBC 12.23 X 10*3/uL (4.50-10.00)
[2022-05-03 11:09] LABS: African American GFR (CKD) 51.6 (60.0-200.0); Albumin 3.9 g/dL (3.8-4.9); Albumin/Globulin Ratio 1.56 (1.60-3.17); Anion Gap 14.1 mmol/L (10.00-18.00); BUN/Creat Ratio 15.79 Ratio (12.00-20.00); Blood Urea Nitrogen 22.1 mg/dL (9.0-27.0); Calcium 9.1 mg/dL (8.7-10.3); Carbon Dioxide 22.9 mmol/L (20.0-27.5); Globulin 2.5 g/dL (1.6-3.3); Non-African American GFR(CKD) 44.5 (60.0-200.0); Potassium 4.4 mmol/L (3.5-5.5); Total Bilirubin 0.7 mg/dL (0.30-1.20); Total Protein 6.4 g/dL (6.2-8.2)
[2022-05-03] MEDS: ASPIRIN 81 MG PO SCH (17:13)
[2022-05-03] MEDS: AZITHROMYCIN 500 MG TAB PO SCH (17:14)
--- NOTE | 2022-05-03 17:27 | P.PN ---
Subjective Progress Note Date: 05/03/22 Hospital course: Patient is a very pleasant 87-year-old male the past medical history of hypertension, atrial fibrillation not on anticoagulant, BPH with urinary deficits requiring self-catheterization twice daily, colon cancer status post bowel resection and chemotherapy, and stage III chronic kidney disease. He presented to the emergency department with the chief complaint of weakness, cough, nasal congestion, watery eyes, and progressively worsening over the past couple days. Patient denies experiencing any fevers, chills, diaphoresis, chest pain, palpitations, shortness of breath, exertional dyspnea, abdominal pain, nausea, vomiting, decreases in her changes in his appetite, or experiencing any numbness/tingling/weakness/swelling in his extremities. He reports he lives at home alone with his and ambulates with a cane. Patient underwent full evaluation in the emergency department. CBC revealed normocytic normochromic anemia with stable hemoglobin of 11.0 at baseline levels, and BUN 23, creatinine 1.51, and GFR 41 consistent with stage III chronic kidney disease. Troponin was 0.028 and BNP was 9920. ProBNP also chronically elevated. Urinalysis positive for infection. EKG completed revealing atrial fibrillation with a controlled ventricular rate of 88 bpm. Chest x-ray revealing COPD changes but negative for acute cardiopulmonary process showing no evidence for congestive heart failure or concerns for underlying pneumonia. Covid PCR negative. Patient has been admitted under our services at this time. Troponins trended overnight and flat at 0.028, 0.033, and 0.025. Physical exam: Patient seen and fully evaluated at bedside this morning. Patient reports feeling much better today. Patient states previously reported congestion and rhinorrhea have completely resolved and he is feeling much stronger. Awaiting evaluation by physical therapy as patient will likely need to go home with home care secondary to his general weakness and impaired balance. He does walk primarily with a walker at home and at bedside reports she cares for him 24-7 but is also agreeable to home care and/or physical therapy in the home if needed.. Urine culture positive for gram-negative bacilli. Patient to remain on Rocephin pending final culture and sensitivity report. at bedside reports patient was recently treated less than 2 weeks ago for a UTI, therefore possible concerns of resistant bacteria as patient does self catheterize twice daily. Morning labs reviewed revealing mild leukocytosis with WBC count of 12.23. Mild anemia with hemoglobin of 10.4 otherwise showing no significant abnormalities. Vital signs reviewed and stable. General: Nontoxic, no distress and appears stated age. Patient tall and thin. Derm: Skin warm and dry, normal coloration for ethnicity. Head: Atraumatic, normocephalic and symmetric. Eyes: EOMs intact, eyes bilateral tearing, clear drainage Mouth: no lip lesions, mucus membranes moist Cardiovascular: Irregularly irregular with normal S1S2, systolic murmur, positive posterior tibial pulses bilaterally, and cap refill < 2 seconds. Lungs: Respirations even, regular, and unlabored on room air. Lungs CTA bilaterally, no rhonchi, no rales, no wheezing, and no accessory muscle usage. Abdominal: soft, nontender to palpation, no guarding, no appreciable organomegaly Ext: ROM intact. No gross muscle atrophy, no edema, no contractures Neuro: Speech clear, face symmetrical and CN II-XII grossly intact with no noted focal neuro deficits Psych: Alert and oriented to person, place, time, and situation. Appropriate and pleasant affect. Assessment and Plan of Care: Urinary tract infection Generalized Weakness -IV antibiotics: Rocephin -Follow up on urine cultures. -PT/OT consulted Upper respiratory tract infection -Symptomatic care. -Encourage oral fluid intake. -Covid PCR negative. Patient afebrile. Hypertension -Monitor vital signs and continue daily medication regimen with metoprolol. Persistent Atrial fibrillation -Patient not on anticoagulant. -Heparin per DVT prophylaxis. BPH with urinary complications -Continue with self catheterizations twice daily, nursing to provide assistance as needed. -Bladder management with bladder scans as needed. Stage III CKD -Stable The patient is admitted with a less than 2 midnight stay for evaluation of UTI and weakness CODE STATUS: Full code DVT prophylaxis: heparin Discussed with: patient, patient's and RN Anticipated discharge date: Tomorrow morning Anticipated discharge place: Home with home care A total of 35 minutes was spent on the care of this complex patient more than 50% of the time was spent in counseling and care coordination. Objective - Vital Signs Vital signs: Vital Signs Temp 99.0 F 05/03/22 07:48 Pulse 67 05/03/22 07:48 Resp 16 05/03/22 07:48 BP 129/74 05/03/22 07:48 Pulse Ox 99 05/03/22 07:48 FiO2 Intake & Output 05/02/22 05/03/22 05/03/22 18:59 06:59 18:59 Output Total 900 200 Balance -900 -200 Weight 73.936 kg Output: Urine 900 200 Straight 900 Other: Voiding Method Self-Catheterization # Voids 1 - Labs CBC & Chem 7: 05/03/22 06:12 05/03/22 06:12 Labs: Abnormal Lab Results - Last 24 Hours (Table) 05/02/22 05/02/22 05/02/22 Range/Units 09:34 09:34 11:05 RBC 3.38 L (4.30-5.90) m/uL Hgb 11.0 L (13.0-17.5) gm/dL Hct 33.8 L (39.0-53.0) % BUN 23 H (9-20) mg/dL Creatinine 1.51 H (0.66-1.25) mg/dL Glucose 115 H (74-99) mg/dL Urine Protein Trace H (Negative) Urine Blood Small H (Negative) Ur Leukocyte Esterase Large H (Negative) Urine RBC (0-5) /hpf Urine WBC >182 H (0-5) /hpf Urine WBC Clumps Many H (None) /hpf Urine Bacteria Few H (None) /hpf Urine Yeast (Budding) (None) /hpf 05/02/22 Range/Units 11:12 RBC (4.30-5.90) m/uL Hgb (13.0-17.5) gm/dL Hct (39.0-53.0) % BUN (9-20) mg/dL Creatinine (0.66-1.25) mg/dL Glucose (74-99) mg/dL Urine Protein Trace H (Negative) Urine Blood Small H (Negative) Ur Leukocyte Esterase Large H (Negative) Urine RBC 8 H (0-5) /hpf Urine WBC 181 H (0-5) /hpf Urine WBC Clumps Moderate H (None) /hpf Urine Bacteria Occasional H (None) /hpf Urine Yeast (Budding) Many H (None) /hpf Microbiology - Last 24 Hours (Table) 05/02/22 11:05 Urine Culture - Preliminary Urine,Clean Catch
[2022-05-03] MEDS: TAMSULOSIN 0.4 MG CAP.ER.24H PO SCH (20:40)
[2022-05-04] MEDS: HEPARIN SODIUM,PORCINE/PF 5,000 UNIT/0.5 ML SYRINGE SQ SCH ×2 (09:36→17:20)
[2022-05-04] MEDS: ASPIRIN 81 MG PO SCH (09:36)
[2022-05-04] MEDS: METOPROLOL TARTRATE 12.5 MG TAB PO SCH ×2 (09:36→21:07)
[2022-05-04] MEDS: BRIMONIDINE TARTRATE 0.2% DROPS 5 ML BTL BOTH EYES SCH ×2 (09:37→21:07)
--- NOTE | 2022-05-04 16:35 | P.PN ---
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 He presented to the emergency department with the chief complaint of weakness, cough, nasal congestion, watery eyes, and progressively worsening over the past couple days. Patient denies experiencing any fevers, chills, diaphoresis, chest pain, palpitations, shortness of breath, exertional dyspnea, abdominal pain, nausea, vomiting, decreases in her changes in his appetite, or experiencing any numbness/tingling/weakness/swelling in his extremities. He reports he lives at home alone with his and ambulates with a cane. Patient underwent full evaluation in the emergency department. CBC revealed normocytic normochromic anemia with stable hemoglobin of 11.0 at baseline levels, and BUN 23, creatinine 1.51, and GFR 41 consistent with stage III chronic kidney disease. Troponin was 0.028 and BNP was 9920. ProBNP also chronically elevated. Urinalysis positive for infection. EKG completed revealing atrial fibrillation with a controlled ventricular rate of 88 bpm. Chest x-ray revealing COPD changes but negative for acute cardiopulmonary process showing no evidence for congestive heart failure or concerns for underlying pneumonia. Covid PCR negative. Patient has been admitted under our services at this time. Troponins trended overnight and flat at 0.028, 0.033, and 0.025. Physical exam: Patient seen and fully evaluated at bedside this morning. Patient was sitting up in wheelchair and nursing staff reports patient requiring increased assistance with standing and ambulating today compared to yesterday. awaiting patient's to come to bedside to discuss his concerns patient may need additional assistance. Physical therapy following. Preliminary urine culture showing gram negative bacilli, awaiting final culture results and sensitivity report.morning labs revealed mild leukocytosis with WBC count of Vital signs reviewed and stable. General: Nontoxic, no distress and appears stated age. Patient tall and thin. Derm: Skin warm and dry, normal coloration for ethnicity. Head: Atraumatic, normocephalic and symmetric. Eyes: EOMs intact, eyes bilateral tearing, clear drainage Mouth: no lip lesions, mucus membranes moist Cardiovascular: Irregularly irregular with normal S1S2, systolic murmur, positive posterior tibial pulses bilaterally, and cap refill < 2 seconds. Lungs: Respirations even, regular, and unlabored on room air. Lungs CTA bilaterally, no rhonchi, no rales, no wheezing, and no accessory muscle usage. Abdominal: soft, nontender to palpation, no guarding, no appreciable organomegaly Ext: ROM intact. No gross muscle atrophy, no edema, no contractures Neuro: Speech clear, face symmetrical and CN II-XII grossly intact with no noted focal neuro deficits Psych: Alert and oriented to person, place, time, and situation. Appropriate and pleasant affect. Assessment and Plan of Care: Urinary tract infection Generalized Weakness -IV antibiotics: Rocephin -Follow up on urine cultures. -PT/OT consulted Upper respiratory tract infection -Symptomatic care. -Encourage oral fluid intake. -Covid PCR negative. Patient afebrile. Hypertension -Monitor vital signs and continue daily medication regimen with metoprolol. Persistent Atrial fibrillation -Patient not on anticoagulant. -Heparin per DVT prophylaxis. BPH with urinary complications -Continue with self catheterizations twice daily, nursing to provide assistance as needed. -Bladder management with bladder scans as needed. Stage III CKD -Stable CODE STATUS: Full code DVT prophylaxis: heparin Discussed with: patient and RN Anticipated discharge date: Tomorrow morning Anticipated discharge place: Home with home care A total of 33 minutes was spent on the care of this complex patient more than 50% of the time was spent in counseling and care coordination. Objective - Vital Signs Vital signs: Vital Signs Temp 98.1 F 05/04/22 14:18 Pulse 95 05/04/22 14:18 Resp 17 05/04/22 14:18 BP 95/60 05/04/22 14:18 Pulse Ox 99 05/04/22 14:18 FiO2 Intake & Output 05/03/22 05/04/22 05/04/22 18:59 06:59 18:59 Output Total 150 Balance -150 Output: Urine 150 Other: Voiding Method Self-Catheterization # Voids 1 2 - Labs CBC & Chem 7: 05/03/22 06:12 05/03/22 06:12 Labs: Microbiology - Last 24 Hours (Table) 05/02/22 12:16 Blood Culture - Preliminary Blood No Growth after 48 hours 05/02/22 12:32 Blood Culture - Preliminary Blood No Growth after 48 hours 05/02/22 11:05 Urine Culture - Preliminary Urine,Clean Catch Gram Neg Bacilli
[2022-05-04] MEDS: AZITHROMYCIN 500 MG TAB PO SCH (17:21)
[2022-05-04] MEDS: TAMSULOSIN 0.4 MG CAP.ER.24H PO SCH (21:07)
[2022-05-05] MEDS: HEPARIN SODIUM,PORCINE/PF 5,000 UNIT/0.5 ML SYRINGE SQ SCH ×3 (00:21→14:56)
[2022-05-05 08:05] VITALS: RESP 18
[2022-05-05] MEDS: BRIMONIDINE TARTRATE 0.2% DROPS 5 ML BTL BOTH EYES SCH (08:46)
[2022-05-05] MEDS: METOPROLOL TARTRATE 12.5 MG TAB PO SCH (08:46)
[2022-05-05] MEDS: ASPIRIN 81 MG PO SCH (08:46)
[2022-05-05 10:21] LABS: HCT 31.5 % (39.6-50.0); HGB 10.5 g/dL (13.0-17.0); MCH 32.5 pg (27.0-32.0); MCHC 33.3 g/dL (32.0-37.0); MCV 97.5 fL (80.0-97.0); Mean Platelet Volume 10.9 fL (9.5-12.2); NRBC Per 100 WBC 0 /100 WBCS (0.0-0.0); Platelet Count 207 X 10*3/uL (140-440); RBC 3.23 X 10*6/uL (4.40-5.60); RDW 13.1 % (11.5-14.5); WBC 11.14 X 10*3/uL (4.50-10.00)
[2022-05-05 11:25] LABS: Albumin 3.5 g/dL (3.8-4.9); Albumin/Globulin Ratio 1.35 (1.60-3.17); Anion Gap 14.4 mmol/L (10.00-18.00); BUN/Creat Ratio 17.71 Ratio (12.00-20.00); Blood Urea Nitrogen 29.4 mg/dL (9.0-27.0); Calcium 8.8 mg/dL (8.7-10.3); Globulin 2.6 g/dL (1.6-3.3); Non-African American GFR(CKD) 36.3 (60.0-200.0); Potassium 4.5 mmol/L (3.5-5.5); Total Bilirubin 0.4 mg/dL (0.30-1.20); Total Protein 6.1 g/dL (6.2-8.2)
[2022-05-05 14:18] VITALS: BP 151/86; PULSE 91; TEMP 97.7
--- NOTE | 2022-05-05 17:28 | P.DS ---
Providers Date of admission: 05/02/22 13:00 Expected date of discharge: 05/05/22 Attending physician: Sole Daley MD Primary care physician: [facility] Course: Discharge Diagnosis: Klebsiella oxytoca urinary tract infection associated with daily self catheterization. Patient received 3 day course of Rocephin and being discharged home on Keflex 500 mg 3 times daily for 5 additional days. Patient instructed he will need to follow up outpatient with PCP as well as urologist. Generalized Weakness, improved. Recommended home with home care and PT or SNF, patient and declined at this time. Patient being discharged home after patient's was educated that he needs assistance with all standing and ambulation. Upper respiratory tract infection, symptoms resolved. Covid PCR was negative and Chest x-ray revealing COPD changes but negative for acute cardiopulmonary process showing no evidence for congestive heart failure or concerns for underlying pneumonia. Patient did receive 3 day course of azithromycin. Hypertension. Monitor vital signs and continue daily medication regimen with metoprolol. Persistent Atrial fibrillation, patient not on anticoagulation. Continue to follow up outpatient with manager eligibility. BPH with urinary complications. Continue with self catheterizations twice daily, and as stated above complete treatment for Klebsiella oxytoca urinary tract infection associated with daily self-catheterization. Recommend following up outpatient with your urologist secondary to recurrent UTIs associated with self- catheterization. Stage III CKD, Stable Hospital Course: Patient is a very pleasant 87-year-old male the past medical history of hypertension, atrial fibrillation not on anticoagulant, BPH with urinary deficits requiring self-catheterization twice daily, colon cancer status post bowel resection and chemotherapy, anemia of chronic disease, and stage III chronic kidney disease. He presented to the emergency department on 05/02/22 with the chief complaint of weakness, cough, nasal congestion, watery eyes, and progressively worsening over the past couple days. Patient denies experiencing any fevers, chills, diaphoresis, chest pain, palpitations, shortness of breath, exertional dyspnea, abdominal pain, nausea, vomiting, decreases in her changes in his appetite, or experiencing any numbness/tingling/weakness/swelling in his extremities. He reported living at home alone with his and ambulates with a cane or walker. Patient underwent full evaluation in the emergency department. CBC revealed normocytic normochromic anemia with stable hemoglobin of 11.0 at baseline levels, and BUN 23, creatinine 1.51, and GFR 41 consistent with stage III chronic kidney disease. Troponin was 0.028 and BNP was 9920. ProBNP also chronically elevated. Urinalysis positive for infection. EKG completed revealing atrial fibrillation with a controlled ventricular rate of 88 bpm. Chest x-ray revealing COPD changes but negative for acute cardiopulmonary process showing no evidence for congestive heart failure or concerns for underlying pneumonia. Covid PCR negative. Patient has been admitted under our services at this time. Troponins trended overnight and flat at 0.028, 0.033, and 0.025. Patient received 3 day course of azithromycin and Rocephin. Urine culture positive for Klebsiella oxytoca. Patient has had resolution of previously reported cough and nasal congestion. He has demonstrated increased strength but continues to require one-person assist for standing and ambulating with walker. It was recommended for residential facility versus home with home care, patient and his declined at this time. Patient's states they have done homecare in the past and she does not feel that it is beneficial to her and that she will continue to care for him, work with him, and assist him with all ambulation and activities of daily living. Patient is medically stable at this time he is being discharged home on Keflex 500 mg 3 times daily and it was recommended that patient follow-up with PCP in 1-2 days and with urologist in 1 week secondary to recurrent urinary tract infections likely secondary to continued self-catheterization. Physical exam: Vital signs reviewed and stable. General: Nontoxic, no distress and appears stated age. Patient tall and thin. Derm: Skin warm and dry, normal coloration for ethnicity. Head: Atraumatic, normocephalic and symmetric. Eyes: EOMs intact, eyes bilateral tearing, clear drainage Mouth: no lip lesions, mucus membranes moist Cardiovascular: Irregularly irregular with normal S1S2, systolic murmur, positive posterior tibial pulses bilaterally, and cap refill < 2 seconds. Lungs: Respirations even, regular, and unlabored on room air. Lungs CTA bilaterally, no rhonchi, no rales, no wheezing, and no accessory muscle usage. Abdominal: soft, nontender to palpation, no guarding, no appreciable organomegaly Ext: ROM intact. No gross muscle atrophy, no edema, no contractures Neuro: Speech clear, face symmetrical and CN II-XII grossly intact with no noted focal neuro deficits Psych: Alert and oriented to person, place, time, and situation. Appropriate and pleasant affect. A total of 35 minutes of time were spent preparing this complex discharge summary. Pt was discharged on 02/02/22 11:46 AM. Patient Condition at Discharge: Stable Plan - Discharge Summary New Discharge Prescriptions: New Cephalexin [Keflex] 500 mg PO Q8HR 4 Days #12 cap Continue Vit C/E/Zn/Coppr/Lutein/Zeaxan [Preservision Areds 2 Softgel] 1 cap PO PC-DEMOND CH Brimonidine Tartrate [Alphagan P 0.2% Ophth Soln] 1 drop BOTH EYES BID Tamsulosin [Flomax] 0.4 mg PO HS Metoprolol Tartrate [Lopressor] 12.5 mg PO BID Aspirin 81 mg PO PC-LUNCH Discharge Medication List Vit C/E/Zn/Coppr/Lutein/Zeaxan [Preservision Areds 2 Softgel] 1 cap PO PC-LUNCH 01/01/18 [History] Brimonidine Tartrate [Alphagan P 0.2% Ophth Soln] 1 drop BOTH EYES BID 08/07/20 [History] Tamsulosin [Flomax] 0.4 mg PO HS 08/07/20 [History] Metoprolol Tartrate [Lopressor] 12.5 mg PO BID 02/22/21 [History] Aspirin 81 mg PO PC-LUNCH 05/02/22 [History] Cephalexin [Keflex] 500 mg PO Q8HR 4 Days #12 cap 05/05/22 [Rx] Follow up Appointment(s)/Referral(s): Carlos Silva DO [Primary Care Provider] - 1-2 days Adán Curran MD [STAFF PHYSICIAN] - 1 Week Patient Instructions/Handouts: Urinary Tract Infection in Men (DC) Activity/Diet/Wound Care/Special Instructions: Activity: As tolerated. Take breaks as needed. Needs assistance with standing any ambulation. Diet: Heart healthy and carb consistent diet. Avoid salts, or foods with hidden salts such as canned or boxed foods and frozen dinners. Extra salt makes your heart work harder and traps the fluid in your body for longer. Special Instructions: Take all of your medications as directed and remember to keep all of your doctor's appointments and follow-up as needed. Thank you for allowing us to participate in your care, it was truly a pleasure having you for our patient!!! Discharge Disposition: HOME SELF-CARE
== END 2022-05-05 15:21 | disposition home or self-care (01) ==
LOC: EC 08:46 → 4SSUR 13:00
PROVIDERS: ADMIT Internal Medicine; ATTEND Internal Medicine
DX: N39.0 Urinary tract infection, site not specified (principal); J06.9 Acute upper respiratory infection, unspecified; I48.19 Other persistent atrial fibrillation; I13.0 Hypertensive heart and chronic kidney disease with heart failure and stage 1 through stage 4 chronic kidney disease, or unspecified chronic kidney disease; N18.30 Chronic kidney disease, stage 3 unspecified; I50.9 Heart failure, unspecified; R53.1 Weakness; N40.1 Benign prostatic hyperplasia with lower urinary tract symptoms; D63.1 Anemia in chronic kidney disease; Z85.038 Personal history of other malignant neoplasm of large intestine; Z92.21 Personal history of antineoplastic chemotherapy; Z20.822 Contact with and (suspected) exposure to COVID-19; Z79.82 Long term (current) use of aspirin; Z79.899 Other long term (current) drug therapy; Z82.49 Family history of ischemic heart disease and other diseases of the circulatory system; Z82.3 Family history of stroke
CPT/HCPCS: 96366 ×2; 96372 ×4; 96365; 99285; 36415; 93005; 97162; 97166; 83880 ×2; 80053 ×3; 83605; 83735 ×2; 84484; 85025; 85027 ×2; 81001; 87040; 87086; 87077; 87186; 87635; 71046; G0378 ×4; J0696 ×4; J1644 ×4

== ENCOUNTER 2022-08-19 09:11 | Emergency (ER) | payer MEDICARE ==
[2022-08-19 09:42] VITALS: RESP 18; TEMP 98
--- NOTE | 2022-08-19 09:44 | ED ---
Fall HPI - General Source: patient, RN notes reviewed Mode of arrival: ambulatory Limitations: no limitations <Zac Bledsoe - Last Filed: 08/19/22 09:43> <Fortunato Reilly - Last Filed: 08/19/22 12:30> - General Chief Complaint: Fall Stated Complaint: fall, rib pain Time Seen by Provider: 08/19/22 09:38 - History of Present Illness Initial Comments: 87-year-old male presents emergency department for left-sided rib pain. Patient states that he a fall from standing fall onto his left wrist. Patient states she has pain with deep inspiration, movement. There is no head injury, there is no hip trauma, no upper extremity injury. Patient denies any tenderness no loss conscious. (Zac Bledsoe) Dictation was produced using [employer] dictation software. please excuse any grammatical, word or spelling errors. Chief Complaint: 87-year-old male presents with left-sided rib pain after fall 2 days ago History of Present Illness: She is 79-year-old male he was walking around at night to go to the bathroom. Patient states that he caught his foot on something causing to fall backwards. Patient states he fell backwards and his lateral chest landed on a hard object. Patient states it is sharp pain to the left chest. States it is pain is worse with deep inspiration palpation to the area. Denies any head trauma. No loss of consciousness. Denies any neck pain. No other symptoms at this time. The ROS documented in this emergency department record has been reviewed and confirmed by me. Those systems with pertinent positive or negative responses have been documented in the HPI. All other systems are other negative and/or noncontributory. PHYSICAL EXAM: General Impression: Alert and oriented x3, not in acute distress HEENT: Normocephalic atraumatic, extra-ocular movements intact, pupils equal and reactive to light bilaterally, mucous membranes moist. Cardiovascular: Heart regular rate and rhythm Chest: Able to complete full sentences, no retractions, no tachypnea, palpatory tenderness to the left lateral chest Abdomen: abdomen soft, non-tender, non-distended, no organomegaly Musculoskeletal: Pulses present and equal in all extremities, no peripheral edema Motor: no focal deficits noted Neurological: CN II-XII grossly intact, no focal motor or sensory deficits noted Skin: Intact with no visualized rashes Psych: Normal affect and mood ED course: 87-year-old male presents to the ER for fall and lateral chest pain. Vital Signs upon arrival are within acceptable limits. Nursing notes and chart review was performed Laboratory evaluation unremarkable. Computed tomography scan of the head and C- spine and chest shows no acute traumatic injuries. Patient given Ativan patch. Patient reevaluated bedside 12:30 PM 107. Clinical presentation consistent with thoracic contusion. EKG shows A. fib. Patient has a history of A. fib. He is not on any anticoagulation medications. Was pt. sent in by a medical professional or institution (, [facility], MEMBERSHIP MANAGER, urgent care, hospital, or retirement...) When possible be specific @ -No Did you speak to anyone other than the patient for history (EMS, parent, family, police, friend...)? What history was obtained from this source @ -Family at the bedside Did you review nursing and triage notes (agree or disagree)? Why? @ -I reviewed and agree with nursing and triage notes Were old charts reviewed (outside hosp., previous admission, EMS record, old EKG, old radiological studies, urgent care reports/EKG's, retirement records)? Report findings @ -No old charts were reviewed Differential Diagnosis (chest pain, altered mental status, abdominal pain women, abdominal pain men, vaginal bleeding, weakness, fever, dyspnea, syncope, headache, dizziness, GI bleed, back pain, seizure, CVA, palpatations, mental health)? @ -not applicable EKG interpreted by me (3pts min.). @ -As above X-rays interpreted by me (1pt min.). @ -None done CT interpreted by me (1pt min.). @ -See above U/S interpreted by me (1pt. min.). @ -None done What testing was considered but not performed or refused? (CT, X-rays, U/S, labs)? Why? @ -None What meds were considered but not given or refused? Why? @ -None Did you discuss the management of the patient with other professionals (professionals i.e. [facility] Lofton, MEMBERSHIP MANAGER, lab, RT, psych nurse, bilingual social worker, etcher electrolytic, teacher, zoology technical officer, assistant case manager)? Give summary @ -No Was smoking cessation discussed for >3mins.? @ -No Was critical care preformed (if so, how long)? @ -No Were there social determinants of health that impacted care today? How? (Homelessness, low income, unemployed, alcoholism, drug addiction, tr ansportation, low edu. Level, literacy, decrease access to med. care, fci, rehab)? @ -No Was there de-escalation of care discussed even if they declined (Discuss DNR or withdrawal of care, Hospice)? DNR status @ -No What co-morbidities impacted this encounter? (DM, HTN, Smoking, COPD, CAD, Cancer, CVA, ARF, Chemo, Hep., AIDS, mental health diagnosis, sleep apnea, morbid obesity)? @ -None Was patient admitted / discharged? Hospital course, mention meds given and route, prescriptions, significant lab abnormalities, going to OR and other pertinent info. @ -See above Undiagnosed new problem with uncertain prognosis? @ -No Drug Therapy requiring intensive monitoring for toxicity (Heparin, Nitro, Insulin, Cardizem)? @ -No Were any procedures done? @ -No Diagnosis/symptom? @ -Thoracic contusion Acute, or Chronic, or Acute on Chronic? @ -Acute Uncomplicated (without systemic symptoms) or Complicated (systemic symptoms)? @ -Uncomplicated Side effects of treatment? @ -No Exacerbation, Progression, or Severe Exacerbation? @ -No Poses a threat to life or bodily function? How? (Chest pain, [place], PA, pneumonia, PE, COPD, DKA, ARF, appy, cholecystitis, CVA, Diverticulitis, Homicidal, Suicidal, threat to staff... and all critical care pts) @ -No (Fortunato Reilly) - Related Data Home Medications Medication Instructions Recorded Confirmed Vit C/E/Zn/Coppr/Lutein/Zeaxan 1 cap PO PC-LUNCH 01/01/18 05/02/22 [Preservision Areds 2 Softgel] Brimonidine Tartrate [Alphagan P 1 drop BOTH EYES BID 08/07/20 05/02/22 0.2% Ophth Soln] Tamsulosin [Flomax] 0.4 mg PO HS 08/07/20 05/02/22 Metoprolol Tartrate [Lopressor] 12.5 mg PO BID 02/22/21 05/02/22 Aspirin 81 mg PO PC-LUNCH 05/02/22 05/02/22 Previous Rx's Medication Instructions Recorded Cephalexin [Keflex] 500 mg PO Q8HR 4 Days #12 cap 05/05/22 Allergies Allergy/AdvReac Type Severity Reaction Status Date / Time No Known Allergies Allergy Verified 08/19/22 09:42 Review of Systems ROS Other: All systems not noted in ROS Statement are negative. <Zac Bledsoe - Last Filed: 08/19/22 09:43> ROS Other: All systems not noted in ROS Statement are negative. <Fortunato Reilly - Last Filed: 08/19/22 12:30> ROS Statement: Those systems with pertinent positive or pertinent negative responses have been documented in the HPI. Past Medical History Past Medical History: Atrial Fibrillation, Cancer, Renal Disease Additional Past Medical History / Comment(s): macular degeneration, colon ca - bowel resection and chemo both times, stage 3 renal failure History of Any Multi-Drug Resistant Organisms: None Reported Additional Past Surgical History / Comment(s): colon resection - one at age 54, a second at age 69 Past Anesthesia/Blood Transfusion Reactions: No Reported Reaction Past Psychological History: No Psychological Hx Reported Smoking Status: Never smoker Past Alcohol Use History: Occasional Past Drug Use History: None Reported - Past Family History Father Family Medical History: Myocardial Infarction ([place]) Mother Family Medical History: CVA/TIA <Zac Bledsoe - Last Filed: 08/19/22 09:43> General Exam Limitations: no limitations <Zac Bledsoe - Last Filed: 08/19/22 09:43> Course Vital Signs 08/19/22 09:38 Temperature 98 F Pulse Rate 51 L Respiratory 18 Rate Blood Pressure 107/65 O2 Sat by Pulse 98 Oximetry Medical Decision Making - Lab Data Result diagrams: 08/19/22 10:36 08/19/22 10:36 <Fortunato Reilly - Last Filed: 08/19/22 12:30> - Lab Data Lab Results 08/19/22 08/19/22 08/19/22 Range/Units 10:36 10:36 10:36 WBC 10.5 (3.8-10.6) k/uL RBC 3.46 L (4.30-5.90) m/uL Hgb 11.6 L (13.0-17.5) gm/dL Hct 34.0 L (39.0-53.0) % MCV 98.2 (80.0-100.0) fL MCH 33.5 (25.0-35.0) pg MCHC 34.1 (31.0-37.0) g/dL RDW 12.6 (11.5-15.5) % Plt Count 177 (150-450) k/uL MPV 9.3 Neutrophils % 77 % Lymphocytes % 13 % Monocytes % 6 % Eosinophils % 1 % Basophils % 1 % Neutrophils # 8.1 H (1.3-7.7) k/uL Lymphocytes # 1.4 (1.0-4.8) k/uL Monocytes # 0.7 (0-1.0) k/uL Eosinophils # 0.1 (0-0.7) k/uL Basophils # 0.1 (0-0.2) k/uL PT 11.2 (9.0-12.0) sec INR 1.1 (<1.2) APTT 26.7 (22.0-30.0) sec Sodium 141 (137-145) mmol/L Potassium 4.5 (3.5-5.1) mmol/L Chloride 107 (98-107) mmol/L Carbon Dioxide 27 (22-30) mmol/L Anion Gap 7 mmol/L BUN 30 H (9-20) mg/dL Creatinine 1.42 H (0.66-1.25) mg/dL Est GFR (CKD-EPI)AfAm 51 (>60 ml/min/1.73 sqM) Est GFR (CKD-EPI)NonAf 44 (>60 ml/min/1.73 sqM) Glucose 112 H (74-99) mg/dL Calcium 9.4 (8.4-10.2) mg/dL Total Bilirubin 0.6 (0.2-1.3) mg/dL AST 34 (17-59) U/L ALT 13 (4-49) U/L Alkaline Phosphatase 82 (38-126) U/L Total Protein 6.8 (6.3-8.2) g/dL Albumin 4.0 (3.5-5.0) g/dL Disposition <Zac Bledsoe - Last Filed: 08/19/22 09:43> Is patient prescribed a controlled substance at d/c from ED?: No Time of Disposition: 12:30 <Fortunato Reilly - Last Filed: 08/19/22 12:30> Clinical Impression: Fall, Chest wall contusion Disposition: HOME SELF-CARE Condition: Good Instructions (If sedation given, give patient instructions): Fall Prevention for Older Adults (ED) Referrals: Carlos Silva DO [Primary Care Provider] - 1-2 days
--- NOTE | 2022-08-19 10:57 | CT ---
EXAMINATION TYPE: CT chest wo con CT DLP: 1626.8 mGycm, Automated exposure control for dose reduction was used. DATE OF EXAM: 08/19/2022 10:42 AM COMPARISON: 08/07/2020 CLINICAL INDICATION:Male, 87 years old with history of fall; right side pain TECHNIQUE: Multiple axial images were obtained through the chest. Sagittal and coronal reformats were created for review. Contrast used: none. Oral contrast used: none. FINDINGS: LUNGS/ PLEURA: No focal consolidation, pneumothorax or pleural effusion. AIRWAY: Patent and unremarkable. HEART: The heart is enlarged for size. Coronary artery atherosclerosis is present. MEDIASTINUM: No gross evidence of adenopathy. VASCULATURE: No aortic aneurysm. MUSCULOSKELETAL: Diffuse osseous demineralization. Multilevel disc degeneration changes with osteophy te formation and Schmorl's nodes and disc space narrowing throughout the visualized spine. No evidenc e for displaced rib fracture. SOFT TISSUES/LYMPH NODES: Unremarkable. LOWER NECK: No significant findings. UPPER ABDOMEN: No significant findings. IMPRESSION: 1. No evidence for displaced rib fracture. No acute thoracic process. 2. Cardiomegaly. 3. Moderate disc degeneration changes.
--- NOTE | 2022-08-19 11:02 | CT ---
EXAMINATION TYPE: CT brain cspine wo con CT DLP: 1626.8 mGycm, Automated exposure control for dose reduction was used. DATE OF EXAM: 08/19/2022 10:42 AM COMPARISON: 02/22/2021 CLINICAL INDICATION:Male, 87 years old with history of fall; weakness TECHNIQUE: Brain: Multiple axial CT images of the brain were obtained without IV contrast. Cspine: Axial CT images from the skull base to the inferior aspect of T2 we obtained without intraven ous contrast. Coronal and sagittal reformatted images were also reviewed. FINDINGS: Brain: Extra-axial spaces: No abnormal extra-axial fluid collections. Ventricular system: Dilatation in proportion to cerebral atrophy. Cerebral parenchyma: Cerebral atrophy. No acute intraparenchymal hemorrhage or mass effect. The keller -white junction is well differentiated. Scattered hypoattenuating areas are seen within the white mat ter. Cerebellum: Cerebellar atrophy Mass effect: No evidence of midline shift. Intracranial vasculature: Atherosclerotic calcifications of the intracranial vessels. Soft tissues: Normal. Calvarium/osseous structures: No depressed skull fracture. Paranasal sinuses and mastoid air cells: Clear. Visualized orbits: The lenses are surgically removed from the globes. Cervical spine: Fracture: None. Osseous structures: Multilevel degenerative disc disease changes with endplate spurring and disc oste ophyte complex's. Vertebral alignment: Straightening of alignment Spinal canal/Neural Foramina: Disc osteophyte complexes at C5-C6 and C6-C7 with at least mild spinal canal stenosis. No evidence for significant neural foraminal stenosis. Neck soft tissues: Prevertebral soft tissues are within normal limits. Other: The airway is patent. The lung apices are clear. IMPRESSION: 1. No acute intracranial process. 2. Nonspecific white matter changes, likely secondary to chronic small vessel ischemic disease. 3. No evidence of cervical spine fracture. 4. Moderate multilevel degenerative disc disease.
[2022-08-19] MEDS ORDERED: LIDOCAINE 5% PATCH TOPICAL STA (11:22)
[2022-08-19 11:27] LABS: Basophils # (A) 0.1 k/uL (0-0.2); Basophils % (A) 1 %; Eosinophils # (A) 0.1 k/uL (0-0.7); Eosinophils % (A) 1 %; HGB 11.6 gm/dL (13.0-17.5); Lymphocytes # (A) 1.4 k/uL (1.0-4.8); Lymphocytes % (A) 13 %; MCH 33.5 pg (25.0-35.0); MCHC 34.1 g/dL (31.0-37.0); MCV 98.2 fL (80.0-100.0); Mean Platelet Volume 9.3; Monocytes # (A) 0.7 k/uL (0-1.0); Monocytes % (A) 6 %; Neutrophils # (A) 8.1 k/uL (1.3-7.7); Neutrophils % (A) 77 %; Platelet Count 177 k/uL (150-450); RBC 3.46 m/uL (4.30-5.90); RDW 12.6 % (11.5-15.5); WBC 10.5 k/uL (3.8-10.6)
[2022-08-19 11:35] LABS: Calcium 9.4 mg/dL (8.4-10.2); Potassium 4.5 mmol/L (3.5-5.1); Total Bilirubin 0.6 mg/dL (0.2-1.3); Total Protein 6.8 g/dL (6.3-8.2)
[2022-08-19 11:54] LABS: INR 1.1 (<1.2); Partial Thromboplastin Time 26.7 sec (22.0-30.0); Prothrombin Time 11.2 sec (9.0-12.0)
[2022-08-19 12:48] VITALS: BP 158/94; PULSE 91
== END 2022-08-19 13:15 | disposition home or self-care (01) ==
LOC: EC 09:11
DX: S20.212A Contusion of left front wall of thorax, initial encounter (principal); I48.91 Unspecified atrial fibrillation; N18.30 Chronic kidney disease, stage 3 unspecified; Z79.899 Other long term (current) drug therapy; Z79.82 Long term (current) use of aspirin; W01.0XXA Fall on same level from slipping, tripping and stumbling without subsequent striking against object, initial encounter; Y92.009 Unspecified place in unspecified non-institutional (private) residence as the place of occurrence of the external cause
CPT/HCPCS: 36415; 70450; 71250; 72125; 80053; 85025; 85610; 85730; 93005; 99284

== ENCOUNTER 2023-02-02 21:16 | Emergency (ER) | payer MEDICARE ==
[2023-02-02 21:40] VITALS: RESP 16; TEMP 98
--- NOTE | 2023-02-02 21:57 | XR ---
EXAMINATION TYPE: XR chest 2V DATE OF EXAM: 02/02/2023 9:53 PM COMPARISON: Chest radiographs from 05/02/2022 TECHNIQUE: XR chest 2V Frontal and lateral views of the chest. CLINICAL INDICATION:Male, 87 years old with history of CP; FINDINGS: Lungs/Pleura: There is no evidence of pleural effusion, focal consolidation, or pneumothorax. Pulmonary vascularity: Unremarkable. Heart/mediastinum: Cardiomediastinal silhouette is enlarged and stable. Musculoskeletal: No acute osseous pathology. IMPRESSION: No acute cardiopulmonary disease/process.
[2023-02-02] MEDS ORDERED: SODIUM CHLORIDE 0.9% 1,000 ML IV ONE (22:22)
[2023-02-02 22:34] LABS: Basophils % (A) 0 %; Eosinophils # (A) 0.1 k/uL (0-0.7); Eosinophils % (A) 2 %; HCT 30.3 % (39.0-53.0); HGB 10.2 gm/dL (13.0-17.5); Lymphocytes # (A) 1.6 k/uL (1.0-4.8); Lymphocytes % (A) 20 %; MCH 33.2 pg (25.0-35.0); MCHC 33.7 g/dL (31.0-37.0); MCV 98.7 fL (80.0-100.0); Mean Platelet Volume 8.8; Monocytes # (A) 0.5 k/uL (0-1.0); Monocytes % (A) 6 %; Neutrophils % (A) 71 %; Platelet Count 141 k/uL (150-450); RBC 3.07 m/uL (4.30-5.90); RDW 12.7 % (11.5-15.5); WBC 8.4 k/uL (3.8-10.6)
[2023-02-02 22:44] LABS: INR 1.1 (<1.2); Partial Thromboplastin Time 23.5 sec (22.0-30.0); Prothrombin Time 11.1 sec (9.0-12.0)
[2023-02-02 23:08] LABS: ALT 13 U/L (4-49); AST 30 U/L (17-59); African American GFR (CKD) 44 (>60 ml/min/1.73 sqM); Albumin 3.4 g/dL (3.5-5.0); Alkaline Phosphatase 87 U/L (38-126); Anion Gap 6 mmol/L; Blood Urea Nitrogen 34 mg/dL (9-20); Calcium 8.9 mg/dL (8.4-10.2); Carbon Dioxide 26 mmol/L (22-30); Chloride 105 mmol/L (98-107); Glucose 119 mg/dL (74-99); Magnesium 2.5 mg/dL (1.6-2.3); Non-African American GFR(CKD) 38 (>60 ml/min/1.73 sqM); Potassium 4.3 mmol/L (3.5-5.1); Sodium 137 mmol/L (137-145); Total Bilirubin 0.5 mg/dL (0.2-1.3); Total Protein 6.1 g/dL (6.3-8.2)
--- NOTE | 2023-02-03 01:15 | ED ---
General Adult HPI - General Chief complaint: Syncope Stated complaint: Syncope Time Seen by Provider: 02/02/23 21:39 Source: patient, family Mode of arrival: EMS Limitations: no limitations - History of Present Illness Initial comments: This is a 87-year-old male with a past medical history including atrial fibrillation presents emergency department for a possible syncopal episode. The patient stated that he was feeling well however the patient's family was at the bedside and did state that he was in the bathroom and was attempting to straight cathed himself when he started to feel lightheaded and was noted to be some to over on the toilet. The patient did not his head and was minimally responsive on arrival of the patient's family did state that the patient did come back to baseline but EMS was called as the patient had this initial episode. On arrival, the patient denied any acute pain at this time. The patient's family did state that he appeared to be more weak but was acting normal. There is no other complaints at this time and the patient was resting in bed comfortably. - Related Data Home Medications Medication Instructions Recorded Confirmed Vit C/E/Zn/Coppr/Lutein/Zeaxan 1 cap PO PC-LUNCH 01/01/18 05/02/22 [Preservision Areds 2 Softgel] Brimonidine Tartrate [Alphagan P 1 drop BOTH EYES BID 08/07/20 05/02/22 0.2% Ophth Soln] Tamsulosin [Flomax] 0.4 mg PO HS 08/07/20 05/02/22 Metoprolol Tartrate [Lopressor] 12.5 mg PO BID 02/22/21 05/02/22 Aspirin 81 mg PO PC-LUNCH 05/02/22 05/02/22 Previous Rx's Medication Instructions Recorded Cephalexin [Keflex] 500 mg PO Q8HR 4 Days #12 cap 05/05/22 Sulfamethox-Tmp 800-160Mg [Bactrim 1 each PO Q12HR #14 tab 09/24/22 Ds] Ciprofloxacin 500 mg PO BID #20 ml 02/03/23 Allergies Allergy/AdvReac Type Severity Reaction Status Date / Time No Known Allergies Allergy Verified 02/02/23 21:32 Review of Systems ROS Statement: Those systems with pertinent positive or pertinent negative responses have been documented in the HPI. ROS Other: All systems not noted in ROS Statement are negative. Past Medical History Past Medical History: Atrial Fibrillation, Cancer, Renal Disease Additional Past Medical History / Comment(s): macular degeneration, colon ca - bowel resection and chemo both times, stage 3 renal failure History of Any Multi-Drug Resistant Organisms: None Reported Additional Past Surgical History / Comment(s): colon resection - one at age 54, a second at age 69, prostate surgery june 2022. Past Anesthesia/Blood Transfusion Reactions: No Reported Reaction Past Psychological History: Depression Smoking Status: Never smoker Past Alcohol Use History: Occasional Past Drug Use History: None Reported - Past Family History Father Family Medical History: Myocardial Infarction ([place]) Mother Family Medical History: CVA/TIA General Exam Limitations: no limitations General appearance: alert, in no apparent distress Head exam: Present: atraumatic, normocephalic, normal inspection Eye exam: Present: normal appearance, PERRL Pupils: Present: normal accommodation ENT exam: Present: normal exam, normal oropharynx, mucous membranes moist Neck exam: Present: normal inspection, full ROM Respiratory exam: Present: normal lung sounds bilaterally Cardiovascular Exam: Present: regular rate, normal rhythm, normal heart sounds GI/Abdominal exam: Present: soft, normal bowel sounds Extremities exam: Present: normal inspection, full ROM Back exam: Present: normal inspection, full ROM Neurological exam: Present: alert, oriented X3, CN II-XII intact Psychiatric exam: Present: normal affect, normal mood Skin exam: Present: warm, dry Course Vital Signs 02/02/23 21:33 Temperature 98.0 F Pulse Rate 54 L Respiratory 16 Rate Blood Pressure 121/78 O2 Sat by Pulse 96 Oximetry EKG Findings - EKG Comments: EKG Findings:: An EKG was obtained and was interpreted by myself showing a rate of 51, QRS duration of 166, QTC of 453. This EKG showed an atrial fibrillation with slow ventricular response and a right bundle branch block consistent with her previous EKGs and previous history of A. fib. There was no ST segment elev ation or depression noted. Medical Decision Making - Medical Decision Making Was pt. sent in by a medical professional or institution (, PA, DRYER OPERATOR, urgent care, hospital, or retirement...) When possible be specific @ -No Did you speak to anyone other than the patient for history (EMS, parent, family, police, friend...)? What history was obtained from this source @ -Yes, patient's family was at the bedside and did state that they found the patient slumped over on the toilet but stated that he did not hit his head and has had a syncopal episode in the past. Did you review nursing and triage notes (agree or disagree)? Why? @ -I reviewed and agree with nursing and triage notes Were old charts reviewed (outside hosp., previous admission, EMS record, old EKG, old radiological studies, urgent care reports/EKG's, retirement records)? Report findings @ -No old charts were reviewed Differential Diagnosis (chest pain, altered mental status, abdominal pain women, abdominal pain men, vaginal bleeding, weakness, fever, dyspnea, syncope, headache, dizziness, GI bleed, back pain, seizure, CVA, palpatations, mental health)? @ -Vasovagal syncope, dehydration, ACS EKG interpreted by me (3pts min.). @ -As above X-rays interpreted by me (1pt min.). @ -Chest x-ray was obtained and was interpreted by myself showing no acute process. CT interpreted by me (1pt min.). @ -None done U/S interpreted by me (1pt. min.). @ -None done What testing was considered but not performed or refused? (CT, X-rays, U/S, labs)? Why? @ -None What meds were considered but not given or refused? Why? @ -None Did you discuss the management of the patient with other professionals (professionals i.e. , PA, DRYER OPERATOR, lab, RT, psych nurse, administrator social welfare, spooler, teacher, marketing officer, employment evaluator/case manager)? Give summary @ -No Was smoking cessation discussed for >3mins.? @ -No Was critical care preformed (if so, how long)? @ -No Were there social determinants of health that impacted care today? How? (Homelessness, low income, unemployed, alcoholism, drug addiction, transportation, low edu. Level, literacy, decrease access to med. care, detention, rehab)? @ -No Was there de-escalation of care discussed even if they declined (Discuss DNR or withdrawal of care, Hospice)? DNR status @ -No What co-morbidities impacted this encounter? (DM, HTN, Smoking, COPD, CAD, Cancer, CVA, ARF, Chemo, Hep., AIDS, mental health diagnosis, sleep apnea, morbid obesity)? @ -A fib Was patient admitted / discharged? Hospital course, mention meds given and route, prescriptions, significant lab abnormalities, going to OR and other per tinent info. @ -The patient was seen and evaluated emergency department. Physical exam, the patient was resting in bed without any acute distress. Vital signs admission were stable. Due to the nature the patient's complaints, laboratory workup was obtained as was a chest x-ray and EKG. Laboratory workup was within normal limits. Urinalysis was obtained after the patient had to be catheterized. Chest x-ray was negative. Urinalysis did show positive UTI and the patient was given a dose of ciprofloxacin the emergency department. On reevaluation, the patient was resting in bed comfortably and the family was told these results. The family did report that they would like to take the patient home as they were comfortable with treating him at home. The patient did continue to remain stable and did agree with this plan. The patient was given a prescription for Cipro Floxin to be taken at home and when the patient as well as her family were advised report back to the emergency department if his pain worsened with became acutely worse. The patient was agreeable to this as was the family and the patient was discharged home with his family in stable condition. Undiagnosed new problem with uncertain prognosis? @ -No Drug Therapy requiring intensive monitoring for toxicity (Heparin, Nitro, Insulin, Cardizem)? @ -No Were any procedures done? @ -No Diagnosis/symptom? @ -UTI, vasovagal syncope Acute, or Chronic, or Acute on Chronic? @ -Acute on chronic Uncomplicated (without systemic symptoms) or Complicated (systemic symptoms)? @ -Uncomplicated Side effects of treatment? @ -No Exacerbation, Progression, or Severe Exacerbation? @ -No Poses a threat to life or bodily function? How? (Chest pain, [place], [place], pneumonia, PE, COPD, DKA, ARF, appy, cholecystitis, CVA, Diverticulitis, Homicidal, Suicidal, threat to staff... and all critical care pts) @ -No - Lab Data Result diagrams: 02/02/23 22:10 02/02/23 22:10 Lab Results 02/02/23 02/02/23 02/02/23 Range/Units 22:10 22:10 22:10 WBC 8.4 (3.8-10.6) k/uL RBC 3.07 L (4.30-5.90) m/uL Hgb 10.2 L (13.0-17.5) gm/dL Hct 30.3 L (39.0-53.0) % MCV 98.7 (80.0-100.0) fL MCH 33.2 (25.0-35.0) pg MCHC 33.7 (31.0-37.0) g/dL RDW 12.7 (11.5-15.5) % Plt Count 141 L (150-450) k/uL MPV 8.8 Neutrophils % 71 % Lymphocytes % 20 % Monocytes % 6 % Eosinophils % 2 % Basophils % 0 % Neutrophils # 6.0 (1.3-7.7) k/uL Lymphocytes # 1.6 (1.0-4.8) k/uL Monocytes # 0.5 (0-1.0) k/uL Eosinophils # 0.1 (0-0.7) k/uL Basophils # 0.0 (0-0.2) k/uL PT 11.1 (9.0-12.0) sec INR 1.1 (<1.2) APTT 23.5 (22.0-30.0) sec Sodium 137 (137-145) mmol/L Potassium 4.3 (3.5-5.1) mmol/L Chloride 105 (98-107) mmol/L Carbon Dioxide 26 (22-30) mmol/L Anion Gap 6 mmol/L BUN 34 H (9-20) mg/dL Creatinine 1.60 H (0.66-1.25) mg/dL Est GFR (CKD-EPI)AfAm 44 (>60 ml/min/1.73 sqM) Est GFR (CKD-EPI)NonAf 38 (>60 ml/min/1.73 sqM) Glucose 119 H (74-99) mg/dL Calcium 8.9 (8.4-10.2) mg/dL Magnesium 2.5 H (1.6-2.3) mg/dL Total Bilirubin 0.5 (0.2-1.3) mg/dL AST 30 (17-59) U/L ALT 13 (4-49) U/L Alkaline Phosphatase 87 (38-126) U/L Troponin I (0.000-0.034) ng/mL NT-Pro-B Natriuret Pep pg/mL Total Protein 6.1 L (6.3-8.2) g/dL Albumin 3.4 L (3.5-5.0) g/dL Urine Color Urine Appearance (Clear) Urine pH (5.0-8.0) Ur Specific [place] (1.001-1.035) Urine Protein (Negative) Urine Glucose (UA) (Negative) Urine Ketones (Negative) Urine Blood (Negative) Urine Nitrite (Negative) Urine Bilirubin (Negative) Urine Urobilinogen (<2.0) mg/dL Ur Leukocyte Esterase (Negative) Urine RBC (0-5) /hpf Urine WBC (0-5) /hpf Urine Bacteria (None) /hpf Urine Mucus (None) /hpf 02/02/23 02/02/23 02/03/23 Range/Units 22:10 22:10 00:45 WBC (3.8-10.6) k/uL RBC (4.30-5.90) m/uL Hgb (13.0-17.5) gm/dL Hct (39.0-53.0) % MCV (80.0-100.0) fL MCH (25.0-35.0) pg MCHC (31.0-37.0) g/dL RDW (11.5-15.5) % Plt Count (150-450) k/uL MPV Neutrophils % % Lymphocytes % % Monocytes % % Eosinophils % % Basophils % % Neutrophils # (1.3-7.7) k/uL Lymphocytes # (1.0-4.8) k/uL Monocytes # (0-1.0) k/uL Eosinophils # (0-0.7) k/uL Basophils # (0-0.2) k/uL PT (9.0-12.0) sec INR (<1.2) APTT (22.0-30.0) sec Sodium (137-145) mmol/L Potassium (3.5-5.1) mmol/L Chloride (98-107) mmol/L Carbon Dioxide (22-30) mmol/L Anion Gap mmol/L BUN (9-20) mg/dL Creatinine (0.66-1.25) mg/dL Est GFR (CKD-EPI)AfAm (>60 ml/min/1.73 sqM) Est GFR (CKD-EPI)NonAf (>60 ml/min/1.73 sqM) Glucose (74-99) mg/dL Calcium (8.4-10.2) mg/dL Magnesium (1.6-2.3) mg/dL Total Bilirubin (0.2-1.3) mg/dL AST (17-59) U/L ALT (4-49) U/L Alkaline Phosphatase (38-126) U/L Troponin I 0.013 (0.000-0.034) ng/mL NT-Pro-B Natriuret Pep 9090 pg/mL Total Protein (6.3-8.2) g/dL Albumin (3.5-5.0) g/dL Urine Color Yellow Urine Appearance Clear (Clear) Urine pH 6.5 (5.0-8.0) Ur Specific [place] 1.014 (1.001-1.035) Urine Protein Trace H (Negative) Urine Glucose (UA) Negative (Negative) Urine Ketones Negative (Negative) Urine Blood Negative (Negative) Urine Nitrite Positive (Negative) Urine Bilirubin Negative (Negative) Urine Urobilinogen <2.0 (<2.0) mg/dL Ur Leukocyte Esterase Large H (Negative) Urine RBC 9 H (0-5) /hpf Urine WBC 25 H (0-5) /hpf Urine Bacteria Many H (None) /hpf Urine Mucus Rare H (None) /hpf Disposition Clinical Impression: Vasovagal syncope, UTI (urinary tract infection) Disposition: HOME SELF-CARE Condition: Stable Prescriptions: Ciprofloxacin 500 mg PO BID #20 ml Is patient prescribed a controlled substance at d/c from ED?: No Referrals: Carlos Silva DO [Primary Care Provider] - 1-2 days Time of Disposition: 01:00
[2023-02-03 01:24] LABS: Appearance,Urine Clear (Clear); Bacteria,Urine Many /hpf; Bilirubin,Urine Negative (Negative); Blood,Urine Negative (Negative); Color,Urine Yellow; Glucose,Urine (UA) Negative (Negative); Ketones,Urine Negative (Negative); Leukocyte Esterase,Urine Large (Negative); Mucus,Urine Rare /hpf; Nitrite,Urine Positive (Negative); PH, Urine 6.5 (5.0-8.0); Protein,Urine Trace (Negative); RBC,Urine 9 /hpf (0-5); Specific Gravity,Urine 1.014 (1.001-1.035); Urobilinogen,Urine <2.0 mg/dL (<2.0); WBC,Urine 25 /hpf (0-5)
[2023-02-03] MEDS ORDERED: cefTRIAXone IN SWFI 1,000 MG/10 ML SYRINGE IVP STA ×2 (01:36→01:39)
[2023-02-03] MEDS ORDERED: CIPROFLOXACIN HCL 500 MG TAB PO STA (01:42)
[2023-02-03 02:37] VITALS: BP 165/92; PULSE 76
== END 2023-02-03 02:15 | disposition home or self-care (01) ==
LOC: EC 21:16
DX: R55 Syncope and collapse (principal); N39.0 Urinary tract infection, site not specified; I48.91 Unspecified atrial fibrillation; F32.A Depression, unspecified; Z79.82 Long term (current) use of aspirin
CPT/HCPCS: 36415; 71046; 80053; 81001; 83735; 83880; 84484; 85025; 85610; 85730; 93005; 96361; 96374; 99285

== ENCOUNTER 2023-03-26 14:44 | Inpatient (IN) | payer MEDICARE ==
[2023-03-26] MEDS ORDERED: SODIUM CHLORIDE 0.9% 1,000 ML IV STA (15:28)
--- NOTE | 2023-03-26 15:38 | ED ---
General Adult HPI - General Chief complaint: Weakness Stated complaint: weakness Time Seen by Provider: 03/26/23 15:09 Source: patient, EMS, RN notes reviewed, old records reviewed Mode of arrival: EMS Limitations: altered mental status - History of Present Illness Initial comments: Patient is an 88-year-old male who is brought in by EMS after his contacted them over concern for weakness and decreased level of consciousness. Patient is answering questions appropriately. Is a and O 3-4. States he feels weak and faint. States this has been ongoing for "quite some time." States it did not start suddenly today. Patient believes he is on blood thinners but cannot give the name. No record of them on our file other than baby aspirin. Has not noticed any blood in his urine, denies any hematemesis or nausea or vomiting, denies any medic easier or melena. Denies any dark tarry stools. Denies any diarrhea. Denies any fevers, abdominal pain, chest pain, shortness of breath. His no other acute complaints at this time but just complains of generalized weakness. Denies any falls. Is on blood thinners. Presents for further evaluation at this time. - Related Data Home Medications Medication Instructions Recorded Confirmed Brimonidine Tartrate [Alphagan P 1 drop BOTH EYES BID 08/07/20 03/26/23 0.2% Ophth Soln] Metoprolol Tartrate [Lopressor] 12.5 mg PO BID-W/MEALS 02/22/21 03/26/23 Aspirin 81 mg PO DAILY 05/02/22 03/26/23 Acetaminophen/Diphenhydramine 1 tab PO HS 03/26/23 03/26/23 [Tylenol PM 500-25mg] Mirtazapine [Remeron] 15 mg PO HS 03/26/23 03/26/23 Allergies Allergy/AdvReac Type Severity Reaction Status Date / Time No Known Allergies Allergy Verified 03/26/23 18:15 Review of Systems ROS Statement: Those systems with pertinent positive or pertinent negative responses have been documented in the HPI. Review of Systems: CONST: Endorses weakness, feeling faint. EYES: Denies blurry vision ENT: Denies nasal congestion C/V: Denies Chest pain RESP: Denies shortness of breath GI: Denies abdominal pain : Denies dysuria SKIN: Denies rash. MSK: Denies joint pain. NEURO: Denies headache ROS Other: All systems not noted in ROS Statement are negative. Past Medical History Past Medical History: Atrial Fibrillation, Cancer, Neurologic Disorder, Renal Disease Additional Past Medical History / Comment(s): macular degeneration, colon ca - bowel resection and chemo both times, stage 3 renal failure. Parkinson's. s History of Any Multi-Drug Resistant Organisms: None Reported Past Surgical History: Bowel Resection Additional Past Surgical History / Comment(s): colon resection - one at age 54, a second at age 69, prostate surgery june 2022. Past Anesthesia/Blood Transfusion Reactions: No Reported Reaction Past Psychological History: Depression Smoking Status: Never smoker Past Alcohol Use History: Occasional Past Drug Use History: None Reported - Past Family History Father Family Medical History: Myocardial Infarction (NV) Mother Family Medical History: CVA/TIA General Exam - General Exam Comments Initial Comments: General: Appears in no acute distress. HEAD: Normal with no signs of head trauma. EYES: PERRLA, EOMI, conjunctiva normal, no discharge. Pupils are 2 mm and equal bilaterally. ENT: Hearing grossly intact, normal oropharynx. RESPIRATORY: Clear breath sounds bilaterally. No wheezes, rales, or rhonchi. C/V: Regular rate and rhythm. S1 and S2 auscultated, mild peripheral pitting edema, peripheral pulses 2+ and intact throughout ABD: Abd is soft, nontender, nondistended EXT: Normal range of motion, no obvious deformity SKIN: No rashes or lesions observed on exposed skin. NEURO: Alert and oriented 3-4. Able to move all 4 extremities although appears weak in terms of strength with 4-5 strength in all 4 extremities. Patient is slow to respond however is oriented. NIH is 0. GCS is 15. Limitations: altered mental status Course Vital Signs 03/26/23 03/26/23 03/26/23 14:46 14:56 20:00 Temperature 97.9 F Pulse Rate 78 82 Pulse Rate [ 90 Account Clerk ] Respiratory 18 16 Rate Blood Pressure 126/90 155/87 O2 Sat by Pulse 98 98 Oximetry Medical Decision Making - Medical Decision Making Was pt. sent in by a medical professional or institution (, PA, PHARMACEUTICAL OPERATOR, urgent care, hospital, or prison...) When possible be specific @ -No Did you speak to anyone other than the patient for history (EMS, parent, family, police, friend...)? What history was obtained from this source @ -Patient's eventually presents to the side, and apparently an episode occurred today where he was more weak than normal, found weak in the front seat of the car. He was acting his current self at this time. Seems more weak, however this has been an ongoing process per patient's . However patient today was more symptomatic in terms of weakness as well as his response time. However she does state this has been an ongoing process and normally he just sits at home but decided to go out today with his . He did seemed a bit mor e confused morning when he woke. His other history of recurrent UTIs. Did you review nursing and triage notes (agree or disagree)? Why? @ -I reviewed and agree with nursing and triage notes Were old charts reviewed (outside hosp., previous admission, EMS record, old EKG, old radiological studies, urgent care reports/EKG's, prison records)? Report findings @ -Old charts reviewed from January 2010 3. Differential Diagnosis (chest pain, altered mental status, abdominal pain women, abdominal pain men, vaginal bleeding, weakness, fever, dyspnea, syncope, headache, dizziness, GI bleed, back pain, seizure, CVA, palpatations, mental health, musculoskeletal)? @ -Differential Weakness: Hypoglycemia, shock, sepsis, hyponatremia, anemia, infection, NV, ETOH, adverse medicine reaction, overdose, stroke, this is not meant to be an all-inclusive list. EKG interpreted by me (3pts min.). @ -As above X-rays interpreted by me (1pt min.). @ -Chest x-ray shows no obvious acute cardiopulmonary process. CT interpreted by me (1pt min.). @ -CT brain shows no obvious acute intracranial process or injury. U/S interpreted by me (1pt. min.). @ -None done What testing was considered but not performed or refused? (CT, X-rays, U/S, labs)? Why? @ -None What meds were considered but not given or refused? Why? @ -None Did you discuss the management of the patient with other professionals (professionals i.e. , PA, PHARMACEUTICAL OPERATOR, lab, RT, psych nurse, outreach and education social worker, rack production worker, teacher, fare enforcement officer, returned case inspector)? Give summary @ -Discussed with the admitting physician, Dr. massey who accepted the patient. Was smoking cessation discussed for >3mins.? @ -No Was critical care preformed (if so, how long)? @ -No Were there social determinants of health that impacted care today? How? (Homelessness, low income, unemployed, alcoholism, drug addiction, transportation, low edu. Level, literacy, decrease access to med. care, long term, rehab)? @ -No Was there de-escalation of care discussed even if they declined (Discuss DNR or withdrawal of care, Hospice)? DNR status @ -No What co-morbidities impacted this encounter? (DM, HTN, Smoking, COPD, CAD, Cancer, CVA, ARF, Chemo, Hep., AIDS, mental health diagnosis, sleep apnea, morbid obesity)? @ -None Was patient admitted / discharged? Hospital course, mention meds given and route , prescriptions, significant lab abnormalities, going to OR and other pertinent info. @ -Based on patient's presentation and physical exam, presents with acutely worsening weakness and near syncopal episode. We will obtain generalized laboratory studies as well as CT brain, chest x-ray. Currently other than the weakness has no focal neuro deficit. Patient was in agreement this plan. Vital signs within acceptable limits. Patient does self cath, and he is retaining 700 mL of urine at this time which will be drained. EKG shows known A. fib which is currently rate controlled with no signs of ischemia.Imaging is unremarkable. Patient's labs are remarkable for chronic an emia with a hemoglobin of 11.2 which is stable. Patient has CK D which is unchanged. Chronically elevated BNP with undetectable troponin. Urinalysis shows significant amount of hematuria with a small amount of leukocyte esterase, cannot definitively rule out a UTI. Vital signs negative. On reevaluation, I discussed results with patient as well as family. We all believe it is best case the patient admitted for further fluid hydration, as well as empiric antibiotic endorses reculture his urine. He was in agreement this plan. He will be given a dose of Rocephin here in the department. Is placed on maintenance fluids. He'll be admitted to the hospital. Patient normally is admitted under Dr. Baca, however he is being covered by [facility] and I spoke with Dr. massey who accepted the patient. Undiagnosed new problem with uncertain prognosis? @ -No Drug Therapy requiring intensive monitoring for toxicity (Heparin, Nitro, Insulin, Cardizem)? @ -No Were any procedures done? @ -No Diagnosis/symptom? @ -Weakness, UTI, dehydration Acute, or Chronic, or Acute on Chronic? @ -Acute on chronic Uncomplicated (without systemic symptoms) or Complicated (systemic symptoms)? @ -Complicated Side effects of treatment? @ -none Exacerbation, Progression, or Severe Exacerbation] @ -no Poses a threat to life or bodily function? @ -Potentially - Lab Data Result diagrams: 03/26/23 16:21 03/26/23 16:21 Lab Results 03/26/23 03/26/23 03/26/23 Range/Units 16:17 16:21 16:21 WBC 8.4 (3.8-10.6) k/uL RBC 3.30 L (4.30-5.90) m/uL Hgb 11.2 L (13.0-17.5) gm/dL Hct 32.5 L (39.0-53.0) % MCV 98.4 (80.0-100.0) fL MCH 33.8 (25.0-35.0) pg MCHC 34.4 (31.0-37.0) g/dL RDW 12.9 (11.5-15.5) % Plt Count 119 L (150-450) k/uL MPV 9.3 Neutrophils % 71 % Lymphocytes % 19 % Monocytes % 6 % Eosinophils % 2 % Basophils % 0 % Neutrophils # 6.0 (1.3-7.7) k/uL Lymphocytes # 1.6 (1.0-4.8) k/uL Monocytes # 0.5 (0-1.0) k/uL Eosinophils # 0.2 (0-0.7) k/uL Basophils # 0.0 (0-0.2) k/uL PT (9.0-12.0) sec INR (<1.2) APTT (22.0-30.0) sec VBG pH (7.31-7.41) VBG pCO2 (37-51) mmHg VBG HCO3 (24-28) mmol/L Sodium 137 (137-145) mmol/L Potassium 4.5 (3.5-5.1) mmol/L Chloride 108 H (98-107) mmol/L Carbon Dioxide 22 (22-30) mmol/L Anion Gap 7 mmol/L BUN 29 H (9-20) mg/dL Creatinine 1.59 H (0.66-1.25) mg/dL Est GFR (CKD-EPI)AfAm 44 (>60 ml/min/1.73 sqM) Est GFR (CKD-EPI)NonAf 38 (>60 ml/min/1.73 sqM) Glucose 107 H (74-99) mg/dL Plasma Lactic Acid Pedro (0.7-2.0) mmol/L Calcium 8.9 (8.4-10.2) mg/dL Magnesium 2.1 (1.6-2.3) mg/dL Total Bilirubin 0.8 (0.2-1.3) mg/dL AST 33 (17-59) U/L ALT 14 (4-49) U/L Alkaline Phosphatase 87 (38-126) U/L Ammonia (<30) umol/L Troponin I (0.000-0.034) ng/mL NT-Pro-B Natriuret Pep 05629 pg/mL Total Protein 6.5 (6.3-8.2) g/dL Albumin 3.7 (3.5-5.0) g/dL TSH 3.060 (0.465-4.680) mIU/L Urine Color Urine Appearance (Clear) Urine pH (5.0-8.0) Ur Specific [place] (1.001-1.035) Urine Protein (Negative) Urine Glucose (UA) (Negative) Urine Ketones (Negative) Urine Blood (Negative) Urine Nitrite (Negative) Urine Bilirubin (Negative) Urine Urobilinogen (<2.0) mg/dL Ur Leukocyte Esterase (Negative) Urine RBC (0-5) /hpf Urine WBC (0-5) /hpf Influenza Type A (PCR) (Not Detectd) Influenza Type B (PCR) (Not Detectd) RSV (PCR) (Not Detectd) SARS-CoV-2 (PCR) (Not Detectd) Blood Type Blood Type Confirm O Positive Blood Type Recheck Bld Type Recheck Status Antibody Screen Spec Expiration Date 03/26/23 03/26/23 03/26/23 Range/Units 16:21 16:21 16:21 WBC (3.8-10.6) k/uL RBC (4.30-5.90) m/uL Hgb (13.0-17.5) gm/dL Hct (39.0-53.0) % MCV (80.0-100.0) fL MCH (25.0-35.0) pg MCHC (31.0-37.0) g/dL RDW (11.5-15.5) % Plt Count (150-450) k/uL MPV Neutrophils % % Lymphocytes % % Monocytes % % Eosinophils % % Basophils % % Neutrophils # (1.3-7.7) k/uL Lymphocytes # (1.0-4.8) k/uL Monocytes # (0-1.0) k/uL Eosinophils # (0-0.7) k/uL Basophils # (0-0.2) k/uL PT (9.0-12.0) sec INR (<1.2) APTT (22.0-30.0) sec VBG pH (7.31-7.41) VBG pCO2 (37-51) mmHg VBG HCO3 (24-28) mmol/L Sodium (137-145) mmol/L Potassium (3.5-5.1) mmol/L Chloride (98-107) mmol/L Carbon Dioxide (22-30) mmol/L Anion Gap mmol/L BUN (9-20) mg/dL Creatinine (0.66-1.25) mg/dL Est GFR (CKD-EPI)AfAm (>60 ml/min/1.73 sqM) Est GFR (CKD-EPI)NonAf (>60 ml/min/1.73 sqM) Glucose (74-99) mg/dL Plasma Lactic Acid Pedro 1.1 (0.7-2.0) mmol/L Calcium (8.4-10.2) mg/dL Magnesium (1.6-2.3) mg/dL Total Bilirubin (0.2-1.3) mg/dL AST (17-59) U/L ALT (4-49) U/L Alkaline Phosphatase (38-126) U/L Ammonia <9 (<30) umol/L Troponin I <0.012 (0.000-0.034) ng/mL NT-Pro-B Natriuret Pep pg/mL Total Protein (6.3-8.2) g/dL Albumin (3.5-5.0) g/dL TSH (0.465-4.680) mIU/L Urine Color Urine Appearance (Clear) Urine pH (5.0-8.0) Ur Specific [place] (1.001-1.035) Urine Protein (Negative) Urine Glucose (UA) (Negative) Urine Ketones (Negative) Urine Blood (Negative) Urine Nitrite (Negative) Urine Bilirubin (Negative) Urine Urobilinogen (<2.0) mg/dL Ur Leukocyte Esterase (Negative) Urine RBC (0-5) /hpf Urine WBC (0-5) /hpf Influenza Type A (PCR) Not Detected (Not Detectd) Influenza Type B (PCR) Not Detected (Not Detectd) RSV (PCR) Not Detected (Not Detectd) SARS-CoV-2 (PCR) Not Detected (Not Detectd) Blood Type Blood Type Confirm Blood Type Recheck Bld Type Recheck Status Antibody Screen Spec Expiration Date 03/26/23 03/26/23 03/26/23 Range/Units 16:21 16:21 16:23 WBC (3.8-10.6) k/uL RBC (4.30-5.90) m/uL Hgb (13.0-17.5) gm/dL Hct (39.0-53.0) % MCV (80.0-100.0) fL MCH (25.0-35.0) pg MCHC (31.0-37.0) g/dL RDW (11.5-15.5) % Plt Count (150-450) k/uL MPV Neutrophils % % Lymphocytes % % Monocytes % % Eosinophils % % Basophils % % Neutrophils # (1.3-7.7) k/uL Lymphocytes # (1.0-4.8) k/uL Monocytes # (0-1.0) k/uL Eosinophils # (0-0.7) k/uL Basophils # (0-0.2) k/uL PT (9.0-12.0) sec INR (<1.2) APTT (22.0-30.0) sec VBG pH 7.42 H (7.31-7.41) VBG pCO2 39 (37-51) mmHg VBG HCO3 25 (24-28) mmol/L Sodium (137-145) mmol/L Potassium (3.5-5.1) mmol/L Chloride (98-107) mmol/L Carbon Dioxide (22-30) mmol/L Anion Gap mmol/L BUN (9-20) mg/dL Creatinine (0.66-1.25) mg/dL Est GFR (CKD-EPI)AfAm (>60 ml/min/1.73 sqM) Est GFR (CKD-EPI)NonAf (>60 ml/min/1.73 sqM) Glucose (74-99) mg/dL Plasma Lactic Acid Pedro (0.7-2.0) mmol/L Calcium (8.4-10.2) mg/dL Magnesium (1.6-2.3) mg/dL Total Bilirubin (0.2-1.3) mg/dL AST (17-59) U/L ALT (4-49) U/L Alkaline Phosphatase (38-126) U/L Ammonia (<30) umol/L Troponin I (0.000-0.034) ng/mL NT-Pro-B Natriuret Pep pg/mL Total Protein (6.3-8.2) g/dL Albumin (3.5-5.0) g/dL TSH (0.465-4.680) mIU/L Urine Color Yellow Urine Appearance Clear (Clear) Urine pH 7.0 (5.0-8.0) Ur Specific [place] 1.012 (1.001-1.035) Urine Protein Trace H (Negative) Urine Glucose (UA) Negative (Negative) Urine Ketones Negative (Negative) Urine Blood Large H (Negative) Urine Nitrite Negative (Negative) Urine Bilirubin Negative (Negative) Urine Urobilinogen <2.0 (<2.0) mg/dL Ur Leukocyte Esterase Small H (Negative) Urine RBC >182 H (0-5) /hpf Urine WBC 2 (0-5) /hpf Influenza Type A (PCR) (Not Detectd) Influenza Type B (PCR) (Not Detectd) RSV (PCR) (Not Detectd) SARS-CoV-2 (PCR) (Not Detectd) Blood Type O Positive Blood Type Confirm Blood Type Recheck No Previous Record Bld Type Recheck Status CABO Indicated Antibody Screen NEGATIVE Spec Expiration Date 03/29/2023 - 232003/26/23 Range/Units 18:15 WBC (3.8-10.6) k/uL RBC (4.30-5.90) m/uL Hgb (13.0-17.5) gm/dL Hct (39.0-53.0) % MCV (80.0-100.0) fL MCH (25.0-35.0) pg MCHC (31.0-37.0) g/dL RDW (11.5-15.5) % Plt Count (150-450) k/uL MPV Neutrophils % % Lymphocytes % % Monocytes % % Eosinophils % % Basophils % % Neutrophils # (1.3-7.7) k/uL Lymphocytes # (1.0-4.8) k/uL Monocytes # (0-1.0) k/uL Eosinophils # (0-0.7) k/uL Basophils # (0-0.2) k/uL PT 11.2 (9.0-12.0) sec INR 1.1 (<1.2) APTT 24.0 (22.0-30.0) sec VBG pH (7.31-7.41) VBG pCO2 (37-51) mmHg VBG HCO3 (24-28) mmol/L Sodium (137-145) mmol/L Potassium (3.5-5.1) mmol/L Chloride (98-107) mmol/L Carbon Dioxide (22-30) mmol/L Anion Gap mmol/L BUN (9-20) mg/dL Creatinine (0.66-1.25) mg/dL Est GFR (CKD-EPI)AfAm (>60 ml/min/1.73 sqM) Est GFR (CKD-EPI)NonAf (>60 ml/min/1.73 sqM) Glucose (74-99) mg/dL Plasma Lactic Acid Pedro (0.7-2.0) mmol/L Calcium (8.4-10.2) mg/dL Magnesium (1.6-2.3) mg/dL Total Bilirubin (0.2-1.3) mg/dL AST (17-59) U/L ALT (4-49) U/L Alkaline Phosphatase (38-126) U/L Ammonia (<30) umol/L Troponin I (0.000-0.034) ng/mL NT-Pro-B Natriuret Pep pg/mL Total Protein (6.3-8.2) g/dL Albumin (3.5-5.0) g/dL TSH (0.465-4.680) mIU/L Urine Color Urine Appearance (Clear) Urine pH (5.0-8.0) Ur Specific [place] (1.001-1.035) Urine Protein (Negative) Urine Glucose (UA) (Negative) Urine Ketones (Negative) Urine Blood (Negative) Urine Nitrite (Negative) Urine Bilirubin (Negative) Urine Urobilinogen (<2.0) mg/dL Ur Leukocyte Esterase (Negative) Urine RBC (0-5) /hpf Urine WBC (0-5) /hpf Influenza Type A (PCR) (Not Detectd) Influenza Type B (PCR) (Not Detectd) RSV (PCR) (Not Detectd) SARS-CoV-2 (PCR) (Not Detectd) Blood Type Blood Type Confirm Blood Type Recheck Bld Type Recheck Status Antibody Screen Spec Expiration Date - EKG Data -: EKG Interpreted by Me EKG Comments: 12-lead Electrocardiogram Interpretation Note EKG was reviewed and interpreted by myself. 12-lead ECG performed at 1455 is interpreted by me as revealing atrial fibrillation rate controlled at a rate of 72 beats per minute. Left axis deviation. QRS duration is 161 ms, QTc is 471 ms,. There were no ST or T wave abnormalities to suggest myocardial ischemia or injury. R wave progression across the precordium was satisfactory. By my interpretation this EKG is non-diagnostic for acute ischemia. When compared with EKG from January 2023, no significant change. Disposition Clinical Impression: Weakness, UTI (urinary tract infection), Dehydration Disposition: ADMITTED IP TO THIS HOSP Condition: Stable Time of Disposition: 18:01
[2023-03-26 16:50] LABS: Basophils % (A) 0 %; Eosinophils # (A) 0.2 k/uL (0-0.7); Eosinophils % (A) 2 %; HCT 32.5 % (39.0-53.0); HGB 11.2 gm/dL (13.0-17.5); Lymphocytes # (A) 1.6 k/uL (1.0-4.8); Lymphocytes % (A) 19 %; MCH 33.8 pg (25.0-35.0); MCHC 34.4 g/dL (31.0-37.0); MCV 98.4 fL (80.0-100.0); Mean Platelet Volume 9.3; Monocytes # (A) 0.5 k/uL (0-1.0); Monocytes % (A) 6 %; Neutrophils % (A) 71 %; Platelet Count 119 k/uL (150-450); RDW 12.9 % (11.5-15.5); WBC 8.4 k/uL (3.8-10.6)
[2023-03-26 16:53] LABS: VBG PH 7.42 (7.31-7.41)
[2023-03-26 16:59] LABS: Appearance,Urine Clear (Clear); Bilirubin,Urine Negative (Negative); Blood,Urine Large (Negative); Color,Urine Yellow; Glucose,Urine (UA) Negative (Negative); Ketones,Urine Negative (Negative); Leukocyte Esterase,Urine Small (Negative); Nitrite,Urine Negative (Negative); Protein,Urine Trace (Negative); RBC,Urine >182 /hpf (0-5); Specific Gravity,Urine 1.012 (1.001-1.035); Urobilinogen,Urine <2.0 mg/dL (<2.0); WBC,Urine 2 /hpf (0-5)
[2023-03-26 17:19] LABS: ALT 14 U/L (4-49); AST 33 U/L (17-59); African American GFR (CKD) 44 (>60 ml/min/1.73 sqM); Albumin 3.7 g/dL (3.5-5.0); Alkaline Phosphatase 87 U/L (38-126); Anion Gap 7 mmol/L; Blood Urea Nitrogen 29 mg/dL (9-20); Calcium 8.9 mg/dL (8.4-10.2); Carbon Dioxide 22 mmol/L (22-30); Chloride 108 mmol/L (98-107); Glucose 107 mg/dL (74-99); Magnesium 2.1 mg/dL (1.6-2.3); Non-African American GFR(CKD) 38 (>60 ml/min/1.73 sqM); Potassium 4.5 mmol/L (3.5-5.1); Sodium 137 mmol/L (137-145); Total Bilirubin 0.8 mg/dL (0.2-1.3); Total Protein 6.5 g/dL (6.3-8.2)
[2023-03-26 17:20] LABS: Lactic Acid, Venous 1.1 mmol/L (0.7-2.0)
--- NOTE | 2023-03-26 17:23 | CT ---
EXAMINATION TYPE: CT brain wo con DATE OF EXAM: 03/26/2023 COMPARISON: INDICATION: Weakness DLP: 1174.4 mGycm, Automated exposure control for dose reduction was used. CONTRAST: None CT of the brain is performed utilizing 3 mm thick sections through the posterior fossa and 3 mm thick sections through the remaining calvarium. Study is performed within 24 hours of arrival to the hosp ital. No abnormal hyperdensity is present to suggest an acute intracranial hemorrhage. Other appears to be some chronic subdural hygromas present with mild mass effect on the adjacent frontal lobes bilaterall y.3 this appears to been present previously. No mass lesion is evident. No acute infarcts are evident. Patchy chronic appearing periventricular white matter ischemic type ch anges are present bilaterally. Small lacunar infarct may be within the right cerebellum present previ ously. Ventricles and sulci are appropriate for the patient age. There may be some tortuosity of the verteb robasilar arteries and skull base. Paranasal sinuses and mastoid air cells within the [id number] are clear. IMPRESSIONS: 1. No acute intracranial process. Follow-up MRI can be performed as clinically indicated. 2. Chronic appearing periventricular white matter ischemic type changes. 3. Suspected small mild subdural hygromas present adjacent to the frontal lobes bilaterally.
--- NOTE | 2023-03-26 17:24 | XR ---
EXAMINATION TYPE: XR chest 2V DATE OF EXAM: 03/26/2023 COMPARISON: 02/02/2023 INDICATION: Weakness TECHNIQUE: Frontal and lateral views of the chest are obtained. FINDINGS: The heart size is normal. The pulmonary vasculature is normal. The lungs are clear. Spondylosis within the thoracic spine. IMPRESSION: 1. No acute pulmonary process.
[2023-03-26 17:28] LABS: NT-Pro-B-Type Natriuretic Pept 10600 pg/mL
[2023-03-26] MEDS ORDERED: NALOXONE 0.4 MG/ML 1 ML VIAL IV PRN (18:12)
[2023-03-26] MEDS ORDERED: ACETAMINOPHEN TAB 325 MG TAB PO PRN (18:12)
[2023-03-26 18:37] LABS: INR 1.1 (<1.2); Prothrombin Time 11.2 sec (9.0-12.0)
[2023-03-26] MEDS: METOPROLOL TARTRATE 12.5 MG TAB PO SCH (22:36)
[2023-03-26] MEDS: SODIUM CHLORIDE 0.9% 1,000 ML IV SCH (22:51)
[2023-03-27] MEDS: amLODIPine 5 MG TAB PO SCH ×2 (04:41→08:06)
[2023-03-27] MEDS: ASPIRIN 81 MG PO SCH (08:05)
[2023-03-27] MEDS: METOPROLOL TARTRATE 12.5 MG TAB PO SCH ×2 (08:05→18:22)
[2023-03-27] MEDS: BRIMONIDINE TARTRATE 0.2% DROPS 5 ML BTL BOTH EYES SCH ×2 (08:16→20:09)
--- NOTE | 2023-03-27 08:59 | P.HPIM ---
History of Present Illness This is a pleasant 88 yo male with past medical history of colon ca - bowel resection and chemo, stage 3 renal failure. Parkinson's. Pt sent by spouse for weakness, and periods of unresponsiveness. Patient is alert awake and oriented to time place and person, he knows he is in [facility] with the year 2022 and he couldn't name the president. However patient is can of poor historian and his speech is not very clear as is somewhat muffled therefore I talked to his Miss Garcia over the phone and she told me usually he walks by himself and he go up stairs to his bedroom and he was able to do that yesterday but very slowly which is his normal. Usually he walks mainly in the house and does not go out but yesterday he wanted to go with his to bring his medicine, on the way back was trying to get him out of the car when he become not responsive, nonverbal for a few minutes and then he woke up but he has difficulty moving so she called son and [id number] who called EMS, by the time he came to the hospital he was back to his normal self. also states that he passed out about 2 weeks ago when her grandson came up Shouting and they thought he is , however he came back within [address] 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 fib. Patient currently denies chest pain or dyspnea. No abdominal pain vomiting or diarrhea. He do self cath himself at home twice a day, Fuentes catheter was placed in the hospital. Vitals are stable and patient is febrile Labs showed mild anemia with hemoglobin 11.2 and platelet count 119. INR is 1.1. BMP is unremarkable except for creatinine of 1.5 which is at baseline. Liver enzymes not elevated. TSH is normal at 3.0. Troponin is negative but proBNP is elevated [id number] Urine analysis showing hematuria Viruses undetected including influenza, RSV and coronavirus Chest x-ray: No acute process CT of the brain: No acute process. Suspect small mild subdural hygromas present adjacent to the frontal lobes bilaterally EKG showing atrial fibrillation with a rate of 72 Emergency received 1 dose of Rocephin for suspicious for UTI given his hematuria Past Medical History Past Medical History: Atrial Fibrillation, Cancer, Neurologic Disorder, Renal Disease Additional Past Medical History / Comment(s): macular degeneration, colon ca - b owel resection and chemo both times, stage 3 renal failure. Parkinson's. s History of Any Multi-Drug Resistant Organisms: None Reported Past Surgical History: Bowel Resection Additional Past Surgical History / Comment(s): colon resection - one at age 54, a second at age 69, prostate surgery june 2022. Past Anesthesia/Blood Transfusion Reactions: No Reported Reaction Past Psychological History: Depression Smoking Status: Never smoker Past Alcohol Use History: Occasional Past Drug Use History: None Reported - Past Family History Father Family Medical History: Myocardial Infarction ([place]) Mother Family Medical History: CVA/TIA Medications and Allergies Home Medications Medication Instructions Recorded Confirmed Type Brimonidine Tartrate [Alphagan P 1 drop BOTH EYES BID 08/07/20 03/26/23 History 0.2% Ophth Soln] Metoprolol Tartrate [Lopressor] 12.5 mg PO BID-W/MEALS 02/22/21 03/26/23 History Aspirin 81 mg PO DAILY 05/02/22 03/26/23 History Acetaminophen/Diphenhydramine 1 tab PO HS 03/26/23 03/26/23 History [Tylenol PM 500-25mg] Mirtazapine [Remeron] 15 mg PO HS 03/26/23 03/26/23 History Allergies Allergy/AdvReac Type Severity Reaction Status Date / Time No Known Allergies Allergy Verified 03/26/23 18:15 Physical Exam Vitals: Vital Signs Temp Pulse Pulse Resp BP Pulse Ox 03/27/23 08:00 97.9 F 90 20 161/92 99 03/27/23 03:00 88 18 169/104 03/27/23 00:40 97.9 F 86 18 140/97 98 03/26/23 20:00 82 16 155/87 98 03/26/23 19:50 78 18 149/90 98 03/26/23 14:56 90 03/26/23 14:46 97.9 F 78 18 126/90 98 Intake and Output 03/26/23 03/27/23 03/27/23 22:59 06:59 14:59 Output Total 1800 2000 Balance -1800 -1999 Output: Urine 1800 1999 -GENERAL: The patient is alert and oriented x3, not in any acute distress. Well developed, well nourished. Generally weak. Slow to talk but answers questions appropriately HEENT: Pupils are round and equally reacting to light. EOMI. No scleral icterus. No conjunctival pallor. Normocephalic, atraumatic. No pharyngeal erythema. No thyromegaly. CARDIOVASCULAR: S1 and S2 present. No murmurs, rubs, or gallops. PULMONARY: Chest is clear to auscultation, no wheezing , no crackles. -ABDOMEN: Soft, nontender, nondistended, normoactive bowel sounds. No palpable organomegaly. Fuentes catheter in place MUSCULOSKELETAL: No joint swelling or deformity. EXTREMITIES: No cyanosis, clubbing, or pedal edema. NEUROLOGICAL: Gross neurological examination did not reveal any focal deficits. SKIN: No rashes. no petechiae. Results CBC & Chem 7: 03/26/23 16:21 03/26/23 16:21 Labs: Abnormal Lab Results - Last 24 Hours (Table) 03/26/23 03/26/23 03/26/23 Range/Units 16:21 16:21 16:21 RBC 3.30 L (4.30-5.90) m/uL Hgb 11.2 L (13.0-17.5) gm/dL Hct 32.5 L (39.0-53.0) % Plt Count 119 L (150-450) k/uL VBG pH 7.42 H (7.31-7.41) Chloride 108 H (98-107) mmol/L BUN 29 H (9-20) mg/dL Creatinine 1.59 H (0.66-1.25) mg/dL Glucose 107 H (74-99) mg/dL Urine Protein (Negative) Urine Blood (Negative) Ur Leukocyte Esterase (Negative) Urine RBC (0-5) /hpf 03/26/23 Range/Units 16:23 RBC (4.30-5.90) m/uL Hgb (13.0-17.5) gm/dL Hct (39.0-53.0) % Plt Count (150-450) k/uL VBG pH (7.31-7.41) Chloride (98-107) mmol/L BUN (9-20) mg/dL Creatinine (0.66-1.25) mg/dL Glucose (74-99) mg/dL Urine Protein Trace H (Negative) Urine Blood Large H (Negative) Ur Leukocyte Esterase Small H (Negative) Urine RBC >182 H (0-5) /hpf Assessment and Plan Assessment: Possible episodes of syncope Generalized weakness Chronic atrial fibrillation. Chronic kidney disease History of urinary retention status post self-catheterization hematuria most likely traumatic secondary to above History of colon cancer status post bowel resection and chemo History of Parkinson disease Plan: Continue with home dose of aspirin 81 mg Monitor vitals and labs Telemetry monitoring Cardiology consult Check echocardiogram Urologist as an outpatient I discussed with the she prefer him to go back to home upon discharge with PT/OT rather than going to subacute rehab Labs and medication were reviewed.. Continue same treatment. Continue with symptomatic treatment. Resume home medication. Monitor labs and vitals. DVT and GI prophylaxis. Further recommendations as per clinical course of the patient DVT prophylaxis: Subcutaneous heparin GI Prophylaxis: Pepcid Prognosis is guarded
[2023-03-27 09:54] LABS: Appearance,Urine Clear (Clear); Bilirubin,Urine Negative (Negative); Blood,Urine Moderate (Negative); Color,Urine Yellow; Glucose,Urine (UA) Negative (Negative); Hyaline Casts,Urine 1 /lpf (0-2); Ketones,Urine Negative (Negative); Leukocyte Esterase,Urine Large (Negative); Mucus,Urine Few /hpf; Nitrite,Urine Negative (Negative); PH, Urine 5.5 (5.0-8.0); Protein,Urine Trace (Negative); RBC,Urine 20 /hpf (0-5); Specific Gravity,Urine 1.015 (1.001-1.035); Urobilinogen,Urine <2.0 mg/dL (<2.0); WBC,Urine 71 /hpf (0-5)
[2023-03-27 11:12] LABS: BUN/Creat Ratio 16.29 Ratio (12.00-20.00); Blood Urea Nitrogen 22.8 mg/dL (9.0-27.0); Calcium 9.1 mg/dL (8.7-10.3); Carbon Dioxide 22.7 mmol/L (21.6-31.8); Chloride 108 mmol/L (96-109); Glucose 97 mg/dL (70-110); Potassium 3.9 mmol/L (3.5-5.5); Sodium 142 mmol/L (135-145)
[2023-03-27 11:13] LABS: Basophils # (A) 0.06 X 10*3/uL (0.00-0.10); Basophils % (A) 0.6 %; HCT 31.2 % (39.6-50.0); HGB 10.6 d/dL (13.0-17.0); Lymphocytes # (A) 2.52 X 10*3/uL (0.90-5.00); Lymphocytes % (A) 24.9 %; MCH 33.5 pg (27.0-32.0); MCV 98.7 FL (80.0-97.0); Mean Platelet Volume 11.4 FL (9.5-12.2); Monocytes # (A) 0.92 X 10*3/uL (0.20-1.00); Monocytes % (A) 9.1 %; NRBC Per 100 WBC 0 X 10*3/uL (0.00-0.01); Neutrophils # (A) 6.38 X 10*3/uL (1.80-7.70); Neutrophils % (A) 63.1 %; Platelet Count 181 X 10*3/uL (140-440); RBC 3.16 X 10*6/uL (4.40-5.60); RDW 12.7 % (11.5-14.5); WBC 10.11 X 10*3/uL (4.50-10.00)
--- NOTE | 2023-03-27 12:38 | P.CRDCN ---
History of Present Illness History of present illness: HISTORY OF PRESENT ILLNESS: This is a 88-year-old male with a past medical history significant for persistent atrial fibrillation, hypertension, and chronic kidney disease. Patient follows in the office with Dr. Bhat but has not been seen in the office since October 2020. We have been asked to see the patient in consultation for syncope. Patient examined at the bedside in the emergency room. There is no family present at the time of examination. The patient has a poor historian. However he states he was in a car earlier today when he began to feel dizzy and lightheaded as he was seated. He states he did not pass out or lose consciousness. However according to ER documentation the family does report that he lost consciousness. The patient currently denies chest pain or pressure. He denies shortness of breath. He denies dizziness or lightheadedness. The patient states he has not had episodes like this before. * EKG reveals atrial fibrillation with controlled ventricular rate * Chest xray negative for acute process * Laboratory data: WBC 10.11. Hemoglobin 10.6. Platelet count 181. Sodium 142. Potassium 3.9. BUN 22. Creatinine 1.4. Troponin negative 1. ProBNP 10,600. TSH 3.060. * Current home cardiac medications include aspirin 81 mg daily and metoprolol tartrate 12.5mg twice a day * Most recent echocardiogram obtained in July 2020 revealed ejection fraction 45-50%, trace to mild mitral regurgitation, mild tricuspid regurgitation, and mild pulmonary hypertension REVIEW OF SYSTEMS: At the time of my exam: CONSTITUTIONAL: Denies fever or chills. HEENT: Denies blurred vision, vision changes, or eye pain. Denies hemoptysis CARDIOVASCULAR: Denies chest pain. Denies orthopnea. Denies PND. Denies palpitations RESPIRATORY: Denies shortness of breath. GASTROINTESTINAL: Denies abdominal pain. Denies nausea or vomiting. HEMATOLOGIC: Denies bleeding disorders. GENITOURINARY: Denies any blood in urine. SKIN: Denies pruitis. Denies rash. PHYSICAL EXAM: VITAL SIGNS: Reviewed. GENERAL: Well-developed in no acute distress. HEENT: Head is normocephalic. Pupils are equal, round. Sclerae anicteric. Mucous membranes of the mouth are moist. Neck supple. No JVD or thyromegaly LUNGS: Respirations even and unlabored. Lungs essentially clear to auscultation bilaterally. HEART: Irregular rate and rhythm. S1 and S2 heard. ABDOMEN: Soft. Nondistended. Nontender. EXTREMITIES: Normal range of motion. No clubbing or cyanosis. Peripheral pulses intact. No lower extremity edema NEUROLOGIC: Awake and alert. Oriented x 2. ASSESSMENT: Questionable episode of loss of consciousness, etiology unclear Persistent atrial fibrillation, not on anticoagulation secondary to age and fall risk Chronic kidney disease Hypertension Parkinson's disease PLAN: Obtain 2-D echo to assess cardiac structure and function Resume home cardiac medications Patient has been started on amlodipine for blood pressure management per primary medicine Check d-dimer Continue telemetry monitoring to assess for arrhythmias Cognitively, patient is not a good candidate for an event monitor at discharge Further recommendations pending patient's course Nurse practitioner note has been reviewed by physician. Signing provider agrees with the documented findings, assessment, and plan of care. Past Medical History Past Medical History: Atrial Fibrillation, Cancer, Neurologic Disorder, Renal D isease Additional Past Medical History / Comment(s): macular degeneration, colon ca - bowel resection and chemo both times, stage 3 renal failure. Parkinson's. s History of Any Multi-Drug Resistant Organisms: None Reported Past Surgical History: Bowel Resection Additional Past Surgical History / Comment(s): colon resection - one at age 54, a second at age 69, prostate surgery june 2022. Past Anesthesia/Blood Transfusion Reactions: No Reported Reaction Past Psychological History: Depression Smoking Status: Never smoker Past Alcohol Use History: Occasional Past Drug Use History: None Reported - Past Family History Father Family Medical History: Myocardial Infarction ([place]) Mother Family Medical History: CVA/TIA Medications and Allergies Home Medications Medication Instructions Recorded Confirmed Type Brimonidine Tartrate [Alphagan P 1 drop BOTH EYES BID 08/07/20 03/26/23 History 0.2% Ophth Soln] Metoprolol Tartrate [Lopressor] 12.5 mg PO BID-W/MEALS 02/22/21 03/26/23 History Aspirin 81 mg PO DAILY 05/02/22 03/26/23 History Acetaminophen/Diphenhydramine 1 tab PO HS 03/26/23 03/26/23 History [Tylenol PM 500-25mg] Mirtazapine [Remeron] 15 mg PO HS 03/26/23 03/26/23 History Allergies Allergy/AdvReac Type Severity Reaction Status Date / Time No Known Allergies Allergy Verified 03/26/23 18:15 Physical Exam Vitals: Vital Signs Temp Pulse Pulse Resp BP Pulse Ox 03/27/23 11:51 89 16 157/127 99 03/27/23 11:00 68 18 139/68 96 03/27/23 10:00 60 20 104/60 98 03/27/23 09:00 68 20 109/75 96 03/27/23 08:00 97.9 F 90 20 161/92 99 03/27/23 03:00 88 18 169/104 03/27/23 00:40 97.9 F 86 18 140/97 98 03/26/23 20:00 82 16 155/87 98 03/26/23 19:50 78 18 149/90 98 03/26/23 14:56 90 03/26/23 14:46 97.9 F 78 18 126/90 98 Intake and Output 03/26/23 03/27/23 03/27/23 22:59 06:59 14:59 Output Total 1800 2000 Balance -1800 -1999 Output: Urine 1800 2000 Results 03/27/23 07:18 03/27/23 07:18 Cardiac Enzymes 03/26/23 03/26/23 Range/Units 16:21 16:21 AST 33 (17-59) U/L Troponin I <0.012 (0.000-0.034) ng/mL Coagulation 03/26/23 Range/Units 18:15 PT 11.2 (9.0-12.0) sec APTT 24.0 (22.0-30.0) sec CBC 03/26/23 03/27/23 Range/Units 16:21 07:18 WBC 8.4 10.11 H (3.8-10.6) k/uL RBC 3.30 L 3.16 L (4.30-5.90) m/uL Hgb 11.2 L 10.6 L (13.0-17.5) gm/dL Hct 32.5 L 31.2 L (39.0-53.0) % Plt Count 119 L 181 (150-450) k/uL Comprehensive Metabolic Panel 03/26/23 03/27/23 Range/Units 16:21 07:18 Sodium 137 142 (137-145) mmol/L Potassium 4.5 3.9 (3.5-5.1) mmol/L Chloride 108 H 108 (98-107) mmol/L Carbon Dioxide 22 22.7 (22-30) mmol/L BUN 29 H 22.8 (9-20) mg/dL Creatinine 1.59 H 1.4 (0.66-1.25) mg/dL Glucose 107 H 97 (74-99) mg/dL Calcium 8.9 9.1 (8.4-10.2) mg/dL AST 33 (17-59) U/L ALT 14 (4-49) U/L Alkaline Phosphatase 87 (38-126) U/L Total Protein 6.5 (6.3-8.2) g/dL Albumin 3.7 (3.5-5.0) g/dL Current Medications Generic Name Dose Route Start Last Admin Trade Name Freq PRN Reason Stop Dose Admin Acetaminophen 650 mg 03/26/23 18:12 Acetaminophen Tab 325 Mg Tab PO Q6HR PRN Mild Pain or Fever > 100.5 Amlodipine Besylate 5 mg 03/27/23 04:26 03/27/23 08:06 Amlodipine 5 Mg Tab PO 5 mg DAILY ZAFAR Administration Aspirin 81 mg 03/27/23 09:00 03/27/23 08:05 Aspirin 81 Mg PO 81 mg DAILY ZAFAR Administration Brimonidine Tartrate 1 drops 03/27/23 09:00 03/27/23 08:16 Brimonidine Tartrate 0.2% Drops 5 Ml Btl BOTH EYES 1 drops BID ZAFAR Administration Sodium Chloride 1,000 mls @ 75 mls/hr 03/26/23 18:15 03/26/23 22:51 Saline 0.9% IV 75 mls/hr .[id number] ZAFAR Administration Metoprolol Tartrate 12.5 mg 03/26/23 22:30 03/27/23 08:05 Metoprolol Tartrate 12.5 Mg Tab PO 12.5 mg BID-W/MEALS ZAFAR Administration Mirtazapine 15 mg 03/27/23 21:00 Mirtazapine 15 Mg Tab PO HS ZAFAR Naloxone HCl 0.2 mg 03/26/23 18:12 Naloxone 0.4 Mg/Ml 1 Ml Vial IV Q2M PRN Opioid Reversal Intake and Output 03/26/23 03/27/23 03/27/23 22:59 06:59 14:59 Output Total 1800 2000 Balance -1800 -1999 Output: Urine 1800 199903/27/23 07:18 03/27/23 07:18
--- NOTE | 2023-03-27 15:23 | CT ---
EXAMINATION TYPE: CT angio chest CT DLP: 367.5 mGycm, Automated exposure control for dose reduction was used. DATE OF EXAM: 03/27/2023 3:06 PM COMPARISON: Chest radiograph from 03/26/2023, CT chest 08/19/2022, CTA chest 08/07/2020. CLINICAL INDICATION:Male, 88 years old with history of r/o PE, elevated d-dimer; Elevated d-dimer. TECHNIQUE/CONTRAST: CTA scan of the thorax is performed with IV Contrast, patient injected with 71ml mL of Isovue 370, pu lmonary embolism protocol. MIP images are created and reviewed. FINDINGS: Pulmonary Artery: There is no evidence for a central filling defect within the pulmonary vasculature to suggest acute pulmonary embolism. Limited evaluation of the segmental and subsegmental branches se condary to bolus timing. The pulmonary artery is of normal size. Lungs/Pleura: No evidence of focal consolidation, pleural effusion or pneumothorax. Bibasilar depende nt subsegmental atelectasis. Airway: Large airways are patent. Heart: Mildly prominent size. No pericardial effusion. Vasculature: No evidence of aortic aneurysm. Mediastinum: No evidence of adenopathy. Musculoskeletal: Moderate degenerative disc disease changes are present throughout the thoracolumbar spine. No acute osseous adenopathy. Soft Tissues: Unremarkable. Lower neck: No significant findings. Upper Abdomen: Left renal cyst measuring up to 2.3 cm.. IMPRESSION: No evidence of central pulmonary embolism. Limited evaluation of the segmental and subsegmental branc hes.
[2023-03-27] MEDS: SODIUM CHLORIDE 0.9% 1,000 ML IV SCH ×2 (15:45→22:44)
--- NOTE | 2023-03-27 17:58 | CA ---
Transthoracic Echo Report Name: Manuel Duron Age: 88 Gender: M : 1935 Exam Date: 03/27/2023 10:46 Exam Location: [facility] Ht (in): 70 Wt (lb): 161 Ordering Physician: Kal Diaz MD Attending/Referring Phys: [id number], Joe Crystal Evaluator Lester Solano Procedure CPT: Indications: Rule out heart disease Cardiac Hx: Technical Quality: Fair Contrast 1: Total Dose (mL): Contrast 2: Total Dose (mL): MEASUREMENTS (Male / Female) Normal Values 2D ECHO LV Diastolic Diameter PLAX 5.1 cm 4.2 - 5.9 / 3.9 - 5.3 cm LV Systolic Diameter PLAX 3.9 cm IVS Diastolic Thickness 1.2 cm 0.6 - 1.0 / 0.6 - 0.9 cm LVPW Diastolic Thickness 1.4 cm 0.6 - 1.0 / 0.6 - 0.9 cm LV Relative Wall Thickness 0.5 RV Internal Dim ED PLAX 3.6 cm LVOT Diameter 2.1 cm Aortic Root Diameter 3.2 cm LA Systolic Diameter LX 2.9 cm 3.0 - 4.0 / 2.7 - 3.8 cm LV Diastolic Volume MOD BP 109.5 cm??? 67 - 155 / 56 - 104 cm??? LV Systolic Volume MOD BP 61.7 cm??? 22 - 58 / 19 - 49 cm??? LV Ejection Fraction MOD BP 43.6 % >= 55 % LV Diastolic Volume MOD 4C 108.5 cm??? LV Systolic Volume MOD 4C 49.3 cm??? LV Ejection Fraction MOD 4C 54.6 % LV Diastolic Length 4C 7.4 cm LV Systolic Length 4C 6.8 cm LV Diastolic Volume MOD 2C 109.7 cm??? LV Systolic Volume MOD 2C 70.1 cm??? LV Ejection Fraction MOD 2C 36.1 % LV Diastolic Length 2C 7.5 cm LV Systolic Length 2C 7.6 cm LA Volume 92.5 cm??? 18 - 58 / 22 - 52 cm??? Ascending Aorta Diameter 3.4 cm DOPPLER AV Peak Velocity 118.4 cm/s AV Peak Gradient 5.6 mmHg AI Peak Velocity 425.8 cm/s AI Peak Gradient 72.5 mmHg AI Pressure Half Time 788.9 ms LVOT Peak Velocity 68.9 cm/s LVOT Peak Gradient 1.9 mmHg AV Area Cont Eq pk 2.1 cm??? MV Peak Velocity 111.5 cm/s MV Peak Gradient 5.0 mmHg MV Mean Velocity 49.9 cm/s MV Mean Gradient 1.3 mmHg MV Velocity Time Integral 37.3 cm MR Peak Velocity 557.7 cm/s MR Peak Gradient 124.4 mmHg MV E' Velocity 4.4 cm/s TR Peak Velocity 301.1 cm/s TR Peak Gradient 36.3 mmHg Right Ventricular Systolic Press 41.3 mmHg PV Peak Velocity 80.7 cm/s PV Peak Gradient 2.6 mmHg FINDINGS Left Ventricle Mildly increased septal wall thickness. Mildly increased left ventricular systolic volume. Moderately decreased left ventricular ejection fraction. Left ventricular ejection fraction is estimated at 35-40%. Right Ventricle Normal right ventricular size. RVSP=44mmhg. Right Atrium Right Atrial area= 21cm2 Left Atrium Severely increased left atrial volume. Mildly increased left atrial area. LA volume index= 48ml/m2 Mitral Valve Mitral valve thickened. Moderate tMR. Aortic Valve Trileaflet aortic valve. Moderate AI. Tricuspid Valve Structurally normal tricuspid valve. Moderate TR. Pulmonic Valve Pulmonic valve not well visualized. Trace PI. Pericardium Normal pericardium. Aorta Normal size aortic root . CONCLUSIONS Moderate LV systolic dysfunction Moderate mitral regurgitation Moderate aortic regurgitation Mild pulmonary hypertension Previewed by: Dr. Leonel Simon MD (Electronically Signed) Final Date: 27 March 2023 17:57
[2023-03-27] MEDS ORDERED: QUEtiapine 25 MG TAB PO PRN (19:57)
[2023-03-27] MEDS: MIRTAZAPINE 15 MG TAB PO SCH (20:06)
[2023-03-27] MEDS ORDERED: LORazepam 2 MG/ML INJ IV PRN (20:13)
[2023-03-28] MEDS: ASPIRIN 81 MG PO SCH (08:51)
[2023-03-28] MEDS: amLODIPine 5 MG TAB PO SCH (08:51)
[2023-03-28] MEDS: METOPROLOL TARTRATE 12.5 MG TAB PO SCH ×2 (08:51→17:22)
[2023-03-28] MEDS: BRIMONIDINE TARTRATE 0.2% DROPS 5 ML BTL BOTH EYES SCH ×2 (08:55→20:08)
--- NOTE | 2023-03-28 09:47 | P.PN ---
Subjective HISTORY OF PRESENT ILLNESS: This is a 88-year-old male with a past medical history significant for persistent atrial fibrillation, hypertension, and chronic kidney disease. Patient follows in the office with Dr. Bhat but has not been seen in the office since October 2020. We have been asked to see the patient in consultation for syncope. Patient examined at the bedside in the emergency room. There is no family present at the time of examination. The patient has a poor historian. However he states he was in a car earlier today when he began to feel dizzy and lightheaded as he was seated. He states he did not pass out or lose consciousness. However according to ER documentation the family does report that he lost consciousness. The patient currently denies chest pain or pressure. He denies shortness of breath. He denies dizziness or lightheadedness. The patient states he has not had episodes like this before. * EKG reveals atrial fibrillation with controlled ventricular rate * Chest xray negative for acute process * Laboratory data: WBC 10.11. Hemoglobin 10.6. Platelet count 181. Sodium 142. Potassium 3.9. BUN 22. Creatinine 1.4. Troponin negative 1. ProBNP 10,600. TSH 3.060. * Current home cardiac medications include aspirin 81 mg daily and metoprolol tartrate 12.5mg twice a day * Most recent echocardiogram obtained in July 2020 revealed ejection fraction 45-50%, trace to mild mitral regurgitation, mild tricuspid regurgitation, and mild pulmonary hypertension 03/28/2023 Patient examined this morning to bedside. Patient is confused this morning and unable to communicate with provider at the bedside. According to nursing staff, patient has been taking off his gown and his telemetry leads. Patient with elevated d-dimer yesterday. CTA of the chest was completed with no evidence of PE. Echocardiogram completed revealing ejection fraction 35-40%, moderate MR, moderate AR, and mild pulmonary hypertension PHYSICAL EXAM: VITAL SIGNS: Reviewed. GENERAL: Well-developed in no acute distress. HEENT: Head is normocephalic. Pupils are equal, round. Sclerae anicteric. Mucous membranes of the mouth are moist. Neck supple. No JVD or thyromegaly LUNGS: Respirations even and unlabored. Lungs essentially clear to auscultation bilaterally. HEART: Irregular rate and rhythm. S1 and S2 heard. ABDOMEN: Soft. Nondistended. Nontender. EXTREMITIES: Normal range of motion. No clubbing or cyanosis. Peripheral pulses intact. No lower extremity edema ASSESSMENT: Questionable episode of loss of consciousness, etiology unclear Persistent atrial fibrillation, not on anticoagulation secondary to age and fall risk Chronic kidney disease Hypertension Parkinson's disease PLAN: Continue current cardiac medications Continue telemetry monitoring to assess for arrhythmias Cognitively, patient is not a good candidate for an event monitor at discharge No further inpatient recommendations from a cardiac standpoint. We will sign off. Please reconsult if needed. Nurse practitioner note has been reviewed by physician. Signing provider agrees with the documented findings, assessment, and plan of care. Objective - Vital Signs Vital signs: Vital Signs Temp 98.8 F 03/28/23 06:40 Pulse 66 03/28/23 06:40 Resp 17 03/28/23 06:40 BP 156/79 03/28/23 06:40 Pulse Ox 96 03/28/23 06:40 FiO2 Intake & Output 03/27/23 03/28/23 03/28/23 18:59 06:59 18:59 Output Total 2100 Balance -2100 Output: Urine 2100 Other: Voiding Method Indwelling Catheter # Voids 2 - Labs CBC & Chem 7: 03/27/23 07:18 03/27/23 07:18 Labs: Abnormal Lab Results - Last 24 Hours (Table) 03/27/23 03/27/23 03/27/23 Range/Units 07:18 07:18 09:30 WBC 10.11 H (4.50-10.00) X 10*3/uL RBC 3.16 L (4.40-5.60) X 10*6/uL Hgb 10.6 L (13.0-17.0) d/dL Hct 31.2 L (39.6-50.0) % MCV 98.7 H (80.0-97.0) FL MCH 33.5 H (27.0-32.0) pg D-Dimer (<0.60) mg/L FEU Est GFR (CKD-EPI) 48 L (>=60) Urine Protein Trace H (Negative) Urine Blood Moderate H (Negative) Ur Leukocyte Esterase Large H (Negative) Urine RBC 20 H (0-5) /hpf Urine WBC 71 H (0-5) /hpf Urine WBC Clumps Rare H (None) /hpf Urine Mucus Few H (None) /hpf 03/27/23 Range/Units 12:34 WBC (4.50-10.00) X 10*3/uL RBC (4.40-5.60) X 10*6/uL Hgb (13.0-17.0) d/dL Hct (39.6-50.0) % MCV (80.0-97.0) FL MCH (27.0-32.0) pg D-Dimer 2.92 H (<0.60) mg/L FEU Est GFR (CKD-EPI) (>=60) Urine Protein (Negative) Urine Blood (Negative) Ur Leukocyte Esterase (Negative) Urine RBC (0-5) /hpf Urine WBC (0-5) /hpf Urine WBC Clumps (None) /hpf Urine Mucus (None) /hpf
[2023-03-28 11:10] LABS: Basophils # (A) 0.05 X 10*3/uL (0.00-0.10); Basophils % (A) 0.4 %; Eosinophils # (A) 0.28 X 10*3/uL (0.04-0.35); Eosinophils % (A) 2.2 %; HCT 33.7 % (39.6-50.0); HGB 11.1 d/dL (13.0-17.0); Lymphocytes # (A) 2.37 X 10*3/uL (0.90-5.00); Lymphocytes % (A) 18.7 %; MCH 32.4 pg (27.0-32.0); MCHC 32.9 d/dL (32.0-37.0); MCV 98.3 FL (80.0-97.0); Mean Platelet Volume 11.6 FL (9.5-12.2); Monocytes # (A) 1.19 X 10*3/uL (0.20-1.00); Monocytes % (A) 9.4 %; NRBC Per 100 WBC 0 X 10*3/uL (0.00-0.01); Neutrophils # (A) 8.77 X 10*3/uL (1.80-7.70); Neutrophils % (A) 69.1 %; Platelet Count 184 X 10*3/uL (140-440); RBC 3.43 X 10*6/uL (4.40-5.60); RDW 12.8 % (11.5-14.5); WBC 12.69 X 10*3/uL (4.50-10.00)
[2023-03-28] MEDS: SODIUM CHLORIDE 0.9% 1,000 ML IV SCH (13:08)
[2023-03-28 13:12] LABS: Glucose,Whole Blood 100 mg/dL (70-110)
[2023-03-28] MEDS: DEXTROSE 5%-0.9% NACL 1,000 ML IV SCH (13:13)
[2023-03-28 13:19] LABS: ALT 12 U/L (10-49); AST 39 U/L (14-35); Albumin 4.2 d/dL (3.8-4.9); Albumin/Globulin Ratio 1.83 Ratio (1.60-3.17); Alkaline Phosphatase 74 U/L (41-126); BUN/Creat Ratio 15.17 Ratio (12.00-20.00); Bilirubin, Conjugated 0.24 mg/dL (0.20-0.40); Bilirubin,Unconjugated 0.46 mg/dL (0.20-1.00); Blood Urea Nitrogen 18.2 mg/dL (9.0-27.0); Calcium 9.6 mg/dL (8.7-10.3); Carbon Dioxide 23.2 mmol/L (21.6-31.8); Chloride 109 mmol/L (96-109); Globulin 2.3 d/dL (1.6-3.3); Glucose 98 mg/dL (70-110); Sodium 144 mmol/L (135-145); Total Bilirubin 0.7 mg/dL (0.3-1.2); Total Protein 6.5 d/dL (6.2-8.2)
--- NOTE | 2023-03-28 13:43 | P.PN ---
Subjective This is a pleasant 88 yo male with past medical history of colon ca - bowel resection and chemo, stage 3 renal failure. Parkinson's. Pt sent by spouse for weakness, and periods of unresponsiveness. Patient is alert awake and oriented to time place and person, he knows he is in [facility] with the year 2022 and he couldn't name the president. However patient is can of poor historian and his speech is not very clear as is somewhat muffled therefore I talked to his Miss Garcia over the phone and she told me usually he walks by himself and he go up stairs to his bedroom and he was able to do that yesterday but very slowly which is his normal. Usually he walks mainly in the house and does not go out but yesterday he wanted to go with his to bring his medicine, on the way back was trying to get him out of t he car when he become not responsive, nonverbal for a few minutes and then he woke up but he has difficulty moving so she called son and [id number] who called EMS, by the time he came to the hospital he was back to his normal self. also states that he passed out about 2 weeks ago when her grandson came up Shouting and they thought he is , however he came back within [address] Silva, he does not see caregiver assisted living, he has history of A. fib. Patient currently denies chest pain or dyspnea. No abdominal pain vomiting or diarrhea. He do self cath himself at home twice a day, Fuentes catheter was placed in the hospital. Vitals are stable and patient is febrile Labs showed mild anemia with hemoglobin 11.2 and platelet count 119. INR is 1.1. BMP is unremarkable except for creatinine of 1.5 which is at baseline. Liver enzymes not elevated. TSH is normal at 3.0. Troponin is negative but proBNP is elevated [id number] Urine analysis showing hematuria Viruses undetected including influenza, RSV and coronavirus Chest x-ray: No acute process CT of the brain: No acute process. Suspect small mild subdural hygromas present adjacent to the frontal lobes bilaterally EKG showing atrial fibrillation with a rate of 72 Emergency received 1 dose of Rocephin for suspicious for UTI given his hematuria 03/28/2023 Patient is more obtunded this morning, is hard to wake up, and he just withdraws to painful stimuli. It looks like patient was agitated earlier morning and he received 0.5 mg of IV Ativan at 6:30 this morning which might contributed to his severe mental confusion. He had negative CT of the brain, glucose is 100, therefore going to repeat CT of the brain given his severe symptoms. Also we lowered his IV fluids to D5 normal saline at 50 mL/h He remains on ceftriaxone, urine cultures pending. Fingerprint Technician input is appreciated, CTA of the chest is negative for PE, ejection fraction is 54% with moderate mitral regurgitation and moderate LV dysfunction and moderate aortic regurgitation. His creatinine looks better today at 1.2 Objective - Vital Signs Vital signs: Vital Signs Temp 98.8 F 03/28/23 06:40 Pulse 66 03/28/23 06:40 Resp 17 03/28/23 06:40 BP 156/79 03/28/23 06:40 Pulse Ox 96 03/28/23 06:40 FiO2 Intake & Output 03/27/23 03/28/23 03/28/23 18:59 06:59 18:59 Output Total 2100 Balance -2100 Output: Urine 2100 Other: Voiding Method Indwelling Catheter Indwelling Catheter # Voids 2 - Exam -GENERAL: The patient is a obtund, not in any acute distress. Well developed, well nourished. Generally weak HEENT: Pupils are round and equally reacting to light. EOMI. No scleral icterus. No conjunctival pallor. Normocephalic, atraumatic. No pharyngeal erythema. No thyromegaly. CARDIOVASCULAR: S1 and S2 present. No murmurs, rubs, or gallops. PULMONARY: Chest is clear to auscultation, no wheezing , no crackles. ABDOMEN: Soft, nontender, nondistended, normoactive bowel sounds. No palpable organomegaly. MUSCULOSKELETAL: No joint swelling or deformity. EXTREMITIES: No cyanosis, clubbing, or pedal edema. NEUROLOGICAL: Gross neurological examination did not reveal any focal deficits. SKIN: No rashes. no petechiae. - Labs CBC & Chem 7: 03/28/23 07:47 03/28/23 07:47 Labs: Abnormal Lab Results - Last 24 Hours (Table) 03/28/23 03/28/23 Range/Units 07:47 07:47 WBC 12.69 H (4.50-10.00) X 10*3/uL RBC 3.43 L (4.40-5.60) X 10*6/uL Hgb 11.1 L (13.0-17.0) d/dL Hct 33.7 L (39.6-50.0) % MCV 98.3 H (80.0-97.0) FL MCH 32.4 H (27.0-32.0) pg Neutrophils # 8.77 H (1.80-7.70) X 10*3/uL Monocytes # 1.19 H (0.20-1.00) X 10*3/uL Est GFR (CKD-EPI) 58 L (>=60) AST 39 H (14-35) U/L Microbiology - Last 24 Hours (Table) 03/26/23 16:23 Urine Culture - Final Urine,Catheterized Assessment and Plan Assessment: Possible episodes of syncope Generalized weakness Chronic atrial fibrillation. Chronic kidney disease History of urinary retention status post self-catheterization hematuria most likely traumatic secondary to above History of colon cancer status post bowel resection and chemo History of Parkinson disease Plan: Continue with home dose of aspirin 81 mg Monitor vitals and labs Telemetry monitoring Cardiology consult Check echocardiogram Urologist as an outpatient I discussed with the she prefer him to go back to home upon discharge with PT/OT rather than going to subacute rehab Labs and medication were reviewed.. Continue same treatment. Continue with symptomatic treatment. Resume home medication. Monitor labs and vitals. DVT and GI prophylaxis. Further recommendations as per clinical course of the patient DVT prophylaxis: Subcutaneous heparin GI Prophylaxis: Pepcid Prognosis is guarded
--- NOTE | 2023-03-28 16:03 | CT ---
EXAMINATION TYPE: CT brain wo con CT DLP: 1261.9 mGycm, Automated exposure control for dose reduction was used. DATE OF EXAM: 03/28/2023 3:55 PM COMPARISON: 03/26/2023. CLINICAL INDICATION:Male, 88 years old with history of ams, ams TECHNIQUE: Brain: Axial CT images of the brain were obtained with coronal and sagittal reformats created and rev iewed. Contrast used: None. Oral contrast used: None. FINDINGS: Brain: Extra-axial spaces: No abnormal extra-axial fluid collections. Ventricular system: Dilatation in proportion to cerebral atrophy. Cerebral parenchyma: Cerebral atrophy. No acute intraparenchymal hemorrhage or mass effect. The keller -white junction is well differentiated. Scattered hypoattenuating areas are seen within the white mat ter. Cerebellum: Unremarkable. Mass effect: No evidence of midline shift. Intracranial vasculature: Atherosclerotic calcifications of the intracranial vessels. Soft tissues: Normal. Calvarium/osseous structures: No depressed skull fracture. Paranasal sinuses and mastoid air cells: Mild scattered paranasal sinus disease. Visualized orbits: Bilateral aphakia IMPRESSION: 1. No acute intracranial process. 2. Nonspecific white matter changes, likely secondary to chronic small vessel ischemic disease.
[2023-03-28] MEDS: MIRTAZAPINE 15 MG TAB PO SCH (20:08)
[2023-03-29] MEDS: METOPROLOL TARTRATE 12.5 MG TAB PO SCH ×2 (06:35→17:11)
[2023-03-29] MEDS: BRIMONIDINE TARTRATE 0.2% DROPS 5 ML BTL BOTH EYES SCH ×2 (09:22→20:06)
[2023-03-29] MEDS: ASPIRIN 81 MG PO SCH (09:22)
[2023-03-29] MEDS: amLODIPine 5 MG TAB PO SCH (09:22)
[2023-03-29] MEDS: DEXTROSE 5%-0.9% NACL 1,000 ML IV SCH (10:54)
--- NOTE | 2023-03-29 14:40 | P.PN ---
Subjective Progress Note Date: 03/29/23 * 88 yo male with past medical history of colon ca - bowel resection and chemo, stage 3 renal failure. Parkinson's. * Pt sent by spouse for weakness, and periods of unresponsiveness. Patient is alert awake and oriented to time place and person, he knows he is in [facility] with the year 2022 and he couldn't name the president. However patient is can of poor historian and his speech is not very clear as is somewhat muffled therefore I talked to his Miss Garcia over the phone and she told me usually he walks by himself and he go up stairs to his bedroom and he was able to do that yesterday but very slowly which is his normal. Usually he walks mainly in the house and does not go out but yesterday he wanted to go with his to bring his medicine, on the way back was tr tim to get him out of the car when he become not responsive, nonverbal for a few minutes and then he woke up but he has difficulty moving so she called son and [id number] who called EMS, by the time he came to the hospital he was back to his normal self. * also states that he passed out about 2 weeks ago when her grandson came up Shouting and they thought he is , however he came back within 5 minutes. * Patient sees Dr. Silva, he does not see international sales representative, he has history of A. fib. Patient currently denies chest pain or dyspnea. No abdominal pain vomiting or diarrhea. * He do self cath himself at home twice a day, Fuentes catheter was placed in the hospital. * Vitals are stable and patient is febrileLabs showed mild anemia with hemoglobin 11.2 and platelet count 119. INR is 1.1. BMP is unremarkable except for creatinine of 1.5 which is at baseline. Liver enzymes not elevated. TSH is normal at 3.0. Troponin is negative but proBNP is elevated [id number] Urine analysis showing hematuria Viruses undetected including influenza, RSV and coronavirus Chest x-ray: No acute process CT of the brain: No acute process. Suspect small mild subdural hygromas present adjacent to the frontal lobes bilaterallyEKG showing atrial fibrillation with a rate of 72 Emergency received 1 dose of Rocephin for suspicious for UTI given his hematuria 03/28/2023 Patient is more obtunded this morning, is hard to wake up, and he just withdraws to painful stimuli. It looks like patient was agitated earlier morning and he received 0.5 mg of IV Ativan at 6:30 this morning which might contributed to his severe mental confusion. He had negative CT of the brain, glucose is 100, therefore going to repeat CT of the brain given his severe symptoms. Also we lowered his IV fluids to D5 normal saline at 50 mL/h He remains on ceftriaxone, urine cultures pending Director Of Field Sales input is appreciated, CTA of the chest is negative for PE, ejection fraction is 54% with moderate mitral regurgitation and moderate LV dysfunction and moderate aortic regurgitation. His creatinine looks better today at 1.2 03/29/2023 patient seen and evaluated bedside, mentation has improved little bit. Will need physical therapy occupational therapy evaluation. Continue patient on aspirin, amlodipine. K plan discussed with and son at bedside Objective - Vital Signs Vital signs: Vital Signs Temp 97.9 F 03/29/23 13:10 Pulse 78 03/29/23 13:10 Resp 17 03/29/23 13:10 BP 117/62 03/29/23 13:10 Pulse Ox 99 03/29/23 13:10 FiO2 Intake & Output 03/28/23 03/29/23 03/29/23 18:59 06:59 18:59 Intake Total 475 Output Total 950 650 Balance -475 -650 Intake: Intake, IV Titration 475 Amount Dextrose 5%-0.9% NaCl 1, 250 000 ml @ 50 mls/hr IV . Q20H ZAFAR Rx#:[id number] Sodium Chloride 0.9% 1, 225 000 ml @ 75 mls/hr IV . [id number] ZAFAR Rx#:[id number] Output: Urine 950 650 Other: Voiding Method Indwelling Catheter Indwelling Catheter Indwelling Catheter - Exam PHYSICAL EXAMINATION: GENERAL: The patient is alert and oriented person and situation, generalized weak HEENT: Pupils are round and equally reacting to light. EOMI. CARDIOVASCULAR: S1 and S2 present PULMONARY: Chest is clear to auscultation, no wheezing or crackles. ABDOMEN: Soft, nontender, nondistended, normoactive bowel sounds. No palpable organomegaly. MUSCULOSKELETAL: No joint swelling or deformity. EXTREMITIES: No cyanosis, clubbing, or pedal edema. NEUROLOGICAL: Gross neurological examination did not reveal any focal deficits. - Labs CBC & Chem 7: 03/28/23 07:47 03/28/23 07:47 Assessment and Plan Assessment: Assessment: Syncopal episode on admission cardiomyopathy noted with EF 30% Acute delirium Urinary tract infection with Generalized weakness Chronic atrial fibrillation. 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
[2023-03-29] MEDS: QUEtiapine 25 MG TAB PO PRN (20:06)
[2023-03-29] MEDS: MIRTAZAPINE 15 MG TAB PO SCH (20:06)
[2023-03-29 21:11] LABS: Basophils % (A) 0 %; Eosinophils # (A) 0.3 k/uL (0-0.7); Eosinophils % (A) 3 %; HCT 32.7 % (39.0-53.0); HGB 11.1 gm/dL (13.0-17.5); Lymphocytes # (A) 1.8 k/uL (1.0-4.8); Lymphocytes % (A) 15 %; MCH 33.4 pg (25.0-35.0); MCHC 33.9 g/dL (31.0-37.0); MCV 98.6 fL (80.0-100.0); Mean Platelet Volume 9.3; Monocytes # (A) 0.7 k/uL (0-1.0); Monocytes % (A) 6 %; Neutrophils # (A) 9.2 k/uL (1.3-7.7); Neutrophils % (A) 75 %; Platelet Count 135 k/uL (150-450); RBC 3.32 m/uL (4.30-5.90); RDW 13.1 % (11.5-15.5); WBC 12.3 k/uL (3.8-10.6)
[2023-03-29 21:15] LABS: African American GFR (CKD) 57 (>60 ml/min/1.73 sqM); Anion Gap 7 mmol/L; Blood Urea Nitrogen 24 mg/dL (9-20); Calcium 8.7 mg/dL (8.4-10.2); Carbon Dioxide 22 mmol/L (22-30); Chloride 110 mmol/L (98-107); Glucose 126 mg/dL (74-99); Non-African American GFR(CKD) 49 (>60 ml/min/1.73 sqM); Potassium 4.1 mmol/L (3.5-5.1); Sodium 139 mmol/L (137-145)
[2023-03-30] MEDS: DEXTROSE 5%-0.9% NACL 1,000 ML IV SCH (04:21)
[2023-03-30] MEDS: METOPROLOL TARTRATE 12.5 MG TAB PO SCH ×2 (06:19→17:52)
[2023-03-30] MEDS: BRIMONIDINE TARTRATE 0.2% DROPS 5 ML BTL BOTH EYES SCH ×2 (08:40→20:19)
[2023-03-30] MEDS: amLODIPine 5 MG TAB PO SCH (08:40)
[2023-03-30] MEDS: ASPIRIN 81 MG PO SCH (08:40)
[2023-03-30 12:49] LABS: Basophils % (A) 0 %; Eosinophils # (A) 0.3 k/uL (0-0.7); Eosinophils % (A) 3 %; HCT 30.6 % (39.0-53.0); HGB 10.2 gm/dL (13.0-17.5); Lymphocytes # (A) 1.5 k/uL (1.0-4.8); Lymphocytes % (A) 16 %; MCH 33.2 pg (25.0-35.0); MCHC 33.3 g/dL (31.0-37.0); MCV 99.9 fL (80.0-100.0); Mean Platelet Volume 8.9; Monocytes # (A) 0.6 k/uL (0-1.0); Monocytes % (A) 6 %; Neutrophils # (A) 7.1 k/uL (1.3-7.7); Neutrophils % (A) 73 %; Platelet Count 141 k/uL (150-450); RBC 3.07 m/uL (4.30-5.90); RDW 12.9 % (11.5-15.5); WBC 9.7 k/uL (3.8-10.6)
--- NOTE | 2023-03-30 12:55 | P.PN ---
Subjective Progress Note Date: 03/30/23 * 88 yo male with past medical history of colon ca - bowel resection and chemo, stage 3 renal failure. Parkinson's. * Pt sent by spouse for weakness, and periods of unresponsiveness. Patient is alert awake and oriented to time place and person, he knows he is in [facility] with the year 2022 and he couldn't name the president. However patient is can of poor historian and his speech is not very clear as is somewhat muffled therefore I talked to his Miss Garcia over the phone and she told me usually he walks by himself and he go up stairs to his bedroom and he was able to do that yesterday but very slowly which is his normal. Usually he walks mainly in the house and does not go out but yesterday he wanted to go with his to bring his medicine, on the way back was tr tim to get him out of the car when he become not responsive, nonverbal for a few minutes and then he woke up but he has difficulty moving so she called son and [id number] who called EMS, by the time he came to the hospital he was back to his normal self. * also states that he passed out about 2 weeks ago when her grandson came up Shouting and they thought he is , however he came back within 5 minutes. * Patient sees Dr. Silva, he does not see detector car operator, he has history of A. fib. Patient currently denies chest pain or dyspnea. No abdominal pain vomiting or diarrhea. * He do self cath himself at home twice a day, Fuentes catheter was placed in the hospital. * Vitals are stable and patient is febrileLabs showed mild anemia with hemoglobin 11.2 and platelet count 119. INR is 1.1. BMP is unremarkable except for creatinine of 1.5 which is at baseline. Liver enzymes not elevated. TSH is normal at 3.0. Troponin is negative but proBNP is elevated [id number] Urine analysis showing hematuria Viruses undetected including influenza, RSV and coronavirus Chest x-ray: No acute process CT of the brain: No acute process. Suspect small mild subdural hygromas present adjacent to the frontal lobes bilaterallyEKG showing atrial fibrillation with a rate of 72 Emergency received 1 dose of Rocephin for suspicious for UTI given his hematuria * 03/28/2023 Patient is more obtunded this morning, is hard to wake up, and he just withdraws to painful stimuli. It looks like patient was agitated earlier morning and he received 0.5 mg of IV Ativan at 6:30 this morning which might contributed to his severe mental confusion. He had negative CT of the brain, glucose is 100, therefore going to repeat CT of the brain given his severe symptoms. Also we lowered his IV fluids to D5 normal saline at 50 mL/h He remains on ceftriaxone, urine cultures pending Electrician Marine input is appreciated, CTA of the chest is negative for PE, ejection fraction is 54% with moderate mitral regurgitation and moderate LV dysfunction and moderate aortic regurgitation. His creatinine looks better today at 1.2 * 03/29/2023 patient seen and evaluated bedside, mentation has improved little bit. Will need physical therapy occupational therapy evaluation. Continue patient on aspirin, amlodipine. K plan discussed with and son at bedside * 03/30/2023 patient seen and evaluated bedside. Patient is lethargic however easily arousable. CBC reviewed, basic metabolic panel levels ordered Objective - Vital Signs Vital signs: Vital Signs Temp 97.6 F 03/30/23 07:01 Pulse 71 03/30/23 07:01 Resp 15 03/30/23 07:01 BP 137/78 03/30/23 07:01 Pulse Ox 98 03/30/23 07:01 FiO2 Intake & Output 03/29/23 03/30/23 03/30/23 18:59 06:59 18:59 Intake Total 1080 Output Total 425 Balance 655 Intake: Oral 1080 Output: Urine 425 Other: Voiding Method Indwelling Catheter Indwelling Catheter Indwelling Catheter # Voids 450 - Exam PHYSICAL EXAMINATION: GENERAL: The patient is alert and oriented person and situation, generalized weak HEENT: Pupils are round and equally reacting to light. EOMI. CARDIOVASCULAR: S1 and S2 present , irregular rhythm PULMONARY: Chest is clear to auscultation, no wheezing or crackles. ABDOMEN: Soft, nontender, nondistended, normoactive bowel sounds. No palpable organomegaly. MUSCULOSKELETAL: No joint swelling or deformity. EXTREMITIES: No cyanosis, clubbing, or pedal edema. NEUROLOGICAL: Patient is alert however global weakness noted, mask place Parkinson's feature - Labs CBC & Chem 7: 03/30/23 12:26 03/29/23 20:47 Labs: Abnormal Lab Results - Last 24 Hours (Table) 03/29/23 03/29/23 03/30/23 Range/Units 20:47 20:47 12:26 WBC 12.3 H (3.8-10.6) k/uL RBC 3.32 L 3.07 L (4.30-5.90) m/uL Hgb 11.1 L 10.2 L (13.0-17.5) gm/dL Hct 32.7 L 30.6 L (39.0-53.0) % Plt Count 135 L 141 L (150-450) k/uL Neutrophils # 9.2 H (1.3-7.7) k/uL Chloride 110 H (98-107) mmol/L BUN 24 H (9-20) mg/dL Creatinine 1.28 H (0.66-1.25) mg/dL Glucose 126 H (74-99) mg/dL Assessment and Plan Assessment: Assessment: Syncopal episode on admission cardiomyopathy noted with EF 30% Acute delirium Urinary tract infection with Generalized weakness Chronic atrial fibrillation. Chronic kidney disease History of urinary retention status post self-catheterization hematuria most likely traumatic secondary to above History of colon cancer status post bowel resection and chemo History of Parkinson disease Plan: * Consult obtained from cardiology * Echocardiogram shows ejection fraction of 30%, continue aspirin, metoprolol pa tient euvolemic * In regards to atrial fibrillation, continue metoprolol, not a candidate for anticoagulation secondary to fall * In regards to chronic urinary retention continue with straight catheterization as needed * In regards to urinary tract infection continue patient on IV Rocephin day 4 of 5 * Regards to generalized debility patient will need discharge to subacute rehab family in agreement * Patient is on Seroquel at night to help with disorientation * Patient will need physical therapy evaluation for discharge disposition
[2023-03-30 19:21] LABS: African American GFR (CKD) 60 (>60 ml/min/1.73 sqM); Blood Urea Nitrogen 25 mg/dL (9-20); Carbon Dioxide 21 mmol/L (22-30); Non-African American GFR(CKD) 52 (>60 ml/min/1.73 sqM)
[2023-03-30] MEDS: QUEtiapine 25 MG TAB PO PRN (20:19)
[2023-03-30] MEDS: MIRTAZAPINE 15 MG TAB PO SCH (20:19)
[2023-03-30 20:51] LABS: Anion Gap 9 mmol/L; Calcium 8.7 mg/dL (8.4-10.2); Chloride 109 mmol/L (98-107); Glucose 110 mg/dL (74-99); Potassium 4.1 mmol/L (3.5-5.1); Sodium 139 mmol/L (137-145)
[2023-03-31] MEDS: DEXTROSE 5%-0.9% NACL 1,000 ML IV SCH ×2 (00:26→21:21)
[2023-03-31] MEDS: METOPROLOL TARTRATE 12.5 MG TAB PO SCH ×2 (06:28→16:39)
[2023-03-31] MEDS: amLODIPine 5 MG TAB PO SCH (09:36)
[2023-03-31] MEDS: ASPIRIN 81 MG PO SCH (09:36)
[2023-03-31] MEDS: BRIMONIDINE TARTRATE 0.2% DROPS 5 ML BTL BOTH EYES SCH ×2 (09:41→21:21)
[2023-03-31 10:48] LABS: HCT 33.1 % (39.6-50.0); HGB 10.9 d/dL (13.0-17.0); MCH 32.8 pg (27.0-32.0); MCHC 32.9 d/dL (32.0-37.0); MCV 99.7 FL (80.0-97.0); Mean Platelet Volume 11.3 FL (9.5-12.2); NRBC Per 100 WBC 0 X 10*3/uL (0.00-0.01); Platelet Count 171 X 10*3/uL (140-440); RBC 3.32 X 10*6/uL (4.40-5.60); RDW 13.1 % (11.5-14.5); WBC 10.81 X 10*3/uL (4.50-10.00)
[2023-03-31 11:03] LABS: BUN/Creat Ratio 17.77 Ratio (12.00-20.00); Blood Urea Nitrogen 23.1 mg/dL (9.0-27.0); Calcium 9.2 mg/dL (8.7-10.3); Carbon Dioxide 21.7 mmol/L (21.6-31.8); Chloride 110 mmol/L (96-109); Glucose 125 mg/dL (70-110); Potassium 4.4 mmol/L (3.5-5.5); Sodium 143 mmol/L (135-145)
[2023-03-31] MEDS: QUEtiapine 25 MG TAB PO PRN (16:39)
--- NOTE | 2023-03-31 20:21 | P.PN ---
Progress Note - Text Progress Note Date: 03/31/23 88 yo male with past medical history of colon ca - bowel resection and chemo, stage 3 renal failure. Parkinson's. * Pt sent by spouse for weakness, and periods of unresponsiveness. Patient is alert awake and oriented to time place and person, he knows he is in [facility] with the year 2022 and he couldn't name the president. However patient is can of poor historian and his speech is not very clear as is somewhat muffled therefore I talked to his Miss Garcia over the phone and she told me usually he walks by himself and he go up stairs to his bedroom and he was able to do that yesterday but very slowly which is his normal. Usually he walks mainly in the house and does not go out but yesterday he wanted to go with his to bring his medicine, on the way back was trying to get him out of the car when he become not responsive, nonverbal for a few minutes and then he woke up but he has difficulty moving so she called son and [id number] who called EMS, by the time he came to the hospital he was back to his normal self. * also states that he passed out about 2 weeks ago when her grandson came up Shouting and they thought he is , however he came back within 5 minutes. * Patient sees Dr. Silva, he does not see back end web developer, he has history of A. fib. Patient currently denies chest pain or dyspnea. No abdominal pain vomiting or diarrhea. * He do self cath himself at home twice a day, Fuentes catheter was placed in the hospital. * Vitals are stable and patient is febrileLabs showed mild anemia with hemoglobin 11.2 and platelet count 119. INR is 1.1. BMP is unremarkable except for creatinine of 1.5 which is at baseline. Liver enzymes not elevated. TSH is normal at 3.0. Troponin is negative but proBNP is elevated [id number] Urine analysis showing hematuria Viruses undetected including influenza, RSV and coronavirus Chest x-ray: No acute process CT of the brain: No acute process. Suspect small mild subdural hygromas present adjacent to the frontal lobes bilaterallyEKG showing atrial fibrillation with a rate of 72 Emergency received 1 dose of Rocephin for suspicious for UTI given his hematuria * 03/28/2023 Patient is more obtunded this morning, is hard to wake up, and he just withdraws to painful stimuli. It looks like patient was agitated earlier morning and he received 0.5 mg of IV Ativan at 6:30 this morning which might contributed to his severe mental confusion. He had negative CT of the brain, glucose is 100, therefore going to repeat CT of the brain given his severe symptoms. Also we lowered his IV fluids to D5 normal saline at 50 mL/h He remains on ceftriaxone, urine cultures pending Community Recreation Coordinator input is wiliam raman, CTA of the chest is negative for PE, ejection fraction is 54% with moderate mitral regurgitation and moderate LV dysfunction and moderate aortic regurgitation. His creatinine looks better today at 1.2 * 03/29/2023 patient seen and evaluated bedside, mentation has improved little bit. Will need physical therapy occupational therapy evaluation. Continue patient on aspirin, amlodipine. K plan discussed with and son at bedside * 03/30/2023 patient seen and evaluated bedside. Patient is lethargic however easily arousable. CBC reviewed, basic metabolic panel levels ordered 03/31/2023: I assumed care of the patient today. at the bedside. She said that up to recently patient at home would get dressed unable to come down the stairs. Able to take the walk and cold to the living room and watch some television. Does recognize her. Now has been rather lethargic. Neurology's been consulted. No ordered EEG. This patient noticed to be more lethargic today. No focal weakness. Did not eat breakfast little bit of lunch. episode this morning of decreased responsiveness. Active Medications Acetaminophen (Acetaminophen Tab 325 Mg Tab) 650 mg PO Q6HR PRN PRN Reason: Mild Pain or Fever > 100.5 Amlodipine Besylate (Amlodipine 5 Mg Tab) 5 mg PO DAILY [facility] Last Admin: 03/31/23 09:36 Dose: 5 mg Aspirin (Aspirin 81 Mg) 81 mg PO DAILY [facility] Last Admin: 03/31/23 09:36 Dose: 81 mg Brimonidine Tartrate (Brimonidine Tartrate 0.2% Drops 5 Ml Btl) 1 drops BOTH EYES BID [facility] Last Admin: 03/31/23 09:41 Dose: 1 drops Ceftriaxone Sodium 1 gm/ (Sodium Chloride) 50 mls @ 100 mls/hr IVPB Q24H [facility]; Protocol Last Admin: 03/30/23 20:18 Dose: 100 mls/hr Dextrose/Sodium Chloride (Dextrose 5%-Ns Iv Soln) 1,000 mls @ 50 mls/hr IV .Q20H [facility] Last Admin: 03/31/23 00:26 Dose: 50 mls/hr Metoprolol Tartrate (Metoprolol Tartrate 12.5 Mg Tab) 12.5 mg PO BID-W/MEALS [facility] Last Admin: 03/31/23 16:39 Dose: 12.5 mg Mirtazapine (Mirtazapine 15 Mg Tab) 15 mg PO HS [facility] Last Admin: 03/30/23 20:19 Dose: 15 mg Naloxone HCl (Naloxone 0.4 Mg/Ml 1 Ml Vial) 0.2 mg IV Q2M PRN PRN Reason: Opioid Reversal Quetiapine Fumarate (Quetiapine 25 Mg Tab) 25 mg PO BID PRN PRN Reason: Agitation or Acute Anxiety Last Admin: 03/31/23 16:39 Dose: 25 mg On examination: VITAL SIGNS: [98.2, 69, 18, 152/79, 99% room air] GENERAL APPEARANCE: Reclining bed lethargic just about arousable.. HEENT: Normal external appearance of nose and ear. Oral cavity normal EYES: Pupils equal. Conjunctiva normal. NECK: JVD not raised. Mass not palpable. RESPIRATORY: Respiratory effort normal. Lungs clear to auscultation. CARDIOVASCULAR: First and second sounds normal. No edema. ABDOMEN: Soft. Liver and spleen not palpable. No tenderness. No mass palpable. PSYCHIATRY: Lethargic just about arousable. NEUROLOGICAL: No obvious focal weakness. No rigidity. Possible ticks on the face. INVESTIGATIONS, reviewed in the clinical context: March 31: White count 10.8 hemoglobin 10.9 platelets 171 sodium 143 potassium 4.4 creatinine 1.3 UA: Nitrite negative. Leukoesterase positive. Abdomen obese. Positive. EKG tracing personally reviewed by me-atrial fibrillation. Rate 62. CT brain: Nonspecific white matter changes. Chest CT: Negative for PE. 2-D echocardiogram: EF 35-40%. Moderate MR. Moderate AI. Moderate TR. Assessment and plan: -Syncopal episode on admission cardiomyopathy noted with EF 30%. Could be underlying atrial fibrillation. -Chronic congestive heart failure from systolic dysfunction. EF 30%. Add Aldactone 12.5 mg daily. Zestril 5 mg daily at bedtime. - -Acute delirium, for medical encephalopathy. Rule out seizure.: Not improving EEG. Consult neurology -Urinary tract infection probably causing acute asthenia. IV ceftriaxone. Changed to Keflex. -Essential hypertension Amlodipine 5 mg day. Lopressor 12.5 mg by mouth twice a day. Zestril 5 mg daily at bedtime. -Chronic atrial fibrillation. Lopressor. Not on anticoagulation because of fall risk -Chronic kidney disease stage III likely nephrosclerosis -Chronic bladder outflow obstruction. Does daily self-catheterization at home. Currently with Fuentes catheter -Acute hematuria most likely traumatic secondary to Fuentes -History of colon cancer status post bowel resection and chemo -Movement disorder. Patient has no rigidity. 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 Consult neurology. Discussed with at length. Patient remains lethargic. Ordered EEG. Consult neurology. Change IV antibiotic to Keflex.
[2023-03-31] MEDS: CEPHALEXIN 500 MG CAP PO SCH (21:20)
[2023-03-31] MEDS: MIRTAZAPINE 15 MG TAB PO SCH (21:20)
[2023-03-31] MEDS: ENOXAPARIN 40 MG/0.4 ML SYRINGE SQ SCH (21:20)
[2023-03-31] MEDS: lisinopriL 5 MG TAB PO SCH (21:21)
--- NOTE | 2023-03-31 21:36 | US ---
EXAMINATION TYPE: US carotid duplex BILAT DATE OF EXAM: 03/31/2023 COMPARISON: NONE CLINICAL INDICATION: Male, 88 years old with history of Syncope; syncope TECHNIQUE: Carotid duplex ultrasound examination. Indirect Doppler criteria was utilized. FINDINGS: EXAM MEASUREMENTS: RIGHT: Peak Systolic Velocity (PSV) cm/sec ----- Right CCA: 50.8 ----- Right ICA: 98.7 ----- Right ECA: 69.1 ICA/CCA ratio: 1.9 RIGHT: End Diastole cm/sec ----- Right CCA: 14.4 ----- Right ICA: 23.1 ----- Right ECA: 7.6 LEFT: Peak Systolic Velocity (PSV) cm/sec ----- Left CCA: 84.5 ----- Left ICA: 101.6 ----- Left ECA: 104.8 ICA/CCA ratio: 1.2 LEFT: End Diastole cm/sec ----- Left CCA: 23.0 ----- Left ICA: 32.1 ----- Left ECA: 9.5 VERTEBRALS (direction of flow): Right Vertebral: Antegrade Left Vertebral: Antegrade Rhythm: Arrhythmia REPAIR MANAGER NOTES: IMPRESSION: Less than 50% stenosis of the bilateral carotid bifurcations. Criteria for Assigning % of Stenosis / Diameter reduction (Estimation based on the indirect measurements of the internal carotid artery velocities (ICA PSV). 1. Normal (no stenosis)=ICA PSV < 125 cm/s: ratio < 2.0: ICA EDV<40 cm/s. 2. Less than 50% stenosis=ICA PSV < 125 cm/s: ratio < 2.0: ICA EDV<40 cm/s. 3. 50 to 69% stenosis=ICA PSV of 125 to 230 cm/s: ration 2.0 ? 4.0: ICA EDV 40-100 cm/s. 4. Greater than 70% stenosis to near occlusion= ICA PSV > 230 cm/s: ratio > 4.0: ICA EDV > 100 cm/s. 5. Near occlusion= ICA PSV velocities may be low or undetectable: variable ratio and ICA EDV. 6. Total occlusion=unable to detect flow.
--- NOTE | 2023-04-01 05:39 | EEG ---
DATE OF SERVICE: 03/31/2023 ELECTROENCEPHALOGRAM REPORT DATE OF SERVICE: 03/31/2023 PREAMBLE: This is an 88-year-old male with syncope versus seizure. EEG FINDINGS: This is a 21-channel digital EEG recorded with video competent, utilizing 10/20 international system with referential and bipolar montages. Background consists of well-developed, moderately well regulated, mixed frequencies of alpha, with some theta activity seen in bihemispheric region. Background is posterior dominant and is reactive to eye opening and closing. Photic driving response was not seen. Some superimposed left temporal slowing in delta or theta range was seen during the study. Different stages of sleep were not seen. No focal or generalized epileptiform activity was seen. IMPRESSION: This is an abnormal EEG due to. 1. Background slowing of mild degree, suggestive of encephalopathy. 2. Focal slowing in left temporal region, intermittent, suggestive of focal, cortical neuronal dysfunction. No epileptiform activity was seen. MMODL / IJN: [id number] / MTDD
[2023-04-01] MEDS: BRIMONIDINE TARTRATE 0.2% DROPS 5 ML BTL BOTH EYES SCH ×2 (08:30→21:31)
[2023-04-01] MEDS: CEPHALEXIN 500 MG CAP PO SCH ×3 (08:30→21:31)
[2023-04-01] MEDS: ASPIRIN 81 MG PO SCH (08:31)
[2023-04-01] MEDS: SPIRONOLACTONE 25 MG TAB PO SCH (08:31)
[2023-04-01] MEDS: METOPROLOL TARTRATE 12.5 MG TAB PO SCH ×2 (08:31→18:02)
[2023-04-01] MEDS: amLODIPine 5 MG TAB PO SCH (08:32)
--- NOTE | 2023-04-01 09:07 | P.CNNES ---
History of Present Illness Consult date: 03/31/23 Requesting physician: Reagan Baca Reason for Consult: Mental status changes History of Present Illness: Patient is a 88-year-old male came to the hospital by ambulance 03/26/2022 for acute onset of weakness while trying to get out of the car. Patient states that he couldn't find his way home. He couldn't walk for long distance. Patient not a very good historian, and mumbles, therefore difficult to understand. A ccording to EMS flow sheet, patient has gone with his running errands when he pulled into the driveway and became very weak and more lethargic. He was not able to get out of the car. Stroke scale was negative. Patient's blood pressure was 119/77, pulse rate 83 respiration 18 saturation 99% blood sugar 143 and temperature 97.3. Patient's white cells are elevated 10.81, hemoglobin 10.9, platelets 171. Electrolytes are normal, BUN and creatinine normal. UA shows large amount of leukocyte esterase, 71 WBC, rare clumps. Hepatic panel is normal, CT head performed on admission and then repeated on 03/28/2023 was negative. No acute process. EKG shows atrial fibrillation with right bundle branch block. CTA of the chest shows no evidence of central pulmonary embolism. Limited evaluation of the segmental and subsegmental branches. Urine cultures showed skin or genital pamela. Patient's grandson was present, who provided with further history, and I also spoke to patient's son on the phone. They mentioned that patient had about half a dozen episodes are more in the last 12 months of episodes of losing consciousness. He would not breathe, when he comes to, he does not remember what happened. He may lose consciousness for about couple minutes sometimes up to half an hour. They mentioned that when patient was not able to get out of the car yesterday, then he passed out for short while. The last time it happened before this one, lasted for about half an hour. There is no convulsion noted, no seizure-like activity, no tongue bite or loss of control of urine. Patient's family mentions that when he stands and walks, gets dizzy. They believe it could be atrial fibrillation related. He lives with his . He uses cane or walker all the time. Patient's son believes that he is little confused in the morning on waking up. He sometimes gets hyperactive at night. Patient also does straight cath by himself for last 2 years because of loss of bladder control. 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 Patient was recommended to follow up with a neurologist but he never did. Patient's acetylcholine receptor antibodies were negative, B6 was borderline, B12 was normal. Patient was started on vitamin B6. Review of Systems Constitutional: Reports weight loss, Denies chills, Denies fever Eyes: bilateral blurred vision, denies diplopia, denies pain, denies loss of peripheral vision Ears: bilateral: ear discharge, deny: decreased hearing Ears, nose, mouth and throat: Denies headache, Denies sore throat Cardiovascular: Reports shortness of breath, Denies chest pain Respiratory: Reports cough, Reports excessive sputum Gastrointestinal: Denies abdominal pain, Denies diarrhea, Denies nausea, Denies vomiting Genitourinary: Reports urinary retention, Denies flank pain, Denies hematuria Musculoskeletal: Reports low back pain, Denies myalgias, Denies neck pain Integumentary: Denies pruritus, Denies rash Neurological: Reports as per HPI Psychiatric: Reports depression, Denies anxiety Endocrine: Reports weight change, Denies fatigue (normal amount he says) Past Medical History Past Medical History: Atrial Fibrillation, Cancer, Neurologic Disorder, Renal Disease Additional Past Medical History / Comment(s): macular degeneration, colon ca - bowel resection and chemo both times, stage 3 renal failure. Parkinson's. s History of Any Multi-Drug Resistant Organisms: None Reported Past Surgical History: Bowel Resection Additional Past Surgical History / Comment(s): colon resection - one at age 54, a second at age 69, prostate surgery june 2022. Past Anesthesia/Blood Transfusion Reactions: No Reported Reaction Past Psychological History: Depression Smoking Status: Never smoker Past Alcohol Use History: Occasional Past Drug Use History: None Reported - Past Family History Father Family Medical History: Myocardial Infarction ([place]) Mother Family Medical History: CVA/TIA Medications and Allergies Home Medications Medication Instructions Recorded Confirmed Type Brimonidine Tartrate [Alphagan P 1 drop BOTH EYES BID 08/07/20 03/26/23 History 0.2% Ophth Soln] Metoprolol Tartrate [Lopressor] 12.5 mg PO BID-W/MEALS 02/22/21 03/26/23 History Aspirin 81 mg PO DAILY 05/02/22 03/26/23 History Acetaminophen/Diphenhydramine 1 tab PO HS 03/26/23 03/26/23 History [Tylenol PM 500-25mg] Mirtazapine [Remeron] 15 mg PO HS 03/26/23 03/26/23 History Allergies Allergy/AdvReac Type Severity Reaction Status Date / Time No Known Allergies Allergy Verified 03/26/23 18:15 Physical Examination - Vital Signs Vital Signs: Vital Signs Temp Pulse Resp BP Pulse Ox 03/31/23 08:58 125 H 160/91 03/31/23 08:54 96 03/31/23 08:45 56 L 22 90/64 94 L 03/31/23 06:45 98.6 F 91 18 128/81 97 03/31/23 02:00 97.8 F 80 137/86 97 03/30/23 20:00 98.6 F 85 16 148/80 98 03/30/23 13:49 97.5 F L 73 17 98/62 98 Intake and Output 03/30/23 03/31/23 03/31/23 22:59 06:59 14:59 Output Total 600 700 Balance -600 -700 Output: Urine 600 700 Other: Voiding Method Indwelling Catheter Indwelling Catheter # Bowel Movements 1 Patient is an elderly male, in no acute distress. Patient is alert awake. He knows it is March and the year is . Regarding the city, patient states that "I know, can't figure it out". He believes that he is in a school building or in the city [place]. Speech is low volume, with a lot of mumbling, some slurring, difficult to understand.. Attention, concentration is slightly impaired and fund of knowledge is limited. Patient has slow mentation, and very prolonged latencies time to answer any question. Per patient's family, he is usually more clear but appears worse now. On cranial nerve examination, pupils are round and reacting to light, visual mcnamara are full on confrontation, extraocular muscles are intact with no nys tagmus. Face is symmetric, tongue protrudes to the midline. Palatal elevation and sensation normal, hearing is mildly decreased and shoulder shrug normal, facial sensation normal. On muscle strength testing, there is no pronator drift and the strength is normal in arms distally and proximally. In the lower limbs, his hip flexion is about 3+4-bilaterally, ankle dorsiflexion are normal. Deep tendon reflexes are 2 in the upper limbs, 1 at the knees, 1 at ankles and plantars are probably downgoing. Sensory to touch is equal with no neglect. Cerebellar function showed no ataxia for [id number] testing. Tone is mildly increased. His bulk of muscles normal. Gait not checked. On general examination, there is no carotid bruit or murmur, S1-S2 audible. Abdomen is soft nontender. Chest is clear. Peripheral pulses are present. No edema. Results - Laboratory Findings CBC and BMP: 03/31/23 06:39 03/31/23 06:39 Abnormal Lab Findings: Abnormal Labs 03/26/23 03/26/23 03/26/23 16:21 16:21 16:21 WBC RBC 3.30 L Hgb 11.2 L Hct 32.5 L MCV MCH Plt Count 119 L Neutrophils # Monocytes # D-Dimer VBG pH 7.42 H Chloride 108 H Carbon Dioxide BUN 29 H Creatinine 1.59 H Est GFR (CKD-EPI) Glucose 107 H AST Urine Protein Urine Blood Ur Leukocyte Esterase Urine RBC Urine WBC Urine WBC Clumps Urine Mucus 03/26/23 03/27/23 03/27/23 16:23 07:18 07:18 WBC 10.11 H RBC 3.16 L Hgb 10.6 L Hct 31.2 L MCV 98.7 H MCH 33.5 H Plt Count Neutrophils # Monocytes # D-Dimer VBG pH Chloride Carbon Dioxide BUN Creatinine Est GFR (CKD-EPI) 48 L Glucose AST Urine Protein Trace H Urine Blood Large H Ur Leukocyte Esterase Small H Urine RBC >182 H Urine WBC Urine WBC Clumps Urine Mucus 03/27/23 03/27/23 03/28/23 09:30 12:34 07:47 WBC 12.69 H RBC 3.43 L Hgb 11.1 L Hct 33.7 L MCV 98.3 H MCH 32.4 H Plt Count Neutrophils # 8.77 H Monocytes # 1.19 H D-Dimer 2.92 H VBG pH Chloride Carbon Dioxide BUN Creatinine Est GFR (CKD-EPI) Glucose AST Urine Protein Trace H Urine Blood Moderate H Ur Leukocyte Esterase Large H Urine RBC 20 H Urine WBC 71 H Urine WBC Clumps Rare H Urine Mucus Few H 03/28/23 03/29/23 03/29/23 07:47 20:47 20:47 WBC 12.3 H RBC 3.32 L Hgb 11.1 L Hct 32.7 L MCV MCH Plt Count 135 L Neutrophils # 9.2 H Monocytes # D-Dimer VBG pH Chloride 110 H Carbon Dioxide BUN 24 H Creatinine 1.28 H Est GFR (CKD-EPI) 58 L Glucose 126 H AST 39 H Urine Protein Urine Blood Ur Leukocyte Esterase Urine RBC Urine WBC Urine WBC Clumps Urine Mucus 03/30/23 03/30/23 03/31/23 12:26 16:34 06:39 WBC 10.81 H RBC 3.07 L 3.32 L Hgb 10.2 L 10.9 L Hct 30.6 L 33.1 L MCV 99.7 H MCH 32.8 H Plt Count 141 L Neutrophils # Monocytes # D-Dimer VBG pH Chloride 109 H Carbon Dioxide 21 L BUN 25 H Creatinine Est GFR (CKD-EPI) Glucose 110 H AST Urine Protein Urine Blood Ur Leukocyte Esterase Urine RBC Urine WBC Urine WBC Clumps Urine Mucus 03/31/23 06:39 WBC RBC Hgb Hct MCV MCH Plt Count Neutrophils # Monocytes # D-Dimer VBG pH Chloride 110 H Carbon Dioxide BUN Creatinine Est GFR (CKD-EPI) 53 L Glucose 125 H AST Urine Protein Urine Blood Ur Leukocyte Esterase Urine RBC Urine WBC Urine WBC Clumps Urine Mucus Assessment and Plan Assessment: * Episodes of unresponsiveness, unclear cause. Rule out arrhythmia. * Probable mild delirium, rule out UTI. * Atrial fibrillation * Possible parkinsonism. Rule out MSA * Memory loss, possible underlying mild dementia. Plan: * EEG was performed today EEG was performed today, which was abnormal due to background slowing of mild degree, suggestive of encephalopathy. Also showed focal slowing in the left temporal region, intermittent, suggestive of focal cortical neuronal dysfunction. No epileptiform activity was seen. No indication for antiepileptic medication at this time. May need a prolonged study in the future. * Check carotid Doppler to rule out stenosis. Revealed less than 50% stenosis of bilateral carotid bifurcations. Antegrade flow in both vertebral arteries. * Patient's syncopal spells could be related to arrhythmia. Patient does have atrial fibrillation. Cardiology has seen the patient, not recommending anticoagulation because of age and fall risk. * Event monitor was considered by cardiology, but felt cognitively patient not a good candidate. * Continue aspirin 81 mg. * Neurology will follow. Thank you for the consult.
--- NOTE | 2023-04-01 15:00 | P.PN ---
Progress Note - Text Progress Note Date: 04/01/23 88 yo male with past medical history of colon ca - bowel resection and chemo, stage 3 renal failure. Parkinson's. * Pt sent by spouse for weakness, and periods of unresponsiveness. Patient is alert awake and oriented to time place and person, he knows he is in [facility] with the year 2022 and he couldn't name the president. However patient is can of poor historian and his speech is not very clear as is somewhat muffled therefore I talked to his Miss Garcia over the phone and she told me usually he walks by himself and he go up stairs to his bedroom and he was able to do that yesterday but very slowly which is his normal. Usually he walks mainly in the house and does not go out but yesterday he wanted to go with his to bring his medicine, on the way back was trying to get him out of the car when he become not responsive, nonverbal for a few minutes and then he woke up but he has difficulty moving so she called son and [id number] who called EMS, by the time he came to the hospital he was back to his normal self. * also states that he passed out about 2 weeks ago when her grandson came up Shouting and they thought he is , however he came back within 5 minutes. * Patient sees Dr. Silva, he does not see hull drafter, he has history of A. fib. Patient currently denies chest pain or dyspnea. No abdominal pain vomiting or diarrhea. * He do self cath himself at home twice a day, Fuentes catheter was placed in the hospital. * Vitals are stable and patient is febrileLabs showed mild anemia with hemoglobin 11.2 and platelet count 119. INR is 1.1. BMP is unremarkable except for creatinine of 1.5 which is at baseline. Liver enzymes not elevated. TSH is normal at 3.0. Troponin is negative but proBNP is elevated [id number] Urine analysis showing hematuria Viruses undetected including influenza, RSV and coronavirus Chest x-ray: No acute process CT of the brain: No acute process. Suspect small mild subdural hygromas present adjacent to the frontal lobes bilaterallyEKG showing atrial fibrillation with a rate of 72 Emergency received 1 dose of Rocephin for suspicious for UTI given his hematuria * 03/28/2023 Patient is more obtunded this morning, is hard to wake up, and he just withdraws to painful stimuli. It looks like patient was agitated earlier morning and he received 0.5 mg of IV Ativan at 6:30 this morning which might contributed to his severe mental confusion. He had negative CT of the brain, glucose is 100, therefore going to repeat CT of the brain given his severe symptoms. Also we lowered his IV fluids to D5 normal saline at 50 mL/h He remains on ceftriaxone, urine cultures pending Pulping Machine Operator input is wiliam raman, CTA of the chest is negative for PE, ejection fraction is 54% with moderate mitral regurgitation and moderate LV dysfunction and moderate aortic regurgitation. His creatinine looks better today at 1.2 * 03/29/2023 patient seen and evaluated bedside, mentation has improved little bit. Will need physical therapy occupational therapy evaluation. Continue patient on aspirin, amlodipine. K plan discussed with and son at bedside * 03/30/2023 patient seen and evaluated bedside. Patient is lethargic however easily arousable. CBC reviewed, basic metabolic panel levels ordered 03/31/2023: I assumed care of the patient today. at the bedside. She said that up to recently patient at home would get dressed unable to come down the stairs. Able to take the walk and cold to the living room and watch some television. Does recognize her. Now has been rather lethargic. Neurology's been consulted. No ordered EEG. This patient noticed to be more lethargic today. No focal weakness. Did not eat breakfast little bit of lunch. episode this morning of decreased responsiveness. 04/01/2023: Patient is rather lethargic. Patient took about 3 steps with total assist with PT. Answering questions slowly. Patient's son and daughter the bedside. Discussion held. They don't want any further testing. 90 discussion. Looking into hospice. EEG showed evidence of encephalopathy. Eating little. Active Medications Acetaminophen (Acetaminophen Tab 325 Mg Tab) 650 mg PO Q6HR PRN PRN Reason: Mild Pain or Fever > 100.5 Amlodipine Besylate (Amlodipine 5 Mg Tab) 5 mg PO DAILY REPLACED BY [facility] Last Admin: 04/01/23 08:32 Dose: 5 mg Aspirin (Aspirin 81 Mg) 81 mg PO DAILY REPLACED BY [facility] Last Admin: 04/01/23 08:31 Dose: 81 mg Brimonidine Tartrate (Brimonidine Tartrate 0.2% Drops 5 Ml Btl) 1 drops BOTH EYES BID REPLACED BY [facility] Last Admin: 04/01/23 08:30 Dose: 1 drops Cephalexin (Cephalexin 500 Mg Cap) 500 mg PO TID REPLACED BY [facility]; Protocol Last Admin: 04/01/23 08:30 Dose: 500 mg Enoxaparin Sodium (Enoxaparin 40 Mg/0.4 Ml Syringe) 40 mg SQ HS REPLACED BY [facility] Last Admin: 03/31/23 21:20 Dose: 40 mg Dextrose/Sodium Chloride (Dextrose 5%-Ns Iv Soln) 1,000 mls @ 50 mls/hr IV .Q20H REPLACED BY [facility] Last Admin: 03/31/23 21:21 Dose: 50 mls/hr Lisinopril (Lisinopril 5 Mg Tab) 5 mg PO HS REPLACED BY [facility] Last Admin: 03/31/23 21:21 Dose: 5 mg Metoprolol Tartrate (Metoprolol Tartrate 12.5 Mg Tab) 12.5 mg PO BID-W/MEALS REPLACED BY [facility] Last Admin: 04/01/23 08:31 Dose: 12.5 mg Mirtazapine (Mirtazapine 15 Mg Tab) 15 mg PO HS REPLACED BY [facility] Last Admin: 03/31/23 21:20 Dose: 15 mg Naloxone HCl (Naloxone 0.4 Mg/Ml 1 Ml Vial) 0.2 mg IV Q2M PRN PRN Reason: Opioid Reversal Quetiapine Fumarate (Quetiapine 25 Mg Tab) 25 mg PO BID PRN PRN Reason: Agitation or Acute Anxiety Last Admin: 03/31/23 16:39 Dose: 25 mg Spironolactone (Spironolactone 25 Mg Tab) 12.5 mg PO DAILY REPLACED BY [facility] Last Admin: 04/01/23 08:31 Dose: 12.5 mg On examination: VITAL SIGNS: 97.8, 70, 16, 107/61, 97% room air GENERAL APPEARANCE: Reclining bed lethargic HEENT: Normal external appearance of nose and ear. Oral cavity normal EYES: Pupils equal. Conjunctiva normal. NECK: JVD not raised. Mass not palpable. RESPIRATORY: Respiratory effort normal. Lungs clear to auscultation. CARDIOVASCULAR: First and second sounds normal. No edema. ABDOMEN: Soft. Liver and spleen not palpable. No tenderness. No mass palpable. PSYCHIATRY: Lethargic just about arousable. NEUROLOGICAL: No obvious focal weakness. No rigidity. INVESTIGATIONS, reviewed in the clinical context: EEG: Evidence of encephalopathy. Focal slowing in the left temporal region. Intermittent. March 31: White count 10.8 hemoglobin 10.9 platelets 171 sodium 143 potassium 4.4 creatinine 1.3 UA: Nitrite negative. Leukoesterase positive. Abdomen obese. Positive. EKG tracing personally reviewed by me-atrial fibrillation. Rate 62. CT brain: Nonspecific white matter changes. Chest CT: Negative for PE. 2-D echocardiogram: EF 35-40%. Moderate MR. Moderate AI. Moderate TR. Assessment and plan: -Syncopal episode on admission cardiomyopathy noted with EF 30%. Could be underlying atrial fibrillation. -Chronic congestive heart failure from systolic dysfunction. EF 30%. Aldactone 12.5 mg daily. Zestril 5 mg daily at bedtime. - -Acute delirium, for medical encephalopathy. Rule out seizure.: Not improving EEG results noted.. Followed by neurology. Family does not want any further workup. -Urinary tract infection probably causing acute asthenia. Keflex. -Essential hypertension Amlodipine 5 mg day. Lopressor 12.5 mg by mouth twice a day. Zestril 5 mg daily at bedtime. -Chronic atrial fibrillation. Lopressor. Not on anticoagulation because of fall risk -Chronic kidney disease stage III likely nephrosclerosis -Chronic bladder outflow obstruction. Does daily self-catheterization at home. Currently with Fuentes catheter -Acute hematuria most likely traumatic secondary to Fuentes -Moderate to severe cognitive impairment. 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 Patient has no rigidity. 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 Seen by neurology. -DO NOT RESUSCITATE, looking into hospice Advance care planning: Meeting was held with the , the son and the daughter at the bedside. They don't want any further testing. Care was discussed in detail. Patient been having gradual decline O some. Her time. Different options were discussed. Looking into hospice. Discussed with correctional case records supervisor. Total time spent about 30 minutes
[2023-04-01] MEDS: DEXTROSE 5%-0.9% NACL 1,000 ML IV SCH (18:03)
[2023-04-01] MEDS: ENOXAPARIN 40 MG/0.4 ML SYRINGE SQ SCH (21:31)
[2023-04-01] MEDS: lisinopriL 5 MG TAB PO SCH (21:31)
[2023-04-01] MEDS: MIRTAZAPINE 15 MG TAB PO SCH (21:31)
[2023-04-02] MEDS: QUEtiapine 25 MG TAB PO PRN (02:53)
[2023-04-02] MEDS: CEPHALEXIN 500 MG CAP PO SCH (07:54)
[2023-04-02] MEDS: METOPROLOL TARTRATE 12.5 MG TAB PO SCH (07:57)
[2023-04-02] MEDS: amLODIPine 5 MG TAB PO SCH (07:58)
[2023-04-02] MEDS: BRIMONIDINE TARTRATE 0.2% DROPS 5 ML BTL BOTH EYES SCH (07:58)
[2023-04-02] MEDS: SPIRONOLACTONE 25 MG TAB PO SCH (07:58)
[2023-04-02] MEDS: ASPIRIN 81 MG PO SCH (07:58)
[2023-04-02 08:24] VITALS: RESP 16
[2023-04-02 12:57] VITALS: BP 102/62; PULSE 52; TEMP 98.2
--- NOTE | 2023-04-02 13:00 | P.DS ---
Providers Date of admission: 03/31/23 07:49 Expected date of discharge: 04/02/23 Attending physician: Reagan Baca Consults: 03/31/23 12:18 Consult Physician Routine Consulting Provider: Adam Mckay Consult Reason/Comments: mental status changes Do you want consulting provider notified?: Yes Primary care physician: [facility] Course: 88 yo male with past medical history of colon ca - bowel resection and chemo, stage 3 renal failure. Parkinson's. * Pt sent by spouse for weakness, and periods of unresponsiveness. Patient is alert awake and oriented to time place and person, he knows he is in [facility] with the year 2022 and he couldn't name the president. However patient is can of poor historian and his speech is not very clear as is somewhat muffled therefore I talked to his Miss Garcia over the phone and she told me usually he walks by himself and he go up stairs to his bedroom and he was able to do that yesterday but very slowly which is his normal. Usually he walks mainly in the house and does not go out but yesterday he wanted to go with his to bring his medicine, on the way back was trying to get him out of the car when he become not responsive, nonverbal for a few minutes and then he woke up but he has difficulty moving so she called son and [id number] who called EMS, by the time he came to the hospital he was back to his normal self. * also states that he passed out about 2 weeks ago when her grandson came up Shouting and they thought he is , however he came back within 5 minutes. * Patient sees Dr. Silva, he does not see service sprinkler helper, he has history of A. fib. Patient currently denies chest pain or dyspnea. No abdominal pain vomiting or diarrhea. * He do self cath himself at home twice a day, Fuentes catheter was placed in the hospital. * Vitals are stable and patient is febrileLabs showed mild anemia with hemoglobin 11.2 and platelet count 119. INR is 1.1. BMP is unremarkable except for creatinine of 1.5 which is at baseline. Liver enzymes not elevated. TSH is normal at 3.0. Troponin is negative but proBNP is elevated [id number] Urine analysis showing hematuria Viruses undetected including influenza, RSV and coronavirus Chest x-ray: No acute process CT of the brain: No acute process. Suspect small mild subdural hygromas present adjacent to the frontal lobes bilaterallyEKG showing atrial fibrillation with a rate of 72 Emergency received 1 dose of Rocephin for suspicious for UTI given his hematuria * 03/28/2023 Patient is more obtunded this morning, is hard to wake up, and he just withdraws to painful stimuli. It looks like patient was agitated earlier morning and he received 0.5 mg of IV Ativan at 6:30 this morning which might contributed to his severe mental confusion. He had negative CT of the brain, glucose is 100, therefore going to repeat CT of the brain given his severe symptoms. Also we lowered his IV fluids to D5 normal saline at 50 mL/h He remains on ceftriaxone, urine cultures pending Aluminum Container Tester input is appreciated, CTA of the chest is negative for PE, ejection fraction is 54% with moderate mitral regurgitation and moderate LV dysfunction and moderate aortic regurgitation. His creatinine looks better today at 1.2 * 03/29/2023 patient seen and evaluated bedside, mentation has improved little bit. Will need physical therapy occupational therapy evaluation. Continue patient on aspirin, amlodipine. K plan discussed with and son at bedside * 03/30/2023 patient seen and evaluated bedside. Patient is lethargic however easily arousable. CBC reviewed, basic metabolic panel levels ordered 03/31/2023: I assumed care of the patient today. at the bedside. She said that up to recently patient at home would get dressed unable to come down the stairs. Able to take the walk and cold to the living room and watch some television. Does recognize her. Now has been rather lethargic. Neurology's been consulted. No ordered EEG. This patient noticed to be more lethargic today. No focal weakness. Did not eat breakfast little bit of lunch. episode this morning of decreased responsiveness. 04/01/2023: Patient is rather lethargic. Patient took about 3 steps with total assist with PT. Answering questions slowly. Patient's son and daughter the bedside. Discussion held. They don't want any further testing. 90 discussion. Looking into hospice. EEG showed evidence of encephalopathy. Eating little. 04/02/2023: Remains tired. Eating some food with assistance. Discussed with . We'll try to rehab. The patient does poorly then hospice would be appropriate. We'll go to [facility] rehab Discussion and discharge planning more than 35 minutes On examination: VITAL SIGNS: 98.2, 52, 16, 1 or 2 x 62, 100% room air GENERAL APPEARANCE: Reclining bed lethargic HEENT: Normal external appearance of nose and ear. Oral cavity normal EYES: Pupils equal. Conjunctiva normal. NECK: JVD not raised. Mass not palpable. RESPIRATORY: Respiratory effort normal. Lungs clear to auscultation. CARDIOVASCULAR: First and second sounds normal. No edema. ABDOMEN: Soft. Liver and spleen not palpable. No tenderness. No mass palpable. PSYCHIATRY: Tired but able to answer occasional question NEUROLOGICAL: No obvious focal weakness. No rigidity. INVESTIGATIONS, reviewed in the clinical context: EEG: Evidence of encephalopathy. Focal slowing in the left temporal region. Intermittent. March 31: White count 10.8 hemoglobin 10.9 platelets 171 sodium 143 potassium 4.4 creatinine 1.3 UA: Nitrite negative. Leukoesterase positive. Abdomen obese. Positive. EKG tracing personally reviewed by me-atrial fibrillation. Rate 62. CT brain: Nonspecific white matter changes. Chest CT: Negative for PE. 2-D echocardiogram: EF 35-40%. Moderate MR. Moderate AI. Moderate TR. Assessment and plan: -Syncopal episode on admission cardiomyopathy noted with EF 30%. Could be underlying atrial fibrillation. -Chronic congestive heart failure from systolic dysfunction. EF 30%. Aldactone 12.5 mg daily. Zestril 5 mg daily at bedtime. - -Acute delirium, for medical encephalopathy. Rule out seizure.: Slow to respond EEG results noted.. Followed by neurology. Family does not want any further workup. -Urinary tract infection probably causing acute asthenia. Keflex. -Essential hypertension Amlodipine 5 mg day. Lopressor 12.5 mg by mouth twice a day. Zestril 5 mg daily at bedtime. -Chronic atrial fibrillation. Lopressor. Not on anticoagulation because of fall risk -Chronic kidney disease stage III likely nephrosclerosis -Chronic bladder outflow obstruction. Does daily self-catheterization at home. Currently with Fuentes catheter -Acute hematuria most likely traumatic secondary to Fuentes -Moderate to severe cognitive impairment. 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 Patient has no rigidity. 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 Seen by neurology. -DO NOT RESUSCITATE, Disposition: Jorge A in the [place] Plan - Discharge Summary Discharge Rx Participant: No New Discharge Prescriptions: New lisinopriL [Zestril] 5 mg PO HS tab Spironolactone [Aldactone] 12.5 mg PO DAILY tab amLODIPine [Norvasc] 5 mg PO DAILY tab Acetaminophen Tab [Tylenol] 650 mg PO Q6HR PRN tab PRN Reason: Mild Pain Or Fever > 100.5 Continue Brimonidine Tartrate [Alphagan P 0.2% Ophth Soln] 1 drop BOTH EYES BID Metoprolol Tartrate [Lopressor] 12.5 mg PO BID-W/MEALS Aspirin 81 mg PO DAILY Mirtazapine [Remeron] 15 mg PO HS #3 tab Discontinued Acetaminophen/Diphenhydramine [Tylenol PM 500-25mg] 1 tab PO HS Discharge Medication List Brimonidine Tartrate [Alphagan P 0.2% Ophth Soln] 1 drop BOTH EYES BID 08/07/20 [History] Metoprolol Tartrate [Lopressor] 12.5 mg PO BID-W/MEALS 02/22/21 [History] Aspirin 81 mg PO DAILY 05/02/22 [History] Acetaminophen Tab [Tylenol] 650 mg PO Q6HR PRN tab 04/02/23 [Rx] Mirtazapine [Remeron] 15 mg PO HS #3 tab 04/02/23 [Rx] Spironolactone [Aldactone] 12.5 mg PO DAILY tab 04/02/23 [Rx] amLODIPine [Norvasc] 5 mg PO DAILY tab 04/02/23 [Rx] lisinopriL [Zestril] 5 mg PO HS tab 04/02/23 [Rx] Follow up Appointment(s)/Referral(s): Carlos Silva DO [Primary Care Provider] - 1-2 days (Please call for follow-up appointment.) [facility] [place], [NON-STAFF] - As Needed
[2023-04-02] MEDS: DEXTROSE 5%-0.9% NACL 1,000 ML IV SCH (14:10)
== END 2023-04-02 15:22 | DRG 309 ==
LOC: EC 14:44 → SUPCPDRO 14:44 → 4SSUR 19:12 → OBSVTOIN 03-31 07:49
PROVIDERS: ADMIT Hospitalist; ATTEND Hospitalist
DX: I48.19 Other persistent atrial fibrillation (principal); F02.B3 Dementia in other diseases classified elsewhere, moderate, with mood disturbance; G93.49 Other encephalopathy; I13.0 Hypertensive heart and chronic kidney disease with heart failure and stage 1 through stage 4 chronic kidney disease, or unspecified chronic kidney disease; F05 Delirium due to known physiological condition; T83.83XA Hemorrhage due to genitourinary prosthetic devices, implants and grafts, initial encounter; I50.22 Chronic systolic (congestive) heart failure; N39.0 Urinary tract infection, site not specified; I27.20 Pulmonary hypertension, unspecified; I42.9 Cardiomyopathy, unspecified; D63.1 Anemia in chronic kidney disease; G30.1 Alzheimer's disease with late onset; G20 Parkinson's disease; N18.30 Chronic kidney disease, stage 3 unspecified; Z66 Do not resuscitate; R53.1 Weakness; R33.9 Retention of urine, unspecified; R31.9 Hematuria, unspecified; R79.89 Other specified abnormal findings of blood chemistry; I45.10 Unspecified right bundle-branch block; N39.498 Other specified urinary incontinence; R26.89 Other abnormalities of gait and mobility; I08.1 Rheumatic disorders of both mitral and tricuspid valves; N32.0 Bladder-neck obstruction; Y84.6 Urinary catheterization as the cause of abnormal reaction of the patient, or of later complication, without mention of misadventure at the time of the procedure; Z20.822 Contact with and (suspected) exposure to COVID-19; Z92.21 Personal history of antineoplastic chemotherapy; Z85.038 Personal history of other malignant neoplasm of large intestine; Z79.82 Long term (current) use of aspirin; Z79.899 Other long term (current) drug therapy; E86.0 Dehydration; Z87.440 Personal history of urinary (tract) infections
CPT/HCPCS: 36415; 70450; 71046; 71275; 80048; 80053; 80076; 81001; 82140; 82803; 83605; 83735; 83880; 84443; 84484; 85025; 85027; 85379; 85610; 85730; 86850; 86900; 86901; 87086; 87636; 93005; 93306; 93880; 94760; 95816; 96361; 96365; 99285

== ENCOUNTER 2023-08-28 20:02 | Emergency (ER) | payer MEDICARE ==
--- NOTE | 2023-08-28 20:36 | ED ---
General Adult HPI - General Chief complaint: Urogenital Stated complaint: Catheter Issues Time Seen by Provider: 08/28/23 20:07 Source: patient, RN notes reviewed, old records reviewed Mode of arrival: ambulatory Limitations: no limitations - History of Present Illness Initial comments: 88-year-old male with a chronic indwelling Fuentes presents for evaluation of suspected catheter issue. Patient had Fuentes catheter placed today by the hospice nurse and has not had any urine drainage through the catheter has had some blood within the catheter and urine coming around the catheter. He's had previous catheters placed by urology secondary to falls track. No other complaints. - Related Data Home Medications Medication Instructions Recorded Confirmed Brimonidine Tartrate [Alphagan P 1 drop BOTH EYES BID 08/07/20 03/26/23 0.2% Ophth Soln] Metoprolol Tartrate [Lopressor] 12.5 mg PO BID-W/MEALS 02/22/21 03/26/23 Aspirin 81 mg PO DAILY 05/02/22 03/26/23 Previous Rx's Medication Instructions Recorded Acetaminophen Tab [Tylenol] 650 mg PO Q6HR PRN tab 04/02/23 Mirtazapine [Remeron] 15 mg PO HS #3 tab 04/02/23 Spironolactone [Aldactone] 12.5 mg PO DAILY tab 04/02/23 amLODIPine [Norvasc] 5 mg PO DAILY tab 04/02/23 lisinopriL [Zestril] 5 mg PO HS tab 04/02/23 Allergies Allergy/AdvReac Type Severity Reaction Status Date / Time No Known Allergies Allergy Verified 08/28/23 20:16 Review of Systems ROS Statement: Those systems with pertinent positive or pertinent negative responses have been documented in the HPI. ROS Other: All systems not noted in ROS Statement are negative. Past Medical History Past Medical History: Atrial Fibrillation, Cancer, Neurologic Disorder, Renal Disease Additional Past Medical History / Comment(s): macular degeneration, colon ca - bowel resection and chemo both times, stage 3 renal failure. Parkinson's. s History of Any Multi-Drug Resistant Organisms: None Reported Past Surgical History: Bowel Resection Additional Past Surgical History / Comment(s): colon resection - one at age 54, a second at age 69, prostate surgery june 2022. Past Anesthesia/Blood Transfusion Reactions: No Reported Reaction Past Psychological History: Depression Smoking Status: Never smoker Past Alcohol Use History: Occasional Past Drug Use History: None Reported - Past Family History Father Family Medical History: Myocardial Infarction ([place]) Mother Family Medical History: CVA/TIA General Exam Limitations: no limitations General appearance: alert, in no apparent distress Head exam: Present: atraumatic, normocephalic Eye exam: Present: normal appearance, PERRL Respiratory exam: Absent: respiratory distress Cardiovascular Exam: Present: regular rate, normal rhythm GI/Abdominal exam: Present: distended. Absent: tenderness, guarding, rebound Extremities exam: Present: normal inspection Neurological exam: Present: alert Psychiatric exam: Present: normal affect, normal mood Skin exam: Present: warm, dry, intact Course Vital Signs 08/28/23 20:13 Temperature 97.9 F Pulse Rate 63 Respiratory 16 Rate Blood Pressure 109/63 O2 Sat by Pulse 91 L Oximetry Medical Decision Making - Medical Decision Making Was pt. sent in by a medical professional or institution (, PA, AVIATION PROJECT MANAGER, urgent care, hospital, or custodial...) When possible be specific @ -No Did you speak to anyone other than the patient for history (EMS, parent, family, police, friend...)? What history was obtained from this source @ -No Did you review nursing and triage notes (agree or disagree)? Why? @ -I reviewed and agree with nursing and triage notes Were old charts reviewed (outside hosp., previous admission, EMS record, old EKG, old radiological studies, urgent care reports/EKG's, custodial records)? Report findings @ -No old charts were reviewed Differential Diagnosis (chest pain, altered mental status, abdominal pain women, abdominal pain men, vaginal bleeding, weakness, fever, dyspnea, syncope, headache, dizziness, GI bleed, back pain, seizure, CVA, palpatations, mental health, musculoskeletal)? @Occluded urinary catheter, malpositioned urinary catheter EKG interpreted by me (3pts min.). @ -As above X-rays interpreted by me (1pt min.). @ -None done CT interpreted by me (1pt min.). @ -None done U/S interpreted by me (1pt. min.). @ -None done What testing was considered but not performed or refused? (CT, X-rays, U/S, labs)? Why? @ -None What meds were considered but not given or refused? Why? @ -None Did you discuss the management of the patient with other professionals (professionals i.e. DrDov, PA, AVIATION PROJECT MANAGER, lab, RT, psych nurse, psychiatric social worker supervisor, director digital catalogue, teacher, rating officer, watch caser)? Give summary @ -No Was smoking cessation discussed for >3mins.? @ -No Was critical care preformed (if so, how long)? @ -No Were there social determinants of health that impacted care today? How? (Homelessness, low income, unemployed, alcoholism, drug addiction, transportation, low edu. Level, literacy, decrease access to med. care, intermediate, rehab)? @ -No Was there de-escalation of care discussed even if they declined (Discuss DNR or withdrawal of care, Hospice)? DNR status @ -No What co-morbidities impacted this encounter? (DM, HTN, Smoking, COPD, CAD, Cancer, CVA, ARF, Chemo, Hep., AIDS, mental health diagnosis, sleep apnea, morbid obesity)? @ -[Chronic urinary retention Was patient admitted / discharged? Hospital course, mention meds given and route, prescriptions, significant lab abnormalities, going to OR and other pertinent info. @ -[88-year-old male with suspected occluded or malpositioned catheter. Catheter replaced by myself with good urine flow. This was a difficult catheter placed, 16-Khmer coud Undiagnosed new problem with uncertain prognosis? @ -No Drug Therapy requiring intensive monitoring for toxicity (Heparin, Nitro, Insulin, Cardizem)? @ -No Were any procedures done? @ -No Diagnosis/symptom? @ -Malpositioned Fuentes catheter Acute, or Chronic, or Acute on Chronic? @ -Acute Uncomplicated (without systemic symptoms) or Complicated (systemic symptoms)? @ -default Side effects of treatment? @ -No Exacerbation, Progression, or Severe Exacerbation? @ -No Poses a threat to life or bodily function? How? (Chest pain, [place], [place], pneumonia, PE, COPD, DKA, ARF, appy, cholecystitis, CVA, Diverticulitis, Homicidal, Suicidal, threat to staff... and all critical care pts) @ -No Disposition Clinical Impression: History of urinary retention Disposition: HOME SELF-CARE Condition: Fair Instructions (If sedation given, give patient instructions): Fuentes Catheter Placement and Care (ED) Is patient prescribed a controlled substance at d/c from ED?: No Referrals: Carlos Silva DO [Primary Care Provider] - 1-2 days Time of Disposition: 21:32
[2023-08-28 22:04] VITALS: BP 110/65; PULSE 60; RESP 18; TEMP 97.6
== END 2023-08-28 21:50 | disposition home or self-care (01) ==
LOC: EC 20:02
DX: T83.020A Displacement of cystostomy catheter, initial encounter (principal); I48.91 Unspecified atrial fibrillation; Z86.59 Personal history of other mental and behavioral disorders; Z79.82 Long term (current) use of aspirin
CPT/HCPCS: 51702; 99283